=== PATIENT | female | born 1950 | race Caucasian/White ===

== ENCOUNTER → 2019-11-26 11:05 | Outpatient (BNVA) | payer MEDICARE, OTHER, SELFPAY | PROVIDERS: Family Provider Internal Medicine; PCP Internal Medicine | DX: D50.9 Iron deficiency anemia, unspecified (principal) | CPT/HCPCS: 85025 ==

== ENCOUNTER → 2019-12-05 08:58 | Outpatient (BNVA) | payer MEDICARE, OTHER, SELFPAY | PROVIDERS: Family Provider Internal Medicine; PCP Internal Medicine; Visit Provider Registered Nurse | DX: D50.9 Iron deficiency anemia, unspecified (principal) | CPT/HCPCS: 82607; 82728; 83540; 83550; 84466; 85007; 85027 ==

== ENCOUNTER → 2020-01-08 10:30 | Outpatient (BNVA) | payer MEDICARE, OTHER, SELFPAY | PROVIDERS: Family Provider Internal Medicine; PCP Internal Medicine; Visit Provider Internal Medicine | DX: E03.9 Hypothyroidism, unspecified (principal); I10 Essential (primary) hypertension; D50.9 Iron deficiency anemia, unspecified; E11.9 Type 2 diabetes mellitus without complications; E78.5 Hyperlipidemia, unspecified; I25.10 Atherosclerotic heart disease of native coronary artery without angina pectoris | CPT/HCPCS: 80053; 83036; 84443; 85025 ==

== ENCOUNTER 2020-05-27 13:57 | Outpatient (CLI) | payer MEDICARE, OTHER, SELFPAY ==
--- NOTE | 2020-05-27 14:03 | MM_ITS ---
WS: [id number] SCREENING DIGITAL MAMMOGRAM WITH CAD HISTORY: SCREENING COMPARISON: 04/24/2019 and 04/08/2018 Bilateral CC and MLO views submitted. Computer aided detection analyzed. Breast composition: There are scattered areas of fibroglandular density. No suspicious masses, microc alcifications or architectural distortion. MM/[id number] IMPRESSION: BI-RADS: 1-Negative FOLLOW UP: 1 Year Follow-up
== END 2020-05-27 13:58 | disposition home or self-care (01) ==
LOC: RADSHAW 14:01
PROVIDERS: PCP Internal Medicine; Visit Provider Internal Medicine
DX: Z12.31 Encounter for screening mammogram for malignant neoplasm of breast (principal)
CPT/HCPCS: 77067

== ENCOUNTER → 2020-08-10 09:04 | Outpatient (BNVA) | payer MEDICARE, OTHER, SELFPAY | PROVIDERS: PCP Internal Medicine; Referring Provider Dermatology; Visit Provider Dermatology | DX: Z12.83 Encounter for screening for malignant neoplasm of skin (principal); D48.5 Neoplasm of uncertain behavior of skin; L82.1 Other seborrheic keratosis; D36.10 Benign neoplasm of peripheral nerves and autonomic nervous system, unspecified; L91.8 Other hypertrophic disorders of the skin; D48.9 Neoplasm of uncertain behavior, unspecified | CPT/HCPCS: 11102; 88304; 99203 ==

== ENCOUNTER 2020-09-20 14:54 | Outpatient (CLI) | payer MEDICARE, OTHER, SELFPAY ==
[2020-09-20 15:43] LABS: Blood Urea Nitrogen 29 mg/dL (8-23); Glomerular Filtration Rate 31.9 mL/min (90-130)
== END 2020-09-20 14:55 | disposition home or self-care (01) ==
LOC: RADWPI 14:58
PROVIDERS: PCP Internal Medicine; Visit Provider Internal Medicine
DX: G50.9 Disorder of trigeminal nerve, unspecified (principal)
CPT/HCPCS: 82565; 84520

== ENCOUNTER 2020-09-22 14:20 | Outpatient (CLI) | payer MEDICARE, OTHER, SELFPAY ==
--- NOTE | 2020-09-22 14:39 | CT_ITS ---
WS: [id number] CT scan of the head, without IV contrast, 09/22/2020 Clinical Data: trigeminal nerve Comparison: CT head, 11/14/2019. DLP: 925.[address] scans at [facility] use at least one of these dose optimization techniques: automat ed exposure control; mA and/or kV adjustment per patient size (includes targeted exams where dose is matched to clinical indication); or iterative reconstruction. Findings: The ventricular system is modestly dilated without shift. No recent infarct or hemorrhage is seen. Th ere are no abnormal intracerebral masses. The cerebellum and brainstem are not remarkable. Bony windows of the skull and skull base show no fractures or erosions. The mastoid air cells, international guest coordinator al auditory canals, sella turcica, intraorbital contents, and paranasal sinuses are unremarkable. CT/CT head wo/w con [id number] Impression: Negative CT scan of the head with and without IV contrast.
--- NOTE | 2020-09-22 14:39 | CT_ITS ---
WS: [id number] CT scan of the neck with IV contrast. Additional two-dimensional coronal and sagittal reconstruction was performed. 09/22/2020 Clinical Data: focus skull base Comparison: None. DLP: 2460.[address] scans at [facility] use at least one of these dose optimization techniques: automat ed exposure control; mA and/or kV adjustment per patient size (includes targeted exams where dose is matched to clinical indication); or iterative reconstruction. Findings: No lymphadenopathy is noted. The salivary glands are unremarkable. There is no prevertebral soft tiss ue swelling. The larynx is symmetric. The thyroid gland shows normal enhancement. The floor of the mo [place] and parapharyngeal spaces are normal. The oral cavity is unremarkable. The carotid arteries bifurcate normally. The vertebral arteries are unremarkable. The cervical spine shows osteoarthritic change at C4-C7 with disc space narrowing, anterior and posterior spurring and a subluxation of C4 on C5 of 0.3 cm. The lung apices show no abnormalities. The portions of the intra cranial circulation which are seen demonstrate no abnormalities. No erosion of the skull or skull bas e is seen. CT/CT neck w con* [id number] Impression: Negative CT scan of the neck.
[2020-09-22] MEDS: iodixanol 320 mg/mL 100mL Btl IV (15:15)
== END 2020-09-22 14:21 | disposition home or self-care (01) ==
LOC: RADWPI 14:26
PROVIDERS: PCP Internal Medicine; Visit Provider Internal Medicine
DX: G50.9 Disorder of trigeminal nerve, unspecified (principal)
CPT/HCPCS: 70470; 70491; Q9967

== ENCOUNTER → 2020-12-02 08:56 | Outpatient (BNVA) | payer MEDICARE, OTHER, SELFPAY | PROVIDERS: PCP Internal Medicine; Referring Provider Internal Medicine; Visit Provider Specialist | DX: R51.9 Headache, unspecified (principal); G50.9 Disorder of trigeminal nerve, unspecified; I10 Essential (primary) hypertension; E11.9 Type 2 diabetes mellitus without complications; Z79.84 Long term (current) use of oral hypoglycemic drugs | CPT/HCPCS: 99204 ==

== ENCOUNTER 2020-12-08 15:44 | Outpatient (CLI) | payer MEDICARE, OTHER, SELFPAY ==
--- NOTE | 2020-12-08 15:15 | MR_ITS ---
WS: [id number] MRA ANGIOGRAPHY [place] HISTORY: G45.9 - Transient cerebral ischemic attack, unspecified COMPARISON: None available. TECHNIQUE: 3-D MR angiography is performed of the [place]. All images are reviewed including source images. Distal vertebral and basilar arteries are intact with no significant stenosis or plaque. Posterior ce rebral arteries are normal course and caliber. Posterior communicating arteries are both hypoplastic. Very poorly visualized. Intracranial portion of the internal carotid arteries are normal course and caliber. Mild scattered p laque through the intracranial carotid arteries but no high-grade stenosis. Middle and anterior cereb ral arteries are both patent with no significant disease. Anterior communicating artery is also neda l. MR/MR angio head wo con [id number] IMPRESSION: 1. Mild atherosclerosis intracranial carotid arteries. 2. Small hypoplastic posterior communicating arteries. 3. No aneurysm.
--- NOTE | 2020-12-08 16:00 | MR_ITS ---
WS: [id number] MRI BRAIN WITHOUT CONTRAST HISTORY: G45.9 - Transient cerebral ischemic attack, unspecified COMPARISON: CT head 09/22/2020 TECHNIQUE: Diffusion imaging, multiplanar T1, T2 and FLAIR imaging obtained. No evidence for acute infarct or hemorrhage. Cortes-white matter differentiation is normal. Periventricular increased signal on the T2 and FLAIR sequences and numerous scattered foci of increas ed signal in the subcortical and periventricular white matter. In this age group probably small vesse l ischemic disease. No prior infarcts. Ventricles and extra-axial spaces are normal. No inferior displacement of cerebellar tonsils. The sella turcica and pituitary gland are unremarkabl e. Posterior fossa is also unremarkable. Dural venous sinuses and [place] demonstrate no abnormality on this unenhanced studies. Paranasal sinuses: Clear. Mastoid air cells: Normal. Calvarium and scalp: Intact. MR/MR head wo con* [id number] IMPRESSION: 1. No evidence for an acute infarct or hemorrhage. 2. Mild chronic microvascular ischemic disease without a prior infarct.
== END 2020-12-08 15:45 | disposition home or self-care (01) ==
LOC: RADSHAW 15:46
PROVIDERS: PCP Internal Medicine; Visit Provider Specialist
DX: G45.9 Transient cerebral ischemic attack, unspecified (principal); I67.82 Cerebral ischemia
CPT/HCPCS: 70544; 70551

== ENCOUNTER → 2021-04-06 11:26 | Outpatient (BNVA) | payer MEDICARE, OTHER, SELFPAY | PROVIDERS: PCP Internal Medicine; Visit Provider Specialist | DX: G50.9 Disorder of trigeminal nerve, unspecified (principal); E11.40 Type 2 diabetes mellitus with diabetic neuropathy, unspecified; Z79.84 Long term (current) use of oral hypoglycemic drugs; R26.81 Unsteadiness on feet | CPT/HCPCS: 99214 ==

== ENCOUNTER → 2021-07-26 10:30 | Outpatient (BNVA) | payer MEDICARE, OTHER, SELFPAY | PROVIDERS: PCP Internal Medicine; Visit Provider Internal Medicine Cardiovascular Disease | DX: E78.00 Pure hypercholesterolemia, unspecified (principal); E11.9 Type 2 diabetes mellitus without complications; I10 Essential (primary) hypertension; E03.9 Hypothyroidism, unspecified; Z78.9 Other specified health status; I25.10 Atherosclerotic heart disease of native coronary artery without angina pectoris | CPT/HCPCS: 80053; 80061; 83036; 83721; 84443; 85025 ==

== ENCOUNTER 2021-08-17 09:43 | Outpatient (CLI) | payer MEDICARE, OTHER, SELFPAY ==
--- NOTE | 2021-08-17 09:51 | MM_ITS ---
WS: [id number] Exam: [place] [id number] Date/Time of Exam: 08/17/2021 9:54 AM Reason For Exam: SCREENING VIEWS: MLO and CC views both breasts. Comparison made with prior exam of 04/08/2018, 04/24/2019 and 05/27/2020. Findings: There was no sign of mass, architectural distortion or suspicious calcification in either breast. Fa tty MM/[place] [id number] Impression: BI-RADS: 2-Benign FOLLOW-UP: 1 Year Follow-up This mammogram was also analyzed by the Computer Aided Detection System R2 Imag e Pulp Refiner Operator.
== END 2021-08-17 09:44 | disposition home or self-care (01) ==
LOC: RADSHAW 09:46
PROVIDERS: PCP Internal Medicine; Visit Provider Internal Medicine
DX: Z12.31 Encounter for screening mammogram for malignant neoplasm of breast (principal)
CPT/HCPCS: 77067

== ENCOUNTER → 2021-08-31 08:57 | Outpatient (BNVA) | payer MEDICARE, OTHER, SELFPAY | PROVIDERS: PCP Internal Medicine; Visit Provider Internal Medicine Cardiovascular Disease | DX: D50.9 Iron deficiency anemia, unspecified (principal); I25.10 Atherosclerotic heart disease of native coronary artery without angina pectoris; N18.30 Chronic kidney disease, stage 3 unspecified | CPT/HCPCS: 80053; 80061; 85025 ==

== ENCOUNTER → 2021-11-22 11:02 | Outpatient (BNVA) | payer MEDICARE, OTHER, SELFPAY | PROVIDERS: PCP Internal Medicine; Visit Provider Internal Medicine | DX: E11.649 Type 2 diabetes mellitus with hypoglycemia without coma (principal); E11.22 Type 2 diabetes mellitus with diabetic chronic kidney disease; N18.30 Chronic kidney disease, stage 3 unspecified; I25.10 Atherosclerotic heart disease of native coronary artery without angina pectoris; E03.9 Hypothyroidism, unspecified; Z79.84 Long term (current) use of oral hypoglycemic drugs | CPT/HCPCS: 99214 ==

== ENCOUNTER → 2022-02-01 00:01 | Outpatient (BNVA) | payer MEDICARE, OTHER, SELFPAY | PROVIDERS: PCP Internal Medicine; Visit Provider Internal Medicine | DX: Z01.812 Encounter for preprocedural laboratory examination (principal); Z80.0 Family history of malignant neoplasm of digestive organs | CPT/HCPCS: 87635 ==

== ENCOUNTER 2022-02-06 07:41 | Day surgery (SDC) | payer MEDICARE, OTHER, SELFPAY ==
[2022-02-03 10:24] VITALS: BMI 32.5
--- NOTE | 2022-02-06 07:55 | P.HP_ITS ---
Same Day Surgery H&P Indication for Procedure/HPI DATE OF PROCEDURE: February 06, 2022 CHIEF COMPLAINT/INDICATIONFOR SURGICAL PROCEDURE: Change in bowel habit PREOP DIAGNOSIS: Change in BH and FH PLANNED PROCEDURE: Operation Date: 02/06/22 09:00 Proposed Procedures p Colonoscopy/39477/[id number](Not Applicable) - Kavin Yost MD Medications/Allergies* Home Medications Medication Instructions Recorded Confirmed Type aspirin 81 mg tablet,delayed 81 mg PO QDAY 12/05/19 02/03/22 History release (Aspirin Low Dose) loratadine 10 mg tablet (Allergy 10 mg PO QDAY 12/05/19 02/03/22 History Relief (loratadine)) albuterol 90 mcg/actuation aerosol 180 mcg INHALATION BID PRN 02/03/22 02/03/22 History inhaler camphor-menthol 0.2 %-3.5 % 1 applic TOPICAL DAILY PRN 02/03/22 02/03/22 History topical gel Allergies/Adverse Reactions Allergy/AdvReac Type Severity Reaction Status Date / Time meclizine Allergy Intermediate dizziness Verified 01/26/22 13:30 codeine Allergy Unknown Verified 01/26/22 13:30 ofloxacin Allergy Unknown Verified 01/26/22 13:30 Pertinent History/Comorbid Conditions* Medical History (Updated 01/26/22 @ 14:03 by PERRY Gilbert) Coronary artery disease Essential hypertension Hyperlipidemia Hypothyroid Insomnia, idiopathic Kidney stone Myocardial infarction Type 2 diabetes mellitus Surgical History (Updated 08/27/21 @ 11:47 by Margarita Bowen MD) H/O tubal ligation Hx of appendectomy Hx of cataract surgery Hx of hysterectomy Family History (Updated 08/23/21 @ 08:51 by Keena Cm LPN) Father Diabetes Mother Cancer Father Mother Hypertension Mother Social History Smoking and tobacco status: never smoked Alcohol intake: never History of recent travel: No Current gender identity: Female Pertinent Exam Findings alert, oriented x 3, clear to auscultation bilaterally, regular rate & rhythm, operative site marked and procedure specific exam findings Recommendations Surgery/Procedure today Coding Level of Care Code Acute Vice President Biostatistics for Benjaming Keyshawn
[2022-02-06 08:12] VITALS: BP 155/76; PULSE 53; RESP 16; TEMP 36.3; O2SAT 96
[2022-02-06] MEDS: sodium chloride 0.9% 1,000 ML 30 ML IV (08:24)
--- NOTE | 2022-02-06 08:37 | ANES.PREANE2 ---
Pre-Anesthetic Assessment Height/Weight: Height 1.55 m Weight 78.018 kg Temp Pulse Resp BP Pulse Ox 97.4 F L 53 L 16 155/76 96 02/06/22 08:12 02/06/22 08:12 02/06/22 08:12 02/06/22 08:12 02/06/22 08:12 Preop Diagnosis: Change in BH and FH Operation Date: 02/06/22 09:00 Proposed Procedures p Colonoscopy/[id number](Not Applicable) - Kavin Yost MD Familial anesthetic complications: None Was Beta Anderson taken within 24 hours: Yes Was Clonidine taken within 24 hours: N/A Last intake: Intake Last Liquid Date 02/05/22 Last Liquid Time 20:00 Last Solid Date 02/04/22 Last Solid Time 00:00 Social No alcohol and No tobacco Exam alert, oriented x 3, clear to auscultation bilaterally and regular rate & rhythm Airway Submandibular: within normal limits Cervical ROM: within normal limits Mallampati: Class II Dentition: full Pulmonary Asthma CV/HEM Coronary Artery Disease, Hypertension and Myocardial Infarction GI Gastroesophageal Reflux Disease Metabolic Diabetes Mellitus, Morbid Obesity and Thyroid Disease Anesthetic Plan ASA status: 3 Anesthesia: General Risk of > 500 ml blood loss (7ml/kg in children): No Medications/Allergies Home Medications Medication Instructions Recorded Confirmed Last Taken Type aspirin 81 mg tablet,delayed 81 mg PO QDAY 12/05/19 02/06/22 02/05/22 History release (Aspirin Low Dose) loratadine 10 mg tablet (Allergy 10 mg PO QDAY 12/05/19 02/06/22 02/05/22 History Relief (loratadine)) fluticasone 500 mcg-salmeterol 50 1 inh INHALATION BID #60 each 05/12/20 02/06/22 Unknown Rx mcg/dose blistr powdr for inhalation (Advair Diskus) carvedilol 25 mg tablet 25 mg PO BID #180 tab 09/14/21 02/06/22 02/06/22 Rx ezetimibe 10 mg tablet (Zetia) 10 mg PO DAILY #90 tab 09/14/21 02/06/22 02/05/22 Rx glimepiride 4 mg tablet (Amaryl) 4 mg PO DAILY #90 tab 09/14/21 02/06/22 02/05/22 Rx irbesartan 300 1 tab PO DAILY #90 tab 09/14/21 02/06/22 02/05/22 Rx mg-hydrochlorothiazide 12.5 mg tablet pantoprazole 40 mg tablet,delayed 40 mg PO DAILY #90 tab 09/14/21 02/06/22 02/05/22 Rx release hydrochlorothiazide 25 mg tablet 50 mg PO DAILY #90 tab 09/21/21 02/06/22 02/05/22 Rx levothyroxine 75 mcg tablet 75 mcg PO DAILY #90 tab 12/26/21 02/06/22 02/05/22 Rx albuterol 90 mcg/actuation aerosol 180 mcg INHALATION BID PRN 02/03/22 02/06/22 Unknown History inhaler camphor-menthol 0.2 %-3.5 % 1 applic TOPICAL DAILY PRN 02/03/22 02/06/22 02/05/22 History topical gel Allergies Allergy/AdvReac Type Severity Reaction Status Date / Time meclizine Allergy Intermediate dizziness Verified 01/26/22 13:30 codeine Allergy Unknown Verified 01/26/22 13:30 ofloxacin Allergy Unknown Verified 01/26/22 13:30 Current Medications Generic Name Dose Route Start Last Admin Trade Name Freq PRN Reason Stop Dose Admin Sodium Chloride 1,000 mls @ 30 mls/hr 02/06/22 08:00 02/06/22 08:24 Sodium Chloride 0.9% IV 30 mls/hr .Q24H FLAVIO Administration PFSH Anesthesia Medical History Coronary artery disease Essential hypertension Hyperlipidemia Hypothyroid Insomnia, idiopathic Kidney stone Myocardial infarction Type 2 diabetes mellitus Surgical History H/O tubal ligation Hx of appendectomy Hx of cataract surgery Hx of hysterectomy Family History Father Cancer Mother Cancer Hypertension Diabetes Social History Smoking and tobacco status: never smoked Alcohol intake: never History of recent travel: No Current gender identity: Female Data Anesthesia Cardiac Studies: No Data to Display
[2022-02-06 10:13] VITALS: BP 131/64; PULSE 55; RESP 16; TEMP 36.5; O2SAT 95
[2022-02-06 10:32] VITALS: BP 166/84; PULSE 56; RESP 16; O2SAT 97
--- NOTE | 2022-02-06 14:49 | ANE.PACU2 ---
Inpatient post-anesthesia follow up: Airway intact: Yes Vital signs: Temperature 97.7 F Pulse Rate 56 Respiratory Rate 16 Blood Pressure 166/84 Pulse Oximetry 97 Oxygen Delivery Me thod Room Air Oxygen Flow Rate 2 Fraction of Inspir ed Oxygen Hydration adequate: Yes Nausea and vomiting: No Pain level: 1 Mental status: Baseline
== END 2022-02-06 11:00 | disposition home or self-care (01) ==
PROVIDERS: PCP Internal Medicine; Visit Provider Internal Medicine
PROC: 0DJD8ZZ Inspection of Lower Intestinal Tract, Via Natural or Artificial Opening Endoscopic (ICD-10-PCS; CPT 45378; principal; 2022-02-06 09:00)
DX: R19.4 Change in bowel habit (principal); Z80.0 Family history of malignant neoplasm of digestive organs; D12.2 Benign neoplasm of ascending colon; D12.5 Benign neoplasm of sigmoid colon; K57.30 Diverticulosis of large intestine without perforation or abscess without bleeding; Z79.82 Long term (current) use of aspirin; I25.10 Atherosclerotic heart disease of native coronary artery without angina pectoris; I10 Essential (primary) hypertension; E78.5 Hyperlipidemia, unspecified; E03.9 Hypothyroidism, unspecified; I25.2 Old myocardial infarction; E11.9 Type 2 diabetes mellitus without complications; K21.9 Gastro-esophageal reflux disease without esophagitis; E66.01 Morbid (severe) obesity due to excess calories; Z68.32 Body mass index [BMI] 32.0-32.9, adult
CPT/HCPCS: 45385; 88305; J2704; J7030

== ENCOUNTER 2022-08-21 08:41 | Outpatient (CLI) | payer MEDICARE, OTHER, SELFPAY ==
--- NOTE | 2022-08-21 08:48 | MM_ITS ---
WS: [id number] BILATERAL SCREENING DIGITAL TOMOSYNTHESIS MAMMOGRAM WITH CAD HISTORY: SCREENING COMPARISON: 08/17/2021, 05/27/2020 and 04/24/2019 Bilateral CC and MLO views with tomosynthesis and synthetic mammography submitted. Computer aided det ection analyzed. Breast composition: There are scattered areas of fibroglandular density. No suspicious masses, microc alcifications or architectural distortion. RIGHT lymph node near the pectoralis muscle. MM/[id number] IMPRESSION: BI-RADS: 1-Negative FOLLOW UP: 1 Year Follow-up
== END 2022-08-21 08:42 | disposition home or self-care (01) ==
LOC: RAD 08:41
PROVIDERS: PCP Internal Medicine; Visit Provider Internal Medicine
DX: Z12.31 Encounter for screening mammogram for malignant neoplasm of breast (principal)
CPT/HCPCS: 77063; 77067

== ENCOUNTER → 2022-10-23 09:51 | Outpatient (BNVA) | payer MEDICARE, OTHER, SELFPAY | PROVIDERS: PCP Internal Medicine; Visit Provider Family Medicine | DX: J45.991 Cough variant asthma (principal); E03.9 Hypothyroidism, unspecified; E11.9 Type 2 diabetes mellitus without complications; I10 Essential (primary) hypertension; E78.00 Pure hypercholesterolemia, unspecified; E11.649 Type 2 diabetes mellitus with hypoglycemia without coma; N18.30 Chronic kidney disease, stage 3 unspecified | CPT/HCPCS: 80053; 80061; 83036; 83721; 84439; 84443; 85025 ==

== ENCOUNTER 2022-10-25 08:29 | Emergency (ER) | payer MEDICARE, OTHER, SELFPAY ==
[2022-10-25 08:34] VITALS: BP 197/90; PULSE 72; TEMP 36.9; O2SAT 97; BMI 32.5
[2022-10-25 08:39] VITALS: BP 180/88; PULSE 82; O2SAT 98
[2022-10-25 09:02] LABS: Glucose Point of Care 138 mg/dL (70-110)
[2022-10-25 09:03] LABS: Basophils % 0.2 %; Eosinophils % 0.1 %; Hematocrit 32.9 % (37.0-47.0); Hemoglobin 10.9 g/dL (11.5-15.3); Lymphocytes # 1.7 10^3/uL (0.8-4.8); Lymphocytes % 16.1 %; Mean Corpuscular HGB Conc 33.1 g/dL (30.0-36.0); Mean Corpuscular Volume 93.5 fl (81-99); Mean Platelet Volume 10.9 fL (7.4-10.4); Monocytes # 0.7 10^3/uL (0.2-0.9); Monocytes % 6.6 %; Neutrophils # 7.96 10^3/uL (1.8-7.7); Neutrophils % 76.4 %; Nucleated Red Blood Cells % 0 %; Platelet Count 319 10^3/cmm (130-400); Red Blood Count 3.52 10^6/uL (4.1-5.3); Red Cell Distribution Width 12.5 % (12.1-15.1); White Blood Count 10.4 10^3/uL (4.0-10.0)
--- NOTE | 2022-10-25 09:03 | XR_ITS ---
WS: [id number] EXAMINATION: XR chest 1V portable [id number] REASON FOR EXAM: wheezing COMPARISON: None available. ORDER DATE: 10/25/2022 9:07 AM TECHNIQUE: A single, portable frontal chest x-ray was obtained. X-RAY FINDINGS: The lungs are clear. Pleural spaces are clear. No pleural effusions or pneumothorax. Cardiomediastinal silhouette is normal. No evidence for pulmonary edema. Soft tissue and osseous structures are unremarkable. No tubes or lines are present. XR/XR chest 1V portable [id number] IMPRESSION: Unremarkable frontal portable chest x-ray.
--- NOTE | 2022-10-25 09:04 | W.ED.GENADLT ---
HPI - General Adult General: Chief complaint: General Medical Stated complaint: worried about her diabetes. Time Seen by Provider: 10/25/22 08:33 History of Present Illness: Patient is a 72-year-old female who comes to the ED with elevated blood sugars. Patient has a history of asthma, hypertension, hyperlipidemia, diabetes and diabetic retinopathy. She currently [facility] and gets injections in both right and left eyes. She states that her left eye recently had an injection and it was improving but over the past couple days left eye vision has worsened. She is scheduled to see Dr. Elliott this Sunday for further evaluation. She is currently been dealing with an upper respiratory infection and saw her primary care doctor who put her on a steroid and antibiotic. Patient checks her blood sugars daily and says for the past couple days since she has been taking her steroids she has been having blood sugars over 200. She denies any other symptoms. She currently takes 1 tablet of glimepiride daily for diabetes. She denies abdominal pain, nausea/vomiting, bladder or bowel symptoms, chest pain or any shortness of breath. Associated symptoms: Deny chest pain, dyspnea, headache(s), nausea, rash, palpitations or vomiting Review of Systems Const: Denies: fever(s), chills or fatigue Eyes: Denies: change in vision or eye discomfort ENMT: Reports: nasal congestion and sinus pain; Denies: throat pain, odynophagia or nasal discharge Card: Denies: chest pain, palpitations, edema, swelling of feet/ankles, dyspnea on exertion or orthopnea Resp: Reports: non-productive cough and wheezing; Denies: dyspnea or productive cough GI: Denies: abdominal pain, nausea, vomiting, diarrhea, constipation or hematochezia : Denies: flank pain, dysuria or hematuria Musc: Denies: neck pain, back pain or extremity swelling Skin/Breast: Denies: rash or new lesions Neuro: Denies: headache(s), numbness in extremities or weakness in extremities Endo: Reports: other (elevated blood sugars over 200) [facility] PFSH: Medical History Coronary artery disease Essential hypertension Hyperlipidemia Hypothyroid Insomnia, idiopathic Kidney stone Myocardial infarction Type 2 diabetes mellitus Surgical History H/O tubal ligation Hx of appendectomy Hx of cataract surgery Hx of hysterectomy Family History Father Cancer Mother Cancer Hypertension Diabetes Social History Smoking and tobacco status: never smoked Alcohol intake: never History of recent travel: No Current gender identity: Female Female Reproductive History: Spontaneous abortions: No Physical Exam Const: COMMON NORMALS: no acute distress, patient oriented x3 and alert GENERAL APPEARANCE: cooperative and comfortable HENMT: COMMON NORMALS: normocephalic HEAD & SCALP: normocephalic MOUTH: Normal oral and palatal mucosa present THROAT: posterior oropharynx normal and uvula midline Eye: COMMON NORMALS: Equal, round and reactive pupils present and conjunctivae normal CONJUNCTIVA: Yes conjunctivae normal PUPIL: Yes Equal, round and reactive pupils present Neck/C-Spine: COMMON NORMALS: supple GENERAL: Yes normal visual inspection Resp: COMMON NORMALS: normal respiratory effort, No retractions, No use of accessory muscles and clear to auscultation bilaterally AUSCULTATION: clear to auscultation bilaterally Cardio: COMMON NORMALS: regular rate, regular rhythm, S1 normal heart sound present, S2 normal heart sound present, No gallops present (Cardio), No clicks present (Cardio), No murmurs present (Cardio) and Peripheral pulses 2+ throughout RATE: regular rate RHYTHM: regular rhythm HEART SOUNDS: S1 normal heart sound present and S2 normal heart sound present PERIPHERAL PULSES: Peripheral pulses 2+ throughout GI: COMMON NORMALS: Normal to inspection, nondistended, normoactive bowel sounds present, Soft to palpation, non-tender and no masses PALPATION: Yes Soft to palpation : COMMON NORMALS: Yes no CVA tenderness BLADDER/KIDNEY EXAM: Yes no CVA tenderness Back/Pelvis: COMMON NORMALS: no CVA tenderness Extremity: COMMON NORMALS: normal to inspection Neuro: COMMON NORMALS: patient oriented x3 SENSORIUM/ORIENTATION: Yes alert GAIT: Yes Normal gait present Skin: GENERAL SKIN EXAM: dry skin Course Vital Signs: Vital signs: Vital Signs Temperature 98.4 F 10/25/22 08:34 Pulse Rate 67 10/25/22 09:39 Respiratory Rate 16 10/25/22 09:25 Blood Pressure 180/88 10/25/22 08:39 Pulse Oximetry 96 10/25/22 09:39 Oxygen Delivery Me thod 10/25/22 09:39 MDM - General Adult Medical Decision Making Patient is a 72-year-old female who comes to the ED with elevated blood sugars. Patient has a history of asthma, hypertension, hyperlipidemia, diabetes and diabetic retinopathy. She currently sees [facility] and gets injections in both right and left eyes. She states that her left eye recently had an injection and it was improving but over the past couple days left eye vision has worsened. She is scheduled to see Dr. Elliott this Sunday for further evaluation. She is currently been dealing with an upper respiratory infection and saw her primary care doctor who put her on a steroid and antibiotic. Patient checks her blood sugars daily and says for the past couple days since she has been taking her steroids she has been having blood sugars over 200. She denies any other symptoms. Vitals stable. Exam patient is benign. Labs are unremarkable. Patient's blood sugar is 138 here in the ED. Chest x-ray shows no acute findings. Patient diagnosed with hyperglycemia and was told to follow-up with PCP within the next week for reevaluation. Return to ED precautions given. Patient understood and agreed with plan. Lab Data I reviewed the patient's lab results. 10/25/22 08:55 10/25/22 08:55 Radiology Impressions Chest X-Ray 10/25/22 09:03 IMPRESSION: Unremarkable frontal portable chest x-ray. Laboratory Results WBC 10.4 10^3/uL (4.0-10.0) H 10/25/22 08:55 RBC 3.52 10^6/uL (4.1-5.3) L 10/25/22 08:55 Hgb 10.9 g/dL (11.5-15.3) L 10/25/22 08:55 Hct 32.9 % (37.0-47.0) L 10/25/22 08:55 MCV 93.5 fl (81-99) 10/25/22 08:55 MCH 31.0 pg (28.0-34.0) 10/25/22 08:55 MCHC 33.1 g/dL (30.0-36.0) 10/25/22 08:55 RDW 12.5 % (12.1-15.1) 10/25/22 08:55 Plt Count 319 10^3/cmm (130-400) 10/25/22 08:55 MPV 10.9 fL (7.4-10.4) H 10/25/22 08:55 Neut % (Auto) 76.4 % 10/25/22 08:55 Lymph % (Auto) 16.1 % 10/25/22 08:55 [place] % (Auto) 6.6 % 10/25/22 08:55 Eos % (Auto) 0.1 % 10/25/22 08:55 Baso % (Auto) 0.2 % 10/25/22 08:55 Neut # (Auto) 7.96 10^3/uL (1.8-7.7) H 10/25/22 08:55 Lymph # (Auto) 1.7 10^3/uL (0.8-4.8) 10/25/22 08:55 [place] # (Auto) 0.7 10^3/uL (0.2-0.9) 10/25/22 08:55 Eos # (Auto) 0.0 10^3/uL (0.0-0.8) 10/25/22 08:55 Baso # (Auto) 0.0 10^3/uL (0.0-0.1) 10/25/22 08:55 Nucleated RBC % (auto) 0 % 10/25/22 08:55 Nucleated RBCs # 0.0 /100WBC 10/25/22 08:55 Sodium 141 mmol/L (136-145) 10/25/22 08:55 Potassium 4.0 mmol/L (3.5-5.1) 10/25/22 08:55 Chloride 108 mmol/L (98-107) H 10/25/22 08:55 Carbon Dioxide 20 mmol/L (22-29) L 10/25/22 08:55 Anion Gap 17.0 (5-19) 10/25/22 08:55 BUN 30 mg/dL (8-23) H 10/25/22 08:55 Creatinine 1.9 mg/dL (0.5-0.9) H 10/25/22 08:55 GFR Calculation Not Reportable 10/25/22 08:55 Glucose 135 mg/dL (65-115) H 10/25/22 08:55 POC Glucose 138 mg/dL (70-110) H 10/25/22 08:56 Calculated Osmolality 300 mOsm/kg (285-295) H 10/25/22 08:55 Calcium 9.3 mg/dL (8.5-10.5) 10/25/22 08:55 Total Bilirubin 0.2 mg/dL (0.15-1.2) 12 08:55 AST 11 U/L (0-32) 10/25/22 08:55 ALT 12 U/L (0-33) 10/25/22 08:55 Alkaline Phosphatase 75 U/L (35-105) 10/25/22 08:55 Total Protein 7.1 g/dL (6.6-8.7) 10/25/22 08:55 Albumin 3.6 g/dL (3.5-5.2) 10/25/22 08:55 Globulin 3.5 g/dL (1.3-4.6) 10/25/22 08:55 Lipase 81 U/L (13-60) H 10/25/22 08:55 Serum Ketones Negative (Negative) 10/25/22 08:55 Discharge Plan Discharge Patient Disposition: Home Clinical Impression: Hyperglycemia Condition: Stable Prescriptions: No Action aspirin [Lorin Low Dose Aspirin] 81 mg tablet,delayed release (DR/EC) 81 mg PO QDAY loratadine [Allergy Relief (loratadine)] 10 mg tablet 10 mg PO QDAY levothyroxine 75 mcg tablet 75 mcg PO DAILY Qty: 90 3RF azithromycin [Zithromax Z-[place]] 250 mg tablet See Rx Instructions PO .COMPLEX Qty: 6 0RF Rx Instructions: take 500 mg today (day 1), then 250 mg for 4 days (days 2-5) PO prednisone 20 mg tablet 20 mg PO DAILY 5 Days Qty: 10 0RF fluticasone propion-salmeterol [Advair Diskus] 500-50 mcg/dose blister with device 1 inh inhalation BID Qty: 60 8RF irbesartan-hydrochlorothiazide 300-12.5 mg tablet 1 tab PO DAILY Qty: 90 3RF glimepiride [Amaryl] 4 mg tablet 4 mg PO DAILY Qty: 90 3RF hydrochlorothiazide 25 mg tablet 50 mg PO DAILY Qty: 90 6RF ezetimibe [Zetia] 10 mg tablet 10 mg PO DAILY Qty: 90 3RF carvedilol 25 mg tablet 25 mg PO BID Qty: 180 3RF Rx Instructions: must administer with a meal/food pantoprazole 40 mg tablet,delayed release (DR/EC) 40 mg PO DAILY Qty: 90 3RF Discharge Orders: Discharge ED (Routine); Ordered 10/25/22 Ordered By: Harjinder Gaines Referrals: Robert Espinoza, DO [Primary Care Provider] - Discharge Diet: Regular Discharge Activity: Increase activity as tolerated Patient Instructions: Hyperglycemia Activity Restrictions/Additional Instructions: Follow-up with medical provider as directed in the next 7 to 10 days for reevaluation. Contact Dr[facility] deceiving get your appointment moved up from Sunday to check your left eye. You can stop taking your previously prescribed prednisone to prevent any elevated blood sugars. Keep taking your previously prescribed antibiotic. Continue checking blood sugars daily. Return to the ER or your medical provider if condition worsens. Please read and understand discharge instructions. Thank you for choosing [facility] for your healthcare needs today. Please realize this is an emergency room and that we are providing you with a medical screening exam and this may not be complete and all inclusive of all the testing and or work up that you may need to determine your ailment or severity of your illness. It is very important that you follow up as instructed or that you return to the Emergency Department should you have concerns or if your condition changes or worsens in any way. Coding Level of Care Code ED Engineering [employer]ession[employer] for Danial Mahajan Exam Comprehensive
[2022-10-25 09:16] LABS: Ketone (Acetest) Serum Negative (Negative)
[2022-10-25 09:25] VITALS: PULSE 60; RESP 16; O2SAT 97
[2022-10-25 09:26] LABS: Alanine Aminotransferase 12 U/L (0-33); Albumin Level 3.6 g/dL (3.5-5.2); Alkaline Phosphatase 75 U/L (35-105); Aspartate Amino Transferase 11 U/L (0-32); Blood Urea Nitrogen 30 mg/dL (8-23); Calcium 9.3 mg/dL (8.5-10.5); Carbon Dioxide 20 mmol/L (22-29); Chloride 108 mmol/L (98-107); Globulin 3.5 g/dL (1.3-4.6); Glucose 135 mg/dL (65-115); Lipase 81 U/L (13-60); Osmolality Calculated 300 mOsm/kg (285-295); Sodium 141 mmol/L (136-145); Total Bilirubin 0.2 mg/dL (0.15-1.2); Total Protein 7.1 g/dL (6.6-8.7)
[2022-10-25] MEDS: ipratropium-albuterol 3 mL Neb 6 ML INHALATION (09:27)
[2022-10-25 09:33] VITALS: PULSE 68
[2022-10-25 09:39] VITALS: PULSE 67; O2SAT 96
== END 2022-10-25 10:30 | disposition home or self-care (01) ==
PROVIDERS: Emergency Provider Physician Assistant; PCP Family Medicine
DX: E11.65 Type 2 diabetes mellitus with hyperglycemia (principal); Z79.82 Long term (current) use of aspirin; Z79.84 Long term (current) use of oral hypoglycemic drugs; I25.10 Atherosclerotic heart disease of native coronary artery without angina pectoris; I10 Essential (primary) hypertension; I25.2 Old myocardial infarction
CPT/HCPCS: 36416; 71045; 80053; 82009; 82962; 83690; 85025; 94640; 99284

== ENCOUNTER 2022-11-13 09:55 | Outpatient (CLI) | payer MEDICARE, OTHER, SELFPAY ==
--- NOTE | 2022-11-13 | USCV_ITS ---
Celeste Kruse Age: 72 Gender: F : 1950 Exam Date: 11/13/2022 10:11 Ordering Phys: Warren Elliott Technologist: ADI Exam Location: [facility] [place] Indication: LEFT CENTRAL RETINAL ARTERY OCCLUSION Risk Factors: Previous Vascular Surgery: Right Brachial BP: / Left Brachial BP: / Right Left Velocity (cm/s) Spectral Plaque Velocity (cm/s) Spectral Plaque Syst/Diast Broadening Syst/Diast Broadening 71.30/ 15.90 Prox CCA 90.60 / 17.20 87.10/ 16.50 Mid CCA 99.90 / 14.50 76.10/ 11.80 Distal CCA 85.40 / 15.40 56.40/ 12.00 Prox ICA 57.50 / 12.10 86.30/ 24.80 Mid ICA 63.90 / 17.70 68.70/ 21.80 Distal ICA 83.50 / 20.60 85.00 ECA 90.70 0.99 ICA/CCA 0.84 Antegrade Vertebral Antegrade 69.80/ 17.40 cm/s 52.10/ 10.80 cm/s Tri Subclavian Tri 104.7 181.8 0 0 CONCLUSIONS Right ICA stenosis <50%. Mild atheromatous plaque right carotid bulb/ICA. Left ICA stenosis <50%. Mild atheromatous plaque left carotid bulb/ICA. Normal antegrade Doppler flow noted in the right vertebral artery. Normal antegrade Doppler flow noted in the left vertebral artery. Myles Britt MD (Electronically Signed) Final Date: 13 November 2022 10:49 S
== END 2022-11-13 09:56 | disposition home or self-care (01) ==
LOC: RAD 09:56
PROVIDERS: PCP Family Medicine; Visit Provider Student in an Organized Health Care Education/Training Program
DX: H34.12 Central retinal artery occlusion, left eye (principal); I65.23 Occlusion and stenosis of bilateral carotid arteries
CPT/HCPCS: 93880

== ENCOUNTER → 2022-11-22 14:05 | Outpatient (BNVA) | payer MEDICARE, OTHER, SELFPAY | PROVIDERS: PCP Family Medicine; Visit Provider Family Medicine | DX: E78.2 Mixed hyperlipidemia (principal); Z78.9 Other specified health status; E11.9 Type 2 diabetes mellitus without complications; D64.9 Anemia, unspecified; I10 Essential (primary) hypertension | CPT/HCPCS: 81003 ==

== ENCOUNTER 2023-02-13 10:16 | Inpatient (IN) | payer MEDICARE, OTHER, SELFPAY ==
[2023-02-13] VITALS (10 sets, daily range): BP systolic 150–202; BP diastolic 73–104; PULSE 60–76; RESP 16–25; TEMP 36.2–36.7; O2SAT 96–99; BMI 33.7; BMI 32.7
--- NOTE | 2023-02-13 10:32 | ECG_ITS ---
[facility] Test Date: 2023-02-13 Pat Name: Celeste Kruse Department: Room: Gender: Female Edi Specialist: : 1950 Requested By: Aroldo Kunz Order Number: [id number] Ramirez MD: Malik Muñoz M.D. Measurements Intervals [place] Rate: 66 P: 37 [place]: 140 QRS: -31 QRSD: 142 T: 37 QT: 422 QTc: 444 Interpretive Statements SINUS RHYTHM WITH OCCASIONAL VENTRICULAR PREMATURE COMPLEXES LEFT AXIS DEVIATION [QRS AXIS < -30] RIGHT BUNDLE BRANCH BLOCK [120+ ms QRS DURATION, UPRIGHT V1, 40+ ms S IN I/aVL/V4/V5/V6] Compared to ECG 11/14/2019 13:15:47 Ventricular premature complex(es) now present Electronically Signed On 02-14-2023 0:24:40 CDT by Malik Muñoz M.D. [id number]
--- NOTE | 2023-02-13 10:51 | XR_ITS ---
WS: [id number] Exam: XR chest 1V portable [id number] Date/Time of Exam: 02/13/2023 11:00 AM Reason For Exam: dyspnea/cough Comparison 10/25/2022. The lungs are clear and fully inflated. Heart size top limits normal. The mediastinum is normal in co ntour. Mild plaque atelectasis in the left base. Bony structures are intact. XR/XR chest 1V portable [id number] IMPRESSION: 1. No acute cardiopulmonary finding.
[2023-02-13] MEDS: aspirin 81 mg Chew Tablet 324 MG PO (11:10)
--- NOTE | 2023-02-13 11:14 | W.ED.SOB ---
HPI - SOB/Dyspnea General: Chief Complaint: Shortness of Breath/Dyspnea Stated Complaint: sob, left arm pain Time Seen by Provider: 02/13/23 10:51 Source: patient Mode of arrival: ambulatory History of Present Illness: HPI Narrative: 72-year-old female presents emergency room complaining of shortness of breath and left arm pain. She states this been going on for several weeks intermittently she has not noticed anything that exacerbates or relieves it. No orthopnea. Denies fevers sweats or chills. She states few weeks ago they did start her on spironolactone. She is known history of coronary disease and tells me she had angioplasty done about 5 years ago. MD elicited complaint: shortness of breath and chest pain Onset (ago): week(s) (1) Timing: intermittent Severity: mild Exacerbating factors: nothing Relieving factors: nothing Associated symptoms: Reports chest pain; Deny abdominal pain, chest congestion, cough, diaphoresis, dizziness, extremity pain, fever(s), hemoptysis, lightheadedness, myalgias, nausea, orthopnea, palpitations, paresthesias, polydipsia, polyuria, rash, sense of impending doom, syncope or vomiting Treatment prior to arrival: oxygen Review of Systems Const: Denies: fever(s), chills, fatigue, malaise or diaphoresis ENMT: Denies: throat pain, ear or mastoid pain, nasal discharge or nasal congestion Card: Reports: chest pain; Denies: palpitations, lightheadedness, syncope or orthopnea Resp: Denies: dyspnea, productive cough, hemoptysis or chest congestion GI: Denies: abdominal pain, nausea or vomiting : Denies: flank pain, difficulty voiding, dysuria, urinary frequency or urinary urgency Musc: Denies: neck pain, back pain or extremity pain Skin/Breast: Denies: rash or pruritus Neuro: Denies: dizziness Endo: Denies: polyuria or polydipsia PFSH ED PFSH: Medical History (Updated 02/13/23 @ 15:52 by Ramone Rosenthal MD) Asthma 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 Coronary artery disease Essential hypertension Hyperlipidemia Hypoglycemia associated with type 2 diabetes mellitus Hypothyroid Insomnia, idiopathic Kidney stone Myocardial infarction Statin intolerance Type 2 diabetes mellitus Surgical History H/O tubal ligation Hx of appendectomy Hx of cataract surgery Hx of hysterectomy Family History Father Cancer Mother Cancer Hypertension Diabetes Social History Smoking and tobacco status: never smoked Alcohol intake: never Current gender identity: Female Female Reproductive History: Spontaneous abortions: No Physical Exam Const: GENERAL APPEARANCE: cooperative and comfortable ORIENTATION/CONSCIOUSNESS: Yes awake, Yes oriented to person, Yes oriented to place and Yes oriented to time HENMT: COMMON NORMALS: normocephalic, atraumatic and hearing grossly normal bilaterally HEAD & SCALP: normocephalic and atraumatic Resp: COMMON NORMALS: normal respiratory effort, No retractions, No use of accessory muscles and clear to auscultation bilaterally AUSCULTATION: clear to auscultation bilaterally Cardio: COMMON NORMALS: regular rate, regular rhythm and No murmurs present (Cardio) RATE: regular rate RHYTHM: regular rhythm GI: COMMON NORMALS: Soft to palpation and No hepatosplenomegaly present AUSCULTATION: Yes normoactive bowel sounds PALPATION: Yes Soft to palpation, No Tenderness to palpation present (GI), No Guarding due to palpation present (GI) and Yes No hepatosplenomegaly present : COMMON NORMALS: Yes no CVA tenderness BLADDER/KIDNEY EXAM: Yes no CVA tenderness Back/Pelvis: COMMON NORMALS: no CVA tenderness Extremity: COMMON NORMALS: normal to inspection, capillary refill normal, no clubbing, cyanosis or edema, no calf tenderness and no pedal edema Neuro: SENSORIUM/ORIENTATION: Yes oriented to person, Yes oriented to place and Yes oriented to time Skin: COMMON NORMALS: no rashes or lesions noted GENERAL SKIN EXAM: no rashes or lesions noted Course Vital Signs: Vital signs: Vital Signs Temperature 97.2 F L 02/13/23 10:26 Pulse Rate 60 02/13/23 12:14 Respiratory Rate 23 H 02/13/23 11:05 Blood Pressure 165/83 02/13/23 12:14 Pulse Oximetry 98 02/13/23 12:14 Oxygen Delivery Me thod 02/13/23 15:31 MDM - SOB/Dyspnea Medical Decision Making Acute kidney injury with hyperkalemia. Cardiac enzymes are negative. Hyperkalemia treated with calcium chloride albuterol and Kayexalate in the emergency room as well as fluids discussed with hospitalist orders written Medical Records I reviewed the patient's medical records. Lab Data I reviewed the patient's lab results. 02/13/23 11:05 02/13/23 11:05 Labs/Radiology: Radiology Impressions Chest X-Ray 02/13/23 10:51 IMPRESSION: 1. No acute cardiopulmonary finding. Abdomen/Pelvis CT 02/13/23 14:22 IMPRESSION: Subtle fat stranding around the sigmoid colon suggestive of acute diverticulitis. No fluid collections/abscess. COMMENTS: Consistent with the [employer]'s Incidental Findings Committee white paper (J Am Chas Radiol 2018): Any incidental renal lesion less than 1 cm or classified as too small to characterize, or any incidental cystic renal lesion characterized as simple-appearing, is likely benign. No follow-up imaging is recommended for these lesions per consensus recommendations based on imaging criteria. Laboratory Results WBC 6.8 10^3/uL (4.0-10.0) 02/13/23 11:05 RBC 3.36 10^6/uL (4.1-5.3) L 02/13/23 11:05 Hgb 10.8 g/dL (11.5-15.3) L 02/13/23 11:05 Hct 33.1 % (37.0-47.0) L 02/13/23 11:05 MCV 98.5 fl (81-99) 02/13/23 11:05 MCH 32.1 pg (28.0-34.0) 02/13/23 11:05 MCHC 32.6 g/dL (30.0-36.0) 02/13/23 11:05 RDW 13.1 % (12.1-15.1) 02/13/23 11:05 Plt Count 273 10^3/cmm (130-400) 02/13/23 11:05 MPV 10.8 fL (7.4-10.4) H 02/13/23 11:05 Neut % (Auto) 74.7 % 02/13/23 11:05 Lymph % (Auto) 15.9 % 02/13/23 11:05 [place] % (Auto) 6.5 % 02/13/23 11:05 Eos % (Auto) 1.9 % 02/13/23 11:05 Baso % (Auto) 0.6 % 02/13/23 11:05 Neut # (Auto) 5.08 10^3/uL (1.8-7.7) 02/13/23 11:05 Lymph # (Auto) 1.1 10^3/uL (0.8-4.8) 02/13/23 11:05 [place] # (Auto) 0.4 10^3/uL (0.2-0.9) 02/13/23 11:05 Eos # (Auto) 0.1 10^3/uL (0.0-0.8) 02/13/23 11:05 Baso # (Auto) 0.0 10^3/uL (0.0-0.1) 02/13/23 11:05 Nucleated RBC % (auto) 0 % 02/13/23 11:05 Nucleated RBCs # 0.0 /100WBC 02/13/23 11:05 Sodium 139 mmol/L (136-145) 02/13/23 11:05 Potassium 6.2 mmol/L (3.5-5.1) H 02/13/23 11:05 Chloride 109 mmol/L (98-107) H 02/13/23 11:05 Carbon Dioxide 17 mmol/L (22-29) L 02/13/23 11:05 Anion Gap 19.2 (5-19) H 02/13/23 11:05 BUN 43 mg/dL (8-23) H 02/13/23 11:05 Creatinine 2.4 mg/dL (0.5-0.9) H 02/13/23 11:05 GFR Calculation Not Reportable 02/13/23 11:05 Glucose 240 mg/dL (65-115) H 02/13/23 11:05 Calculated Osmolality 307 mOsm/kg (285-295) H 02/13/23 11:05 Calcium 9.2 mg/dL (8.5-10.5) 02/13/23 11:05 Iron 73 ug/dL (37-145) 02/13/23 11:05 TIBC 280 mcg/dl 02/13/23 11:05 % Saturation 26.0 % (20-50) 02/13/23 11:05 Unsat Iron Binding 207 ug/dL (112-347) 02/13/23 11:05 Total Bilirubin 0.2 mg/dL (0.15-1.2) 02/13/23 11:05 AST 12 U/L (0-32) 02/13/23 11:05 ALT 10 U/L (0-33) 02/13/23 11:05 Alkaline Phosphatase 87 U/L (35-105) 02/13/23 11:05 Troponin T Baseline 71 ng/L (0-10) H 02/13/23 11:05 Troponin T 120 Minute 65.35 ng/L (0-10) H 02/13/23 13:35 Delta Troponin T -5.65 ABS# (0-10) L 02/13/23 13:35 Total Protein 6.8 g/dL (6.6-8.7) 02/13/23 11:05 Albumin 3.8 g/dL (3.5-5.2) 02/13/23 11:05 Globulin 3.0 g/dL (1.3-4.6) 02/13/23 11:05 Vitamin B12 321 pg/mL (232-1245) 02/13/23 11:05 Folate 10.5 ng/mL (4.8-37.3) 02/13/23 11:05 Procalcitonin 0.11 ng/mL (0-0.5) 02/13/23 11:05 Ur Random Sodium 96 mmol/L 02/13/23 13:00 Ur Random Potassium 56 mmol/L 02/13/23 13:00 Ur Random Chloride 76 mmol/L 02/13/23 13:00 Urine Creatinine 157 mg/dL (28-217) 02/13/23 13:00 Urine Opiates Screen Negative ng/mL (Negative) 02/13/23 13:00 Ur Barbiturates Screen Negative ng/mL (Negative) 02/13/23 13:00 Ur Phencyclidine Scrn Negative ng/mL (Negative) 02/13/23 13:00 Ur Amphetamines Screen Negative ng/mL (Negative) 02/13/23 13:00 U Benzodiazepines Scrn Negative ng/mL (Negative) 02/13/23 13:00 Urine Cocaine Screen Negative ng/mL (Negative) 02/13/23 13:00 U Marijuana (THC) Screen Negative ng/mL (Negative) 02/13/23 13:00 Discharge Plan Discharge Patient Disposition: Admitted As Inpatient Admit Provider: Ramone Rosenthal Clinical Impression: Acute kidney injury superimposed on CKD, Hyperkalemia, Essential hypertension Condition: Stable Coding Level of Care Code ED [employer] for Danial Mahajan
[2023-02-13 11:32] LABS: Basophils % 0.6 %; Eosinophils # 0.1 10^3/uL (0.0-0.8); Eosinophils % 1.9 %; Hematocrit 33.1 % (37.0-47.0); Hemoglobin 10.8 g/dL (11.5-15.3); Lymphocytes # 1.1 10^3/uL (0.8-4.8); Lymphocytes % 15.9 %; Mean Corpuscular HGB Conc 32.6 g/dL (30.0-36.0); Mean Corpuscular Hemoglobin 32.1 pg (28.0-34.0); Mean Corpuscular Volume 98.5 fl (81-99); Mean Platelet Volume 10.8 fL (7.4-10.4); Monocytes # 0.4 10^3/uL (0.2-0.9); Monocytes % 6.5 %; Neutrophils # 5.08 10^3/uL (1.8-7.7); Neutrophils % 74.7 %; Nucleated Red Blood Cells % 0 %; Platelet Count 273 10^3/cmm (130-400); Red Blood Count 3.36 10^6/uL (4.1-5.3); Red Cell Distribution Width 13.1 % (12.1-15.1); White Blood Count 6.8 10^3/uL (4.0-10.0)
[2023-02-13 12:21] LABS: Alanine Aminotransferase 10 U/L (0-33); Albumin Level 3.8 g/dL (3.5-5.2); Alkaline Phosphatase 87 U/L (35-105); Anion Gap 19.2 (5-19); Aspartate Amino Transferase 12 U/L (0-32); Blood Urea Nitrogen 43 mg/dL (8-23); Calcium 9.2 mg/dL (8.5-10.5); Carbon Dioxide 17 mmol/L (22-29); Chloride 109 mmol/L (98-107); Glucose 240 mg/dL (65-115); Osmolality Calculated 307 mOsm/kg (285-295); Potassium 6.2 mmol/L (3.5-5.1); Sodium 139 mmol/L (136-145); Total Bilirubin 0.2 mg/dL (0.15-1.2); Total Protein 6.8 g/dL (6.6-8.7)
--- NOTE | 2023-02-13 13:08 | ECG_ITS ---
[facility] Test Date: 2023-02-13 Pat Name: Celeste Kruse Department: Room: Gender: Female Best Worker: : 1950 Requested By: Aroldo Kunz Order Number: [id number] Ramirez MD: Malik Muñoz M.D. Measurements Intervals [place] Rate: 57 P: 30 DC: 151 QRS: -22 QRSD: 139 T: 26 QT: 445 QTc: 435 Interpretive Statements SINUS BRADYCARDIA RIGHT BUNDLE BRANCH BLOCK [120+ ms QRS DURATION, UPRIGHT V1, 40+ ms S IN I/aVL/V4/V5/V6] ANTEROSEPTAL MYOCARDIAL INFARCTION , OF INDETERMINATE AGE [40+ ms Q WAVE IN V1-V4] Compared to ECG 02/13/2023 10:32:34 Myocardial infarct finding now present Sinus rhythm no longer present Ventricular premature complex(es) no longer present Left-axis deviation no longer present Electronically Signed On 02-14-2023 0:26:56 CDT by Malik Muñoz M.D. [id number]
[2023-02-13 13:34] LABS: Troponin(5th) Baseline 71 ng/L (0-10)
[2023-02-13 14:16] LABS: Troponin 5 2HR 65.35 ng/L (0-10)
[2023-02-13 14:17] LABS: Troponin 5 2HR Delta -5.65 ABS# (0-10)
[2023-02-13] MEDS: calcium chloride 10% Syr 10 mL 1 GM IVP (14:17)
[2023-02-13] MEDS: sodium chloride 0.9% 1,000 ML 999 ML IV (14:18)
[2023-02-13] MEDS: sodium polystyrene sulfonate 15 gm/60 mL Btl 30 GM PO (14:18)
--- NOTE | 2023-02-13 14:22 | CTR_ITS ---
PROCEDURE INFORMATION: Exam: CT Abdomen And Pelvis Without Contrast Exam date and time: 02/13/2023 2:46 PM Age: 72 years old Clinical indication: Bloating and other: Obstruction; Additional info: Rufus, ? obstruction TECHNIQUE: Imaging protocol: Computed tomography of the abdomen and pelvis without contrast. Radiation optimization: All CT scans at this facility use at least one of these dose optimization techniques: automated exposure control; mA and/or kV adjustment per patient size (includes targeted exams where dose is matched to clinical indication); or iterative reconstruction. REPORTING DATA: Count of CT and Cardiac NM exams in prior 12 months: This patient has received 0 known CTs and 0 known cardiac nuclear medicine studies in the 12 months prior to the current study. COMPARISON: CT abdomen pelvis w con* [id number] 05/26/2019 1:02 PM RADIATION DOSE METRICS: Total DLP (mGy-cm): 847.29 FINDINGS: Liver: Normal. No mass. Gallbladder and bile ducts: Cholecystectomy clips. Pancreas: Normal. No ductal dilation. Spleen: Calcified granulomas in the spleen. Adrenal glands: Normal. No mass. Kidneys and ureters: Hyperdense cyst in the midpole of right kidney measuring 2.6 cm. Multiple cysts in the left kidney with the largest measuring 12.7 cm in the midpole region. Mild fat stranding around the bilateral kidneys with no significant change from prior study. Stomach and bowel: Diverticulosis of the sigmoid colon. Subtle fat stranding around the sigmoid colon suggestive of acute diverticulitis (series 5, image 31, series 6, image 33). Appendix: No evidence of appendicitis. Intraperitoneal space: Unremarkable. No free air. No significant fluid collection. Vasculature: Unremarkable. No abdominal aortic aneurysm. Lymph nodes: Unremarkable. No enlarged lymph nodes. Urinary bladder: Unremarkable as visualized. Reproductive: Unremarkable as visualized. Bones/joints: Degenerative changes of the spine. Soft tissues: Unremarkable. Other findings: Right parapelvic cysts. CT/CT abdomen pelvis wo con [id number] IMPRESSION: Subtle fat stranding around the sigmoid colon suggestive of acute diverticulitis. No fluid collections/abscess. COMMENTS: Consistent with the [employer]'s Incidental Findings Committee white paper (J Am Chas Radiol 2018): Any incidental renal lesion less than 1 cm or classified as too small to characterize, or any incidental cystic renal lesion characterized as simple-appearing, is likely benign. No follow-up imaging is recommended for these lesions per consensus recommendations based on imaging criteria.
--- NOTE | 2023-02-13 14:25 | P.HP_ITS ---
Providers/Chief Complaint Primary Care Provider: Robert Espinoza DO Chief Complaint: sob, left arm pain History of Present Illness Celeste Kruse is a 72 year old female with past medical history of CAD, CKD stage III who presents to the ER today because of mild difficulty in breathing which has been ongoing for last 3 to 4 weeks along with left-sided chest pain radiating down to her arms on exertion. Patient denies any nausea, vomiting, dysuria but does complain of on and off diarrhea for last 1 year. In the ER she was found to be hypotensive with blood pressure running out around 190/80 with blood work showing a hemoglobin of 10.8, white count of 6.8, chemistry showing a sodium of 139, potassium of 6.2, BUN of 43, creatinine of 2.4 with an anion gap of around 19. On examination patient is sitting comfortably in bed on room air denying any active complaints other than feeling dehydrated. Patient received Kayexalate, albuterol nebulization in the ER. Also received 1 L of fluid bolus. Review of Systems General: Reports: 10 or more systems reviewed and unremarkable except in HPI and below Const: Denies: fever(s), chills, body aches, change in appetite, change in weight, malaise, night sweats, diaphoresis, change in sleep pattern, daytime sleepiness or snoring Eyes: Denies: change in vision, blurry vision, photophobia, eye discomfort or eye discharge ENMT: Denies: throat pain, enlarged tonsils, hoarseness, mouth pain, oral sores, dry mouth, tinnitus, nasal congestion or post nasal drip Card: Denies: chest pain, palpitations, irregular heart rhythm, edema, swelling of feet/ankles, lightheadedness, syncope, pre-syncope, dyspnea on exertion, orthopnea, leg pain with exertion or acrocyanosis Resp: Denies: dyspnea, productive cough, non-productive cough, wheezing, stridor, pain on inspiration, change in phlegm color, hemoptysis or chest congestion GI: Denies: abdominal pain, nausea, vomiting, hematemesis, coffee ground emesis, dysphagia, heartburn, diarrhea, constipation, bloating, GI cramping, change in bowel habits, pain on defecation, hematochezia or melena : Denies: flank pain, dysuria, urinary frequency, urinary urgency, urinary hesitancy, nocturia or hematuria Musc: Denies: neck pain, back pain, extremity pain, joint pain, joint swelling, joint redness, joint stiffness or limited range of motion Neuro: Denies: headache(s), numbness in extremities, weakness in extremities, sensory changes, lack of coordination, difficulty walking, frequent falls, dizziness, vertigo, confusion, Slurred speech present, difficulty communicating thoughts or seizure-like activity Psych: Denies: anxiety, depression, mood swings, panic attacks, hopelessness or irritability Endo: Denies: polyuria, polydipsia, tired all the time, cold intolerance, excessive sweating, flushing or heat intolerance Kiran/Lymph: Denies: easy bruising or easy bleeding All/Imm: Denies: tongue swelling, facial swelling or acute wheezing Medications/Allergies Home Medications Medication Instructions Recorded Confirmed Last Taken Type aspirin 81 mg tablet,delayed 81 mg PO BEDTIME 12/05/19 02/13/23 10/24/22 History release (Lorin Low Dose Aspirin) loratadine 10 mg tablet (Claritin) 10 mg PO QAM 12/05/19 02/13/23 02/13/23 History carvedilol 25 mg tablet 25 mg PO BID #180 tabs 06/14/22 02/13/23 02/13/23 Rx fluticasone 500 mcg-salmeterol 50 1 inh inhalation BID #60 ea 06/14/22 02/13/23 10/24/22 Rx mcg/dose blistr powdr for inhalation (Advair Diskus) evolocumab 140 mg/mL subcutaneous 140 mg SUBCUT Q14D 02/13/23 02/13/23 02/09/23 History pen injector (Bravo Urbina) ezetimibe 10 mg tablet (Zetia) 10 mg PO BEDTIME 02/13/23 02/13/23 02/12/23 History glimepiride 4 mg tablet 4 mg PO QAM 02/13/23 02/13/23 02/13/23 History hydrochlorothiazide 25 mg tablet 50 mg PO QAM 02/13/23 02/13/23 02/13/23 History irbesartan 300 1 tab PO QAM 02/13/23 02/13/23 02/13/23 History mg-hydrochlorothiazide 12.5 mg tablet levothyroxine 75 mcg tablet 75 mcg PO QAM 02/13/23 02/13/23 02/13/23 History multivitamin with minerals 2 tab PO DAILY 02/13/23 02/13/23 Unknown History (Hair,Skin and Nails tablet) pantoprazole 40 mg tablet,delayed 40 mg PO QAM 02/13/23 02/13/23 02/13/23 History release spironolactone 25 mg tablet 25 mg PO QAM 02/13/23 02/13/23 02/13/23 History Allergies Allergy/AdvReac Type Severity Reaction Status Date / Time meclizine Allergy Intermediate dizziness Verified 02/13/23 11:33 codeine Allergy Unknown Verified 02/13/23 11:33 ofloxacin Allergy Unknown Verified 02/13/23 11:33 PFSH Acute PFSH: Medical History (Updated 02/13/23 @ 15:52 by Ramone Rsoenthal MD) Asthma 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 Coronary artery disease Essential hypertension Hyperlipidemia Hypoglycemia associated with type 2 diabetes mellitus Hypothyroid Insomnia, idiopathic Kidney stone Myocardial infarction Statin intolerance Type 2 diabetes mellitus Surgical History H/O tubal ligation Hx of appendectomy Hx of cataract surgery Hx of hysterectomy Family History Father Cancer Mother Cancer Hypertension Diabetes Social History Smoking and tobacco status: never smoked Alcohol intake: never Current gender identity: Female Female Reproductive History: Spontaneous abortions: No Vitals/I&O/Wt Last Vital Signs Temp 97.2 F L 02/13/23 10:26 Pulse 60 02/13/23 12:14 Resp 23 H 02/13/23 11:05 BP 165/83 02/13/23 12:14 Pulse Ox 98 02/13/23 12:14 O2 Del Method 02/13/23 12:14 Weight last 48 hrs Weight 81.012 kg Physical Exam Narrative: General: No acute distress, AO x3 dehydrated HEENT: PERRLA, pupils bilaterally equal and reactive Chest: Normal vesicular breath sounds, no added sounds, equal good air entry bilaterally CVS: S1-S2 regular, no murmurs, no tachycardia, no gallops, no rubs Abdomen: Soft, nontender, no organomegaly, bowel sounds present Neuro: No focal deficits, no facial deformity, AO x3, power 5/5 in all limbs Data 02/13/23 11:05 02/13/23 11:05 A&P Assessment and plan (1) Acute kidney injury superimposed on CKD: Most likely in setting of dehydration and home medications including hydrochlorothiazide, ARB and spironolactone. Medical reconciliation done for nephrotoxic drugs. Galdamez catheter, strict input output charting. Repeat BMP every 4 hours for now. Patient already received hyperkalemia cocktail in the ER. We will continue to monitor. (2) Hyperkalemia: Hyperkalemia cocktail given in the ER. D50/10 units insulin along with calcium gluconate 1 g IV one-time. Repeat potassium in 4 hours. Telemetry. Check urinalysis, urine lytes, urine creatinine, drug screen. If continues to remain elevated will plan to consult nephrology for possible early dialysis. (3) Chest pain: On exertion. History of CAD. Cycle troponin. Check echocardiogram for regional wall motion abnormality or EF. If abnormal will plan for stress test once patient renal function more appropriate. No active chest pain so we will hold off on full dose anticoagulation for now. Continue with aspirin, Zetia. Patient is statin intolerant. (4) Type 2 diabetes mellitus: Check A1c. Hold OHA's. Sliding scale at low-dose protocol. Qualifiers: Diabetes mellitus complication status: without complication Diabetes mellitus skilled nursing insulin use: without predatory animal exterminator use Qualified Code(s): E11.9 - Type 2 diabetes mellitus without complications (5) Hyperlipidemia: Check lipid panel. Takes Repatha at home given statin intolerance. Continue with home dose of Zetia. Qualifiers: Hyperlipidemia type: pure hypercholesterolemia Qualified Code(s): E78.00 - Pure hypercholesterolemia, unspecified (6) Hypothyroid: Qualifiers: Hypothyroidism type: acquired Qualified Code(s): E03.9 - Hypothyroidism, unspecified (7) Iron deficiency anemia: Qualifiers: Iron deficiency anemia type: unspecified iron deficiency Qualified Code(s): D50.9 - Iron deficiency anemia, unspecified (8) Essential hypertension: (9) Coronary artery disease: Qualifiers: Associated angina: without angina Coronary Disease-Associated Artery/Lesion type: [place] artery [place] vs. transplanted heart: [place] heart Qualified Code(s): I25.10 - Atherosclerotic heart disease of [place] coronary artery without angina pectoris Plan CODE STATUS: Patient states her sister will be the DPOA. Number in chart. Full code. Renal nondialysis diabetic diet. Heparin 5000 every 12 hours for DVT prophylaxis Protonix OPD prophylaxis Attestations Medical Necessity Statement*: Admission for more than 2 midnights for management of MADDY on CKD, hyperkalemia, chest pain on exertion while ACS is ruled out Diagnoses Acute kidney injury superimposed on CKD N17.9; N18.9 Hyperkalemia E87.5 Chest pain R07.9 Type 2 diabetes mellitus E11.9 Diabetes mellitus complication status: without complication Diabetes mellitus skilled nursing insulin use: without predatory animal exterminator use Hyperlipidemia E78.00 Hyperlipidemia type: pure hypercholesterolemia Hypothyroid E03.9 Hypothyroidism type: acquired Iron deficiency anemia D50.9 Iron deficiency anemia type: unspecified iron deficiency Essential hypertension I10 Coronary artery disease I25.10 Associated angina: without angina Coronary Disease-Associated Artery/Lesion type: [place] artery [place] vs. transplanted heart: [place] heart
--- NOTE | 2023-02-13 14:28 | USCV_ITS ---
Celeste Kruse Age: 72 Gender: F : 1950 Exam Date: 02/13/2023 15:30 Ordering Phys: Ramone Rosenthal MD Technologist: Isreal Orellana Exam Location: [facility] [place] Indication: nstemi BP: 134 / 72 HR: 60 Rhythm: Sinus Technical Quality: Adequate MEASUREMENTS (Male / Female) Normal Values 2D ECHO LV Diastolic Diameter PLAX 4.8 cm 4.2 - 5.9 / 3.9 - 5.3 cm LV Systolic Diameter PLAX 3.1 cm IVS Diastolic Thickness 1.4 cm 0.6 - 1.0 / 0.6 - 0.9 cm IVS Systolic Thickness 1.5 cm LVPW Diastolic Thickness 1.3 cm 0.6 - 1.0 / 0.6 - 0.9 cm LVPW Systolic Thickness 2.0 cm LVOT Diameter 1.8 cm LV Ejection Fraction 2D Teich 63.5 % LV Ejection Fraction MOD 2C 37.4 % LV Ejection Fraction 2C AL 37.8 % LA Diameter 4.0 cm Aorta at Sinotubular Diameter 1.8 cm IVC Diameter 1.4 cm M-MODE Aortic Annulus Diameter 3.1 cm LA Ao Ratio MM 1.3 MV E Point Septal Separation 1.1 cm DOPPLER AV Peak Velocity 156.0 cm/s LVOT Peak Velocity 79.0 cm/s AV Area Cont Eq vti 1.4 cm squared AV Area Cont Eq pk 1.4 cm squared MV Area PHT 4.2 cm squared Mitral E to A Ratio 0.6 MV E' Velocity 29.5 cm/s Mitral E to MV E' Ratio 14.1 Mitral E to LV E' Lateral Ratio 11.9 Mitral E to LV E' Septal Ratio 17.9 TR Peak Velocity 126.0 cm/s TR Peak Gradient 6.4 mmHg TV Peak E Velocity 72.0 cm/s Right Atrial Pressure 3.0 mmHg Pulmonary Artery Systolic Pressu 9.4 mmHg RV Acceleration Time 0.1 s FINDINGS Left Ventricle Mild diffuse hypokinesia of the left ventricle with an ejection fraction of around 50%. Moderate concentric left ventricular hypertrophy.Grade I/IV diastolic dysfunction (abnormal relaxation filling pattern), normal to mildly elevated filling pressures. Right Ventricle The right ventricle is normal in size and function. Right Atrium The right atrium is normal in size. Left Atrium The left atrium is normal in size. Mitral Valve Thickened mitral valve. Trace mitral valve regurgitation. Aortic Valve Thickened aortic valve. Tricuspid Valve No gross abnormalities noted Pulmonic Valve No gross abnormalities noted Pericardium No pericardial effusion. Aorta Normal ascending aorta dimension. IVC Normal inferior vena cava. CONCLUSIONS Mild diffuse hypokinesia of the left ventricle with an ejection fraction of around 50%. Moderate concentric left ventricular hypertrophy.Grade I/IV diastolic dysfunction (abnormal relaxation filling pattern), normal to mildly elevated filling pressures. Thickened mitral valve. Trace mitral valve regurgitation. Thickened aortic valve. There is no pericardial effusion. There are no intracardiac masses. Compared to the study from 12/03/2017, there is slight drop in the LV ejection fraction Dr Malik Muñoz MD FAC (Electronically Signed) Final Date: 13 February 2023 18:57 S
[2023-02-13 15:00] LABS: Iron 73 ug/dL (37-145); Total Iron Binding Capacity 280 mcg/dl; Unsaturated Iron Binding 207 ug/dL (112-347)
[2023-02-13 15:04] LABS: Potassium, Radom Urine 56 mmol/L; Urine Creatinine 157 mg/dL (28-217); Urine Random Chloride 76 mmol/L; Urine Random Sodium 96 mmol/L
[2023-02-13 15:07] LABS: Procalcitonin 0.11 ng/mL (0-0.5)
[2023-02-13 15:15] LABS: Folate Level 10.5 ng/mL (4.8-37.3); Vitamin B12 321 pg/mL (232-1245)
[2023-02-13 15:39] LABS: Amphetamines Screen Urine Negative (Negative); Barbiturates Screen Urine Negative (Negative); Benzodiazepines Screen Urine Negative (Negative); Cocaine Screen Urine Negative (Negative); Opiate Screen Urine Negative (Negative); PCP Screen Urine Negative (Negative); THC Screen Urine Negative (Negative)
--- NOTE | 2023-02-13 16:08 | ECG_ITS ---
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 Measurements Intervals [place] Rate: 67 P: 28 NM: 150 QRS: -16 QRSD: 146 T: 47 QT: 413 QTc: 437 Interpretive Statements SINUS RHYTHM WITH OCCASIONAL VENTRICULAR PREMATURE COMPLEXES RIGHT BUNDLE BRANCH BLOCK [120+ ms QRS DURATION, UPRIGHT V1, 40+ ms S IN I/aVL/V4/V5/V6] SEPTAL MYOCARDIAL INFARCTION , OF INDETERMINATE AGE [40+ ms Q WAVE IN V1/V2] Compared to ECG 02/13/2023 13:19:41 Ventricular premature complex(es) now present Sinus bradycardia no longer present Myocardial infarct finding still present Electronically Signed On 02-14-2023 0:52:52 CDT by Malik Muñoz M.D. [email or web address] [id number]
[2023-02-13 16:16] LABS: Thyroid Stimulating Hormone 3.69 uIU/mL (0.27-4.20)
[2023-02-13] MEDS: heparin 5,000 unit/mL INJ 1 mL 5000 UNIT SUBCUT (16:23)
[2023-02-13] MEDS: calcium gluconate 0.9% NaCL 1 GM/50 ML PREMIX IV (16:23)
[2023-02-13] MEDS: dextrose 50% syringe 50 mL IVP (16:52)
[2023-02-13] MEDS: insulin regular-human 10 UNIT in SYRINGE 1 EACH 600 UNIT IVP (16:53)
[2023-02-13 17:00] LABS: Glucose Point of Care 168 mg/dL (70-110)
[2023-02-13] MEDS: carvedilol 25 mg Tablet PO (17:14)
[2023-02-13] MEDS: sodium chloride 0.9% 1,000 ML 50 ML IV (17:14)
[2023-02-13 17:54] LABS: Troponin 5 6HR 68.21 ng/L (0-10)
[2023-02-13 17:55] LABS: Troponin 5 6HR Delta -2.79 ng/L (0-12)
[2023-02-13 17:56] LABS: Blood Urea Nitrogen 43 mg/dL (8-23); Calcium 10.1 mg/dL (8.5-10.5); Carbon Dioxide 16 mmol/L (22-29); Chloride 112 mmol/L (98-107); Glucose 92 mg/dL (65-115); Osmolality Calculated 304 mOsm/kg (285-295); Sodium 142 mmol/L (136-145)
[2023-02-13 17:59] LABS: Bilirubin Urine Neg (Negative); Blood Urine 2+ (Negative); Glucose Urine UA 2+ (Normal); Ketones Urine Negative (Negative); Leukocyte Esterase Urine Trace (Negative); Nitrate Urine Negative (Negative); Protein Urine 3+ (Negative); Specific Gravity, Urine 1.025 (1.005-1.030); Urine Appearance SL Hazy (CLEAR); Urine Color Yellow (Yellow); Urobilinogen Urine Norm (Negative); pH Urine 5 (5-7)
[2023-02-13 18:00] LABS: Add Urine Culture? No; Add Urine Microscopic? YES; Amorphous Sediment Urine TRACE /hpf; Bacteria Urine TRACE /hpf; RBC Urine 0-4 /hpf (0-2)
[2023-02-13 20:28] LABS: Glucose Point of Care 216 mg/dL (70-110)
[2023-02-13] MEDS: ezetimibe 10 mg Tablet PO (20:32)
[2023-02-13] MEDS: hyDRALAzine 20 mg/mL INJ 1 mL 10 MG IVP (20:32)
[2023-02-13] MEDS: aspirin 81 mg EC Tablet PO (20:32)
[2023-02-13 22:14] LABS: Anion Gap 15.6 (5-19); Blood Urea Nitrogen 43 mg/dL (8-23); Calcium 9.4 mg/dL (8.5-10.5); Carbon Dioxide 15 mmol/L (22-29); Chloride 112 mmol/L (98-107); Glucose 193 mg/dL (65-115); Osmolality Calculated 300 mOsm/kg (285-295); Potassium 5.6 mmol/L (3.5-5.1); Sodium 137 mmol/L (136-145)
--- NOTE | 2023-02-13 22:14 | ECG_ITS ---
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 Measurements Intervals [place] Rate: 70 P: 28 IA: 144 QRS: -22 QRSD: 145 T: 19 QT: 422 QTc: 457 Interpretive Statements SINUS RHYTHM BORDERLINE LEFT AXIS DEVIATION [QRS AXIS < -20] RIGHT BUNDLE BRANCH BLOCK [120+ ms QRS DURATION, UPRIGHT V1, 40+ ms S IN I/aVL/V4/V5/V6] Compared to ECG 02/13/2023 16:08:04 Ventricular premature complex(es) no longer present Myocardial infarct finding no longer present Electronically Signed On 02-14-2023 0:56:56 CDT by Malik Muñoz M.D. [id number]
[2023-02-13 22:28] LABS: Creatinine Clr Calc Pharmacy 20.1113
[2023-02-14] VITALS (11 sets, daily range): BP systolic 166–206; BP diastolic 73–93; PULSE 57–72; RESP 16–20; TEMP 36.4–37; O2SAT 94–99
[2023-02-14 01:43] LABS: Anion Gap 15.1 (5-19); Blood Urea Nitrogen 41 mg/dL (8-23); Calcium 9.2 mg/dL (8.5-10.5); Carbon Dioxide 16 mmol/L (22-29); Chloride 111 mmol/L (98-107); Glucose 98 mg/dL (65-115); Osmolality Calculated 294 mOsm/kg (285-295); Potassium 5.1 mmol/L (3.5-5.1); Sodium 137 mmol/L (136-145)
[2023-02-14 03:49] LABS: Basophils % 0.4 %; Eosinophils # 0.1 10^3/uL (0.0-0.8); Eosinophils % 1.8 %; Hematocrit 29.1 % (37.0-47.0); Hemoglobin 9.6 g/dL (11.5-15.3); Lymphocytes % 26.1 %; Mean Platelet Volume 10.1 fL (7.4-10.4); Monocytes # 0.8 10^3/uL (0.2-0.9); Monocytes % 9.7 %; Neutrophils # 4.82 10^3/uL (1.8-7.7); Neutrophils % 61.6 %; Nucleated Red Blood Cells % 0 %; Platelet Count 251 10^3/cmm (130-400); Red Cell Distribution Width 12.9 % (12.1-15.1); White Blood Count 7.8 10^3/uL (4.0-10.0)
[2023-02-14 04:07] LABS: Estmated Average Glucose 154
[2023-02-14 04:12] LABS: Alanine Aminotransferase 8 U/L (0-33); Alkaline Phosphatase 69 U/L (35-105); Anion Gap 13.9 (5-19); Aspartate Amino Transferase 10 U/L (0-32); Blood Urea Nitrogen 39 mg/dL (8-23); Calcium 9.1 mg/dL (8.5-10.5); Carbon Dioxide 16 mmol/L (22-29); Chloride 113 mmol/L (98-107); Chol HDL Ratio 4.04 mg/dL (0.0-4.40); Cholesterol 97 mg/dL (0-200); Glucose 62 mg/dL (65-115); HDL Cholesterol 24 mg/dL (60-100); Magnesium 1.2 mg/dL (1.7-2.3); Osmolality Calculated 293 mOsm/kg (285-295); Phosphorus 3.7 mg/dL (2.5-4.5); Potassium 4.9 mmol/L (3.5-5.1); Sodium 138 mmol/L (136-145); Total Bilirubin 0.2 mg/dL (0.15-1.2); Triglycerides 476 mg/dL (0-150)
[2023-02-14 04:13] LABS: Creatinine Clr Calc Pharmacy 20.1113
[2023-02-14] MEDS: heparin 5,000 unit/mL INJ 1 mL 5000 UNIT SUBCUT ×2 (04:14→15:13)
[2023-02-14] MEDS: pantoprazole DR 40 mg Tablet PO (04:14)
[2023-02-14] MEDS: levothyroxine 75 mcg Tablet PO (04:14)
[2023-02-14 04:56] LABS: LDL Cholesterol Direct 21 mg/dL (0-100)
[2023-02-14 06:38] LABS: Glucose Point of Care 74 mg/dL (70-110)
--- NOTE | 2023-02-14 07:27 | PC.NURSE ---
nurse was notified about high blood pressure
[2023-02-14] MEDS: acetaminophen 325 mg Tablet 650 MG PO (07:59)
[2023-02-14] MEDS: hyDRALAzine 20 mg/mL INJ 1 mL 10 MG IVP (08:00)
[2023-02-14] MEDS: cefTRIAXone 1,000 MG in sodium chloride 0.9% (plus) 50 ML 100 MG IV (09:07)
[2023-02-14] MEDS: magnesium sulfate premix 2 GM/50 ML PIGGYBACK IV (09:08)
[2023-02-14] MEDS: carvedilol 25 mg Tablet PO ×2 (09:21→17:37)
[2023-02-14 11:40] LABS: Glucose Point of Care 157 mg/dL (70-110)
[2023-02-14] MEDS: sodium chloride 0.9% 1,000 ML 50 ML IV (15:40)
--- NOTE | 2023-02-14 15:48 | PC.NURSE ---
pt refusing her insulin shots educated pt on possible complication of not getting her insulin shot. dr wall notified on pt's refusal. pt is explained reasons why we are not giving her glimepride and other bp meds.
[2023-02-14 16:29] LABS: Glucose Point of Care 154 mg/dL (70-110)
--- NOTE | 2023-02-14 16:53 | PM.PN ---
Subjective Subjective: Patient was seen this morning, she sitting up to the side of the bed, he tells me that he feels well this morning, no fevers, chills she is shocked how high her blood pressures have been Vitals/I&O/Wt Last Vital Signs Temp 98.1 F 02/14/23 15:44 Pulse 64 02/14/23 15:44 Resp 19 H 02/14/23 15:44 BP 179/93 02/14/23 15:44 Pulse Ox 96 02/14/23 15:44 O2 Del Method 02/14/23 15:44 02/14/23 02/14/23 02/14/23 06:59 14:59 22:59 Intake Total 1032.5 / 3092.6 1023.5 / 1023.5 Output Total 600 / 1030 1100 / 1100 Balance 432.5 / 2062.6 -76.5 / -76.5 Weight last 48 hrs Weight 78.613 kg Weight 81.012 kg Physical Exam Const: COMMON NORMALS: no acute distress and patient oriented x3 Resp: COMMON NORMALS: normal respiratory effort, No retractions, No use of accessory muscles and clear to auscultation bilaterally AUSCULTATION: clear to auscultation bilaterally Cardio: COMMON NORMALS: regular rate, regular rhythm, S1 normal heart sound present and S2 normal heart sound present RATE: regular rate RHYTHM: regular rhythm HEART SOUNDS: S1 normal heart sound present and S2 normal heart sound present GI: COMMON NORMALS: Normal to inspection, nondistended, normoactive bowel sounds present and non-tender Extremity: COMMON NORMALS: no pedal edema Neuro: COMMON NORMALS: patient oriented x3 Psych: COMMON NORMALS: mental status grossly normal Urinary Catheter Management: Galdamez: Cath Placed During This Visit: yes Reason for Continuing Indwelling Catheter: Accurate Measurement of Urinary Output in Critically Ill Patients Urinary Catheter Date of Insertion: 02/13/23 Urinary Catheter Time of Insertion: 17:19 Data 02/14/23 03:41 02/14/23 03:41 Micro: Microbiology 02/13/23 13:00 Bacterial Antigens - Final Urine Kidney 02/13/23 13:00 Legionella Urinary Antigen - Final Unknown Source A&P Assessment and plan (1) Acute kidney injury superimposed on CKD: Creatinine 2.4, urine 2100 cc Will consult nephrology Most likely in setting of dehydration and home medications including hydrochlorothiazide, ARB and spironolactone and hypertensive nephropathy Add hydralazine 25 3 times daily Medical reconciliation done for nephrotoxic drugs. Galdamez catheter, strict input output charting. (2) Hyperkalemia: Resolved (3) Chest pain: On exertion. History of CAD. Does have elevated troponins, no significant delta troponin Check echocardiogram for regional wall motion abnormality or EF. Cardiac stress test tomorrow morning No active chest pain so we will hold off on full dose anticoagulation for now. Continue with aspirin, Zetia. Patient is statin intolerant. (4) Type 2 diabetes mellitus: Sliding scale at low-dose protocol. Qualifiers: Diabetes mellitus director long term care insulin use: without correction use Diabetes mellitus complication status: without complication Qualified Code(s): E11.9 - Type 2 diabetes mellitus without complications (5) Hyperlipidemia: Takes Repatha at home given statin intolerance. Continue with home dose of Zetia. Qualifiers: Hyperlipidemia type: pure hypercholesterolemia Qualified Code(s): E78.00 - Pure hypercholesterolemia, unspecified (6) Hypothyroid: Qualifiers: Hypothyroidism type: acquired Qualified Code(s): E03.9 - Hypothyroidism, unspecified (7) Iron deficiency anemia: Qualifiers: Iron deficiency anemia type: unspecified iron deficiency Qualified Code(s): D50.9 - Iron deficiency anemia, unspecified (8) Essential hypertension: (9) Coronary artery disease: Qualifiers: Coronary Disease-Associated Artery/Lesion type: [place] artery [place] vs. transplanted heart: [place] heart Associated angina: without angina Qualified Code(s): I25.10 - Atherosclerotic heart disease of [place] coronary artery without angina pectoris Plan CODE STATUS: Patient states her sister will be the DPOA. Number in chart. Full code. Renal nondialysis diabetic diet. Heparin 5000 every 12 hours for DVT prophylaxis Protonix OPD prophylaxis Attestations Medical Necessity Statement*: Patient requires hospitalization for acute renal failure, chest pain, Diagnoses Acute kidney injury superimposed on CKD N17.9; N18.9 Hyperkalemia E87.5 Chest pain R07.9 Type 2 diabetes mellitus E11.9 Diabetes mellitus correction insulin use: without director long term care use Diabetes mellitus complication status: without complication Hyperlipidemia E78.00 Hyperlipidemia type: pure hypercholesterolemia Hypothyroid E03.9 Hypothyroidism type: acquired Iron deficiency anemia D50.9 Iron deficiency anemia type: unspecified iron deficiency Essential hypertension I10 Coronary artery disease I25.10 Coronary Disease-Associated Artery/Lesion type: [place] artery [place] vs. transplanted heart: [place] heart Associated angina: without angina
[2023-02-14] MEDS: hyDRALAzine 25 mg Tablet PO (17:37)
[2023-02-14 20:36] LABS: Glucose Point of Care 221 mg/dL (70-110)
[2023-02-14] MEDS: aspirin 81 mg EC Tablet PO (21:00)
[2023-02-14] MEDS: ezetimibe 10 mg Tablet PO (21:00)
--- NOTE | 2023-02-14 21:07 | PM.CONSULT ---
Providers/Reason For Consult Consulting Physician/Specialty*: [facility] /Nephrology Reason for Consult*: ACUTE On ckd Attending Physician: Sumanth Castillo MD Primary Care Provider: Robert Espinoza DO History of Present Illness History of Present Illness Celeste Kruse is a 72 year old female with past medical history of coronary artery disease, diabetes, hypertension, congestive cardiac failure (diastolic CHF:) presented to the hospital due to shortness of breath for the last 3 to 4 weeks along with left-sided chest pain radiating to her arms. In the ER she was found to be hypertensive with blood pressures in the 190s range, lab data significant for elevated creatinine of 2.4 also has hyperkalemia with a potassium of 6.2 and received Kayexalate. Also received a liter of normal saline in the ED. Patient was on multiple diuretics including HCTZ spironolactone and also on ARB. On review of prior labs, patient has a baseline creatinine around 1.8-2 range. Creatinine currently is at 2.4. CT abdomen showed right renal cyst and multiple left cysts. UA 3+ protein and 2+ blood. Patient not aware of having CKD diagnosis Review of Systems Narrative: Negative Medications/Allergies Home Medications Medication Instructions Recorded Confirmed Last Taken Type aspirin 81 mg tablet,delayed 81 mg PO BEDTIME 12/05/19 02/13/23 10/24/22 History release (Lorin Low Dose Aspirin) loratadine 10 mg tablet (Claritin) 10 mg PO QAM 12/05/19 02/13/23 02/13/23 History carvedilol 25 mg tablet 25 mg PO BID #180 tabs 06/14/22 02/13/23 02/13/23 Rx fluticasone 500 mcg-salmeterol 50 1 inh inhalation BID #60 ea 06/14/22 02/13/23 10/24/22 Rx mcg/dose blistr powdr for inhalation (Advair Diskus) evolocumab 140 mg/mL subcutaneous 140 mg SUBCUT Q14D 02/13/23 02/13/23 02/09/23 History pen injector (Repatha SureClick) ezetimibe 10 mg tablet (Zetia) 10 mg PO BEDTIME 02/13/23 02/13/23 02/12/23 History glimepiride 4 mg tablet 4 mg PO QAM 02/13/23 02/13/2302/13/23 History hydrochlorothiazide 25 mg tablet 50 mg PO QAM 02/13/23 02/13/23 02/13/23 History irbesartan 300 1 tab PO QAM 02/13/23 02/13/23 02/13/23 History mg-hydrochlorothiazide 12.5 mg tablet levothyroxine 75 mcg tablet 75 mcg PO QAM 02/13/23 02/13/23 02/13/23 History multivitamin with minerals 2 tab PO DAILY 02/13/23 02/13/23 Unknown History (Hair,Skin and Nails tablet) pantoprazole 40 mg tablet,delayed 40 mg PO QAM 02/13/23 02/13/23 02/13/23 History release spironolactone 25 mg tablet 25 mg PO QAM 02/13/23 02/13/23 02/13/23 History Allergies Allergy/AdvReac Type Severity Reaction Status Date / Time meclizine Allergy Intermediate dizziness Verified 02/13/23 11:33 codeine Allergy Unknown Verified 02/13/23 11:33 ofloxacin Allergy Unknown Verified 02/13/23 11:33 Current Medications Generic Name Dose Route Start Last Admin Trade Name Freq PRN Reason Stop Dose Admin Acetaminophen 650 mg 02/13/23 14:50 02/14/23 07:59 Acetaminophen 325 Mg Tablet PO 650 mg Q6H PRN Administration Mild/Mod Pain Or Temp >/= 101 Aspirin 81 mg 02/13/23 21:00 02/14/23 21:00 Aspirin 81 Mg Ec Tablet PO 81 mg BEDTIME FLAVIO Administration Carvedilol 25 mg 02/13/23 18:00 02/14/23 17:37 Carvedilol 25 Mg Tablet PO 25 mg BID FLAVIO Administration Ezetimibe 10 mg 02/13/23 21:00 02/14/23 21:00 Ezetimibe 10 Mg Tablet PO 10 mg BEDTIME FLAVIO Administration Heparin Sodium (Porcine) 5,000 unit 02/13/23 14:50 02/14/23 15:13 Heparin 5,000 Unit/Ml Inj 1 Ml SUBCUT 5,000 unit Q12H FLAVIO Administration Hydralazine HCl 25 mg 02/14/23 17:00 02/14/23 17:37 Hydralazine 25 Mg Tablet PO 25 mg Q8H FLAVIO Administration Ceftriaxone Sodium 1,000 mg/ 50 mls @ 100 mls/hr 02/14/23 08:00 02/14/23 09:54 Sodium Chloride IV Infused Q24H FLAVIO Infusion Protocol Insulin Human Lispro 0 unit 02/13/23 18:00 02/14/23 20:59 Insulin Lispro 100 Unit/1 Ml SUBCUT Not Given WM&BEDTIME FLAVIO Protocol Levothyroxine Sodium 75 mcg 02/14/23 06:00 02/14/23 04:14 Levothyroxine 75 Mcg Tablet PO 75 mcg QAM FLAVIO Administration Pantoprazole Sodium 40 mg 02/14/23 06:00 02/14/23 04:[address] 40 Mg Tablet PO 40 mg QAM FLAVIO Administration PFSH Acute PFSH: Medical History (Updated 02/13/23 @ 15:52 by Ramone Rosenthal MD) Asthma 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 Coronary artery disease Essential hypertension Hyperlipidemia Hypoglycemia associated with type 2 diabetes mellitus Hypothyroid Insomnia, idiopathic Kidney stone Myocardial infarction Statin intolerance Type 2 diabetes mellitus Surgical History H/O tubal ligation Hx of appendectomy Hx of cataract surgery Hx of hysterectomy Family History Father Cancer Mother Cancer Hypertension Diabetes Social History Smoking and tobacco status: never smoked Alcohol intake: never Current gender identity: Female Female Reproductive History: Spontaneous abortions: No Vitals/I&O/Wt Last Vital Signs Temp 98.6 F 02/14/23 19:41 Pulse 72 02/14/23 20:00 Resp 20 H 02/14/23 20:00 BP 184/87 02/14/23 19:41 Pulse Ox 96 02/14/23 20:00 O2 Del Method 02/14/23 20:00 02/14/23 02/14/23 02/14/23 06:59 14:59 22:59 Intake Total 1032.5 / 3092.6 1023.5 / 1023.5 388.667 / 1412.167 Output Total 600 / 1030 1100 / 1100 650 / 1750 Balance 432.5 / 2062.6 -76.5 / -76.5 -261.333 / -337.833 Weight last 48 hrs Weight 78.613 kg Weight 81.012 kg Physical Exam Narrative: Patient awake alert, no acute distress 1+ pedal edema Urinary Catheter Management: Galdamez: Cath Placed During This Visit: yes Reason for Continuing Indwelling Catheter: Accurate Measurement of Urinary Output in Critically Ill Patients Urinary Catheter Date of Insertion: 02/13/23 Urinary Catheter Time of Insertion: 17:19 Data 02/14/23 03:41 02/14/23 03:41 A&P Assessment and plan (1) Acute kidney injury superimposed on CKD: Plan 1. Acute on chronic kidney disease stage III: Patient's baseline creatinine is anywhere from 1.8-2.0 range. Currently creatinine is at 2.4. Patient likely has CKD due to diabetic nephropathy and hypertensive nephrosclerosis. Also has 3+ proteinuria. Multiple cysts noted on CT but no hydronephrosis. Current MADDY likely hemodynamic changes due to fluctuating blood pressures, prerenal from diarrhea in the setting of diuretics and ARB use. -Patient currently appears euvolemic, stop IV fluids. Agree with holding diuretics and ARB's at this time. -We will check CPK levels and lactate levels -We will check renal ultrasound to evaluate renal cyst further -Check UPCR -We will give couple doses of IV albumin and if creatinine stable will give Lasix in the morning 2. Metabolic acidosis: Hyperchloremic, we will order Bicitra, check lactate. 3. Hypertension: Blood pressures elevated currently, increase hydralazine to 75 every 8 hours, add nifedipine 30 mg daily 4. Diastolic CHF: Diuretics on hold, will give Lasix as needed for now. Resume Aldactone once renal function back to baseline. Patient evaluated using audiovisual cart. Time spent 45 minutes Consult Attestations Medical Necessity Statement: needs inpt stay due to MADDY Coding Level of Care Code Acute Code for Chg Fwd Diagnoses Acute kidney injury superimposed on CKD N17.9; N18.9
--- NOTE | 2023-02-14 21:29 | US_ITS ---
WS: [id number] RENAL ULTRASOUND HISTORY: renal cysts COMPARISON: CT 02/13/2023 TECHNIQUE: 2-D and color Doppler imaging of the kidney submitted. Right kidney: 13.3 cm x 6.4 cm x 7.1 cm. Cortex: 1.1 cm Normal size kidney. Mild increased echogenicity with decreasing cortical medullary differentiation. M ultiple cortical cysts are identified. No solid mass is visualized. The largest cyst measures 3.1 cm. Left kidney: 12.8 cm x 7.8 cm x 5.9 cm. Cortex: 1.3 cm Normal size kidney. Mild increased echogenicity and poor cortical medullary differentiation. Numerous cysts are noted within the kidney. The largest cysts measure approximately 2.4 cm. No solid mass. Aorta: Normal. Urinary Bladder: Nondistended. Galdamez catheter in place. US/US renal BI* [id number] IMPRESSION: 1. Bilateral renal cysts. No solid mass. 2. No hydronephrosis.
[2023-02-14] MEDS: albumin 25 G/100 ML BAG 60 G IV (22:02)
--- NOTE | 2023-02-14 22:09 | PC.NURSE ---
Instructed patient on albumin infusion. Patient verbalized understanding. Consent signed and placed in chart.
[2023-02-14 22:24] LABS: Creatinine Urine, Random 54 mg/dL (28-217)
[2023-02-14 22:27] LABS: Urine Protein Random 160 mg/dL
[2023-02-14 22:40] LABS: Microalbum Creatinine Ratio Ur 2111 mg/dL (0-20); Microalbumin Random Urine 114 ug/dL (0-20)
[2023-02-15] VITALS (72 sets, daily range): BP systolic 111–180; BP diastolic 63–95; PULSE 61–83; RESP 14–34; TEMP 36.7–36.9; O2SAT 94–98
[2023-02-15] MEDS: heparin 5,000 unit/mL INJ 1 mL 5000 UNIT SUBCUT (03:45)
[2023-02-15] MEDS: levothyroxine 75 mcg Tablet PO (03:45)
[2023-02-15] MEDS: pantoprazole DR 40 mg Tablet PO (03:45)
[2023-02-15] MEDS: albumin 25 G/100 ML BAG 60 G IV (03:46)
[2023-02-15 04:46] LABS: Basophils % 0.7 %; Eosinophils # 0.2 10^3/uL (0.0-0.8); Eosinophils % 2.7 %; Hematocrit 26.4 % (37.0-47.0); Hemoglobin 8.7 g/dL (11.5-15.3); Lymphocytes # 1.5 10^3/uL (0.8-4.8); Lymphocytes % 27.1 %; Mean Corpuscular Hemoglobin 31.9 pg (28.0-34.0); Mean Corpuscular Volume 96.7 fl (81-99); Mean Platelet Volume 10.3 fL (7.4-10.4); Monocytes # 0.7 10^3/uL (0.2-0.9); Monocytes % 12.1 %; Neutrophils # 3.13 10^3/uL (1.8-7.7); Neutrophils % 57.2 %; Nucleated Red Blood Cells % 0 %; Platelet Count 217 10^3/cmm (130-400); Red Blood Count 2.73 10^6/uL (4.1-5.3); Red Cell Distribution Width 12.8 % (12.1-15.1); White Blood Count 5.5 10^3/uL (4.0-10.0)
[2023-02-15 05:06] LABS: Lactate (Lactic Acid level) 0.6 mmol/L (0.5-2.2)
[2023-02-15 05:12] LABS: Anion Gap 13.6 (5-19); Blood Urea Nitrogen 37 mg/dL (8-23); Calcium 8.8 mg/dL (8.5-10.5); Carbon Dioxide 17 mmol/L (22-29); Chloride 107 mmol/L (98-107); Creatine Phosphokinase 81 U/L (26-192); Glucose 99 mg/dL (65-115); Magnesium 1.6 mg/dL (1.7-2.3); Osmolality Calculated 285 mOsm/kg (285-295); Potassium 4.6 mmol/L (3.5-5.1); Sodium 133 mmol/L (136-145)
[2023-02-15 06:30] LABS: Glucose Point of Care 110 mg/dL (70-110)
--- NOTE | 2023-02-15 06:48 | ECG_ITS ---
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 Interpretive Statements NAME OF STUDY: LEXISCAN SESTAMIBI STRESS TEST INDICATION: [Chest Pain, ] Procedure: At the baseline, the blood pressure was 189/78 mmHg with a heart rate of 61 bpm. The electrocardiogram showed normal sinus rhythm, normal axis with right bundle branch block. The Lexiscan was infused over a period of 20 seconds. A total of 0.4 mg of Lexiscan was infused. The stress phase was continued for a total of 5 minutes. Heart rate was at the end of stress phase was 83 bpm and a blood pressure of 155/67 mmHg. The EKG at the peak infusion revealed normal sinus rhythm with no significant ST-T wave changes. Sestamibi was injected 20 seconds after the Lexiscan infusion. Blood pressure at the end of recovery phase was 155/72 mmHg with a heart rate of 81 bpm. Conclusion: 1. Normal EKG response to Lexiscan infusion 2. No Lexiscan induced chest pain or cardiac arrhythmia. 3. Normal blood pressure and heart rate response. 4. Sestamibi/sestamibi perfusion scan pending; see separate report. Electronically Signed On 02-25-2023 14:42:23 CDT by Elias Carrizlaes M.D. [id number]
[2023-02-15] MEDS: regadenoson 0.4 Mg/5 ml Syringe IVP (07:35)
[2023-02-15] MEDS: ondansetron 2 mg/ML SDV 2 mL 4 MG IVP (07:45)
[2023-02-15 08:47] LABS: Ferritin 37 ng/mL (15-150); Iron 47 ug/dL (37-145)
[2023-02-15] MEDS: cefTRIAXone 1,000 MG in sodium chloride 0.9% (plus) 50 ML 100 MG IV (09:54)
[2023-02-15] MEDS: hyDRALAzine 50 mg Tablet 75 MG PO ×3 (09:55→20:25)
[2023-02-15] MEDS: NIFEdipine ER (24 hr) 30 mg Tablet 60 MG PO (09:55)
[2023-02-15] MEDS: pantoprazole 40 mg SDV IVP ×2 (09:56→20:26)
[2023-02-15] MEDS: sucralfate 1 gm Tablet PO ×2 (09:56→20:26)
[2023-02-15] MEDS: carvedilol 25 mg Tablet PO ×2 (09:56→18:14)
[2023-02-15] MEDS: cloNIDine 0.1 mg Tablet PO ×2 (09:57→18:14)
--- NOTE | 2023-02-15 10:49 | PM.PN ---
Subjective Subjective: Doing well, denies any complaints Medications: Reviewed: Yes Vitals/I&O/Wt Last Vital Signs Temp 98.2 F 02/15/23 03:47 Pulse 80 02/15/23 08:00 Resp 14 02/15/23 03:47 BP 163/95 02/15/23 09:57 Pulse Ox 97 02/15/23 03:47 O2 Del Method 02/15/23 03:47 02/14/23 02/15/23 02/15/23 22:59 06:59 14:59 Intake Total 508.667 / 1532.167 320 / 1852.167 102 / 102 Output Total 650 / 1750 1050 / 2800 1000 / 1000 Balance -141.333 / -217.833 -730 / -947.833 -898 / -898 Weight last 48 hrs Weight 78.562 kg Weight 78.613 kg Physical Exam Narrative: Patient awake alert, no acute distress S1-S2 and regular rate and rhythm per report Clear to auscultation per report 1+ pedal edema Urinary Catheter Management: Galdamez: Cath Placed During This Visit: yes Reason for Continuing Indwelling Catheter: Accurate Measurement of Urinary Output in Critically Ill Patients Urinary Catheter Date of Insertion: 02/13/23 Urinary Catheter Time of Insertion: 17:19 Data 02/15/23 04:28 02/15/23 04:28 A&P Assessment and plan (1) Acute kidney injury superimposed on CKD: Plan 1. Acute on chronic kidney disease stage III: Patient's baseline creatinine is anywhere from 1.8-2.0 range. Currently creatinine is at 2.4. Patient likely has CKD due to diabetic nephropathy and hypertensive nephrosclerosis. Also has 3+ proteinuria( UACR 2111). Multiple cysts noted on CT but no hydronephrosis. Current MADDY likely hemodynamic changes due to fluctuating blood pressures, prerenal from diarrhea in the setting of diuretics and ARB use. -Patient currently appears euvolemic, stopped IV fluids. Agree with holding diuretics and ARB's at this time. -normal CPK levels and lactate levels -We will check renal ultrasound to evaluate renal cysts a further -Arrange nephrology follow-up at discharge -Hold HCTZ and do not restart at discharge . can resume Aldactone 25 mg daily at discharge -Continue to hold ARB at discharge with plan to resume as outpatient after repeat labs. 2. Metabolic acidosis: Hyperchloremic, on Bicitra, 3. Hypertension: Blood pressures elevated currently, increased hydralazine to 75 every 8 hours, added nifedipine 60 mg daily. On Coreg 25 twice daily, can resume Aldactone in a.m. 4. Diastolic CHF: Diuretics on hold, will give Lasix as needed for now. Resume Aldactone once renal function back to baseline. Patient evaluated using audiovisual cart. Time spent 45 minutes Attestations Medical Necessity Statement*: Patient requires hospitalization for acute renal failure, chest pain, Coding Level of Care Code Acute Code for Chg Fwd Diagnoses Acute kidney injury superimposed on CKD N17.9; N18.9
--- NOTE | 2023-02-15 11:06 | P.CONIM_ITS ---
Providers/Reason For Consult Consulting Physician/Specialty*: Elias Carrizales MD/ Cardiology Reason for Consult*: Chest pain/ abnormal stress test Requesting Physician: Dr Castillo Attending Physician: Sumanth Castilol MD Primary Care Provider: Robert Espinoza DO History of Present Illness History of Present Illness Celeste Kruse is a 72 year old female with past medical history of CAD who presented to hospital with shortness of breath. It was associated with occasional chest discomfort. She feels the left arm discomfort as well. Initial troponin was elevated but did not trend up significantly. EKG shows right bundle branch block with no ischemic changes. She underwent stress test that showed prior infarct in left circumflex artery territory with obed-infarct ischemia. She has CKD and creatinine is significantly elevated at 2.1. Echo shows LV EF of 50%. She also has been having diarrhea symptoms. Review of Systems General: Reports: 10 or more systems reviewed and unremarkable except in HPI and below Const: Denies: fever(s), chills, body aches, change in appetite, change in weight, malaise, night sweats, diaphoresis, change in sleep pattern, daytime sleepiness or snoring Eyes: Denies: change in vision, blurry vision, photophobia, eye discomfort or eye discharge ENMT: Denies: throat pain, enlarged tonsils, hoarseness, mouth pain, oral sores, dry mouth, tinnitus, nasal congestion or post nasal drip Card: Denies: chest pain, palpitations, irregular heart rhythm, edema, swelling of feet/ankles, lightheadedness, syncope, pre-syncope, dyspnea on exertion, orthopnea, leg pain with exertion or acrocyanosis Resp: Reports: dyspnea; Denies: productive cough, non-productive cough, wheezing, stridor, pain on inspiration, change in phlegm color, hemoptysis or chest congestion GI: Denies: abdominal pain, nausea, vomiting, hematemesis, coffee ground emesis, dysphagia, heartburn, diarrhea, constipation, bloating, GI cramping, change in bowel habits, pain on defecation, hematochezia or melena : Denies: flank pain, dysuria, urinary frequency, urinary urgency, urinary hesitancy, nocturia or hematuria Musc: Denies: neck pain, back pain, extremity pain, joint pain, joint swelling, joint redness, joint stiffness or limited range of motion Neuro: Denies: headache(s), numbness in extremities, weakness in extremities, sensory changes, lack of coordination, difficulty walking, frequent falls, dizziness, vertigo, confusion, Slurred speech present, difficulty communicating thoughts or seizure-like activity Psych: Denies: anxiety, depression, mood swings, panic attacks, hopelessness or irritability Endo: Denies: polyuria, polydipsia, tired all the time, cold intolerance, excessive sweating, flushing or heat intolerance Kiran/Lymph: Denies: easy bruising or easy bleeding All/Imm: Denies: tongue swelling, facial swelling or acute wheezing Medications/Allergies Home Medications Medication Instructions Recorded Confirmed Last Taken Type aspirin 81 mg tablet,delayed 81 mg PO BEDTIME 12/05/19 02/13/23 10/24/22 History release (Lorin Low Dose Aspirin) loratadine 10 mg tablet (Claritin) 10 mg PO QAM 12/05/19 02/13/23 02/13/23 History carvedilol 25 mg tablet 25 mg PO BID #180 tabs 06/14/22 02/13/23 02/13/23 Rx fluticasone 500 mcg-salmeterol 50 1 inh inhalation BID #60 ea 06/14/22 02/13/23 10/24/22 Rx mcg/dose blistr powdr for inhalation (Advair Diskus) evolocumab 140 mg/mL subcutaneous 140 mg SUBCUT Q14D 02/13/23 02/13/23 02/09/23 History pen injector (Bravo Urbina) ezetimibe 10 mg tablet (Zetia) 10 mg PO BEDTIME 02/13/23 02/13/23 02/12/23 History glimepiride 4 mg tablet 4 mg PO QAM 02/13/23 02/13/23 02/13/23 History hydrochlorothiazide 25 mg tablet 50 mg PO QAM 02/13/23 02/13/23 02/13/23 History irbesartan 300 1 tab PO QAM 02/13/23 02/13/23 02/13/23 History mg-hydrochlorothiazide 12.5 mg tablet levothyroxine 75 mcg tablet 75 mcg PO QAM 02/13/23 02/13/23 02/13/23 History multivitamin with minerals 2 tab PO DAILY 02/13/23 02/13/23 Unknown History (Hair,Skin and Nails tablet) pantoprazole 40 mg tablet,delayed 40 mg PO QAM 02/13/23 02/13/23 02/13/23 History release spironolactone 25 mg tablet 25 mg PO QAM 02/13/23 02/13/23 02/13/23 History Allergies Allergy/AdvReac Type Severity Reaction Status Date / Time meclizine Allergy Intermediate dizziness Verified 02/13/23 11:33 codeine Allergy Unknown Verified 02/13/23 11:33 ofloxacin Allergy Unknown Verified 02/13/23 11:33 Current Medications Generic Name Dose Route Start Last Admin Trade Name Freq PRN Reason Stop Dose Admin Acetaminophen 650 mg 02/13/23 14:50 02/14/23 07:59 Acetaminophen 325 Mg Tablet PO 650 mg Q6H PRN Administration Mild/Mod Pain Or Temp >/= 101 Aspirin 81 mg 02/13/23 21:00 02/14/23 21:00 Aspirin 81 Mg Ec Tablet PO 81 mg BEDTIME FLAVIO Administration Carvedilol 25 mg 02/13/23 18:00 02/15/23 09:56 Carvedilol 25 Mg Tablet PO 25 mg BID FLAVIO Administration Citric Acid/Sodium Citrate 60 ml 02/15/23 09:00 02/15/23 10:11 Citric Acid-Sodium Citrate 30 Ml Udc PO Not Given BID FLAVIO Clonidine HCl 0.1 mg 02/15/23 09:00 02/15/23 09:57 Clonidine 0.1 Mg Tablet PO 0.1 mg BID FLAVIO Administration Ezetimibe 10 mg 02/13/23 21:00 02/14/23 21:00 Ezetimibe 10 Mg Tablet PO 10 mg BEDTIME FLAVIO Administration Heparin Sodium (Porcine) 5,000 unit 02/13/23 14:50 02/15/23 03:45 Heparin 5,000 Unit/Ml Inj 1 Ml SUBCUT 5,000 unit Q12H FLAVIO Administration Hydralazine HCl 75 mg 02/15/23 09:00 02/15/23 09:55 Hydralazine 50 Mg Tablet PO 75 mg TID FLAVIO Administration Ceftriaxone Sodium 1,000 mg/ 50 mls @ 100 mls/hr 02/14/23 08:00 02/15/23 10:44 Sodium Chloride IV Infused Q24H FLAVIO Infusion Protocol Insulin Human Lispro 0 unit 02/13/23 18:00 02/15/23 08:09 Insulin Lispro 100 Unit/1 Ml SUBCUT Not Given WM&BEDTIME FLAVIO Protocol Levothyroxine Sodium 75 mcg 02/14/23 06:00 02/15/23 03:45 Levothyroxine 75 Mcg Tablet PO 75 mcg QAM FLAVIO Administration Nifedipine 60 mg 02/15/23 09:00 02/15/23 09:55 Nifedipine Er (24 Hr) 30 Mg Tablet PO 60 mg DAILY FLAVIO Administration Ondansetron HCl 4 mg 02/15/23 06:48 02/15/23 07:45 Ondansetron 2 Mg/Ml Sdv 2 Ml IVP 4 mg Q2M PRN Administration NAUSEA Pantoprazole Sodium 40 mg 02/15/23 07:30 02/15/23 09:56 Pantoprazole 40 Mg Sdv IVP 40 mg Q12H FLAVIO Administration Sucralfate 1 gm 02/15/23 07:30 02/15/23 09:56 Sucralfate 1 Gm Tablet PO 1 gm Q12H FLAVIO Administration PFSH Acute PFSH: Medical History Asthma 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 Coronary artery disease Essential hypertension Hyperlipidemia Hypoglycemia associated with type 2 diabetes mellitus Hypothyroid Insomnia, idiopathic Kidney stone Myocardial infarction Statin intolerance Type 2 diabetes mellitus Surgical History H/O tubal ligation Hx of appendectomy Hx of cataract surgery Hx of hysterectomy Family History Father Cancer Mother Cancer Hypertension Diabetes Social History Smoking and tobacco status: never smoked Alcohol intake: never Current gender identity: Female Female Reproductive History: Spontaneous abortions: No Vitals/I&O/Wt Last Vital Signs Temp 98.2 F 02/15/23 03:47 Pulse 78 02/15/23 11:00 Resp 24 H 02/15/23 11:00 BP 163/95 02/15/23 11:00 Pulse Ox 98 02/15/23 10:54 O2 Del Method 02/15/23 10:54 02/14/23 02/15/23 02/15/23 22:59 06:59 14:59 Intake Total 508.667 / 1532.167 320 / 1852.167 102 / 102 Output Total 650 / 1750 1050 / 2800 1000 / 1000 Balance -141.333 / -217.833 -730 / -947.833 -898 / -898 Weight last 48 hrs Weight 173 lb 3.2 oz Weight 173 lb 5 oz Physical Exam Narrative: GENERAL: Patient is alert, awake and oriented x3. [] NECK: No jugular vein distension. [] HEENT: No cyanosis. No icterus. No pallor. [] HEART: Regular S1 and S2. No murmur, rub or gallop. [] LUNGS: Clear to auscultate bilaterally. [] CENTRAL NERVOUS SYSTEM: Grossly nonfocal. [] EXTREMITIES: Lower extremities with 1+ edema bilaterally. Pulses palpable in the lower extremities, both dorsalis pedis and posterior tibial. [] Urinary Catheter Management: Galdamez: Cath Placed During This Visit: yes Reason for Continuing Indwelling Catheter: Accurate Measurement of Urinary Output in Critically Ill Patients Urinary Catheter Date of Insertion: 02/13/23 Urinary Catheter Time of Insertion: 17:19 Data 02/15/23 04:28 02/15/23 04:28 A&P Assessment and plan (1) Chest pain: (2) GI bleed: (3) Acute kidney injury superimposed on CKD: (4) Mixed dyslipidemia: (5) Coronary artery disease: Qualifiers: Coronary Disease-Associated Artery/Lesion type: [place] artery [place] vs. transplanted heart: [place] heart Associated angina: without angina Qualified Code(s): I25.10 - Atherosclerotic heart disease of [place] coronary artery without angina pectoris (6) Hyperlipidemia: Qualifiers: Hyperlipidemia type: pure hypercholesterolemia Qualified Code(s): E78.00 - Pure hypercholesterolemia, unspecified (7) Type 2 diabetes mellitus: Qualifiers: Diabetes mellitus shelter insulin use: without shelter use Diabetes mellitus complication status: without complication Qualified Code(s): E11.9 - Type 2 diabetes mellitus without complications Plan Patient has atypical chest pain symptoms. Stress test showing prior infarct with obed-infarct ischemia in left circumflex artery territory. Had a detailed discussion with patient discussing different options including invasive coronary angiogram versus medical therapy. Given her MADDY on CKD, decision made to med ically treat her. In future if continues having chest pain, we can consider coronary angiogram Medical therapy. Thank you for involving us with care of this patient. We will continue to follow. Please call with questions. Consult Attestations Medical Necessity Statement: Care expected to cross 2 midnights. Coding Level of Care Code Acute Code for Chg Fwd Diagnoses Chest pain R07.9 GI bleed K92.2 Acute kidney injury superimposed on CKD N17.9; N18.9 Mixed dyslipidemia E78.2 Coronary artery disease I25.10 Coronary Disease-Associated Artery/Lesion type: [place] artery [place] vs. 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
[2023-02-15 12:08] LABS: Hematocrit 27.7 % (37.0-47.0); Hemoglobin 9.3 g/dL (11.5-15.3)
--- NOTE | 2023-02-15 13:48 | P.PN_ITS ---
Subjective Subjective: Patient was seen this morning, she tells me that she was not able to sleep during the night, no chest pain this morning Vitals/I&O/Wt Last Vital Signs Temp 98.2 F 02/15/23 03:47 Pulse 78 02/15/23 11:00 Resp 24 H 02/15/23 11:00 BP 163/95 02/15/23 11:00 Pulse Ox 98 02/15/23 10:54 O2 Del Method 02/15/23 10:54 02/14/23 02/15/23 02/15/23 22:59 06:59 14:59 Intake Total 508.667 / 1532.167 320 / 1852.167 102 / 102 Output Total 650 / 1750 1050 / 2800 1000 / 1000 Balance -141.333 / -217.833 -730 / -947.833 -898 / -898 Weight last 48 hrs Weight 78.562 kg Weight 78.613 kg Physical Exam Const: COMMON NORMALS: no acute distress and patient oriented x3 Resp: COMMON NORMALS: normal respiratory effort, No retractions, No use of accessory muscles and clear to auscultation bilaterally AUSCULTATION: clear to auscultation bilaterally Cardio: COMMON NORMALS: regular rate, regular rhythm, S1 normal heart sound present and S2 normal heart sound present RATE: regular rate RHYTHM: regular rhythm HEART SOUNDS: S1 normal heart sound present and S2 normal heart sound present GI: COMMON NORMALS: Normal to inspection, nondistended, normoactive bowel sounds present, non-tender and no bruits Extremity: COMMON NORMALS: no calf tenderness and no pedal edema Neuro: COMMON NORMALS: patient oriented x3 Psych: COMMON NORMALS: mental status grossly normal Urinary Catheter Management: Galdamez: Cath Placed During This Visit: yes Reason for Continuing Indwelling Catheter: Accurate Measurement of Urinary Output in Critically Ill Patients Urinary Catheter Date of Insertion: 02/13/23 Urinary Catheter Time of Insertion: 17:19 Data 02/15/23 11:53 02/15/23 04:28 A&P Assessment and plan (1) Acute kidney injury superimposed on CKD: Creatinine 2.4, urine 2100 cc Will consult nephrology Most likely in setting of dehydration and home medications including hydrochlorothiazide, ARB and spironolactone and hypertensive nephropathy Add hydralazine 25 3 times daily Medical reconciliation done for nephrotoxic drugs. Galdamez catheter, strict input output charting. (2) Hyperkalemia: Resolved (3) Chest pain: On exertion. History of CAD. Does have elevated troponins, no significant delta troponin Cardiac echocardiogram Mild diffuse hypokinesia of the left ventricle with an ejection ?fraction of around 50%.? Moderate concentric left ventricular ?hypertrophy.Grade I/IV diastolic dysfunction (abnormal ?relaxation filling pattern), normal to mildly elevated filling ?pressures. ?Thickened mitral valve. Trace mitral valve regurgitation. ?Thickened aortic valve. ?There is no pericardial effusion. ?There are no intracardiac masses. ?Compared to the study from 12/03/2017, there is slight drop in ?the LV ejection fraction Cardiac stress test today No active chest pain so we will hold off on full dose anticoagulation for now. Continue with aspirin, Zetia. Patient is statin intolerant. (4) Type 2 diabetes mellitus: Sliding scale at low-dose protocol. 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 Continue with home dose of Zetia. Qualifiers: Hyperlipidemia type: pure hypercholesterolemia Qualified Code(s): E78.00 - Pure hypercholesterolemia, unspecified (6) Hypothyroid: Qualifiers: Hypothyroidism type: acquired Qualified Code(s): E03.9 - Hypothyroidism, unspecified (7) Iron deficiency anemia: - Has anemia -We will monitor hemoglobin -Iron studies -Hemoccult stools -No complaints of bloody or black stools, no hemodynamic compromise -Hold DVT prophylaxis Qualifiers: Iron deficiency anemia type: unspecified iron deficiency Qualified Code(s): D50.9 - Iron deficiency anemia, unspecified (8) Essential hypertension: (9) Coronary artery disease: Qualifiers: Associated angina: without angina Coronary Disease-Associated Artery/Lesion type: [place] artery [place] vs. transplanted heart: [place] heart Qualified Code(s): I25.10 - Atherosclerotic heart disease of [place] coronary artery without angina pectoris (10) GI bleed: Plan CODE STATUS: Patient states her sister will be the DPOA. Number in chart. Full code. 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 transplanted heart: [place] heart GI bleed K92.2
--- NOTE | 2023-02-15 16:53 | NMCV_ITS ---
NM sonny perf SPECT r/s* [id number] Celeste rKuse Age: 72 Gender: F : 1950 Exam Date: 02/14/2023 16:53 Ordering Phys: Sumanth Castillo MD Technologist: AMOL Loyola Exam Location: [facility] Indications: CHEST PAIN STRESS TEST [facility] IMAGE PROTOCOL Rest/Stress 1 Lexiscan Day Radiopharmaceutical Dose (mCi) Administration Site Administered by Rest: Tc-99m 10.8 IV AMOL Gibson Sestamibi Stress:Tc-99m 32.9 IV AMOL Gibson Sestamibi Rest: 15-Feb-2023 60 Discovery 630 Stress: 15-Feb-2023 30 Discovery 630 0.4mg Lexiscan. Images obtained in supine and prone position. SPECT RESULTS Technical Quality: Excellent Raw Data Analysis: Normal Image Corrections: No attenuation or motion correction applied Summed Stress Score: 8 Summed Rest Score: 4 Summed Difference Score: 4 PERFUSION FINDINGS There is a large sized, partially reversible perfusion defect noted in the apical lateral, lateral and inferolateral wu. This is consistent with large sized prior infarct with significant obed-infarct ischemia in left circumflex artery territory. FUNCTIONAL RESULTS (calculated via Gated SPECT) Stress Image LV EF (%): 67 Stress EDV (mL):114 TID: 0.99 Stress ESV (mL):38 FUNCTIONAL FINDINGS: There is normal left ventricular systolic function. IMPRESSIONS 1. Abnormal myocardial perfusion imaging with large sized area of prior infarct with significant obed-infarct ischemia in the left circumflex artery territory. 2. LV systolic function is normal. Elias Carrizales MD (Electronically Signed) Final Date: 15 February 2023 11:05 S
[2023-02-15] MEDS: ezetimibe 10 mg Tablet PO (20:25)
[2023-02-15] MEDS: aspirin 81 mg EC Tablet PO (20:26)
[2023-02-15] MEDS: acetaminophen 325 mg Tablet 650 MG PO (20:38)
[2023-02-15 21:55] LABS: Glucose Point of Care 194 mg/dL (70-110)
[2023-02-16] VITALS (11 sets, daily range): BP systolic 105–137; BP diastolic 59–76; PULSE 55–71; RESP 16–24; TEMP 36.6–37.7; O2SAT 94–97
[2023-02-16] MEDS: zolpidem 5 mg Tablet 2.5 MG PO (01:32)
[2023-02-16 04:39] LABS: Basophils % 0.6 %; Eosinophils # 0.2 10^3/uL (0.0-0.8); Eosinophils % 3.4 %; Hematocrit 26.3 % (37.0-47.0); Hemoglobin 8.3 g/dL (11.5-15.3); Lymphocytes # 1.5 10^3/uL (0.8-4.8); Lymphocytes % 23.4 %; Mean Corpuscular HGB Conc 31.6 g/dL (30.0-36.0); Mean Corpuscular Hemoglobin 30.9 pg (28.0-34.0); Mean Corpuscular Volume 97.8 fl (81-99); Mean Platelet Volume 10.8 fL (7.4-10.4); Monocytes # 0.8 10^3/uL (0.2-0.9); Monocytes % 12.1 %; Neutrophils # 3.87 10^3/uL (1.8-7.7); Neutrophils % 60.3 %; Nucleated Red Blood Cells % 0 %; Platelet Count 225 10^3/cmm (130-400); Red Blood Count 2.69 10^6/uL (4.1-5.3); Red Cell Distribution Width 12.7 % (12.1-15.1); White Blood Count 6.4 10^3/uL (4.0-10.0)
[2023-02-16 04:52] LABS: Blood Urea Nitrogen 47 mg/dL (8-23); Calcium 8.8 mg/dL (8.5-10.5); Carbon Dioxide 16 mmol/L (22-29); Chloride 106 mmol/L (98-107); Glucose 152 mg/dL (65-115); Magnesium 1.8 mg/dL (1.7-2.3); Osmolality Calculated 293 mOsm/kg (285-295); Sodium 134 mmol/L (136-145)
[2023-02-16] MEDS: levothyroxine 75 mcg Tablet PO (06:18)
[2023-02-16 06:33] LABS: Glucose Point of Care 156 mg/dL (70-110)
--- NOTE | 2023-02-16 09:07 | PC.SOCIAL ---
IMM update IMM updated with patient. Verbalized an understanding. Copy PG 2 provided. Initialled, dated, timed, and placed in chart.
[2023-02-16] MEDS: NIFEdipine ER (24 hr) 30 mg Tablet PO (09:15)
[2023-02-16] MEDS: sucralfate 1 gm Tablet PO ×2 (09:15→20:09)
[2023-02-16] MEDS: cefTRIAXone 1,000 MG in sodium chloride 0.9% (plus) 50 ML 100 MG IV (09:16)
[2023-02-16] MEDS: carvedilol 25 mg Tablet PO ×2 (09:16→17:10)
[2023-02-16] MEDS: pantoprazole 40 mg SDV IVP ×2 (09:18→20:16)
--- NOTE | 2023-02-16 10:37 | PC.SOCIAL ---
IMM update IMM updated with patient. Verbalized an understanding. Copy Pg 2 provided. Initialled, dated, timed, and placed in chart.
[2023-02-16] MEDS: peg /e-lyte soln 4,000 mL Btl 4000 ML PO (12:05)
[2023-02-16] MEDS: bisacodyl 5 mg Tablet 20 MG PO (12:05)
--- NOTE | 2023-02-16 12:07 | PM.CONSULT ---
Providers/Reason For Consult Consulting Physician/Specialty*: Dr. Beltran Garcia DO/General surgery Reason for Consult*: Iron deficiency anemia Attending Physician: Sumanth Castillo MD Primary Care Provider: Robert Espinoza DO History of Present Illness History of Present Illness Celeste Kruse is a 72 year old female who is currently being treated in the hospital for chest pain, that was found to have iron deficiency anemia. She denies any abdominal pain, nausea, emesis, diarrhea, constipation, hematochezia and/or melena. Her last colonoscopy was 1 year ago and was reportedly within normal limits. She denies any heartburn. Medicine would like to put her on antiplatelet medication and 1 to ensure there is no GI source of blood loss prior to initiation of the medication. Review of Systems General: Reports: 10 or more systems reviewed and unremarkable except in HPI and below Medications/Allergies Home Medications Medication Instructions Recorded Confirmed Last Taken Type aspirin 81 mg tablet,delayed 81 mg PO BEDTIME 12/05/19 02/13/23 10/24/22 History release (Lorin Low Dose Aspirin) loratadine 10 mg tablet (Claritin) 10 mg PO QAM 12/05/19 02/13/23 02/13/23 History carvedilol 25 mg tablet 25 mg PO BID #180 tabs 06/14/22 02/13/23 02/13/23 Rx fluticasone 500 mcg-salmeterol 50 1 inh inhalation BID #60 ea 06/14/22 02/13/23 10/24/22 Rx mcg/dose blistr powdr for inhalation (Advair Diskus) evolocumab 140 mg/mL subcutaneous 140 mg SUBCUT Q14D 02/13/23 02/13/23 02/09/23 History pen injector (Repatha SureClick) ezetimibe 10 mg tablet (Zetia) 10 mg PO BEDTIME 02/13/23 02/13/23 02/12/23 History glimepiride 4 mg tablet 4 mg PO QAM 02/13/23 02/13/23 02/13/23 History hydrochlorothiazide 25 mg tablet 50 mg PO QAM 02/13/23 02/13/23 02/13/23 History irbesartan 300 1 tab PO QAM 02/13/23 02/13/23 02/13/23 History mg-hydrochlorothiazide 12.5 mg tablet levothyroxine 75 mcg tablet 75 mcg PO QAM 02/13/23 02/13/23 02/13/23 History multivitamin with minerals 2 tab PO DAILY 02/13/23 02/13/23 Unknown History (Hair,Skin and Nails tablet) pantoprazole 40 mg tablet,delayed 40 mg PO QAM 02/13/23 02/13/23 02/13/23 History release spironolactone 25 mg tablet 25 mg PO QAM 02/13/23 02/13/23 02/13/23 History Allergies Allergy/AdvReac Type Severity Reaction Status Date / Time meclizine Allergy Intermediate dizziness Verified 02/13/23 11:33 codeine Allergy Unknown Verified 02/13/23 11:33 ofloxacin Allergy Unknown Verified 02/13/23 11:33 Current Medications Generic Name Dose Route Start Last Admin Trade Name Freq PRN Reason Stop Dose Admin Acetaminophen 650 mg 02/13/23 14:50 02/15/23 20:38 Acetaminophen 325 Mg Tablet PO 650 mg Q6H PRN Administration Mild/Mod Pain Or Temp >/= 101 Aspirin 81 mg 02/13/23 21:00 02/15/23 20:26 Aspirin 81 Mg Ec Tablet PO 81 mg BEDTIME FLAVIO Administration Carvedilol 25 mg 02/13/23 18:00 02/16/23 09:16 Carvedilol 25 Mg Tablet PO 25 mg BID FLAVIO Administration Citric Acid/Sodium Citrate 60 ml 02/15/23 09:00 02/16/23 09:27 Citric Acid-Sodium Citrate 30 Ml Udc PO Not Given BID FLAVIO Ezetimibe 10 mg 02/13/23 21:00 02/15/23 20:25 Ezetimibe 10 Mg Tablet PO 10 mg BEDTIME FLAVIO Administration Heparin Sodium (Porcine) 5,000 unit 02/13/23 14:50 02/15/23 03:45 Heparin 5,000 Unit/Ml Inj 1 Ml SUBCUT 5,000 unit Q12H FLAVIO Administration Ceftriaxone Sodium 1,000 mg/ 50 mls @ 100 mls/hr 02/14/23 08:00 02/16/23 10:05 Sodium Chloride IV Infused Q24H FLAVIO Infusion Protocol Insulin Human Lispro 0 unit 02/13/23 18:00 02/16/23 11:53 Insulin Lispro 100 Unit/1 Ml SUBCUT Not Given WM&BEDTIME FLAVIO Protocol Levothyroxine Sodium 75 mcg 02/14/23 06:00 02/16/23 06:18 Levothyroxine 75 Mcg Tablet PO 75 mcg QAM FLAVIO Administration Nifedipine 30 mg 02/16/23 09:00 02/16/23 09:15 Nifedipine Er (24 Hr) 30 Mg Tablet PO 30 mg DAILY FLAVIO Administration Ondansetron HCl 4 mg 02/15/23 06:48 02/15/23 07:45 Ondansetron 2 Mg/Ml Sdv 2 Ml IVP 4 mg Q2M PRN Administration NAUSEA Pantoprazole Sodium 40 mg 02/15/23 07:30 02/16/23 09:18 Pantoprazole 40 Mg Sdv IVP 40 mg Q12H FLAVIO Administration Sucralfate 1 gm 02/15/23 07:30 02/16/23 09:15 Sucralfate 1 Gm Tablet PO 1 gm Q12H FLAVIO Administration PFSH Acute PFSH: Medical History Asthma 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 Coronary artery disease Essential hypertension Hyperlipidemia Hypoglycemia associated with type 2 diabetes mellitus Hypothyroid Insomnia, idiopathic Kidney stone Myocardial infarction Statin intolerance Type 2 diabetes mellitus Surgical History H/O tubal ligation Hx of appendectomy Hx of cataract surgery Hx of hysterectomy Family History Father Cancer Mother Cancer Hypertension Diabetes Social History Smoking and tobacco status: never smoked Alcohol intake: never Current gender identity: Female Female Reproductive History: Spontaneous abortions: No Vitals/I&O/Wt Last Vital Signs Temp 97.8 F 02/16/23 08:00 Pulse 58 L 02/16/23 11:33 Resp 20 H 02/16/23 11:33 BP 111/64 02/16/23 11:33 Pulse Ox 94 02/16/23 11:33 O2 Del Method 02/16/23 11:33 02/15/23 02/16/23 02/16/23 22:59 06:59 14:59 Intake Total 720 / 1062 300 / 1362 530 / 530 Output Total 550 / 1550 Balance 720 / 62 -250 / -188 530 / 530 Weight last 48 hrs Weight 181 lb 6.4 oz Weight 173 lb 3.2 oz Physical Exam Narrative: General : Patient is well developed , no acute distress, oriented x3 Head : Normal cephalic, a-traumatic. Ears : Pinnae and external canal are normal. Hearing is normal. Eyes : PERRLA, Sclera and injection are normal. No conjunctival discharge. Nose : Mucous membranes are without erythema. Throat : buccal mucosa is normal, gums are without significant recession or hypertrophy. Lungs : Equal chest rise bilaterally, no use of accessory muscles, trachea is midline. Cor : Rate and rhythm are normal. Abdomen : Soft, ND, NT, no g/r/m Extremities : No edema, no cyanosis or clubbing, dorsalis pedis pulses are present bilaterally, non-tender to palpation of calves. Upper extremities are normal bilaterally. Back : non-tender to palpation, no CVA tenderness. Neuro : CN II - XII intact, Upper and lower extremities have equal and full strength Urinary Catheter Management: Galdamez: Cath Placed During This Visit: yes Reason for Continuing Indwelling Catheter: Accurate Measurement of Urinary Output in Critically Ill Patients Urinary Catheter Date of Insertion: 02/13/23 Urinary Catheter Time of Insertion: 17:19 Data 02/16/23 03:31 02/16/23 03:31 A&P Assessment and plan (1) Iron deficiency anemia: Qualifiers: Iron deficiency anemia type: unspecified iron deficiency Qualified Code(s): D50.9 - Iron deficiency anemia, unspecified Plan Clear liquid diet Bowel prep N.p.o. after midnight Tomorrow I will perform an EGD and colonoscopy The risks and benefits of the procedure, including bleeding, infection, intestinal perforation requiring surgery, missed lesion were explained to the patient. The patient is understanding of the risks and wishes to proceed. Coding Level of Care Code Acute Code for Chg Fwd Diagnoses Iron deficiency anemia D50.9 Iron deficiency anemia type: unspecified iron deficiency
[2023-02-16 12:09] LABS: Glucose Point of Care 282 mg/dL (70-110)
--- NOTE | 2023-02-16 12:31 | PM.PN ---
Subjective Subjective: no new complaints Medications: Reviewed: Yes Vitals/I&O/Wt Last Vital Signs Temp 97.8 F 02/16/23 08:00 Pulse 58 L 02/16/23 11:33 Resp 20 H 02/16/23 11:33 BP 111/64 02/16/23 11:33 Pulse Ox 94 02/16/23 11:33 O2 Del Method 02/16/23 11:33 02/15/23 02/16/23 02/16/23 22:59 06:59 14:59 Intake Total 720 / 1062 300 / 1362 530 / 530 Output Total 550 / 1550 Balance 720 / 62 -250 / -188 530 / 530 Weight last 48 hrs Weight 82.282 kg Weight 78.562 kg Physical Exam Narrative: Patient awake alert, no acute distress S1-S2 and regular rate and rhythm per report Clear to auscultation per report 1+ pedal edema Urinary Catheter Management: Galdamez: Cath Placed During This Visit: yes Reason for Continuing Indwelling Catheter: Accurate Measurement of Urinary Output in Critically Ill Patients Urinary Catheter Date of Insertion: 02/13/23 Urinary Catheter Time of Insertion: 17:19 Data 02/16/23 03:31 02/16/23 03:31 A&P Assessment and plan (1) Acute kidney injury superimposed on CKD: Plan 1. Acute on chronic kidney disease stage III: Patient's baseline creatinine is anywhere from 1.8-2.0 range. Currently creatinine is at 2.4. Patient likely has CKD due to diabetic nephropathy and hypertensive nephrosclerosis. Also has 3+ proteinuria( UACR 2111). Multiple cysts noted on CT but no hydronephrosis. Current MADDY likely hemodynamic changes due to fluctuating blood pressures, prerenal from diarrhea in the setting of diuretics and ARB use. -Patient currently appears euvolemic, stopped IV fluids. Agree with holding diuretics and ARB's at this time. -normal CPK levels and lactate levels -We will check renal ultrasound to evaluate renal cysts a further -Cr worsened today likely hemodynamic from fluctuating BPs -Arrange nephrology follow-up at discharge -Hold HCTZ and do not restart at discharge . can resume Aldactone 25 mg daily at discharge -Continue to hold ARB at discharge with plan to resume as outpatient after repeat labs. 2. Metabolic acidosis: Hyperchloremic, on Bicitra, continue 3. Hypertension: Blood pressures elevated currently, increased hydralazine to 75 every 8 hours, added nifedipine 60 mg daily. On Coreg 25 twice daily, can resume Aldactone in a.m. 4. Diastolic CHF: Diuretics on hold, will give Lasix as needed for now. Resume Aldactone once renal function back to baseline. Patient evaluated using audiovisual cart. Time spent 45 minutes Attestations Medical Necessity Statement*: patient requires hospitalization for chest pain Coding Level of Care Code Acute Code for g Fwd Diagnoses Acute kidney injury superimposed on CKD N17.9; N18.9
--- NOTE | 2023-02-16 12:32 | PM.PN ---
Subjective Subjective: Patient was seen and to the side of bed this morning, she continues to complain of weakness and fatigue, she is happier with her blood pressures Vitals/I&O/Wt Last Vital Signs Temp 97.8 F 02/16/23 08:00 Pulse 58 L 02/16/23 11:33 Resp 20 H 02/16/23 11:33 BP 111/64 02/16/23 11:33 Pulse Ox 94 02/16/23 11:33 O2 Del Method 02/16/23 11:33 02/15/23 02/16/23 02/16/23 22:59 06:59 14:59 Intake Total 720 / 1062 300 / 1362 530 / 530 Output Total 550 / 1550 Balance 720 / 62 -250 / -188 530 / 530 Weight last 48 hrs Weight 82.282 kg Weight 78.562 kg Physical Exam Const: COMMON NORMALS: no acute distress and patient oriented x3 Resp: COMMON NORMALS: normal respiratory effort, No retractions, No use of accessory muscles and clear to auscultation bilaterally AUSCULTATION: clear to auscultation bilaterally Cardio: COMMON NORMALS: regular rate, regular rhythm, S1 normal heart sound present and S2 normal heart sound present RATE: regular rate RHYTHM: regular rhythm HEART SOUNDS: S1 normal heart sound present and S2 normal heart sound present GI: COMMON NORMALS: Normal to inspection, nondistended, normoactive bowel sounds present and non-tender Extremity: COMMON NORMALS: no pedal edema Neuro: COMMON NORMALS: patient oriented x3 Psych: COMMON NORMALS: mental status grossly normal Urinary Catheter Management: Galdamez: Cath Placed During This Visit: yes Reason for Continuing Indwelling Catheter: Accurate Measurement of Urinary Output in Critically Ill Patients Urinary Catheter Date of Insertion: 02/13/23 Urinary Catheter Time of Insertion: 17:19 Data 02/16/23 03:31 02/16/23 03:31 A&P Assessment and plan (1) Acute kidney injury superimposed on CKD: Creatinine 2.9, urine output 1500 mL Will consult nephrology Increasing creatinine possibly secondary to drop in blood pressure Stop clonidine, adjust hydralazine to 25 3 times daily Medical reconciliation done for nephrotoxic drugs. Galdamez catheter, strict input output charting. (2) Hyperkalemia: Resolved (3) Chest pain: On exertion. History of CAD. Does have elevated troponins, no significant delta troponin Cardiac echocardiogram Mild diffuse hypokinesia of the left ventricle with an ejection ?fraction of around 50%.? Moderate concentric left ventricular ?hypertrophy.Grade I/IV diastolic dysfunction (abnormal ?relaxation filling pattern), normal to mildly elevated filling ?pressures. ?Thickened mitral valve. Trace mitral valve regurgitation. ?Thickened aortic valve. ?There is no pericardial effusion. ?There are no intracardiac masses. ?Compared to the study from 12/03/2017, there is slight drop in ?the LV ejection fraction Cardiac stress test ?1. Abnormal myocardial perfusion imaging with large sized area of prior infarct ?with significant obed-infarct ischemia in the left circumflex artery territory. ?2. LV systolic function is normal. Cardiology consulted, recommended medical management Continue with aspirin, Zetia. Patient is statin intolerant. (4) Type 2 diabetes mellitus: Sliding scale at low-dose protocol. Qualifiers: Diabetes mellitus long term care administrator insulin use: without residential use Diabetes mellitus complication status: without complication Qualified Code(s): E11.9 - Type 2 diabetes mellitus without complications (5) Hyperlipidemia: Takes Repatha at home given statin intolerance. Continue with home dose of Zetia. Qualifiers: Hyperlipidemia type: pure hypercholesterolemia Qualified Code(s): E78.00 - Pure hypercholesterolemia, unspecified (6) Hypothyroid: Qualifiers: Hypothyroidism type: acquired Qualified Code(s): E03.9 - Hypothyroidism, unspecified (7) Iron deficiency anemia: - Has anemia -Hemoglobin dropped to 8.3 -Iron studies show early evidence of iron deficiency -Hemoccult stools pending -No complaints of bloody or black stools, no hemodynamic compromise -Hold DVT prophylaxis -General surgery consulted for EGD Qualifiers: Iron deficiency anemia type: unspecified iron deficiency Qualified Code(s): D50.9 - Iron deficiency anemia, unspecified (8) Essential hypertension: (9) Coronary artery disease: Qualifiers: Coronary Disease-Associated Artery/Lesion type: [place] artery [place] vs. transplanted heart: [place] heart Associated angina: without angina Qualified Code(s): I25.10 - Atherosclerotic heart disease of [place] coronary artery without angina pectoris (10) GI bleed: Plan CODE STATUS: Patient states her sister will be the DPOA. Number in chart. Full code. scd for dvt prophylaxis Protonix OPD prophylaxis Attestations Medical Necessity Statement*: Patient requires hospitalization for persistent anemia, MADDY Diagnoses Acute kidney injury superimposed on CKD N17.9; N18.9 Hyperkalemia E87.5 Chest pain R07.9 Type 2 diabetes mellitus E11.9 Diabetes mellitus residential insulin use: without residential use Diabetes mellitus complication status: without complication Hyperlipidemia E78.00 Hyperlipidemia type: pure hypercholesterolemia Hypothyroid E03.9 Hypothyroidism type: acquired Iron deficiency anemia D50.9 Iron deficiency anemia type: unspecified iron deficiency Essential hypertension I10 Coronary artery disease I25.10 Coronary Disease-Associated Artery/Lesion type: [place] artery [place] vs. transplanted heart: [place] heart Associated angina: without angina GI bleed K92.2
--- NOTE | 2023-02-16 15:07 | P.PN_ITS ---
Subjective Subjective: Patient is doing well. No chest pain. Has hemoglobin drop. Vitals/I&O/Wt Last Vital Signs Temp 97.8 F 02/16/23 08:00 Pulse 58 L 02/16/23 11:33 Resp 20 H 02/16/23 11:33 BP 111/64 02/16/23 11:33 Pulse Ox 94 02/16/23 11:33 O2 Del Method 02/16/23 11:33 02/16/23 02/16/23 02/16/23 06:59 14:59 22:59 Intake Total 300 / 1362 890 / 890 Output Total 550 / 1550 Balance -250 / -188 890 / 890 Weight last 48 hrs Weight 181 lb 6.4 oz Weight 173 lb 3.2 oz Physical Exam Narrative: GENERAL: Patient is alert, awake and oriented x3. [] NECK: No jugular vein distension. [] HEENT: No cyanosis. No icterus. No pallor. [] HEART: Regular S1 and S2. No murmur, rub or gallop. [] LUNGS: Clear to auscultate bilaterally. [] CENTRAL NERVOUS SYSTEM: Grossly nonfocal. [] EXTREMITIES: Lower extremities with 1+ edema bilaterally. Pulses palpable in the lower extremities, both dorsalis pedis and posterior tibial. [] Urinary Catheter Management: Galdamez: Cath Placed During This Visit: yes Reason for Continuing Indwelling Catheter: Accurate Measurement of Urinary Output in Critically Ill Patients Urinary Catheter Date of Insertion: 02/13/23 Urinary Catheter Time of Insertion: 17:19 Data 02/16/23 03:31 02/16/23 03:31 A&P Assessment and plan (1) Chest pain: (2) GI bleed: (3) Acute kidney injury superimposed on CKD: (4) Mixed dyslipidemia: (5) Coronary artery disease: Qualifiers: Coronary Disease-Associated Artery/Lesion type: [place] artery [place] vs. transplanted heart: [place] heart Associated angina: without angina Qualified Code(s): I25.10 - Atherosclerotic heart disease of [place] coronary artery without angina pectoris (6) Hyperlipidemia: Qualifiers: Hyperlipidemia type: pure hypercholesterolemia Qualified Code(s): E78.00 - Pure hypercholesterolemia, unspecified (7) Type 2 diabetes mellitus: Qualifiers: Diabetes mellitus fpc insulin use: without cardiac cath technician use Diabetes mellitus complication status: without complication Qualified Code(s): E11.9 - Type 2 diabetes mellitus without complications Plan No more chest pain. Medical therapy. Plan for EGD tomorrow. Thank you for involving us with care of this patient. We will sign off. Please call with questions. Attestations Medical Necessity Statement*: Care expected to cross 2 midnights. Coding Level of Care Code Acute Code for Chg Fwd Diagnoses Chest pain R07.9 GI bleed K92.2 Acute kidney injury superimposed on CKD N17.9; N18.9 Mixed dyslipidemia E78.2 Coronary artery disease I25.10 Coronary Disease-Associated Artery/Lesion type: [place] artery [place] vs. transplanted heart: [place] heart Associated angina: without angina Hyperlipidemia E78.00 Hyperlipidemia type: pure hypercholesterolemia Type 2 diabetes mellitus E11.9 Diabetes mellitus cardiac cath technician insulin use: without fpc use Diabetes mellitus complication status: without complication
[2023-02-16] MEDS: hyDRALAzine 25 mg Tablet PO ×2 (16:09→20:09)
[2023-02-16 16:58] LABS: Glucose Point of Care 149 mg/dL (70-110)
[2023-02-16 17:01] LABS: Hematocrit 30.1 % (37.0-47.0); Hemoglobin 9.9 g/dL (11.5-15.3)
[2023-02-16] MEDS: citric acid-sodium citrate 30 mL UDC 60 ML PO (17:10)
[2023-02-16] MEDS: ezetimibe 10 mg Tablet PO (20:09)
[2023-02-16] MEDS: aspirin 81 mg EC Tablet PO (20:09)
[2023-02-16 20:32] LABS: Glucose Point of Care 192 mg/dL (70-110)
[2023-02-16] MEDS: acetaminophen 325 mg Tablet 650 MG PO (21:15)
[2023-02-17] VITALS (14 sets, daily range): BP systolic 134–189; BP diastolic 69–97; PULSE 60–94; RESP 14–20; TEMP 36.3–37; O2SAT 94–100
[2023-02-17 05:24] LABS: Basophils # 0.1 10^3/uL (0.0-0.1); Basophils % 0.7 %; Eosinophils # 0.4 10^3/uL (0.0-0.8); Eosinophils % 4.8 %; Hematocrit 27.2 % (37.0-47.0); Hemoglobin 8.8 g/dL (11.5-15.3); Lymphocytes # 1.4 10^3/uL (0.8-4.8); Lymphocytes % 18.4 %; Mean Corpuscular HGB Conc 32.4 g/dL (30.0-36.0); Mean Corpuscular Hemoglobin 31.4 pg (28.0-34.0); Mean Corpuscular Volume 97.1 fl (81-99); Mean Platelet Volume 10.5 fL (7.4-10.4); Monocytes # 0.8 10^3/uL (0.2-0.9); Monocytes % 11.1 %; Neutrophils # 4.74 10^3/uL (1.8-7.7); Neutrophils % 64.6 %; Nucleated Red Blood Cells % 0 %; Platelet Count 243 10^3/cmm (130-400); Red Cell Distribution Width 12.9 % (12.1-15.1); White Blood Count 7.3 10^3/uL (4.0-10.0)
[2023-02-17 05:42] LABS: Blood Urea Nitrogen 47 mg/dL (8-23); Calcium 8.6 mg/dL (8.5-10.5); Carbon Dioxide 15 mmol/L (22-29); Chloride 105 mmol/L (98-107); Glucose 127 mg/dL (65-115); Magnesium 1.7 mg/dL (1.7-2.3); Osmolality Calculated 296 mOsm/kg (285-295); Sodium 136 mmol/L (136-145)
[2023-02-17 05:53] LABS: Anion Gap 20.5 (5-19); Potassium 4.5 mmol/L (3.5-5.1)
[2023-02-17 06:20] LABS: Glucose Point of Care 139 mg/dL (70-110)
--- NOTE | 2023-02-17 07:19 | ANES.PREANE2 ---
Pre-Anesthetic Assessment Height/Weight: Height 1.55 m Weight 84.005 kg Temp Pulse Resp BP Pulse Ox O2 Del Method 97.9 F 75 20 H 135/69 96 02/17/23 03:43 02/17/23 03:47 02/17/23 03:43 02/17/23 03:43 02/17/23 03:43 02/17/23 03:43 Preop Diagnosis: Change in BH and FH Operation Date: 02/17/23 08:00 Proposed Procedures p EGD(Not Applicable) - Beltran Garcia DO s Colonoscopy(Not Applicable) - Beltran Garcia DO Familial anesthetic complications: None Was Beta Anderson taken within 24 hours: N/A Was Clonidine taken within 24 hours: N/A Last intake: > 8hrs Social No alcohol and No tobacco Exam alert, oriented x 3, clear to auscultation bilaterally and regular rate & rhythm Airway Mallampati: Class II Dentition: partials Pulmonary Asthma CV/HEM Anemia, Coronary Artery Disease and Myocardial Infarction Chronic Renal Insufficiency Metabolic Diabetes Mellitus, Hyperlipidemia and Thyroid Disease Anesthetic Plan ASA status: 3 Anesthesia: MAC Risk of > 500 ml blood loss (7ml/kg in children): No Medications/Allergies Home Medications Medication Instructions Recorded Confirmed Last Taken Type aspirin 81 mg tablet,delayed 81 mg PO BEDTIME 12/05/19 02/13/23 10/24/22 History release (Lorin Low Dose Aspirin) loratadine 10 mg tablet (Claritin) 10 mg PO QAM 12/05/19 02/13/23 02/13/23 History carvedilol 25 mg tablet 25 mg PO BID #180 tabs 06/14/22 02/13/23 02/13/23 Rx fluticasone 500 mcg-salmeterol 50 1 inh inhalation BID #60 ea 06/14/22 02/13/23 10/24/22 Rx mcg/dose blistr powdr for inhalation (Advair Diskus) evolocumab 140 mg/mL subcutaneous 140 mg SUBCUT Q14D 02/13/23 02/13/23 02/09/23 History pen injector (Reproscoea SureEugenioick) ezetimibe 10 mg tablet (Zetia) 10 mg PO BEDTIME 02/13/23 02/13/23 02/12/23 History glimepiride 4 mg tablet 4 mg PO QAM 03/02/13/23 02/13/23 History hydrochlorothiazide 25 mg tablet 50 mg PO QAM 02/13/23 02/13/23 02/13/23 History irbesartan 300 1 tab PO QAM 02/13/23 02/13/23 02/13/23 History mg-hydrochlorothiazide 12.5 mg tablet levothyroxine 75 mcg tablet 75 mcg PO QAM 02/13/23 02/13/23 02/13/23 History multivitamin with minerals 2 tab PO DAILY 02/13/23 02/13/23 Unknown History (Hair,Skin and Nails tablet) pantoprazole 40 mg tablet,delayed 40 mg PO QAM 02/13/23 02/13/23 02/13/23 History release spironolactone 25 mg tablet 25 mg PO QAM 02/13/23 02/13/23 02/13/23 History Allergies Allergy/AdvReac Type Severity Reaction Status Date / Time meclizine Allergy Intermediate dizziness Verified 02/13/23 11:33 codeine Allergy Unknown Verified 02/13/23 11:33 ofloxacin Allergy Unknown Verified 02/13/23 11:33 Current Medications Generic Name Dose Route Start Last Admin Trade Name Freq PRN Reason Stop Dose Admin Acetaminophen 650 mg 02/13/23 14:50 02/16/23 21:15 Acetaminophen 325 Mg Tablet PO 650 mg Q6H PRN Administration Mild/Mod Pain Or Temp >/= 101 Aspirin 81 mg 02/13/23 21:00 02/16/23 20:09 Aspirin 81 Mg Ec Tablet PO 81 mg BEDTIME FLAVIO Administration Carvedilol 25 mg 02/13/23 18:00 02/16/23 17:10 Carvedilol 25 Mg Tablet PO 25 mg BID FLAVIO Administration Citric Acid/Sodium Citrate 60 ml 02/15/23 09:00 02/16/23 17:10 Citric Acid-Sodium Citrate 30 Ml Udc PO 60 ml BID FLAVIO Administration Ezetimibe 10 mg 02/13/23 21:00 02/16/23 20:09 Ezetimibe 10 Mg Tablet PO 10 mg BEDTIME FLAVIO Administration Heparin Sodium (Porcine) 5,000 unit 02/13/23 14:50 02/15/23 03:45 Heparin 5,000 Unit/Ml Inj 1 Ml SUBCUT 5,000 unit Q12H FLAVIO Administration Hydralazine HCl 25 mg 02/16/23 11:16 02/16/23 20:09 Hydralazine 25 Mg Tablet PO 25 mg TID FLAVIO Administration Ceftriaxone Sodium 1,000 mg/ 50 mls @ 100 mls/hr 02/14/23 08:00 02/16/23 10:05 Sodium Chloride IV Infused Q24H FLAVIO Infusion Protocol Sodium Chloride 1,000 mls @ 50 mls/hr 02/16/23 08:30 02/17/23 04:38 Sodium Chloride 0.9% IV Not Given .Q20H FLAVIO Insulin Human Lispro 0 unit 02/13/23 18:00 02/16/23 21:01 Insulin Lispro 100 Unit/1 Ml SUBCUT Not Given WM&BEDTIME FLAVIO Protocol Levothyroxine Sodium 75 mcg 02/14/23 06:00 02/17/23 05:12 Levothyroxine 75 Mcg Tablet PO Not Given QAM FLAVIO Nifedipine 30 mg 02/16/23 09:00 02/16/23 09:15 Nifedipine Er (24 Hr) 30 Mg Tablet PO 30 mg DAILY FLAVIO Administration Ondansetron HCl 4 mg 02/15/23 06:48 02/15/23 07:45 Ondansetron 2 Mg/Ml Sdv 2 Ml IVP 4 mg Q2M PRN Administration NAUSEA Pantoprazole Sodium 40 mg 02/15/23 07:30 02/16/23 20:16 Pantoprazole 40 Mg Sdv IVP 40 mg Q12H FLAVIO Administration Sucralfate 1 gm 02/15/23 07:30 02/16/23 20:09 Sucralfate 1 Gm Tablet PO 1 gm Q12H FLAVIO Administration PFSH Anesthesia Medical History Asthma 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 Coronary artery disease Essential hypertension Hyperlipidemia Hypoglycemia associated with type 2 diabetes mellitus Hypothyroid Insomnia, idiopathic Kidney stone Myocardial infarction Statin intolerance Type 2 diabetes mellitus Surgical History H/O tubal ligation Hx of appendectomy Hx of cataract surgery Hx of hysterectomy Family History Father Cancer Mother Cancer Hypertension Diabetes Social History Smoking and tobacco status: never smoked Alcohol intake: never Current gender identity: Female Female Reproductive History Spontaneous abortions: No Data Anesthesia 02/17/23 05:03 02/17/23 05:03 Short CBC 02/15/23 02/16/23 02/16/23 Range/Units 11:53 03:31 16:45 WBC 6.4 (4.0-10.0) 10^3/uL Hgb 9.3 L 8.3 L 9.9 L (11.5-15.3) g/dL Hct 27.7 L 26.3 L 30.1 L (37.0-47.0) % MCV 97.8 (81-99) fl Plt Count 225 (130-400) 10^3/cmm Neut % (Auto) 60.3 % Neut # (Auto) 3.87 (1.8-7.7) 10^3/uL 02/17/23 Range/Units 05:03 WBC 7.3 (4.0-10.0) 10^3/uL Hgb 8.8 L (11.5-15.3) g/dL Hct 27.2 L (37.0-47.0) % MCV 97.1 (81-99) fl Plt Count 243 (130-400) 10^3/cmm Neut % (Auto) 64.6 % Neut # (Auto) 4.74 (1.8-7.7) 10^3/uL BMP 02/16/23 02/17/23 03:31 05:03 Sodium 134 L 136 Potassium 5.0 4.5 Chloride 106 105 Carbon Dioxide 16 L 15 L BUN 47 H 47 H Creatinine 2.9 H 3.0 H Glucose 152 H 127 H Calcium 8.8 8.6 Microbiology 02/16/23 18:17 Occult Blood (FIT) - Final Stool Routine Collection Cardiac Studies: Echocardiogram 02/13/23 Sestamibi Stress Test (Cardiology) 02/15/23
--- NOTE | 2023-02-17 07:53 | W.PM.OPSUD ---
Surgery/Procedure H&P Update DATE OF PROCEDURE: February 17, 2023 DATE H&P PERFORMED: 02/16/22 PREOP DIAGNOSIS: Iron deficiency anemia PLANNED PROCEDURE: Operation Date: 02/17/23 08:00 Proposed Procedures p EGD(Not Applicable) - DO ary Sinclair Colonoscopy(Not Applicable) - Beltran Garcia DO
--- NOTE | 2023-02-17 08:32 | W.PM.OPSUD ---
Surgery/Procedure H&P Update DATE OF PROCEDURE: February 17, 2023 DATE H&P PERFORMED: 02/16/22 H&P UPDATE INFORMATION: I have reviewed H&P completed within last 30 days, I have examined patient prior to procedure and No changes to prior documentation PREOP DIAGNOSIS: Iron deficiency anemia PLANNED PROCEDURE: Operation Date: 02/17/23 08:00 Proposed Procedures p EGD(Not Applicable) - DO ary Sinclair Colonoscopy(Not Applicable) - Beltran Garcia DO
[2023-02-17] MEDS: pantoprazole 40 mg SDV IVP (08:51)
--- NOTE | 2023-02-17 09:52 | PM.PN ---
Subjective Subjective: No new complaints NPO currently for endoscopy Medications: Reviewed: Yes Vitals/I&O/Wt Last Vital Signs Temp 97.9 F 02/17/23 07:36 Pulse 75 02/17/23 07:36 Resp 19 H 02/17/23 07:36 BP 154/75 02/17/23 07:36 Pulse Ox 96 02/17/23 07:36 O2 Del Method 02/17/23 07:36 02/16/23 02/17/23 02/17/23 22:59 06:59 14:59 Intake Total 480 / 1370 Output Total 1050 / 1050 450 / 1500 500 / 500 Balance -570 / 320 -450 / -130 -500 / -500 Weight last 48 hrs Weight 84.005 kg Weight 82.282 kg Physical Exam Narrative: Patient awake alert, no acute distress S1-S2 and regular rate and rhythm per report Clear to auscultation per report 1+ pedal edema Urinary Catheter Management: Galdamez: Cath Placed During This Visit: yes Reason for Continuing Indwelling Catheter: Accurate Measurement of Urinary Output in Critically Ill Patients Urinary Catheter Date of Insertion: 02/13/23 Urinary Catheter Time of Insertion: 17:19 Data 02/17/23 05:03 02/17/23 05:03 Micro: Microbiology 02/16/23 18:17 Occult Blood (FIT) - Final Stool Routine Collection A&P Assessment and plan (1) Acute kidney injury superimposed on CKD: Plan 1. Acute on chronic kidney disease stage III: Patient's baseline creatinine is anywhere from 1.8-2.0 range. Currently creatinine is at 2.4. Patient likely has CKD due to diabetic nephropathy and hypertensive nephrosclerosis. Also has 3+ proteinuria( UACR 2111). Multiple cysts noted on CT but no hydronephrosis. Current MADDY likely hemodynamic changes due to fluctuating blood pressures, prerenal from diarrhea in the setting of diuretics and ARB use. -normal CPK levels and lactate levels -Renal US with multipler enal cysts -Cr worsened likely hemodynamic from fluctuating BPs , hemodynamic - will give 1Litre - bicarb drip -Arrange nephrology follow-up at discharge -Hold HCTZ and do not restart at discharge . can resume Aldactone 25 mg daily at discharge -Continue to hold ARB at discharge with plan to resume as outpatient after repeat labs. 2. Metabolic acidosis: Hyperchloremic, on Bicitra, continue 3. Hypertension: Blood pressures elevated currently, increased hydralazine to 75 every 8 hours, added nifedipine 60 mg daily. On Coreg 25 twice daily, can resume Aldactone in a.m. 4. Diastolic CHF: Diuretics on hold, will give Lasix as needed for now. Resume Aldactone once renal function back to baseline. 5. Anemia : plan for endoscopy today Patient evaluated using audiovisual cart. Time spent 45 minutes Attestations Medical Necessity Statement*: can DC when Cr stable Coding Level of Care Code Acute Code for Chg Fwd Diagnoses Acute kidney injury superimposed on CKD N17.9; N18.9
[2023-02-17] MEDS: sodium chloride 0.9% 1,000 ML 30 ML IV (09:55)
[2023-02-17] MEDS: hyDRALAzine 25 mg Tablet PO ×3 (10:53→20:20)
[2023-02-17] MEDS: carvedilol 25 mg Tablet PO ×2 (10:54→17:59)
[2023-02-17] MEDS: NIFEdipine ER (24 hr) 30 mg Tablet PO (10:54)
[2023-02-17] MEDS: cefTRIAXone 1,000 MG in sodium chloride 0.9% (plus) 50 ML 100 MG IV (10:56)
[2023-02-17 11:27] LABS: Glucose Point of Care 168 mg/dL (70-110)
[2023-02-17] MEDS: citric acid-sodium citrate 30 mL UDC 60 ML PO ×2 (11:32→17:59)
[2023-02-17] MEDS: sodium bicarbonate 150 MEQ in dextrose 5% 1,000 ML 100 MEQ IV (11:53)
--- NOTE | 2023-02-17 15:13 | PM.PN ---
Subjective Subjective: Patient has just came back from EGD and colonoscopy, she tells me that he removed 3 polyps, she denies any fevers, no chills, no cough Vitals/I&O/Wt Last Vital Signs Temp 98.1 F 02/17/23 12:50 Pulse 79 02/17/23 12:50 Resp 20 H 02/17/23 10:55 BP 134/76 02/17/23 12:50 Pulse Ox 95 02/17/23 10:55 O2 Del Method 02/17/23 10:55 02/17/23 02/17/23 02/17/23 06:59 14:59 22:59 Intake Total 350 / 350 Output Total 450 / 1500 500 / 500 Balance -450 / -130 -150 / -150 Weight last 48 hrs Weight 84.005 kg Weight 82.282 kg Physical Exam Const: COMMON NORMALS: no acute distress and patient oriented x3 Resp: COMMON NORMALS: normal respiratory effort, No retractions, No use of accessory muscles and clear to auscultation bilaterally AUSCULTATION: clear to auscultation bilaterally Cardio: COMMON NORMALS: regular rate, regular rhythm, S1 normal heart sound present and S2 normal heart sound present RATE: regular rate RHYTHM: regular rhythm HEART SOUNDS: S1 normal heart sound present and S2 normal heart sound present GI: COMMON NORMALS: Normal to inspection, nondistended, normoactive bowel sounds present and non-tender Extremity: COMMON NORMALS: no pedal edema Neuro: COMMON NORMALS: patient oriented x3 Psych: COMMON NORMALS: mental status grossly normal Urinary Catheter Management: Galdamez: Cath Placed During This Visit: yes Reason for Continuing Indwelling Catheter: Accurate Measurement of Urinary Output in Critically Ill Patients Urinary Catheter Date of Insertion: 02/13/23 Urinary Catheter Time of Insertion: 17:19 Data 02/17/23 05:03 02/17/23 05:03 Micro: Microbiology 02/16/23 18:17 Occult Blood (FIT) - Final Stool Routine Collection A&P Assessment and plan (1) Acute kidney injury superimposed on CKD: Creatinine 3.0, urine output 2000 cc Will consult nephrology Increasing creatinine possibly secondary to drop in blood pressure Stop clonidine, adjust hydralazine to 25 3 times daily Medical reconciliation done for nephrotoxic drugs. -Started on sodium bicarb -Possible discharge today based on creatinine Galdamez catheter, strict input output charting. (2) Hyperkalemia: Resolved (3) Chest pain: On exertion. History of CAD. Does have elevated troponins, no significant delta troponin Cardiac echocardiogram Mild diffuse hypokinesia of the left ventricle with an ejection ?fraction of around 50%.? Moderate concentric left ventricular ?hypertrophy.Grade I/IV diastolic dysfunction (abnormal ?relaxation filling pattern), normal to mildly elevated filling ?pressures. ?Thickened mitral valve. Trace mitral valve regurgitation. ?Thickened aortic valve. ?There is no pericardial effusion. ?There are no intracardiac masses. ?Compared to the study from 12/03/2017, there is slight drop in ?the LV ejection fraction Cardiac stress test ?1. Abnormal myocardial perfusion imaging with large sized area of prior infarct ?with significant obed-infarct ischemia in the left circumflex artery territory. ?2. LV systolic function is normal. Cardiology consulted, recommended medical management Continue with aspirin, Zetia. Patient is statin intolerant. (4) Type 2 diabetes mellitus: Sliding scale at low-dose protocol. Qualifiers: Diabetes mellitus [facility] insulin use: without [facility] use Diabetes mellitus complication status: without complication Qualified Code(s): E11.9 - Type 2 diabetes mellitus without complications (5) Hyperlipidemia: Takes Repatha at home given statin intolerance. Continue with home dose of Zetia. Qualifiers: Hyperlipidemia type: pure hypercholesterolemia Qualified Code(s): E78.00 - Pure hypercholesterolemia, unspecified (6) Hypothyroid: Qualifiers: Hypothyroidism type: acquired Qualified Code(s): E03.9 - Hypothyroidism, unspecified (7) Iron deficiency anemia: - Has anemia -Hemoglobin dropped to 8.3, likely commendation of chronic kidney disease, possible bone marrow production issue -Iron studies show early evidence of iron deficiency -Hemoccult stools pending -EGD no acute findings -Colonoscopy 3 polyps removed -No complaints of bloody or black stools, no hemodynamic compromise -Hold DVT prophylaxis -Resume heparin for DVT prophylaxis Qualifiers: Iron deficiency anemia type: unspecified iron deficiency Qualified Code(s): D50.9 - Iron deficiency anemia, unspecified (8) Essential hypertension: (9) Coronary artery disease: Qualifiers: Coronary Disease-Associated Artery/Lesion type: [place] artery [place] vs. transplanted heart: [place] heart Associated angina: without angina Qualified Code(s): I25.10 - Atherosclerotic heart disease of [place] coronary artery without angina pectoris (10) GI bleed: Plan CODE STATUS: Patient states her sister will be the DPOA. Number in chart. Full code. scd for dvt prophylaxis Protonix OPD prophylaxis Spoke to nephrology Spoke to general surgery Attestations Medical Necessity Statement*: Patient requires hospitalization for persistent acute renal failure Diagnoses Acute kidney injury superimposed on CKD N17.9; N18.9 Hyperkalemia E87.5 Chest pain R07.9 Type 2 diabetes mellitus E11.9 Diabetes mellitus [employer] insulin use: without [facility] use Diabetes mellitus complication status: without complication Hyperlipidemia E78.00 Hyperlipidemia type: pure hypercholesterolemia Hypothyroid E03.9 Hypothyroidism type: acquired Iron deficiency anemia D50.9 Iron deficiency anemia type: unspecified iron deficiency Essential hypertension I10 Coronary artery disease I25.10 Coronary Disease-Associated Artery/Lesion type: [place] artery [place] vs. transplanted heart: [place] heart Associated angina: without angina GI bleed K92.2
[2023-02-17 15:56] LABS: Anion Gap 17.3 (5-19); Blood Urea Nitrogen 45 mg/dL (8-23); Calcium 8.6 mg/dL (8.5-10.5); Carbon Dioxide 20 mmol/L (22-29); Chloride 105 mmol/L (98-107); Glucose 225 mg/dL (65-115); Osmolality Calculated 305 mOsm/kg (285-295); Potassium 4.3 mmol/L (3.5-5.1); Sodium 138 mmol/L (136-145)
[2023-02-17] MEDS: heparin 5,000 unit/mL INJ 1 mL 5000 UNIT SUBCUT (16:12)
[2023-02-17 16:55] LABS: Glucose Point of Care 178 mg/dL (70-110)
[2023-02-17 20:11] LABS: Glucose Point of Care 232 mg/dL (70-110)
[2023-02-17] MEDS: aspirin 81 mg EC Tablet PO (20:20)
[2023-02-17] MEDS: ezetimibe 10 mg Tablet PO (20:20)
[2023-02-17] MEDS: acetaminophen 325 mg Tablet 650 MG PO (20:20)
[2023-02-17] MEDS: zolpidem 5 mg Tablet PO (21:06)
[2023-02-18] VITALS (7 sets, daily range): BP systolic 144–160; BP diastolic 76–85; PULSE 78–90; RESP 16–19; TEMP 36.2–37; O2SAT 94–96
[2023-02-18] MEDS: heparin 5,000 unit/mL INJ 1 mL 5000 UNIT SUBCUT (03:28)
[2023-02-18 04:13] LABS: Basophils % 0.4 %; Eosinophils # 0.3 10^3/uL (0.0-0.8); Eosinophils % 3.9 %; Hematocrit 26.5 % (37.0-47.0); Hemoglobin 8.8 g/dL (11.5-15.3); Lymphocytes # 1.2 10^3/uL (0.8-4.8); Lymphocytes % 15.7 %; Mean Corpuscular HGB Conc 33.2 g/dL (30.0-36.0); Mean Corpuscular Hemoglobin 31.3 pg (28.0-34.0); Mean Corpuscular Volume 94.3 fl (81-99); Mean Platelet Volume 10.5 fL (7.4-10.4); Monocytes # 0.8 10^3/uL (0.2-0.9); Monocytes % 10.7 %; Neutrophils # 5.12 10^3/uL (1.8-7.7); Nucleated Red Blood Cells % 0 %; Platelet Count 224 10^3/cmm (130-400); Red Blood Count 2.81 10^6/uL (4.1-5.3); Red Cell Distribution Width 12.6 % (12.1-15.1); White Blood Count 7.4 10^3/uL (4.0-10.0)
[2023-02-18 04:28] LABS: Alanine Aminotransferase 14 U/L (0-33); Albumin Level 3.2 g/dL (3.5-5.2); Alkaline Phosphatase 72 U/L (35-105); Anion Gap 13.5 (5-19); Aspartate Amino Transferase 13 U/L (0-32); Blood Urea Nitrogen 38 mg/dL (8-23); Calcium 8.5 mg/dL (8.5-10.5); Carbon Dioxide 23 mmol/L (22-29); Chloride 96 mmol/L (98-107); Globulin 2.7 g/dL (1.3-4.6); Glucose 144 mg/dL (65-115); Magnesium 1.5 mg/dL (1.7-2.3); Osmolality Calculated 280 mOsm/kg (285-295); Phosphorus 3.6 mg/dL (2.5-4.5); Potassium 3.5 mmol/L (3.5-5.1); Sodium 129 mmol/L (136-145); Total Bilirubin 0.2 mg/dL (0.15-1.2); Total Protein 5.9 g/dL (6.6-8.7)
[2023-02-18] MEDS: levothyroxine 75 mcg Tablet PO (05:39)
[2023-02-18 06:15] LABS: Glucose Point of Care 178 mg/dL (70-110)
[2023-02-18] MEDS: carvedilol 25 mg Tablet PO (08:16)
[2023-02-18] MEDS: hyDRALAzine 25 mg Tablet PO ×2 (08:16→15:10)
[2023-02-18] MEDS: pantoprazole DR 40 mg Tablet PO (08:17)
[2023-02-18] MEDS: NIFEdipine ER (24 hr) 30 mg Tablet PO (08:17)
[2023-02-18] MEDS: cefTRIAXone 1,000 MG in sodium chloride 0.9% (plus) 50 ML 100 MG IV (08:30)
--- NOTE | 2023-02-18 08:44 | PM.PN ---
Subjective Subjective: Denies abdominal pain. No bleeding seen on the endoscopy yesterday. 3 polyps were removed. Vitals/I&O/Wt Last Vital Signs Temp 98.5 F 02/18/23 03:26 Pulse 88 02/18/23 06:00 Resp 18 02/18/23 03:26 BP 144/78 02/18/23 03:26 Pulse Ox 96 02/18/23 03:26 O2 Del Method 02/18/23 03:26 02/17/23 02/18/23 02/18/23 22:59 06:59 14:59 Intake Total 354 / 704 1150 / 1854 Output Total 1140 / 1640 800 / 2440 Balance -786 / -936 350 / -586 Weight last 48 hrs Weight 186 lb 6.4 oz Weight 185 lb 3.2 oz Physical Exam Narrative: General: No acute distress, awake alert and oriented x3 Abdomen: Soft, nontender, nondistended, no guarding rebound or masses Urinary Catheter Management: Galdamez: Cath Placed During This Visit: yes Reason for Continuing Indwelling Catheter: Accurate Measurement of Urinary Output in Critically Ill Patients Urinary Catheter Date of Insertion: 02/13/23 Urinary Catheter Time of Insertion: 17:19 Data 02/18/23 03:49 02/18/23 03:49 A&P Assessment and plan (1) Iron deficiency anemia: Qualifiers: Iron deficiency anemia type: unspecified iron deficiency Qualified Code(s): D50.9 - Iron deficiency anemia, unspecified (2) Colon polyps: Plan Repeat colonoscopy in 5 years for colon cancer screening Surgically cleared for antiplatelet therapy and discharge Medical management per hospitalist Attestations Medical Necessity Statement*: Per primary Coding Level of Care Code Acute Code for [facility] Fwd Diagnoses Iron deficiency anemia D50.9 Iron deficiency anemia type: unspecified iron deficiency Colon polyps K63.5
--- NOTE | 2023-02-18 09:53 | PC.SOCIAL ---
IMM update IMM updated with patient. Verbalized an understanding. Copy PG 2 provided. Initialled, dated, timed, and placed in chart.
[2023-02-18 11:30] LABS: Glucose Point of Care 228 mg/dL (70-110)
[2023-02-18] MEDS: magnesium sulfate premix 2 GM/50 ML PIGGYBACK IV (11:36)
[2023-02-18] MEDS: magnesium lactate 84 mg Tablet PO (12:56)
--- NOTE | 2023-02-18 14:20 | PM.PN ---
Subjective Subjective: feels better Medications: Reviewed: Yes Vitals/I&O/Wt Last Vital Signs Temp 97.8 F 02/18/23 11:16 Pulse 78 02/18/23 11:16 Resp 16 02/18/23 11:16 BP 160/79 02/18/23 11:16 Pulse Ox 94 02/18/23 11:16 O2 Del Method 02/18/23 11:16 02/17/23 02/18/23 02/18/23 22:59 06:59 14:59 Intake Total 354 / 704 1150 / 1854 565 / 565 Output Total 1140 / 1640 800 / 2440 550 / 550 Balance -786 / -936 350 / -586 Weight last 48 hrs Weight 84.55 kg Weight 84.005 kg Physical Exam Narrative: Patient awake alert, no acute distress S1-S2 and regular rate and rhythm per report Clear to auscultation per report 1+ pedal edema Urinary Catheter Management: Galdamez: Cath Placed During This Visit: yes, but has since been removed by the nurse Reason for Continuing Indwelling Catheter: Decision to DC Catheter Urinary Catheter Date of Insertion: 02/13/23 Urinary Catheter Time of Insertion: 17:19 Date Urinary Catheter Removed: 02/18/23 Time Urinary Catheter Discontinued: 09:22 Data 02/18/23 03:49 02/18/23 03:49 A&P Assessment and plan (1) Acute kidney injury superimposed on CKD: Plan 1. Acute on chronic kidney disease stage III: Patient's baseline creatinine is anywhere from 1.8-2.0 range. Currently creatinine is at 2.4. Patient likely has CKD due to diabetic nephropathy and hypertensive nephrosclerosis. Also has 3+ proteinuria( UACR 2111). Multiple cysts noted on CT but no hydronephrosis. Current MADDY likely hemodynamic changes due to fluctuating blood pressures, prerenal from diarrhea in the setting of diuretics and ARB use. -normal CPK levels and lactate levels -Renal US with multipler enal cysts -Arrange nephrology follow-up at discharge -Hold HCTZ and do not restart at discharge . can resume Aldactone 25 mg daily at discharge -Continue to hold ARB at discharge with plan to resume as outpatient after repeat labs. 2. Metabolic acidosis: Hyperchloremic, on Bicitra, continue 3. Hypertension: Blood pressures elevated currently, increased hydralazine to 75 every 8 hours, added nifedipine 60 mg daily. On Coreg 25 twice daily, can resume Aldactone in a.m. 4. Diastolic CHF: Diuretics on hold, will give Lasix as needed for now. Resume Aldactone once renal function back to baseline. 5. Anemia : s/p EGD and C scope Patient evaluated using audiovisual cart. Time spent 45 minutes Attestations Medical Necessity Statement*: Per primary Coding Level of Care Code Acute Code for Chg Fwd Diagnoses Acute kidney injury superimposed on CKD N17.9; N18.9
--- NOTE | 2023-02-18 18:27 | PM.DCS ---
Discharge Providers Date of Admission: 02/13/23 14:30 Date of Discharge: February 18, 2023 Attending Provider at Admission: Ramone Rosenthal MD Attending Provider at Discharge: Sumanth Castillo MD Primary Care Provider: Robert Espinoza DO Diagnoses at Discharge Discharge Diagnosis (1) Acute kidney injury superimposed on CKD: Status: Acute Reason for Visit Reason for Visit: sob, left arm pain Hospital Course Hospital Course Celeste Kruse is a 72 year old female with past medical history of CAD, CKD stage III who presents to the ER today because of mild difficulty in breathing which has been ongoing for last 3 to 4 weeks along with left-sided chest pain radiating down to her arms on exertion.? Patient denies any nausea, vomiting, dysuria but does complain of on and off diarrhea for last 1 year. In the ER she was found to be hypotensive with blood pressure running out around 190/80 with blood work showing a hemoglobin of 10.8, white count of 6.8, chemistry showing a sodium of 139, potassium of 6.2, BUN of 43, creatinine of 2.4 with an anion gap of around 19. On examination patient is sitting comfortably in bed on room air denying any active complaints other than feeling dehydrated. Patient received Kayexalate, albuterol nebulization in the ER.? Also received 1 L of fluid bolus. Patient presented to [facility] for chest pain Chest pain: On exertion. History of CAD. Does have elevated troponins, no significant delta troponin Cardiac echocardiogram Mild diffuse hypokinesia of the left ventricle with an ejection ?fraction of around 50%.? Moderate concentric left ventricular ?hypertrophy.Grade I/IV diastolic dysfunction (abnormal ?relaxation filling pattern), normal to mildly elevated filling ?pressures. ?Thickened mitral valve. Trace mitral valve regurgitation. ?Thickened aortic valve. ?There is no pericardial effusion. ?There are no intracardiac masses. ?Compared to the study from 12/03/2017, there is slight drop in ?the LV ejection fraction Cardiac stress test ?1. Abnormal myocardial perfusion imaging with large sized area of prior infarct ?with significant obed-infarct ischemia in the left circumflex artery territory. ?2. LV systolic function is normal. Cardiology consulted, recommended medical management Continue with aspirin, Zetia.? Patient is statin intolerant. On discharge no recurrent chest pain Follow-up with primary care provider as outpatient Patient had MADDY on CKD during hospitalization, likely secondary to combination of dehydration and hypotension from blood pressure medications, improving with IV fluids, nephrology consulted, creatinine discharge 2.4, follow-up with nephrology Patient had evidence of early iron deficiency anemia during hospitalization, underwent EGD and colonoscopy colonoscopy showed 3 polyps which were removed, follow-up with primary care as outpatient Her blood pressure medication regimen was also adjusted -On discharge continue hold hydrochlorothiazide and ARB -Follow-up with primary care provider as outpatient, if creatinine reasonable, around 2.5, can resume hydrochlorothiazide and ARB Physical Exam Const: COMMON NORMALS: no acute distress and patient oriented x3 Resp: COMMON NORMALS: normal respiratory effort, No retractions, No use of accessory muscles and clear to auscultation bilaterally AUSCULTATION: clear to auscultation bilaterally Cardio: COMMON NORMALS: regular rate, regular rhythm, S1 normal heart sound present and S2 normal heart sound present RATE: regular rate RHYTHM: regular rhythm HEART SOUNDS: S1 normal heart sound present and S2 normal heart sound present GI: COMMON NORMALS: Normal to inspection, nondistended, normoactive bowel sounds present and non-tender Extremity: COMMON NORMALS: no pedal edema Neuro: COMMON NORMALS: patient oriented x3 Psych: COMMON NORMALS: mental status grossly normal Urinary Catheter Management: Galdamez: Cath Placed During This Visit: yes, but has since been removed by the nurse Reason for Continuing Indwelling Catheter: Decision to DC Catheter Urinary Catheter Date of Insertion: 02/13/23 Urinary Catheter Time of Insertion: 17:19 Date Urinary Catheter Removed: 02/18/23 Time Urinary Catheter Discontinued: 09:22 Discharge Data Studies Completed and Pending Completed Studies During Hospitalization Category Date Time Status CT abdomen pelvis wo con [id number] Stat Cat Scan 02/13/23 14:22 Completed Sestamibi Stress Test Request Routine Exams 02/15/23 06:48 Draft XR chest 1V portable [id number] Stat Exams 02/13/23 10:51 Completed NM sonny perf SPECT r/s* [id number] Routine Nuc Med 02/15/23 16:53 Completed CV. echo complete* [id number] Routine Ultrasound 02/13/23 14:28 Completed US renal BI* [id number] Routine Ultrasound 02/14/23 21:29 Completed Pending at discharge Category Date Time Status Sestamibi Stress Test Request Routine Exams 02/14/23 16:53 Stop Req Pathology: Surgical [PTH] Routine Pth 02/17/23 10:32 Ordered Radiology Impressions Chest X-Ray 02/13/23 10:51 IMPRESSION: 1. No acute cardiopulmonary finding. Abdomen/Pelvis CT 02/13/23 14:22 IMPRESSION: Subtle fat stranding around the sigmoid colon suggestive of acute diverticulitis. No fluid collections/abscess. COMMENTS: Consistent with the [employer]'s Incidental Findings Committee white paper (J Am Chas Radiol 2018): Any incidental renal lesion less than 1 cm or classified as too small to characterize, or any incidental cystic renal lesion characterized as simple-appearing, is likely benign. No follow-up imaging is recommended for these lesions per consensus recommendations based on imaging criteria. Renal Ultrasound 02/14/23 21:29 IMPRESSION: 1. Bilateral renal cysts. No solid mass. 2. No hydronephrosis. Laboratory Results WBC 7.4 10^3/uL (4.0-10.0) 02/18/23 03:49 RBC 2.81 10^6/uL (4.1-5.3) L 02/18/23 03:49 Hgb 8.8 g/dL (11.5-15.3) L 02/18/23 03:49 Hct 26.5 % (37.0-47.0) L 02/18/23 03:49 MCV 94.3 fl (81-99) 02/18/23 03:49 MCH 31.3 pg (28.0-34.0) 02/18/23 03:49 MCHC 33.2 g/dL (30.0-36.0) 02/18/23 03:49 RDW 12.6 % (12.1-15.1) 02/18/23 03:49 Plt Count 224 10^3/cmm (130-400) 02/18/23 03:49 MPV 10.5 fL (7.4-10.4) H 02/18/23 03:49 Neut % (Auto) 69.0 % 02/18/23 03:49 Lymph % (Auto) 15.7 % 02/18/23 03:49 Bureau % (Auto) 10.7 % 02/18/23 03:49 Eos % (Auto) 3.9 % 02/18/23 03:49 Baso % (Auto) 0.4 % 02/18/23 03:49 Neut # (Auto) 5.12 10^3/uL (1.8-7.7) 02/18/23 03:49 Lymph # (Auto) 1.2 10^3/uL (0.8-4.8) 02/18/23 03:49 [place] # (Auto) 0.8 10^3/uL (0.2-0.9) 02/18/23 03:49 Eos # (Auto) 0.3 10^3/uL (0.0-0.8) 02/18/23 03:49 Baso # (Auto) 0.0 10^3/uL (0.0-0.1) 02/18/23 03:49 Nucleated RBC % (auto) 0 % 02/18/23 03:49 Nucleated RBCs # 0.0 /100WBC 02/18/23 03:49 Sodium 129 mmol/L (136-145) L 02/18/23 03:49 Potassium 3.5 mmol/L (3.5-5.1) 02/18/23 03:49 Chloride 96 mmol/L (98-107) L 02/18/23 03:49 Carbon Dioxide 23 mmol/L (22-29) 02/18/23 03:49 Anion Gap 13.5 (5-19) 02/18/23 03:49 BUN 38 mg/dL (8-23) H 02/18/23 03:49 Creatinine 2.4 mg/dL (0.5-0.9) H 02/18/23 03:49 GFR Calculation Not Reportable 02/18/23 03:49 Glucose 144 mg/dL (65-115) H 02/18/23 03:49 POC Glucose 228 mg/dL (70-110) H 02/18/23 11:09 Estimat Average Glucose 154 02/14/23 03:41 Hemoglobin A1c 7.0 % (4.0-6.0) H 02/14/23 03:41 Calculated Osmolality 280 mOsm/kg (285-295) L 02/18/23 03:49 Lactate 0.6 mmol/L (0.5-2.2) 02/15/23 04:28 Calcium 8.5 mg/dL (8.5-10.5) 02/18/23 03:49 Phosphorus 3.6 mg/dL (2.5-4.5) 02/18/23 03:49 Magnesium 1.5 mg/dL (1.7-2.3) L 02/18/23 03:49 Iron 47 ug/dL (37-145) 02/15/23 04:28 TIBC 280 mcg/dl 02/13/23 11:05 % Saturation 26.0 % (20-50) 02/13/23 11:05 Unsat Iron Binding 207 ug/dL (112-347) 02/13/23 11:05 Ferritin 37 ng/mL (15-150) 02/15/23 04:28 Total Bilirubin 0.2 mg/dL (0.15-1.2) 02/18/23 03:49 AST 13 U/L (0-32) 02/18/23 03:49 ALT 14 U/L (0-33) 02/18/23 03:49 Alkaline Phosphatase 72 U/L (35-105) 02/18/23 03:49 Creatine Kinase 81 U/L (26-192) 02/15/23 04:28 Troponin T Baseline 71 ng/L (0-10) H 02/13/23 11:05 Troponin T 120 Minute 65.35 ng/L (0-10) H 02/13/23 13:35 Delta Troponin T -5.65 ABS# (0-10) L 02/13/23 13:35 Troponin T Hi Sens 6Hr 68.21 ng/L (0-10) H 02/13/23 17:06 Troponin T Hi Sens 6Hr Delta -2.79 ng/L (0-12) L 02/13/23 17:06 Total Protein 5.9 g/dL (6.6-8.7) L 02/18/23 03:49 Albumin 3.2 g/dL (3.5-5.2) L 02/18/23 03:49 Globulin 2.7 g/dL (1.3-4.6) 02/18/23 03:49 Triglycerides 476 mg/dL (0-150) H 02/14/23 03:41 Cholesterol 97 mg/dL (0-200) 02/14/23 03:41 LDL Cholesterol Direct 21 mg/dL (0-100) 02/14/23 03:41 LDL Cholesterol, Calc Not Reportable 02/14/23 03:41 HDL Cholesterol 24 mg/dL (60-100) L 02/14/23 03:41 LDL/HDL Ratio Not Reportable 02/14/23 03:41 Cholesterol/HDL Ratio 4.04 mg/dL (0.0-4.40) 02/14/23 03:41 Vitamin B12 321 pg/mL (232-1245) 02/13/23 11:05 Folate 10.5 ng/mL (4.8-37.3) 02/13/23 11:05 Procalcitonin 0.11 ng/mL (0-0.5) 02/13/23 11:05 TSH 3.69 uIU/mL (0.27-4.20) 02/13/23 11:05 Urine Color Yellow (Yellow) 02/13/23 13:00 Urine Appearance Sl hazy (CLEAR) A 02/13/23 13:00 Urine pH 5 (5-7) 02/13/23 13:00 Ur Specific [place] 1.025 (1.005-1.030) 02/13/23 13:00 Urine Protein 3+ (Negative) H 02/13/23 13:00 Urine Glucose (UA) 2+ (Normal) H 02/13/23 13:00 Urine Ketones Negative (Negative) 02/13/23 13:00 Urine Blood 2+ (Negative) H 02/13/23 13:00 Urine Nitrate Negative (Negative) 02/13/23 13:00 Urine Bilirubin Neg (Negative) 02/13/23 13:00 Urine Urobilinogen Norm mg/dL (Negative) 02/13/23 13:00 Ur Leukocyte Esterase Trace (Negative) H 02/13/23 13:00 Urine RBC 0-4 /hpf (0-2) H 02/13/23 13:00 Urine WBC 5-10 /hpf (0-5) H 02/13/23 13:00 Ur Squamous Epith Cells 5-10 /hpf (0-5) H 02/13/23 13:00 Amorphous Sediment Trace /hpf 02/13/23 13:00 Urine Bacteria Trace /hpf (NONE) 02/13/23 13:00 Ur Random Microalbumin 114 ug/dL (0-20) H 02/14/23 22:00 U Random Total Protein 160 mg/dL 02/14/23 22:00 Ur Random Sodium 96 mmol/L 02/13/23 13:00 Ur Random Potassium 56 mmol/L 02/13/23 13:00 Ur Random Chloride 76 mmol/L 02/13/23 13:00 Urine Creatinine 54 mg/dL (28-217) 02/14/23 22:00 Microalb/Creat Ratio 2111 mg/dL (0-20) H 02/14/23 22:00 Urine Opiates Screen Negative ng/mL (Negative) 02/13/23 13:00 Ur Barbiturates Screen Negative ng/mL (Negative) 02/13/23 13:00 Ur Phencyclidine Scrn Negative ng/mL (Negative) 02/13/23 13:00 Ur Amphetamines Screen Negative ng/mL (Negative) 02/13/23 13:00 U Benzodiazepines Scrn Negative ng/mL (Negative) 02/13/23 13:00 Urine Cocaine Screen Negative ng/mL (Negative) 02/13/23 13:00 U Marijuana (THC) Screen Negative ng/mL (Negative) 02/13/23 13:00 Vitals Last Vital Signs Temp 97.1 F L 02/18/23 15:49 Pulse 84 02/18/23 15:49 Resp 16 02/18/23 11:16 BP 157/76 02/18/23 15:49 Pulse Ox 94 02/18/23 11:16 O2 Del Method 02/18/23 11:16 Discharge Plan Discharge Patient Disposition: Home Condition: Stable Prescriptions: New nifedipine 30 mg Tablet Extended Release 24hr 30 mg PO DAILY 30 Days Qty: 30 0RF hydralazine 25 mg Tablet 25 mg PO TID 30 Days Qty: 90 0RF Januvia 25 mg tablet 25 mg PO DAILY 30 Days Qty: 30 0RF Continued aspirin [Lorin Low Dose Aspirin] 81 mg tablet,delayed release (DR/EC) 81 mg PO BEDTIME loratadine [Claritin] 10 mg tablet 10 mg PO QAM fluticasone propion-salmeterol [Advair Diskus] 500-50 mcg/dose blister with device 1 inh inhalation BID Qty: 60 8RF carvedilol 25 mg tablet 25 mg PO BID Qty: 180 3RF Rx Instructions: must administer with a meal/food spironolactone 25 mg tablet 25 mg PO QAM levothyroxine 75 mcg tablet 75 mcg PO QAM pantoprazole 40 mg tablet,delayed release (DR/EC) 40 mg PO QAM Zetia 10 mg tablet 10 mg PO BEDTIME Repatha SureClick 140 mg/mL pen injector 140 mg SUBCUT Q14D Hair,Skin and Nails Tablet 2 tab PO DAILY Held irbesartan-hydrochlorothiazide 300-12.5 mg tablet 1 tab PO QAM Hold Instructions: Resume on 03/06/23. hold until you see pmd Discontinued hydrochlorothiazide 25 mg tablet 50 mg PO QAM glimepiride 4 mg tablet 4 mg PO QAM Discharge Orders: Discharge Order (Routine); Ordered 02/18/23 Ordered By: Sumanth Castillo Referrals: Robert Espinoza DO [Primary Care Provider] - 1-3 days (Please keep your appointment with Dr. Espinoza as scheduled. ) Mateus Villa MD [Referring] - 4-7 days ([facility] will contact you to schedule an appointment in 4 to 7 days. ) Elias Carrizales M.D [Physician] - 2 weeks ([facility] will contact you to schedule an follow-up appointment in 2 weeks. If you haven't heard from them by Sunday afternoon. Please call ) Todd Oropeza MD [Hospitalist] - 1 month ([facility] will contact you to schedule an follow-up appointment within 1 month. If you haven't heard from the by afternoon. Please call ) Discharge Diet: Cardiac Discharge Activity: Resume usual activity Patient Instructions: Anemia, Diabetes and Diet, Nifedipine (By mouth), Hydralazine (By mouth), Sitagliptin (By mouth) (Januvia), Acute Kidney Injury (DC), Chronic Kidney Disease (DC), Iron Deficiency Anemia (GEN), DASH Eating Plan (DC), GI Discharge Instructions Activity Restrictions/Additional Instructions: - Please see your primary care provider early next week -Recheck kidney function -Please follow-up with primary care provider for blood pressure check -Please follow-up with cardiology Discharge Attestations Time Spent in Discharge Care*: greater than 30 min Quality Metrics Clinical Quality Measures [ No reported AMI, CVA or VTE this stay] Coding Level of Care Code 65416 Total time (in minutes) for Discharge: 40 Diagnoses Acute kidney injury superimposed on CKD N17.9; N18.9
== END 2023-02-18 16:40 | disposition home or self-care (01) | DRG 683 ==
LOC: ER 13:34 → CSU 14:31
PROVIDERS: Hospitalist; Surgery; Admitting Provider Student in an Organized Health Care Education/Training Program; Emergency Provider Family Medicine; PCP Family Medicine; Visit Provider Family Medicine
PROC: 0DJ08ZZ Inspection of Upper Intestinal Tract, Via Natural or Artificial Opening Endoscopic (ICD-10-PCS; CPT 43235; principal; 2023-02-17 08:00)
PROC: 0DJD8ZZ Inspection of Lower Intestinal Tract, Via Natural or Artificial Opening Endoscopic (ICD-10-PCS; CPT 45378; 2023-02-17 08:00)
DX: N17.9 Acute kidney failure, unspecified (principal); E87.20 Acidosis, unspecified; I13.0 Hypertensive heart and chronic kidney disease with heart failure and stage 1 through stage 4 chronic kidney disease, or unspecified chronic kidney disease; I50.30 Unspecified diastolic (congestive) heart failure; I25.10 Atherosclerotic heart disease of native coronary artery without angina pectoris; E11.22 Type 2 diabetes mellitus with diabetic chronic kidney disease; N18.30 Chronic kidney disease, stage 3 unspecified; E11.21 Type 2 diabetes mellitus with diabetic nephropathy; I95.9 Hypotension, unspecified; E86.0 Dehydration; D50.9 Iron deficiency anemia, unspecified; Z79.82 Long term (current) use of aspirin; E78.00 Pure hypercholesterolemia, unspecified; E03.9 Hypothyroidism, unspecified; F51.01 Primary insomnia; I25.2 Old myocardial infarction; J45.909 Unspecified asthma, uncomplicated; T50.2X5A Adverse effect of carbonic-anhydrase inhibitors, benzothiadiazides and other diuretics, initial encounter; K63.5 Polyp of colon; K57.30 Diverticulosis of large intestine without perforation or abscess without bleeding
CPT/HCPCS: 12345; 36415; 36416; 43235; 45385; 51702; 71045; 74176; 76770; 78452; 80048; 80053; 80061; 80306; 81001; 82044; 82274; 82436; 82550; 82570; 82607; 82728; 82746; 82962; 83036; 83540; 83550; 83605; 83721; 83735; 84100; 84133; 84145; 84156; 84300; 84443; 84484; 85014; 85018; 85025; 86403; 87449; 88305; 93005; 93017; 93306; 94664; 96372; 96374; 96375; 96376; 99285; A9500; C9113; J0360; J0610; J0696; J1644; J1815; J2405; J2704; J2785; J3475; J3490; J7030; J7070; J7613; P9046; Q3014

== ENCOUNTER → 2023-02-21 10:03 | Outpatient (BNVA) | payer MEDICARE, OTHER, SELFPAY | PROVIDERS: PCP Family Medicine; Visit Provider Family Medicine | DX: D64.9 Anemia, unspecified (principal); E11.9 Type 2 diabetes mellitus without complications; D50.9 Iron deficiency anemia, unspecified; I10 Essential (primary) hypertension | CPT/HCPCS: 80053; 83735; 85025 ==

== ENCOUNTER → 2023-03-01 14:59 | Outpatient (BNVA) | payer MEDICARE, OTHER, SELFPAY | PROVIDERS: PCP Family Medicine; Visit Provider Nurse Practitioner Family | DX: I25.10 Atherosclerotic heart disease of native coronary artery without angina pectoris (principal); I10 Essential (primary) hypertension; Z79.82 Long term (current) use of aspirin | CPT/HCPCS: 99214 ==

== ENCOUNTER 2023-03-26 13:51 | Oncology outpatient (recurring) (ONCR) | payer MEDICARE, OTHER, SELFPAY ==
[2023-03-26 14:45] LABS: Basophils # 0.1 10^3/uL (0.0-0.1); Basophils % 0.8 %; Eosinophils # 0.3 10^3/uL (0.0-0.8); Eosinophils % 4.2 %; Hematocrit 29.4 % (37.0-47.0); Hemoglobin 9.6 g/dL (11.5-15.3); Lymphocytes % 16.2 %; Mean Corpuscular HGB Conc 32.7 g/dL (30.0-36.0); Mean Corpuscular Hemoglobin 31.1 pg (28.0-34.0); Mean Corpuscular Volume 95.1 fl (81-99); Monocytes # 0.6 10^3/uL (0.2-0.9); Monocytes % 9.8 %; Neutrophils % 68.7 %; Nucleated Red Blood Cells % 0 %; Platelet Count 306 10^3/cmm (130-400); Red Blood Count 3.09 10^6/uL (4.1-5.3); Red Cell Distribution Width 12.3 % (12.1-15.1); White Blood Count 6.4 10^3/uL (4.0-10.0)
[2023-03-26 16:21] LABS: Reticulocyte % 2.3 % (0.5-2.0)
[2023-03-26 16:39] LABS: Ferritin 32 ng/mL (15-150); Iron 60 ug/dL (37-145); Percent Saturation 22.9 % (20-50); Total Iron Binding Capacity 262 mcg/dl; Unsaturated Iron Binding 202 ug/dL (112-347)
[2023-03-26 16:48] LABS: Vitamin B12 271 pg/mL (232-1245)
== END 2023-04-18 23:59 | disposition home or self-care (01) ==
PROVIDERS: PCP Family Medicine; Visit Provider Internal Medicine Hematology & Oncology
DX: D64.9 Anemia, unspecified (principal); N28.89 Other specified disorders of kidney and ureter
CPT/HCPCS: 36415; 82607; 82728; 83540; 83550; 85025; 85045; 99204

== ENCOUNTER → 2023-04-04 09:51 | Outpatient (BNVA) | payer MEDICARE, OTHER, SELFPAY | PROVIDERS: PCP Family Medicine; Visit Provider Family Medicine | DX: M79.89 Other specified soft tissue disorders (principal); E83.42 Hypomagnesemia | CPT/HCPCS: 80048; 83735 ==

== ENCOUNTER 2023-04-05 08:32 | Observation (INO) | payer MEDICARE, OTHER, SELFPAY ==
[2023-04-05] VITALS (44 sets, daily range): BP systolic 152–199; BP diastolic 70–120; PULSE 59–85; RESP 14–32; TEMP 36.4–36.8; O2SAT 94–98; BMI 33.0
--- NOTE | 2023-04-05 08:36 | ED_ITS ---
HPI - General Adult General: Chief complaint: Recheck/Abnormal Lab/Rx Stated complaint: states high potassium Time Seen by Provider: 04/05/23 08:33 Source: patient Mode of arrival: ambulatory History of Present Illness: 73-year-old female history of diabetes and chronic kidney disease presents to the emergency room after an abnormal lab at her primary care doctor's office yesterday. Her potassium came back at 7.0. Reviewing her chart protect her kidney function has been generally slipping the last few years. Yesterday her creatinine was 2.4. She is on spironolactone. She is also on Lasix 40 mg daily there is no potassium supplement listed on her medication list. She felt very weak at times yesterday has not had any heart palpitations or chest pain. Her urine output has remained for the most part unchanged. Relieving factors: none Exacerbating factors: none Associated symptoms: Deny chest pain, confusion, cough, diaphoresis, decreased appetite, dyspnea, fevers/chills, headache(s), malaise, nausea, rash, palpitations, seizures, short of breath, syncope, vomiting or weakness Treatments prior to arrival: none Review of Systems Const: Denies: fever(s), chills, fatigue, malaise or diaphoresis ENMT: Denies: throat pain, ear or mastoid pain, nasal discharge or nasal congestion Card: Denies: chest pain, palpitations or syncope Resp: Denies: dyspnea GI: Denies: nausea or vomiting : Denies: flank pain, difficulty voiding, dysuria, urinary frequency or urinary urgency Skin/Breast: Denies: rash Neuro: Denies: headache(s) or confusion PFSH ED PFSH: Medical History Asthma 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 Coronary artery disease Essential hypertension Hyperlipidemia Hypoglycemia associated with type 2 diabetes mellitus Hypothyroid Insomnia, idiopathic Kidney stone Myocardial infarction Normocytic normochromic anemia Statin intolerance Type 2 diabetes mellitus Surgical History H/O tubal ligation Hx of appendectomy Hx of cataract surgery Hx of hysterectomy Family History Father Cancer Mother Cancer Hypertension Diabetes Social History (Reviewed 04/05/23 @ 09:01 by QAMAR Hurst Smoking and tobacco status: never smoked Alcohol intake: never Current gender identity: Female Female Reproductive History: Spontaneous abortions: No Physical Exam Const: GENERAL APPEARANCE: cooperative and comfortable ORIENTATION/CONSCIOUSNESS: Yes awake, Yes oriented to person, Yes oriented to place and Yes oriented to time HENMT: COMMON NORMALS: normocephalic, atraumatic and hearing grossly normal bilaterally HEAD & SCALP: normocephalic and atraumatic Resp: COMMON NORMALS: normal respiratory effort, No retractions, No use of accessory muscles and clear to auscultation bilaterally AUSCULTATION: clear to auscultation bilaterally Cardio: COMMON NORMALS: regular rate, regular rhythm and No murmurs present (Cardio) RATE: regular rate RHYTHM: regular rhythm GI: COMMON NORMALS: Soft to palpation and No hepatosplenomegaly present A USCULTATION: Yes normoactive bowel sounds PALPATION: Yes Soft to palpation, No Tenderness to palpation present (GI), No Guarding due to palpation present (GI) and Yes No hepatosplenomegaly present Extremity: COMMON NORMALS: normal to inspection, capillary refill normal, no clubbing, cyanosis or edema, no calf tenderness and no pedal edema Neuro: SENSORIUM/ORIENTATION: Yes oriented to person, Yes oriented to place and Yes oriented to time Skin: COMMON NORMALS: no rashes or lesions noted GENERAL SKIN EXAM: no rashes or lesions noted Course Vital Signs: Vital signs: Vital Signs Temperature 97.6 F 04/05/23 08:49 Pulse Rate 68 04/05/23 13:00 Respiratory Rate 20 H 04/05/23 13:00 Blood Pressure 156/90 04/05/23 13:00 Pulse Oximetry 96 04/05/23 13:00 Oxygen Delivery Me thod Room Air 04/05/23 08:49 MDM - General Adult Medical Decision Making Patient's potassium not as significantly elevated as what it was yesterday she has not taken her spironolactone today. Initially we tried several medications to lower her potassium in the hopes of avoiding hospitalization however even after medications were given repeat potassium was slightly elevated. Chronic kidney disease is about the same level. Suspect this is due to spironolactone. Continue medications to lower potassium discussed with hospitalist orders written Medical Records I reviewed the patient's medical records. Lab Data I reviewed the patient's lab results. 04/05/23 08:58 04/05/23 11:31 Laboratory Results WBC 6.9 10^3/uL (4.0-10.0) 04/05/23 08:58 RBC 3.36 10^6/uL (4.1-5.3) L 04/05/23 08:58 Hgb 10.4 g/dL (11.5-15.3) L 04/05/23 08:58 Hct 32.3 % (37.0-47.0) L 04/05/23 08:58 MCV 96.1 fl (81-99) 04/05/23 08:58 MCH 31.0 pg (28.0-34.0) 04/05/23 08:58 MCHC 32.2 g/dL (30.0-36.0) 04/05/23 08:58 RDW 12.1 % (12.1-15.1) 04/05/23 08:58 Plt Count 264 10^3/cmm (130-400) 04/05/23 08:58 MPV 10.3 fL (7.4-10.4) 04/05/23 08:58 Neut % (Auto) 69.4 % 04/05/23 08:58 Lymph % (Auto) 16.9 % 04/05/23 08:58 [place] % (Auto) 9.1 % 04/05/23 08:58 Eos % (Auto) 3.6 % 04/05/23 08:58 Baso % (Auto) 0.7 % 04/05/23 08:58 Neut # (Auto) 4.79 10^3/uL (1.8-7.7) 04/05/23 08:58 Lymph # (Auto) 1.2 10^3/uL (0.8-4.8) 04/05/23 08:58 [place] # (Auto) 0.6 10^3/uL (0.2-0.9) 04/05/23 08:58 Eos # (Auto) 0.3 10^3/uL (0.0-0.8) 04/05/23 08:58 Baso # (Auto) 0.1 10^3/uL (0.0-0.1) 04/05/23 08:58 Nucleated RBC % (auto) 0 % 04/05/23 08:58 Nucleated RBCs # 0.0 /100WBC 04/05/23 08:58 Sodium 135 mmol/L (136-145) L 04/05/23 11:31 Potassium 6.1 mmol/L (3.5-5.1) H 04/05/23 11:31 Chloride 106 mmol/L (98-107) 04/05/23 11:31 Carbon Dioxide 19 mmol/L (22-29) L 04/05/23 11:31 Anion Gap 16.1 (5-19) 04/05/23 11:31 BUN 31 mg/dL (8-23) H 04/05/23 11:31 Creatinine 2.3 mg/dL (0.5-0.9) H 04/05/23 11:31 GFR Calculation Not Reportable 04/05/23 11:31 Glucose 181 mg/dL (65-115) H 04/05/23 11:31 POC Glucose 182 mg/dL (70-110) H 04/05/23 09:45 Calculated Osmolality 291 mOsm/kg (285-295) 04/05/23 11:31 Calcium 10.0 mg/dL (8.5-10.5) 04/05/23 11:31 Magnesium 1.4 mg/dL (1.7-2.3) L 04/05/23 08:58 Discharge Plan Discharge Patient Disposition: Admitted As Inpatient Admit Provider: Sumanth Castillo Clinical Impression: Hyperkalemia, CKD (chronic kidney disease) stage 3, GFR 30-59 ml/min, Essential hypertension, Hypomagnesemia Condition: Stable Coding Level of Care Code ED Meter Mechanic for Danial Mahajan
--- NOTE | 2023-04-05 08:44 | ECG_ITS ---
[facility] Test Date: 2023-04-05 Pat Name: Celeste Kruse Department: Room: Gender: Female Lobby Porter: : 1950 Requested By: Aroldo Kunz Order Number: [id number] Ramirez MD: Genevieve Little M.D. Measurements Intervals [place] Rate: 69 P: 106 [place]: 145 QRS: -21 QRSD: 142 T: 128 QT: 424 QTc: 456 Interpretive Statements SINUS RHYTHM INDETERMINATE AXIS RIGHT BUNDLE BRANCH BLOCK [120+ ms QRS DURATION, UPRIGHT V1, 40+ ms S IN I/aVL/V4/V5/V6] ANTEROSEPTAL MYOCARDIAL INFARCTION , OF INDETERMINATE AGE [40+ ms Q WAVE IN V1-V4] Compared to ECG 02/13/2023 22:14:01 Indeterminate axis now present Myocardial infarct finding now present Electronically Signed On 04-07-2023 6:10:39 CDT by Genevieve Little M.D. [id number]
[2023-04-05] MEDS: albuterol 2.5 mg/3 mL Neb INHALATION ×2 (08:48→16:42)
[2023-04-05 08:55] LABS: Glucose Point of Care 259 mg/dL (70-110)
[2023-04-05] MEDS: insulin regular-human 100 units/1 mL 10 UNIT IVP ×2 (09:02→12:22)
[2023-04-05] MEDS: sodium polystyrene sulfonate 15 gm/60 mL Btl 30 GM PO (09:03)
[2023-04-05] MEDS: calcium chloride 10% Syr 10 mL 1 GM IVP (09:03)
[2023-04-05 09:07] LABS: Basophils # 0.1 10^3/uL (0.0-0.1); Basophils % 0.7 %; Eosinophils # 0.3 10^3/uL (0.0-0.8); Eosinophils % 3.6 %; Hematocrit 32.3 % (37.0-47.0); Hemoglobin 10.4 g/dL (11.5-15.3); Lymphocytes # 1.2 10^3/uL (0.8-4.8); Lymphocytes % 16.9 %; Mean Corpuscular HGB Conc 32.2 g/dL (30.0-36.0); Mean Corpuscular Volume 96.1 fl (81-99); Mean Platelet Volume 10.3 fL (7.4-10.4); Monocytes # 0.6 10^3/uL (0.2-0.9); Monocytes % 9.1 %; Neutrophils # 4.79 10^3/uL (1.8-7.7); Neutrophils % 69.4 %; Nucleated Red Blood Cells % 0 %; Platelet Count 264 10^3/cmm (130-400); Red Blood Count 3.36 10^6/uL (4.1-5.3); Red Cell Distribution Width 12.1 % (12.1-15.1); White Blood Count 6.9 10^3/uL (4.0-10.0)
[2023-04-05] MEDS: hyDRALAzine 20 mg/mL INJ 1 mL 10 MG IVP (09:14)
[2023-04-05] MEDS: ondansetron 2 mg/ML SDV 2 mL 4 MG IVP (09:14)
[2023-04-05] MEDS: amlodipine 10 mg Tablet PO (09:14)
[2023-04-05] MEDS: sodium chloride 0.9% 500 ML IV (09:15)
[2023-04-05 09:27] LABS: Anion Gap 18.9 (5-19); Blood Urea Nitrogen 32 mg/dL (8-23); Calcium 9.3 mg/dL (8.5-10.5); Carbon Dioxide 18 mmol/L (22-29); Chloride 104 mmol/L (98-107); Glucose 227 mg/dL (65-115); Magnesium 1.4 mg/dL (1.7-2.3); Osmolality Calculated 294 mOsm/kg (285-295); Potassium 5.9 mmol/L (3.5-5.1); Sodium 135 mmol/L (136-145)
[2023-04-05 09:29] LABS: Creatinine Clr Calc Pharmacy 19.9165
--- NOTE | 2023-04-05 09:46 | PC.NURSE ---
PT BLOOD SUGAR 182 AFTER 10 UNITS INSULIN
[2023-04-05 09:50] LABS: Glucose Point of Care 182 mg/dL (70-110)
[2023-04-05 12:01] LABS: Anion Gap 16.1 (5-19); Blood Urea Nitrogen 31 mg/dL (8-23); Carbon Dioxide 19 mmol/L (22-29); Chloride 106 mmol/L (98-107); Glucose 181 mg/dL (65-115); Osmolality Calculated 291 mOsm/kg (285-295); Potassium 6.1 mmol/L (3.5-5.1); Sodium 135 mmol/L (136-145)
[2023-04-05] MEDS: sodium bicarbonate 1 mEq/mL SDV 50mL 100 MEQ IVP (12:22)
[2023-04-05 13:51] LABS: Glucose Point of Care 78 mg/dL (70-110)
--- NOTE | 2023-04-05 14:15 | XR_ITS ---
WS: [id number] Portable AP upright chest, 04/05/2023 Clinical Data: sob Comparison: Portable chest, 02/13/2023 Findings: No nodules, masses or effusions are seen. The heart is enlarged. The pulmonary vascularity is not increased. No pneumonia or pneumothorax is seen. Monitor leads are on the chest wall. XR/XR chest 1V portable [id number] Impression: Mild cardiomegaly.
[2023-04-05 14:27] LABS: Potassium 5.5 mmol/L (3.5-5.1)
[2023-04-05 14:28] LABS: Troponin(5th) Baseline 57 ng/L (0-10)
[2023-04-05 14:45] LABS: NT Pro B Type Natriuretic Pept 228 pg/mL (0-125)
[2023-04-05] MEDS: hyDRALAzine 25 mg Tablet PO ×2 (15:06→20:22)
[2023-04-05] MEDS: FUROsemide 10 mg/mL SDV 4mL 40 MG IVP (15:06)
[2023-04-05] MEDS: magnesium lactate 84 mg Tablet PO (15:06)
[2023-04-05] MEDS: calcium gluconate 0.9% NaCL 1 GM/50 ML PREMIX IV (15:06)
[2023-04-05 15:29] LABS: Troponin 5 2HR 54.86 ng/L (0-10)
--- NOTE | 2023-04-05 15:29 | ECG_ITS ---
[facility] Test Date: 2023-04-05 Pat Name: Celeste Kruse Department: Room: 111 Gender: Female Sorting Supervisor: : 1950 Requested By: Sumanth Castillo Order Number: [id number] Ramirez MD: Genevieve Little M.D. Measurements Intervals [place] Rate: 71 P: 19 [place]: 143 QRS: -28 QRSD: 138 T: 39 QT: 415 QTc: 452 Interpretive Statements SINUS RHYTHM WITH OCCASIONAL VENTRICULAR PREMATURE COMPLEXES BORDERLINE LEFT AXIS DEVIATION [QRS AXIS < -20] RIGHT BUNDLE BRANCH BLOCK [120+ ms QRS DURATION, UPRIGHT V1, 40+ ms S IN I/aVL/V4/V5/V6] Compared to ECG 04/05/2023 08:44:36 Ventricular premature complex(es) now present Indeterminate axis no longer present Myocardial infarct finding no longer present Electronically Signed On 04-07-2023 6:55:08 CDT by Genevieve Little M.D. [id number]
[2023-04-05 15:38] LABS: Troponin 5 2HR Delta -2.14 ABS# (0-10)
--- NOTE | 2023-04-05 15:52 | P.HP_ITS ---
Providers/Chief Complaint Admitting Physician: Sumanth Castillo MD Primary Care Provider: Robert Espinoza DO Chief Complaint: states high potassium History of Present Illness Celeste Kruse is a 73 year old female with with a past medical history of CKD stage III, history of hypertension, diastolic CHF, history of anemia, iron deficiency anemia who presents to [facility] due to shortness of breath, increased lower extremity edema and hyperkalemia. Patient tells me over the last few days she has felt increasingly short of breath, with lower extreme edema, no chest pain, palpitations, no cough, no fevers, no chills. She was placed on spironolactone, today her labs came back and her potassium is elevated so she came to the emergency room no chest pain, no palpitations, no lightheadedness, dizziness, no diarrhea Review of Systems Const: Denies: fever(s) Eyes: Denies: change in vision Card: Denies: chest pain Resp: Reports: dyspnea GI: Denies: abdominal pain : Denies: flank pain or difficulty voiding Musc: Denies: back pain Skin/Breast: Denies: rash Neuro: Denies: headache(s) or numbness in extremities Psych: Denies: anxiety Medications/Allergies Home Medications Medication Instructions Recorded Confirmed Last Taken Type aspirin 81 mg tablet,delayed 81 mg PO BEDTIME 12/05/19 04/05/23 04/04/23 History release (Lorin Low Dose Aspirin) loratadine 10 mg tablet (Claritin) 10 mg PO QAM 12/05/19 04/05/23 04/04/23 History carvedilol 25 mg tablet 25 mg PO BID #180 tabs 06/14/22 04/05/23 04/04/23 Rx fluticasone 500 mcg-salmeterol 50 1 inh inhalation BID #60 ea 06/14/22 04/05/23 04/04/23 Rx mcg/dose blistr powdr for inhalation (Advair Diskus) evolocumab 140 mg/mL subcutaneous 140 mg SUBCUT Q14D 02/13/23 04/05/23 02/09/23 History pen injector (Bravo Urbina) ezetimibe 10 mg tablet (Zetia) 10 mg PO BEDTIME 02/13/23 04/05/23 04/04/23 History levothyroxine 75 mcg tablet 75 mcg PO QAM 02/13/23 04/05/23 04/04/23 History pantoprazole 40 mg tablet,delayed 40 mg PO QAM 02/13/23 04/05/23 04/04/23 History release nitroglycerin 0.4 mg sublingual 0.4 mg sublingual Q5M PRN chest 03/01/23 0 04/05/23 Unknown Rx tablet pain #30 tabs hydralazine 25 mg tablet 25 mg PO TID 90 days #270 tabs 03/07/23 04/05/23 04/04/23 Rx nifedipine 30 mg tablet,extended 30 mg PO DAILY 90 days #90 tabs 03/07/23 04/05/23 04/04/23 Rx release 24 hr spironolactone 25 mg tablet 25 mg PO QAM #90 tabs 03/07/23 04/05/23 04/04/23 Rx furosemide 40 mg tablet (Lasix) 40 mg PO DAILY #90 tabs 04/04/23 04/05/23 04/04/23 Rx sitagliptin phosphate 100 mg tablet 100 mg PO DAILY 90 days #90 tabs 04/04/23 04/05/23 04/04/23 Rx Allergies Allergy/AdvReac Type Severity Reaction Status Date / Time meclizine Allergy Intermediate dizziness Verified 04/05/23 08:56 ofloxacin Allergy Unknown Verified 04/05/23 08:56 PFSH Acute PFSH: Medical History Asthma 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 Coronary artery disease Essential hypertension Hyperlipidemia Hypoglycemia associated with type 2 diabetes mellitus Hypothyroid Insomnia, idiopathic Kidney stone Myocardial infarction Normocytic normochromic anemia Statin intolerance Type 2 diabetes mellitus Surgical History H/O tubal ligation Hx of appendectomy Hx of cataract surgery Hx of hysterectomy Family History Father Cancer Mother Cancer Hypertension Diabetes Social History Smoking and tobacco status: never smoked Alcohol intake: never Current gender identity: Female Female Reproductive History: Spontaneous abortions: No Vitals/I&O/Wt Last Vital Signs Temp 97.6 F 04/05/23 08:49 Pulse 69 04/05/23 14:43 Resp 20 H 04/05/23 13:00 BP 156/90 04/05/23 13:00 Pulse Ox 96 04/05/23 13:00 O2 Del Method Room Air 04/05/23 14:40 04/05/23 04/05/23 04/05/23 06:59 14:59 22:59 Intake Total 500 / 500 Balance 500 / 500 Weight last 48 hrs Weight 79.379 kg Weight 79.379 kg Physical Exam Const: COMMON NORMALS: no acute distress and patient oriented x3 GENERAL APPEARANCE: cooperative, well kempt and well developed HENMT: COMMON NORMALS: normocephalic and Normal external nose present HEAD & SCALP: normocephalic FACE & SINUS: normal facial exam Eye: COMMON NORMALS: Equal, round and reactive pupils present, EOMs intact bilaterally, conjunctivae normal and no scleral icterus CONJUNCTIVA: Yes conjunctivae normal PUPIL: Yes Equal, round and reactive pupils present Neck/C-Spine: COMMON NORMALS: full ROM, no lymphadenopathy, no JVD, Thyroid normal and No carotid bruits Lymph: LYMPHATIC: no lymphadenopathy noted Chest: COMMONS NORMALS: normal inspection of the chest Resp: COMMON NORMALS: normal respiratory effort, No retractions, No use of accessory muscles and clear to auscultation bilaterally AUSCULTATION: clear to auscultation bilaterally Cardio: COMMON NORMALS: no JVD, regular rate, regular rhythm, S1 normal heart sound present, S2 normal heart sound present, No murmurs present (Cardio) and Peripheral pulses 2+ throughout RATE: regular rate RHYTHM: regular rhythm HEART SOUNDS: S1 normal heart sound present and S2 normal heart sound present PERIPHERAL PULSES: Peripheral pulses 2+ throughout GI: COMMON NORMALS: Normal to inspection, nondistended, normoactive bowel sounds present, Soft to palpation and non-tender PALPATION: Yes No hepatosplenomegaly present Extremity: COMMON NORMALS: normal to inspection, full ROM, no calf tenderness and no pedal edema Neuro: COMMON NORMALS: patient oriented x3, CN's II-XII intact bilaterally, moves all extremities, no focal motor deficits and no sensory deficits noted Psych: COMMON NORMALS: mental status grossly normal, Normal thought process present, cooperative and speech normal APPEARANCE: Yes well kempt SPEECH: Yes normal speech THOUGHT PROCESS: Normal thought process present Skin: COMMON NORMALS: turgor normal and no jaundice GENERAL SKIN EXAM: turgor normal Data 04/05/23 08:58 04/05/23 13:40 CXR: My impression: Cardiomegaly EKG 1: My Interpretation: Sinus rhythm, right bundle branch block, no acute ST-T wave change is, does have T wave inversions in anterior leads Other data: - Personally reviewed chest x-ray, cardiomegaly - A&P Assessment and plan (1) Hyperkalemia: (2) Heart failure with reduced ejection fraction: (3) Hypomagnesemia: (4) Leg swelling: (5) Normocytic normochromic anemia: (6) Acute exacerbation of congestive heart failure: (7) NSTEMI (non-ST elevated myocardial infarction): Plan Hyperkalemia -Likely secondary to spironolactone -Has a history of hyperkalemia -Has received insulin, D50, calcium gluconate, Kayexalate, sodium bicarbonate -Most recent potassium 5.5 -We will monitor in cardiac stepdown unit, telemetry monitoring -Repeat potassium in the evening Acute on chronic diastolic CHF exacerbation -Daily dose Lasix -Lasix 40 IV once daily -Monitor urine output, potassium, magnesium, creatinine Hypomagnesemia, will replace IV NSTEMI, likely type II, from respiratory failure however cannot rule out underlying cardiac etiology, serial EKGs, serial troponins, telemetry monitoring Hypertension resume home blood pressure medications Type 2 diabetes mellitus, low-dose sliding scale CKD, monitor creatinine Full code Lovenox for DVT prophylaxis Spoke to ER doctor Spoke to nursing staff Attestations Medical Necessity Statement*: Patient requires hospitalization, outpatient with observation, for hyperkalemia, CHF exacerbation, NSTEMI, hypomagnesemia, CKD, shortness of breath and High Time for a total of 70 minutes, includes reviewing past or interval history, examining/interviewing patient, placing orders, counseling patient/family/other support, updating patient/family/other support, discussing plan of care with staff, communicating with other healthcare providers, documenting encounter and coordinating care Diagnoses Hyperkalemia E87.5 Heart failure with reduced ejection fraction I50.20 Hypomagnesemia E83.42 Leg swelling M79.89 Normocytic normochromic anemia D64.9 Acute exacerbation of congestive heart failure I50.9 NSTEMI (non-ST elevated myocardial infarction) I21.4
[2023-04-05 16:36] LABS: Potassium 5.8 mmol/L (3.5-5.1)
[2023-04-05] MEDS: carvedilol 25 mg Tablet PO (17:16)
--- NOTE | 2023-04-05 19:29 | ECG_ITS ---
[facility] Test Date: 2023-04-05 Pat Name: Celeste Kruse Department: Room: 101 Gender: Female Test Technician: : 1950 Requested By: Sumanth Castillo Order Number: [id number] Ramirez MD: Genevieve Little M.D. Measurements Intervals [place] Rate: 77 P: 0 AL: 0 QRS: -43 QRSD: 145 T: 29 QT: 408 QTc: 463 Interpretive Statements UNCERTAIN REGULAR RHYTHM LEFT AXIS DEVIATION [QRS AXIS < -30] RIGHT BUNDLE BRANCH BLOCK [120+ ms QRS DURATION, UPRIGHT V1, 40+ ms S IN I/aVL/V4/V5/V6] Compared to ECG 04/05/2023 14:47:36 Sinus rhythm no longer present Ventricular premature complex(es) no longer present Electronically Signed On 04-07-2023 6:51:31 CDT by Genevieve Little M.D. [email or web address]
[2023-04-05 22:56] LABS: Troponin T (5th) Once 57 ng/L (0-10)
[2023-04-05] MEDS: acetaminophen 325 mg Tablet 650 MG PO (23:43)
[2023-04-06] VITALS (7 sets, daily range): BP systolic 130–194; BP diastolic 73–82; PULSE 60–71; RESP 16–23; TEMP 36.7–36.9; O2SAT 95–99
[2023-04-06] MEDS: albuterol 2.5 mg/3 mL Neb INHALATION (03:05)
[2023-04-06] MEDS: magnesium lactate 84 mg Tablet PO (04:09)
[2023-04-06 04:45] LABS: Blood Urea Nitrogen 27 mg/dL (8-23); Calcium 8.4 mg/dL (8.5-10.5); Carbon Dioxide 18 mmol/L (22-29); Chloride 106 mmol/L (98-107); Glucose 127 mg/dL (65-115); Magnesium 1.3 mg/dL (1.7-2.3); Osmolality Calculated 293 mOsm/kg (285-295); Sodium 138 mmol/L (136-145)
[2023-04-06 05:10] LABS: Basophils % 0.5 %; Eosinophils # 0.2 10^3/uL (0.0-0.8); Eosinophils % 3.2 %; Hematocrit 27.2 % (37.0-47.0); Hemoglobin 8.8 g/dL (11.5-15.3); Lymphocytes # 1.2 10^3/uL (0.8-4.8); Mean Corpuscular HGB Conc 32.4 g/dL (30.0-36.0); Mean Corpuscular Hemoglobin 31.1 pg (28.0-34.0); Mean Corpuscular Volume 96.1 fl (81-99); Mean Platelet Volume 9.7 fL (7.4-10.4); Monocytes # 0.7 10^3/uL (0.2-0.9); Monocytes % 12.6 %; Neutrophils # 3.46 10^3/uL (1.8-7.7); Neutrophils % 61.3 %; Nucleated Red Blood Cells % 0 %; Platelet Count 220 10^3/cmm (130-400); Red Blood Count 2.83 10^6/uL (4.1-5.3); Red Cell Distribution Width 12.2 % (12.1-15.1); White Blood Count 5.6 10^3/uL (4.0-10.0)
[2023-04-06] MEDS: levothyroxine 75 mcg Tablet PO (05:54)
[2023-04-06] MEDS: pantoprazole DR 40 mg Tablet PO (05:54)
[2023-04-06] MEDS: hyDRALAzine 25 mg Tablet PO (08:10)
[2023-04-06] MEDS: carvedilol 25 mg Tablet PO (08:10)
[2023-04-06] MEDS: NIFEdipine ER (24 hr) 30 mg Tablet PO (08:10)
[2023-04-06] MEDS: FUROsemide 10 mg/mL SDV 2mL 20 MG IVP (09:11)
[2023-04-06] MEDS: magnesium sulfate premix 4 GM/100 ML PREMIX IV (09:11)
[2023-04-06] MEDS: cloNIDine 0.1 mg Tablet PO (09:21)
[2023-04-06 10:01] LABS: Glucose Point of Care 280 mg/dL (70-110)
--- NOTE | 2023-04-06 13:18 | PM.DCS ---
Discharge Providers Date of Admission: 04/05/23 13:02 Date of Discharge: April 06, 2023 Attending Provider at Admission: Sumanth Castillo MD Attending Provider at Discharge: Sumanth Castillo MD Primary Care Provider: Robert Espinoza DO Diagnoses at Discharge Discharge Diagnosis (1) Hyperkalemia: Status: Acute (2) Heart failure with reduced ejection fraction: Status: Acute (3) Hypomagnesemia: Status: Acute (4) Leg swelling: Status: Acute (5) Normocytic normochromic anemia: Status: Acute (6) Acute exacerbation of congestive heart failure: Status: Acute (7) NSTEMI (non-ST elevated myocardial infarction): Status: Acute Reason for Visit Reason for Visit: states high potassium Hospital Course Hospital Course Celeste Kruse is a 73 year old female with with a past medical history of CKD stage III, history of hypertension, diastolic CHF, history of anemia, iron deficiency anemia who presents to [facility] due to shortness of breath, increased lower extremity edema and hyperkalemia.? Patient tells me over the last few days she has felt increasingly short of breath, with lower extreme edema, no chest pain, palpitations, no cough, no fevers, no chills.? She was placed on spironolactone, today her labs came back and her potassium is elevated so she came to the emergency room no chest pain, no palpitations, no lightheadedness, dizziness, no diarrhea Patient was admitted to [facility] for hyperkalemia, likely secondary to spironolactone, which was stopped, received insulin/d50/calcium gluconate/sodium baicrab/lasix, overall clinically improved, potassium was 5.0 on discharge, stop spironolactone on discharge For acute on chronic diastolic chf exacerbation, received lasix, overall clinically improved, discharge on lasix, follow up primary care on sunday for recheck potassium and creatinine, For hypomagnesemia, received replacement during hospitalization, discharged on mag tab Physical Exam Const: COMMON NORMALS: no acute distress and patient oriented x3 Resp: COMMON NORMALS: normal respiratory effort, No retractions, No use of accessory muscles and clear to auscultation bilaterally AUSCULTATION: clear to auscultation bilaterally Cardio: COMMON NORMALS: regular rate, regular rhythm, S1 normal heart sound present and S2 normal heart sound present RATE: regular rate RHYTHM: regular rhythm HEART SOUNDS: S1 normal heart sound present and S2 normal heart sound present GI: COMMON NORMALS: Normal to inspection, nondistended, normoactive bowel sounds present and non-tender Extremity: COMMON NORMALS: no pedal edema Neuro: COMMON NORMALS: patient oriented x3 Psych: COMMON NORMALS: mental status grossly normal Discharge Data Studies Completed and Pending Completed Studies During Hospitalization Category Date Time Status XR chest 1V portable [id number] Routine Exams 04/05/23 14:15 Completed Radiology Impressions Chest X-Ray 04/05/23 14:15 Impression: Mild cardiomegaly. Laboratory Results WBC 5.6 10^3/uL (4.0-10.0) 04/06/23 05:05 Corrected WBC Cancelled 04/06/23 04:17 RBC 2.83 10^6/uL (4.1-5.3) L 04/06/23 05:05 Hgb 8.8 g/dL (11.5-15.3) L 04/06/23 05:05 Hct 27.2 % (37.0-47.0) L 04/06/23 05:05 MCV 96.1 fl (81-99) 04/06/23 05:05 MCH 31.1 pg (28.0-34.0) 04/06/23 05:05 MCHC 32.4 g/dL (30.0-36.0) 04/06/23 05:05 RDW 12.2 % (12.1-15.1) 04/06/23 05:05 Plt Count 220 10^3/cmm (130-400) 04/06/23 05:05 MPV 9.7 fL (7.4-10.4) 04/06/23 05:05 Gran % Cancelled 04/06/23 04:17 Neut % (Auto) 61.3 % 04/06/23 05:05 Lymph % (Auto) 22.0 % 04/06/23 05:05 [place] % (Auto) 12.6 % 04/06/23 05:05 Eos % (Auto) 3.2 % 04/06/23 05:05 Baso % (Auto) 0.5 % 04/06/23 05:05 Neut # (Auto) 3.46 10^3/uL (1.8-7.7) 04/06/23 05:05 Lymph # (Auto) 1.2 10^3/uL (0.8-4.8) 04/06/23 05:05 [place] # (Auto) 0.7 10^3/uL (0.2-0.9) 04/06/23 05:05 Eos # (Auto) 0.2 10^3/uL (0.0-0.8) 04/06/23 05:05 Baso # (Auto) 0.0 10^3/uL (0.0-0.1) 04/06/23 05:05 Absolute Gran (auto) Cancelled 04/06/23 04:17 Nucleated RBC % (auto) 0 % 04/06/23 05:05 Nucleated RBCs # 0.0 /100WBC 04/06/23 05:05 Sodium 138 mmol/L (136-145) 04/06/23 04:17 Potassium 5.0 mmol/L (3.5-5.1) 04/06/23 04:17 Chloride 106 mmol/L (98-107) 04/06/23 04:17 Carbon Dioxide 18 mmol/L (22-29) L 04/06/23 04:17 Anion Gap 19.0 (5-19) 04/06/23 04:17 BUN 27 mg/dL (8-23) H 04/06/23 04:17 Creatinine 2.1 mg/dL (0.5-0.9) H 04/06/23 04:17 GFR Calculation Not Reportable 04/06/23 04:17 Glucose 127 mg/dL (65-115) H 04/06/23 04:17 POC Glucose 280 mg/dL (70-110) H 04/06/23 09:55 Calculated Osmolality 293 mOsm/kg (285-295) 04/06/23 04:17 Calcium 8.4 mg/dL (8.5-10.5) L 04/06/23 04:17 Phosphorus 4.0 mg/dL (2.5-4.5) 04/06/23 04:17 Magnesium 1.3 mg/dL (1.7-2.3) L 04/06/23 04:17 Troponin T Gen 5 ng/L 57 ng/L (0-10) H 04/05/23 22:20 Troponin T Baseline 57 ng/L (0-10) H 04/05/23 13:40 Troponin T 120 Minute 54.86 ng/L (0-10) H 04/05/23 15:00 Delta Troponin T -2.14 ABS# (0-10) L 04/05/23 15:00 C-Reactive Protein 3.0 mg/L (0.0-4.9) 04/05/23 13:40 NT-Pro-B Natriuret Pep 228 pg/mL (0-125) H 04/05/23 13:40 Procalcitonin 0.10 ng/mL (0-0.5) 04/05/23 13:40 Vitals Last Vital Signs Temp 98.4 F 04/06/23 08:00 Pulse 60 04/06/23 12:37 Resp 18 04/06/23 12:37 BP 156/76 04/06/23 12:37 Pulse Ox 99 04/06/23 12:37 O2 Del Method Room Air 04/06/23 12:37 Discharge Plan Discharge Patient Disposition: Home Condition: Stable Prescriptions: New clonidine HCl 0.1 mg Tablet 0.1 mg PO BID 30 Days Qty: 60 0RF magnesium L-lactate 84 mg tablet extended release 84 mg PO DAILY 30 Days Qty: 30 0RF Continued aspirin [Lorin Low Dose Aspirin] 81 mg tablet,delayed release (DR/EC) 81 mg PO BEDTIME loratadine [Claritin] 10 mg tablet 10 mg PO QAM nitroglycerin 0.4 mg tablet, sublingual 0.4 mg sublingual Q5M PRN (Reason: chest pain) Qty: 30 2RF Rx Instructions: do not exceed 3 doses per episode sitagliptin phosphate 100 mg tablet 100 mg PO DAILY 90 Days Qty: 90 1RF furosemide [Lasix] 40 mg tablet 40 mg PO DAILY Qty: 90 1RF fluticasone propion-salmeterol [Advair Diskus] 500-50 mcg/dose blister with device 1 inh inhalation BID Qty: 60 8RF carvedilol 25 mg tablet 25 mg PO BID Qty: 180 3RF Rx Instructions: must administer with a meal/food hydralazine 25 mg tablet 25 mg PO TID 90 Days Qty: 270 1RF nifedipine 30 mg tablet extended release 24hr 30 mg PO DAILY 90 Days Qty: 90 1RF levothyroxine 75 mcg tablet 75 mcg PO QAM pantoprazole 40 mg tablet,delayed release (DR/EC) 40 mg PO QAM ezetimibe [Zetia] 10 mg tablet 10 mg PO BEDTIME Repatha SureClick 140 mg/mL pen injector 140 mg SUBCUT Q14D Discontinued spironolactone 25 mg tablet 25 mg PO QAM Qty: 90 1RF Discharge Orders: Discharge Order (Routine); Ordered 04/06/23 Ordered By: Suamnth Castillo Referrals: Robert Espinoza, [Primary Care Provider] - 04/09/23 3:00 pm (Your follow up appt will be with Dr. Godinez. Please call [phone] if you have any questions or concerns. Thank you.) Discharge Diet: Cardiac Discharge Activity: Resume usual activity Patient Instructions: Potassium Content of Foods List (DC), Hyperkalemia (DC), Opioid Safety Activity Restrictions/Additional Instructions: - Please see your primary care provider on Sunday for recheck potassium -See your primary care provider for recheck kidney function -If you have any chest pain or shortness of breath go to emergency room - take Lasix 40 mg once daily, recheck kidney function potassium on Sunday -Take magnesium as prescribed seems to Discharge Attestations Time Spent in Discharge Care*: greater than 30 min Quality Metrics Clinical Quality Measures [ No reported AMI, CVA or VTE this stay] Coding Level of Care Code 22007 Total time (in minutes) for Discharge: 40 Diagnoses Hyperkalemia E87.5 Heart failure with reduced ejection fraction I50.20 Hypomagnesemia E83.42 Leg swelling M79.89 Normocytic normochromic anemia D64.9 Acute exacerbation of congestive heart failure I50.9 NSTEMI (non-ST elevated myocardial infarction) I21.4
== END 2023-04-06 13:49 | disposition home or self-care (01) ==
LOC: ER 08:38 → MEDSURG 13:03 → CSU 13:38
PROVIDERS: Admitting Provider Family Medicine; Emergency Provider Family Medicine; PCP Family Medicine; Visit Provider Family Medicine
DX: E87.5 Hyperkalemia (principal); N18.30 Chronic kidney disease, stage 3 unspecified; I50.33 Acute on chronic diastolic (congestive) heart failure; D64.9 Anemia, unspecified; E83.42 Hypomagnesemia; I45.10 Unspecified right bundle-branch block; Z79.82 Long term (current) use of aspirin; I13.0 Hypertensive heart and chronic kidney disease with heart failure and stage 1 through stage 4 chronic kidney disease, or unspecified chronic kidney disease; E11.22 Type 2 diabetes mellitus with diabetic chronic kidney disease; Z79.4 Long term (current) use of insulin; I21.4 Non-ST elevation (NSTEMI) myocardial infarction; E78.5 Hyperlipidemia, unspecified; I25.10 Atherosclerotic heart disease of native coronary artery without angina pectoris
CPT/HCPCS: 36415; 36416; 71045; 80048; 82962; 83735; 83880; 84100; 84132; 84145; 84484; 85025; 86140; 93005; 94640; 94664; 96365; 96366; 96367; 96375; 96376; 99285; G0378; J0360; J0610; J1815; J1940; J2405; J3475; J3490; J7040; J7613

== ENCOUNTER → 2023-04-09 15:43 | Outpatient (BNVA) | payer MEDICARE, OTHER, SELFPAY | PROVIDERS: PCP Family Medicine; Visit Provider Family Medicine | DX: E83.42 Hypomagnesemia (principal); E87.5 Hyperkalemia | CPT/HCPCS: 80053; 83735 ==

== ENCOUNTER → 2023-04-17 11:46 | Outpatient (BNVA) | payer MEDICARE, OTHER, SELFPAY | PROVIDERS: PCP Family Medicine; Visit Provider Internal Medicine Hematology & Oncology | DX: D64.9 Anemia, unspecified (principal) | CPT/HCPCS: 85025 ==

== ENCOUNTER → 2023-05-11 10:10 | Outpatient (BNVA) | payer MEDICARE, OTHER, SELFPAY | PROVIDERS: PCP Family Medicine; Visit Provider Internal Medicine Cardiovascular Disease | DX: I10 Essential (primary) hypertension (principal); I25.10 Atherosclerotic heart disease of native coronary artery without angina pectoris | CPT/HCPCS: 99214 ==

== ENCOUNTER → 2023-05-15 08:46 | Outpatient (BNVA) | payer MEDICARE, OTHER, SELFPAY | PROVIDERS: PCP Family Medicine; Visit Provider Internal Medicine Hematology & Oncology | DX: D64.9 Anemia, unspecified (principal) | CPT/HCPCS: 82607; 82728; 83550; 85025 ==

== ENCOUNTER 2023-05-18 09:11 | Oncology outpatient (recurring) (ONCR) | payer MEDICARE, OTHER, SELFPAY | END 2023-05-18 23:59 | disposition home or self-care (01) | PROVIDERS: PCP Family Medicine; Visit Provider Internal Medicine Hematology & Oncology | DX: D64.9 Anemia, unspecified (principal); Z79.899 Other long term (current) drug therapy | CPT/HCPCS: 99214 ==

== ENCOUNTER → 2023-05-28 10:04 | Outpatient (BNVA) | payer MEDICARE, SELFPAY | PROVIDERS: PCP Family Medicine; Visit Provider Family Medicine | DX: E78.5 Hyperlipidemia, unspecified (principal); E11.22 Type 2 diabetes mellitus with diabetic chronic kidney disease; N18.4 Chronic kidney disease, stage 4 (severe); E03.9 Hypothyroidism, unspecified | CPT/HCPCS: 80048; 82043; 82306; 82310; 83036; 83970; 84439; 84443; 85027 ==

== ENCOUNTER → 2023-07-12 09:14 | Outpatient (BNVA) | payer MEDICARE, OTHER, SELFPAY | PROVIDERS: PCP Family Medicine; Visit Provider Internal Medicine Hematology & Oncology | DX: D64.9 Anemia, unspecified (principal); D50.9 Iron deficiency anemia, unspecified; I10 Essential (primary) hypertension | CPT/HCPCS: 82607; 82728; 83550; 85025 ==

== ENCOUNTER 2023-07-16 10:13 | Oncology outpatient (recurring) (ONCR) | payer MEDICARE, OTHER, SELFPAY | END 2023-07-19 23:59 | disposition home or self-care (01) | PROVIDERS: PCP Family Medicine; Visit Provider Internal Medicine Hematology & Oncology | DX: D50.9 Iron deficiency anemia, unspecified (principal); N18.30 Chronic kidney disease, stage 3 unspecified; I12.9 Hypertensive chronic kidney disease with stage 1 through stage 4 chronic kidney disease, or unspecified chronic kidney disease | CPT/HCPCS: 99213 ==

== ENCOUNTER → 2023-08-09 08:58 | Outpatient (BNVA) | payer MEDICARE, OTHER, SELFPAY | PROVIDERS: PCP Family Medicine; Visit Provider Nurse Practitioner Family | DX: L82.1 Other seborrheic keratosis (principal); L91.8 Other hypertrophic disorders of the skin; L72.0 Epidermal cyst; L57.8 Other skin changes due to chronic exposure to nonionizing radiation; D22.5 Melanocytic nevi of trunk; L57.0 Actinic keratosis | CPT/HCPCS: 17000; 99213 ==

== ENCOUNTER 2023-08-24 11:13 | Outpatient (CLI) | payer MEDICARE, OTHER, SELFPAY ==
[2023-08-24 12:53] LABS: Iron 78 ug/dL (37-145)
== END 2023-08-24 11:14 | disposition home or self-care (01) ==
PROVIDERS: PCP Family Medicine; Visit Provider Family Medicine
DX: D50.9 Iron deficiency anemia, unspecified (principal); E11.21 Type 2 diabetes mellitus with diabetic nephropathy; E11.22 Type 2 diabetes mellitus with diabetic chronic kidney disease; N18.4 Chronic kidney disease, stage 4 (severe)
CPT/HCPCS: 36415; 80053; 80069; 82306; 82310; 82570; 82728; 83036; 83540; 83550; 83970; 84155; 84156; 84165; 84443

== ENCOUNTER 2023-09-04 09:30 | Outpatient (CLI) | payer MEDICARE, OTHER, SELFPAY ==
--- NOTE | 2023-09-04 09:51 | MM_ITS ---
WS: [id number] BILATERAL 3D TOMOSYNTHESIS DIGITAL SCREENING MAMMOGRAPHY WITH CAD CLINICAL INFORMATION: SCREENING HISTORY: Screening mammogram. No current complaints. COMPARISON: 08/21/2022 TECHNIQUE: Bilateral CC and MLO views. FINDINGS: Scattered fibroglandular densities bilaterally. No suspicious focal mass, asymmetry, calcifications, or architectural distortion. No evidence of malignancy. A few incidental punctate calcifications ante rior breasts. IMPRESSION: MM/[place] [id number] BI-RADS: 2-Benign FOLLOW UP: 1 Year Follow-up Recommend return to annual screening mammography.
[2023-09-05 07:59] LABS: PROTEIN, TOTAL 6.7 g/dL (6.1-8.1)
[2023-09-05 17:49] LABS: ALBUMIN 3.5 g/dL (3.8-4.8); ALPHA 1 GLOBULIN 0.3 g/dL (0.2-0.3); ALPHA 2 GLOBULIN 1.1 g/dL (0.5-0.9); BETA 1 GLOBULIN 0.4 g/dL (0.4-0.6); BETA 2 GLOBULIN 0.4 g/dL (0.2-0.5); GAMMA GLOBULIN 0.9 g/dL (0.8-1.7)
== END 2023-09-04 09:31 | disposition home or self-care (01) ==
LOC: RAD 09:31
PROVIDERS: PCP Family Medicine; Visit Provider Family Medicine
DX: Z12.31 Encounter for screening mammogram for malignant neoplasm of breast (principal); N18.4 Chronic kidney disease, stage 4 (severe)
CPT/HCPCS: 77063; 77067; 84155; 84165

== ENCOUNTER 2023-10-22 02:16 | Emergency (ER) | payer MEDICARE, OTHER, SELFPAY ==
[2023-10-22 02:28] VITALS: BP 158/66; PULSE 72; RESP 18; TEMP 36.6; O2SAT 97; BMI 30.8
--- NOTE | 2023-10-22 03:01 | CTR_ITS ---
PROCEDURE INFORMATION: Exam: CT Abdomen And Pelvis Without Contrast Exam date and time: 10/22/2023 3:48 AM Age: 73 years old Clinical indication: Abdominal pain; Prior surgery; Surgery date: 6+ months; Surgery type: Coronary stents. Gb. Appy. Hysterectomy. Patient HX: Low back pain with nausea. History of renal calculi. ; Additional info: Low back pain, nausea TECHNIQUE: Imaging protocol: Computed tomography of the abdomen and pelvis without contrast. Radiation optimization: All CT scans at this facility use at least one of these dose optimization techniques: automated exposure control; mA and/or kV adjustment per patient size (includes targeted exams where dose is matched to clinical indication); or iterative reconstruction. REPORTING DATA: Count of CT and Cardiac NM exams in prior 12 months: This patient has received 2 known CTs and 0 known cardiac nuclear medicine studies in the 12 months prior to the current study. COMPARISON: CT abdomen pelvis wo con [id number] 02/13/2023 2:46 PM RADIATION DOSE METRICS: Total DLP (mGy-cm): 795.01 FINDINGS: Lungs: The visualized lung bases are clear. Mediastinal space: Question mild lower esophageal wall thickening. Diaphragm: Small hiatal hernia Liver: Liver is quite large. Gallbladder and bile ducts: Absent gallbladder. Pancreas: Unremarkable with no suspicious mass. No ductal dilation. Spleen: The spleen is not enlarged. No suspicious mass is noted. Adrenal glands: Normal. No mass. Kidneys and ureters: Bilateral perinephric fat stranding. Bilateral renal cysts are present, with some internal complexity. Multiple tiny bilateral kidney stones as well. There is mild right hydronephrosis. Along the right ureter, no definite stones are visualized. The distal ureter is collapsed. Stomach and bowel: Moderate left colon wall thickening. Moderate sigmoid diverticulosis. The colon is rather fecal filled. No small bowel dilation. Apparent rectocele versus prolapse unchanged. Appendix: No evidence of appendicitis. Intraperitoneal space: Unremarkable. No free air. No suspicious fluid collection. Vasculature: No AAA or acute vascular lesion identified. Lymph nodes: No enlarged lymph nodes. Urinary bladder: Unremarkable as visualized. Reproductive: Absent uterus. Bones/joints: Moderate spine DJD. Soft tissues: Small fat umbilical hernia. CT/CT kidney stone [id number] IMPRESSION: 1. There is progressive right perinephric fat stranding with mild right hydronephrosis, new from 02/13/2023. Although no sizable obstructing stone is visualized at this time, these findings may be due to a nonvisualized stone, recently passed stone, or infection. Advise correlation. 2. Otherwise, the kidneys are unchanged with tiny stones, scattered simple and complex renal cysts, and extensive bilateral perinephric fat stranding/scarring. 3. There is moderate sigmoid wall thickening, suggestive of a colitis. This may be chronic, and there is no surrounding significant fat stranding today. There were similar findings on 02/13/2023. 4. No small bowel obstruction, abscess or free air. 5. Small hiatal hernia. Question esophagitis. 6. Several other chronic findings again noted. COMMENTS: Consistent with the [employer]'s Incidental Findings Committee white paper (J Am Chas Radiol 2018): Any incidental renal lesion less than 1 cm or classified as too small to characterize, or any incidental cystic renal lesion characterized as simple-appearing, is likely benign. No follow-up imaging is recommended for these lesions per consensus recommendations based on imaging criteria.
[2023-10-22] MEDS: ondansetron 2 mg/ML SDV 2 mL 4 MG IVP (03:37)
[2023-10-22 03:38] LABS: Basophils # 0.1 10^3/uL (0.0-0.1); Basophils % 0.4 %; Eosinophils # 0.2 10^3/uL (0.0-0.8); Eosinophils % 1.1 %; Hematocrit 33.6 % (36-47); Lymphocytes # 0.9 10^3/uL (0.8-4.8); Lymphocytes % 6.1 %; Mean Corpuscular HGB Conc 33.6 g/dL (30-55); Mean Corpuscular Hemoglobin 31.5 pg (27-33); Mean Corpuscular Volume 93.6 fl (85-98); Mean Platelet Volume 10.3 fL (7.4-10.4); Monocytes # 0.8 10^3/uL (0.2-0.9); Monocytes % 5.2 %; Neutrophils # 13.31 10^3/uL (1.8-7.7); Neutrophils % 86.9 %; Nucleated Red Blood Cells % 0 %; Platelet Count 323 10^3/cmm (157-399); Red Blood Count 3.59 10^6/uL (3.85-5.65); Red Cell Distribution Width 12.5 % (12.1-15.1); White Blood Count 15.32 10^3/uL (3.29-11.43)
[2023-10-22] MEDS: morphine 4 mg/mL SDV 1 mL IVP (03:39)
[2023-10-22 03:56] LABS: Alanine Aminotransferase 9 U/L (0-33); Alkaline Phosphatase 73 U/L (35-105); Anion Gap 18.8 (5-19); Aspartate Amino Transferase 11 U/L (0-32); Blood Urea Nitrogen 36 mg/dL (8-23); Calcium 9.6 mg/dL (8.5-10.5); Carbon Dioxide 18 mmol/L (22-29); Chloride 100 mmol/L (98-107); Globulin 3.4 g/dL (1.3-4.6); Glucose 295 mg/dL (65-115); Lipase 121 U/L (13-60); Osmolality Calculated 293 mOsm/kg (285-295); Potassium 4.8 mmol/L (3.5-5.1); Sodium 132 mmol/L (136-145); Total Bilirubin 0.2 mg/dL (0.15-1.2); Total Protein 7.4 g/dL (6.6-8.7)
[2023-10-22 03:59] LABS: Add Urine Culture? No; Add Urine Microscopic? YES; Bacteria Urine TRACE /hpf; Bilirubin Urine Neg (Negative); Blood Urine 2+ (Negative); Glucose Urine UA 4+ (Normal); Ketones Urine Negative (Negative); Leukocyte Esterase Urine Negative (Negative); Nitrate Urine Negative (Negative); Protein Urine 3+ (Negative); RBC Urine 25-40 /hpf (0-2); Specific Gravity, Urine 1.015 (1.005-1.030); Urine Appearance Hazy (CLEAR); Urine Color Yellow (Yellow); Urobilinogen Urine Neg (Negative); WBC Urine 0-4 /hpf (0-5); pH Urine 5 (5-7)
--- NOTE | 2023-10-22 04:03 | W.ED.BACK ---
HPI - Back Pain/Injury General: Chief Complaint: Back Pain/Injury Stated Complaint: back pain Time Seen by Provider: 10/22/23 02:41 History of Present Illness: 73-year-old female who presents with 3 days of lower back pain. She states it does not really localize to one side. It goes across her back. It is nonradicular. There is no numbness or tingling and no weakness. There is no fever. She does not remember being injured. She has not had back pain like this before. Associated symptoms: Reports abdominal pain; Deny chills, dysuria, fever(s), nausea or vomiting Review of Systems Const: Denies: fever(s), chills or body aches Eyes: Denies: change in vision Card: Denies: chest pain or palpitations Resp: Denies: dyspnea, productive cough, non-productive cough or wheezing GI: Reports: abdominal pain; Denies: nausea, vomiting, diarrhea or hematochezia : Denies: difficulty voiding or dysuria Musc: Reports: back pain Skin/Breast: Denies: rash Neuro: Denies: headache(s), weakness in extremities, dizziness or confusion PFSH ED PFSH: Medical History Hypomagnesemia Normocytic normochromic anemia Hyperkalemia Hypoglycemia associated with type 2 diabetes mellitus Kidney stone Statin intolerance Asthma 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 Myocardial infarction Type 2 diabetes mellitus Coronary artery disease Hypothyroid Hyperlipidemia Essential hypertension Insomnia, idiopathic Surgical History H/O tubal ligation Hx of hysterectomy Hx of appendectomy Hx of cataract surgery Family History Father Cancer Mother Cancer Hypertension Diabetes Social History Smoking and tobacco/nicotine status: never used tobacco/nicotine Alcohol intake: never Current gender identity: Female Female Reproductive History: Spontaneous abortions: No Physical Exam Const: COMMON NORMALS: no acute distress GENERAL APPEARANCE: cooperative; not ill appearing and not frail appearing HENMT: COMMON NORMALS: normocephalic, atraumatic and Normal external nose present HEAD & SCALP: normocephalic and atraumatic FACE & SINUS: normal facial exam and face symmetric NOSE: Normal external nose present Eye: COMMON NORMALS: Equal, round and reactive pupils present and EOMs intact bilaterally PUPIL: Yes Equal, round and reactive pupils present Neck/C-Spine: GENERAL: Yes trachea midline Chest: CHEST: Yes Symmetrical chest wall rise Resp: COMMON NORMALS: normal respiratory effort, No retractions, No use of accessory muscles and clear to auscultation bilaterally AUSCULTATION: clear to auscultation bilaterally Cardio: COMMON NORMALS: regular rate and regular rhythm RATE: regular rate RHYTHM: regular rhythm GI: COMMON NORMALS: Normal to inspection, nondistended, normoactive bowel sounds present Back/Pelvis: OTHER: Tenderness to palpation across the L4-L5 region bilaterally. There is flank tenderness bilaterally as well. No muscle spasm noted. Extremity: COMMON NORMALS: no pedal edema Neuro: [place] COMA SCALE: document GCS findings [place] coma scale eye opening: Spontaneous [place] coma scale verbal response: Orientated [place] coma scale motor response: [place] commands [place] coma scale total score: 15 SENSORY EXAM: Yes extremities (intact) Psych: COMMON NORMALS: speech normal SPEECH: Yes normal speech Skin: COMMON NORMALS: no rashes or lesions noted GENERAL SKIN EXAM: no rashes or lesions noted Course Vital Signs: Vital signs: Vital Signs Temperature 97.8 F 10/22/23 02:28 Pulse Rate 72 10/22/23 02:28 Respiratory Rate 18 10/22/23 02:28 Blood Pressure 158/66 10/22/23 02:28 Pulse Oximetry 97 10/22/23 02:28 Oxygen Delivery Me thod Room Air 10/22/23 02:28 MDM - Back Pain/Injury Medical Decision Making Pain improved after morphine. White blood cell count is 15. Bicarbonate is 18. Creatinine is 2.5. She does have a history of chronic kidney disease. Her CRP is only 3. Urinalysis shows hematuria. CT stone protocol is pending. CT shows sigmoid wall thickening suggestive of possible colitis. But this is chronic. Also noted is progressive right perinephric stranding with mild right hydronephrosis that is new since her last CAT scan in January. No visualized stone present. Could be a recently passed stone versus a nonvisualized stone. Her creatinine is stable. Because of the perinephric fat stranding, she will be placed on antibiotics. Pain control, antiemetic. Close outpatient follow-up. Return for worsening symptoms. Labs 10/22/23 03:34 10/22/23 03:34 Radiology Impressions Abdomen/Pelvis CT 10/22/23 03:01 IMPRESSION: 1. There is progressive right perinephric fat stranding with mild right hydronephrosis, new from 02/13/2023. Although no sizable obstructing stone is visualized at this time, these findings may be due to a nonvisualized stone, recently passed stone, or infection. Advise correlation. 2. Otherwise, the kidneys are unchanged with tiny stones, scattered simple and complex renal cysts, and extensive bilateral perinephric fat stranding/scarring. 3. There is moderate sigmoid wall thickening, suggestive of a colitis. This may be chronic, and there is no surrounding significant fat stranding today. There were similar findings on 02/13/2023. 4. No small bowel obstruction, abscess or free air. 5. Small hiatal hernia. Question esophagitis. 6. Several other chronic findings again noted. COMMENTS: Consistent with the [employer]'s Incidental Findings Committee white paper (J Am Chas Radiol 2018): Any incidental renal lesion less than 1 cm or classified as too small to characterize, or any incidental cystic renal lesion characterized as simple-appearing, is likely benign. No follow-up imaging is recommended for these lesions per consensus recommendations based on imaging criteria. Laboratory Results WBC 15.32 10^3/uL (3.29-11.43) H 10/22/23 03:34 RBC 3.59 10^6/uL (3.85-5.65) L 10/22/23 03:34 Hgb 11.30 g/dL (11.27-16.99) 10/22/23 03:34 Hct 33.6 % (36-47) L 10/22/23 03:34 MCV 93.6 fl (85-98) 10/22/23 03:34 MCH 31.5 pg (27-33) 10/22/23 03:34 MCHC 33.6 g/dL (30-55) 10/22/23 03:34 RDW 12.5 % (12.1-15.1) 10/22/23 03:34 Plt Count 323 10^3/cmm (157-399) 10/22/23 03:34 MPV 10.3 fL (7.4-10.4) 10/22/23 03:34 Neut % (Auto) 86.9 % 10/22/23 03:34 Lymph % (Auto) 6.1 % 10/22/23 03:34 [place] % (Auto) 5.2 % 10/22/23 03:34 Eos % (Auto) 1.1 % 10/22/23 03:34 Baso % (Auto) 0.4 % 10/22/23 03:34 Neut # (Auto) 13.31 10^3/uL (1.8-7.7) H 10/22/23 03:34 Lymph # (Auto) 0.9 10^3/uL (0.8-4.8) 10/22/23 03:34 [place] # (Auto) 0.8 10^3/uL (0.2-0.9) 10/22/23 03:34 Eos # (Auto) 0.2 10^3/uL (0.0-0.8) 10/22/23 03:34 Baso # (Auto) 0.1 10^3/uL (0.0-0.1) 10/22/23 03:34 Nucleated RBC % (auto) 0 % 10/22/23 03:34 Nucleated RBCs # 0.0 /100WBC 10/22/23 03:34 Sodium 132 mmol/L (136-145) L 10/22/23 03:34 Potassium 4.8 mmol/L (3.5-5.1) 10/22/23 03:34 Chloride 100 mmol/L (98-107) 10/22/23 03:34 Carbon Dioxide 18 mmol/L (22-29) L 10/22/23 03:34 Anion Gap 18.8 (5-19) 10/22/23 03:34 BUN 36 mg/dL (8-23) H 10/22/23 03:34 Creatinine 2.5 mg/dL (0.5-0.9) H 10/22/23 03:34 GFR Calculation Not Reportable 10/22/23 03:34 Glucose 295 mg/dL (65-115) H 10/22/23 03:34 Calculated Osmolality 293 mOsm/kg (285-295) 10/22/23 03:34 Calcium 9.6 mg/dL (8.5-10.5) 10/22/23 03:34 Total Bilirubin 0.2 mg/dL (0.15-1.2) 10/22/23 03:34 AST 11 U/L (0-32) 10/22/23 03:34 ALT 9 U/L (0-33) 10/22/23 03:34 Alkaline Phosphatase 73 U/L (35-105) 10/22/23 03:34 C-Reactive Protein 3.0 mg/L (0.0-4.9) 10/22/23 03:34 Total Protein 7.4 g/dL (6.6-8.7) 10/22/23 03:34 Albumin 4.0 g/dL (3.5-5.2) 10/22/23 03:34 Globulin 3.4 g/dL (1.3-4.6) 10/22/23 03:34 Lipase 121 U/L (13-60) H 10/22/23 03:34 Urine Color Yellow (Yellow) 10/22/23 03:43 Urine Appearance Hazy (CLEAR) A 10/22/23 03:43 Urine pH 5 (5-7) 10/22/23 03:43 Ur Specific [place] 1.015 (1.005-1.030) 10/22/23 03:43 Urine Protein 3+ (Negative) H 10/22/23 03:43 Urine Glucose (UA) 4+ (Normal) H 10/22/23 03:43 Urine Ketones Negative (Negative) 10/22/23 03:43 Urine Blood 2+ (Negative) H 10/22/23 03:43 Urine Nitrate Negative (Negative) 10/22/23 03:43 Urine Bilirubin Neg (Negative) 10/22/23 03:43 Urine Urobilinogen Neg mg/dL (Negative) 10/22/23 03:43 Ur Leukocyte Esterase Negative (Negative) 10/22/23 03:43 Urine RBC 25-40 /hpf (0-2) H 10/22/23 03:43 Urine WBC 0-4 /hpf (0-5) H 10/22/23 03:43 Ur Squamous Epith Cells 10-15 /hpf (0-5) H 10/22/23 03:43 Amorphous Sediment Not Reportable 10/22/23 03:43 Urine Bacteria Trace /hpf (NONE) 10/22/23 03:43 All radiology interpretation(s) finalized by discharge Discharge Plan Discharge Patient Disposition: Home Clinical Impression: Pyelonephritis, Back pain Condition: Stable Prescriptions: New cefdinir 300 mg capsule 300 mg PO BID Qty: 14 0RF ondansetron 4 mg film 4 mg PO DAILY PRN (Reason: nausea and vomiting) Qty: 10 0RF hydrocodone-acetaminophen 5-325 mg tablet 1 tab PO Q8H PRN (Reason: pain) Qty: 7 0RF No Action aspirin [Lorin Low Dose Aspirin] 81 mg tablet,delayed release (DR/EC) 81 mg PO BEDTIME loratadine [Claritin] 10 mg tablet 10 mg PO QAM nitroglycerin 0.4 mg tablet, sublingual 0.4 mg sublingual Q5M PRN (Reason: chest pain) Qty: 30 2RF Rx Instructions: do not exceed 3 doses per episode cholecalciferol (vitamin D3) 1,250 mcg (50,000 unit) capsule 50,000 unit PO .weekly Qty: 30 1RF Repatha SureClick 140 mg/mL pen injector See Rx Instructions .ROUTE .COMPLEX Qty: 2 5RF Dose Instruction: inject 140mg SUBCUTANEOUSLY every TWO weeks Rx Instructions: inject 140mg SUBCUTANEOUSLY every TWO weeks Victoza 3-[place] 0.6 mg/0.1 mL (18 mg/3 mL) pen injector 1.8 mg SUBCUT .COMPLEX Qty: 9 2RF Rx Instructions: 1.8 mg subcutaneously ezetimibe [Zetia] 10 mg tablet 10 mg PO BEDTIME Qty: 90 1RF hydralazine 25 mg tablet 25 mg PO TID 90 Days Qty: 270 1RF levothyroxine 75 mcg tablet 75 mcg PO QAM Qty: 90 2RF nifedipine 30 mg tablet extended release 24hr 30 mg PO DAILY 90 Days Qty: 90 1RF fluticasone propion-salmeterol [Advair Diskus] 500-50 mcg/dose blister with device 1 inh inhalation BID Qty: 60 8RF Jardiance 25 mg tablet 25 mg PO DAILY Qty: 90 1RF carvedilol 25 mg tablet 25 mg PO BID Qty: 180 3RF Rx Instructions: must administer with a meal/food furosemide 40 mg tablet See Rx Instructions .ROUTE .COMPLEX Qty: 90 0RF Dose Instruction: Take 1 tablet by mouth once daily Rx Instructions: Take 1 tablet by mouth once daily Discharge Orders: Discharge ED (Routine); Ordered 10/22/23 Ordered By: Chase Hinkle Referrals: Robert Espinoza, [Primary Care Provider] - 4-7 days Patient Instructions: Kidney Infection (ED), Acute Low Back Pain (ED), Opioid Safety, Pain Management Activity Restrictions/Additional Instructions: Return for fever greater than 100 despite 2-3 doses of antibiotics, vomiting liquids or medications, worsening pain despite treatment, other concerning symptoms. See your doctor this week. Coding Level of Care Code ED Product Development Director for Danial Mahajan
[2023-10-22] MEDS: cefTRIAXone 1,000 MG in sodium chloride 0.9% (plus) 50 ML 100 MG IV (06:13)
--- NOTE | 2023-10-22 06:19 | PC.NURSE ---
Pt sent home with 2x Marilla per Dr. Hinkle's order.
[2023-10-22 06:41] VITALS: BP 131/69; PULSE 73; RESP 16; O2SAT 96
== END 2023-10-22 06:43 | disposition home or self-care (01) ==
PROVIDERS: Emergency Provider Emergency Medicine; PCP Family Medicine
DX: N12 Tubulo-interstitial nephritis, not specified as acute or chronic (principal); K44.9 Diaphragmatic hernia without obstruction or gangrene; Z79.82 Long term (current) use of aspirin; E11.9 Type 2 diabetes mellitus without complications; Z87.442 Personal history of urinary calculi; I25.2 Old myocardial infarction; I25.10 Atherosclerotic heart disease of native coronary artery without angina pectoris; E78.5 Hyperlipidemia, unspecified; I10 Essential (primary) hypertension
CPT/HCPCS: 74176; 80053; 81001; 83690; 85025; 86140; 96374; 96375; 99285; J0696; J2270; J2405

== ENCOUNTER 2023-10-24 20:09 | Emergency (ER) | payer MEDICARE, OTHER, SELFPAY ==
[2023-10-24 20:15] VITALS: BP 176/78; PULSE 87; RESP 16; TEMP 36.3; O2SAT 96; BMI 30.6
--- NOTE | 2023-10-24 20:47 | ED_ITS ---
HPI - Back Pain/Injury 2 General: Chief Complaint: Back Pain/Injury Stated Complaint: Back Pain\Fever Time Seen by Provider: 10/24/23 20:45 History of Present Illness: Patient presents to the ER with complaints of right-sided low back pain. Patient was seen here Sunday for the same thing and was told she may have passed a kidney stone. Patient said her temperature was 99 degrees at home so she decided to come in. Patient denies all urinary signs and symptoms. Patient said she took 1 hydrocodone about 330 today along with her antibiotics. Patient denies any chronic back pain. This time the back pain is on the right side only. Review of Systems 2 General: Reports: 10 or more systems reviewed and unremarkable except in HPI and below PFSH ED 2 PFSH: Medical History Hypomagnesemia Normocytic normochromic anemia Hyperkalemia Hypoglycemia associated with type 2 diabetes mellitus Kidney stone Statin intolerance Asthma 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 Myocardial infarction Type 2 diabetes mellitus Coronary artery disease Hypothyroid Hyperlipidemia Essential hypertension Insomnia, idiopathic Surgical History H/O tubal ligation Hx of hysterectomy Hx of appendectomy Hx of cataract surgery Family History Father Cancer Mother Cancer Hypertension Diabetes Social History Smoking and tobacco/nicotine status: never used tobacco/nicotine Alcohol intake: never Current gender identity: Female Female Reproductive History: Spontaneous abortions: No Physical Exam 2 Const: COMMON NORMALS: no acute distress, average body habitus, patient oriented x3, no limitations, healthy appearing, alert and well nourished HENMT: COMMON NORMALS: normocephalic, atraumatic, hearing grossly normal bilaterally, external ears normal, Normal external nose present, moist oral mucous membranes and oropharynx normal HEAD & SCALP: normocephalic and atraumatic NOSE: Normal external nose present EXTERNAL EAR: Yes external ears normal Neck/C-Spine: COMMON NORMALS: no JVD Chest: COMMONS NORMALS: normal inspection of the chest and normal palpation of entire chest wall Resp: COMMON NORMALS: normal respiratory effort, No retractions, No use of accessory muscles and clear to auscultation bilaterally AUSCULTATION: clear to auscultation bilaterally Cardio: COMMON NORMALS: no JVD, regular rate, regular rhythm, S1 normal heart sound present, S2 normal heart sound present, No gallops present (Cardio), No clicks present (Cardio), No murmurs present (Cardio) and No rub (Cardio) R ATE: regular rate RHYTHM: regular rhythm HEART SOUNDS: S1 normal heart sound present and S2 normal heart sound present GI: COMMON NORMALS: Normal to inspection, nondistended, normoactive bowel sounds present, Soft to palpation, non-tender, No hepatosplenomegaly present and no masses PALPATION: Yes Soft to palpation and Yes No hepatosplenomegaly present : COMMON NORMALS: Yes no CVA tenderness BLADDER/KIDNEY EXAM: Yes no CVA tenderness Back/Pelvis: COMMON NORMALS: no CVA tenderness OTHER: Positive tenderness to palpation over right SI joint region. Neuro: COMMON NORMALS: patient oriented x3 SENSORIUM/ORIENTATION: Yes alert Course 2 Vital Signs: Vital signs: Vital Signs Temperature 97.3 F L 10/24/23 20:15 Pulse Rate 74 10/24/23 22:47 Respiratory Rate 18 10/24/23 22:47 Blood Pressure 153/80 10/24/23 22:47 Pulse Oximetry 91 10/24/23 22:47 Oxygen Delivery Me thod Room Air 10/24/23 22:47 MDM - Back Pain/Injury Medical Decision Making Visit from 10 22 was reviewed including lab work and CT scan. Lab work from the day revealed an improving white count of 13.5. Mildly worsened BUN/creatinine of 44 and 2.9. Patient be discharged home to keep on her antibiotic and make an appointment to follow-up with her family physician within the next 7 days. Differential Diagnosis Likely strain of lumbar region; Unlikely lumbar radiculopathy, sciatica, renal colic, pyelonephritis, thoracic back pain, AAA or discitis Medical Records I reviewed the patient's medical records. Labs I reviewed the patient's lab results. 10/24/23 20:58 10/24/23 20:58 Laboratory Results WBC 13.50 10^3/uL (3.29-11.43) H 10/24/23 20:58 RBC 3.62 10^6/uL (3.85-5.65) L 10/24/23 20:58 Hgb 11.30 g/dL (11.27-16.99) 10/24/23 20:58 Hct 34.6 % (36-47) L 10/24/23 20:58 MCV 95.6 fl (85-98) 10/24/23 20:58 MCH 31.2 pg (27-33) 10/24/23 20:58 MCHC 32.7 g/dL (30-55) 10/24/23 20:58 RDW 12.5 % (12.1-15.1) 10/24/23 20:58 Plt Count 331 10^3/cmm (157-399) 10/24/23 20:58 MPV 10.2 fL (7.4-10.4) 10/24/23 20:58 Neut % (Auto) 86.7 % 10/24/23 20:58 Lymph % (Auto) 5.7 % 10/24/23 20:58 [place] % (Auto) 5.7 % 10/24/23 20:58 Eos % (Auto) 1.2 % 10/24/23 20:58 Baso % (Auto) 0.4 % 10/24/23 20:58 Neut # (Auto) 11.70 10^3/uL (1.8-7.7) H 10/24/23 20:58 Lymph # (Auto) 0.8 10^3/uL (0.8-4.8) 10/24/23 20:58 [place] # (Auto) 0.8 10^3/uL (0.2-0.9) 10/24/23 20:58 Eos # (Auto) 0.2 10^3/uL (0.0-0.8) 10/24/23 20:58 Baso # (Auto) 0.1 10^3/uL (0.0-0.1) 10/24/23 20:58 Nucleated RBC % (auto) 0 % 10/24/23 20:58 Nucleated RBCs # 0.0 /100WBC 10/24/23 20:58 Sodium 132 mmol/L (136-145) L 10/24/23 20:58 Potassium 4.6 mmol/L (3.5-5.1) 10/24/23 20:58 Chloride 97 mmol/L (98-107) L 10/24/23 20:58 Carbon Dioxide 19 mmol/L (22-29) L 10/24/23 20:58 Anion Gap 20.6 (5-19) H 10/24/23 20:58 BUN 44 mg/dL (8-23) H 10/24/23 20:58 Creatinine 2.9 mg/dL (0.5-0.9) H 10/24/23 20:58 GFR Calculation Not Reportable 10/24/23 20:58 Glucose 247 mg/dL (65-115) H 10/24/23 20:58 Calculated Osmolality 293 mOsm/kg (285-295) 10/24/23 20:58 Calcium 10.4 mg/dL (8.5-10.5) 10/24/23 20:58 Total Bilirubin 0.2 mg/dL (0.15-1.2) 10/24/23 20:58 AST 10 U/L (0-32) 10/24/23 20:58 ALT 7 U/L (0-33) 10/24/23 20:58 Alkaline Phosphatase 77 U/L (35-105) 10/24/23 20:58 Total Protein 8.2 g/dL (6.6-8.7) 10/24/23 20:58 Albumin 3.6 g/dL (3.5-5.2) 10/24/23 20:58 Globulin 4.6 g/dL (1.3-4.6) 10/24/23 20:58 Urine Color Yellow (Yellow) 10/24/23 21:49 Urine Appearance Clear (CLEAR) 10/24/23 21:49 Urine pH 5 (5-7) 10/24/23 21:49 Ur Specific [place] 1.015 (1.005-1.030) 10/24/23 21:49 Urine Protein 3+ (Negative) H 10/24/23 21:49 Urine Glucose (UA) 4+ (Normal) H 10/24/23 21:49 Urine Ketones Negative (Negative) 10/24/23 21:49 Urine Blood 2+ (Negative) H 10/24/23 21:49 Urine Nitrate Negative (Negative) 10/24/23 21:49 Urine Bilirubin Neg (Negative) 10/24/23 21:49 Urine Urobilinogen Neg mg/dL (Negative) 10/24/23 21:49 Ur Leukocyte Esterase Negative (Negative) 10/24/23 21:49 Urine RBC 5-10 /hpf (0-2) H 10/24/23 21:49 Urine WBC 0-4 /hpf (0-5) H 10/24/23 21:49 Ur Squamous Epith Cells 0-4 /hpf (0-5) H 10/24/23 21:49 Amorphous Sediment Not Reportable 10/24/23 21:49 Urine Bacteria Trace /hpf (NONE) 10/24/23 21:49 Coarse Granular Casts 0-4 /lpf H 10/24/23 21:49 Urine Mucus 1+ /hpf 10/24/23 21:49 All radiology interpretation(s) finalized by discharge Discharge Plan Discharge Patient Disposition: Home Clinical Impression: Low back pain Qualifiers: Chronicity: acute Back pain laterality: right Sciatica presence: without sciatica Qualified Code(s): M54.50 - Low back pain, unspecified Condition: Stable Prescriptions: No Action aspirin [Lorin Low Dose Aspirin] 81 mg tablet,delayed release (DR/EC) 81 mg PO BEDTIME loratadine [Claritin] 10 mg tablet 10 mg PO QAM nitroglycerin 0.4 mg tablet, sublingual 0.4 mg sublingual Q5M PRN (Reason: chest pain) Qty: 30 2RF Rx Instructions: do not exceed 3 doses per episode cholecalciferol (vitamin D3) 1,250 mcg (50,000 unit) capsule 50,000 unit PO .weekly Qty: 30 1RF Repatha SureClick 140 mg/mL pen injector See Rx Instructions .ROUTE .COMPLEX Qty: 2 5RF Dose Instruction: inject 140mg SUBCUTANEOUSLY every TWO weeks Rx Instructions: inject 140mg SUBCUTANEOUSLY every TWO weeks Victoza 3-[place] 0.6 mg/0.1 mL (18 mg/3 mL) pen injector 1.8 mg SUBCUT .COMPLEX Qty: 9 2RF Rx Instructions: 1.8 mg subcutaneously ezetimibe [Zetia] 10 mg tablet 10 mg PO BEDTIME Qty: 90 1RF hydralazine 25 mg tablet 25 mg PO TID 90 Days Qty: 270 1RF levothyroxine 75 mcg tablet 75 mcg PO QAM Qty: 90 2RF nifedipine 30 mg tablet extended release 24hr 30 mg PO DAILY 90 Days Qty: 90 1RF fluticasone propion-salmeterol [Advair Diskus] 500-50 mcg/dose blister with device 1 inh inhalation BID Qty: 60 8RF Jardiance 25 mg tablet 25 mg PO DAILY Qty: 90 1RF carvedilol 25 mg tablet 25 mg PO BID Qty: 180 3RF Rx Instructions: must administer with a meal/food furosemide 40 mg tablet See Rx Instructions .ROUTE .COMPLEX Qty: 90 0RF Dose Instruction: Take 1 tablet by mouth once daily Rx Instructions: Take 1 tablet by mouth once daily cefdinir 300 mg capsule 300 mg PO BID Qty: 14 0RF ondansetron 4 mg film 4 mg PO DAILY PRN (Reason: nausea and vomiting) Qty: 10 0RF hydrocodone-acetaminophen 5-325 mg tablet 1 tab PO Q8H PRN (Reason: pain) Qty: 7 0RF Discharge Orders: Discharge ED (Routine); Ordered 10/24/23 Ordered By: Wiliam Araya Referrals: Robert Espinoza DO [Primary Care Provider] - 7-10 days Patient Instructions: Back Pain (ED) Activity Restrictions/Additional Instructions: Please continue your antibiotics and medication from your previous ER visit. Please follow-up with your family practice physician within the next 7 days for further evaluation and treatment. Coding Level of Care Code ED Glove Boarder for Danial Mahajan
[2023-10-24 21:04] LABS: Basophils # 0.1 10^3/uL (0.0-0.1); Basophils % 0.4 %; Eosinophils # 0.2 10^3/uL (0.0-0.8); Eosinophils % 1.2 %; Hematocrit 34.6 % (36-47); Lymphocytes # 0.8 10^3/uL (0.8-4.8); Lymphocytes % 5.7 %; Mean Corpuscular HGB Conc 32.7 g/dL (30-55); Mean Corpuscular Hemoglobin 31.2 pg (27-33); Mean Corpuscular Volume 95.6 fl (85-98); Mean Platelet Volume 10.2 fL (7.4-10.4); Monocytes # 0.8 10^3/uL (0.2-0.9); Monocytes % 5.7 %; Neutrophils % 86.7 %; Nucleated Red Blood Cells % 0 %; Platelet Count 331 10^3/cmm (157-399); Red Blood Count 3.62 10^6/uL (3.85-5.65); Red Cell Distribution Width 12.5 % (12.1-15.1)
[2023-10-24 21:05] VITALS: BP 159/79; PULSE 78; RESP 14; O2SAT 95
[2023-10-24] MEDS: ketorolac 60 mg/2 mL INJ 30 MG IM (21:06)
[2023-10-24 21:22] LABS: Alanine Aminotransferase 7 U/L (0-33); Albumin Level 3.6 g/dL (3.5-5.2); Alkaline Phosphatase 77 U/L (35-105); Anion Gap 20.6 (5-19); Aspartate Amino Transferase 10 U/L (0-32); Blood Urea Nitrogen 44 mg/dL (8-23); Calcium 10.4 mg/dL (8.5-10.5); Carbon Dioxide 19 mmol/L (22-29); Chloride 97 mmol/L (98-107); Globulin 4.6 g/dL (1.3-4.6); Glucose 247 mg/dL (65-115); Osmolality Calculated 293 mOsm/kg (285-295); Potassium 4.6 mmol/L (3.5-5.1); Sodium 132 mmol/L (136-145); Total Bilirubin 0.2 mg/dL (0.15-1.2); Total Protein 8.2 g/dL (6.6-8.7)
[2023-10-24 21:47] VITALS: BP 159/83; PULSE 75; RESP 16; O2SAT 95
[2023-10-24 22:08] LABS: Add Urine Microscopic? YES; Bilirubin Urine Neg (Negative); Blood Urine 2+ (Negative); Glucose Urine UA 4+ (Normal); Ketones Urine Negative (Negative); Leukocyte Esterase Urine Negative (Negative); Nitrate Urine Negative (Negative); Protein Urine 3+ (Negative); Specific Gravity, Urine 1.015 (1.005-1.030); Urine Appearance Clear (CLEAR); Urine Color Yellow (Yellow); Urobilinogen Urine Neg (Negative); pH Urine 5 (5-7)
[2023-10-24 22:09] LABS: Add Urine Culture? No; Bacteria Urine TRACE /hpf; Coarse Granular Casts Urine 0-4 /lpf; Mucus Urine 1+ /hpf; Squamous Epithelial Cell Urine 0-4 /hpf (0-5); WBC Urine 0-4 /hpf (0-5)
[2023-10-24 22:47] VITALS: BP 153/80; PULSE 74; RESP 18; O2SAT 91
[2023-10-24 23:29] VITALS: BP 150/91; PULSE 73; RESP 18; O2SAT 95
== END 2023-10-24 23:30 | disposition home or self-care (01) ==
PROVIDERS: Emergency Provider Emergency Medicine; PCP Family Medicine
DX: M54.50 Low back pain, unspecified (principal); Z79.82 Long term (current) use of aspirin; E11.9 Type 2 diabetes mellitus without complications; I25.10 Atherosclerotic heart disease of native coronary artery without angina pectoris; E78.5 Hyperlipidemia, unspecified; I10 Essential (primary) hypertension
CPT/HCPCS: 36415; 80053; 81001; 85025; 96372; 99284; J1885

== ENCOUNTER → 2023-11-02 10:29 | Outpatient (BNVA) | payer MEDICARE, OTHER, SELFPAY | PROVIDERS: PCP Family Medicine; Visit Provider Internal Medicine Cardiovascular Disease | DX: I10 Essential (primary) hypertension (principal); I25.10 Atherosclerotic heart disease of native coronary artery without angina pectoris; E78.00 Pure hypercholesterolemia, unspecified; E11.9 Type 2 diabetes mellitus without complications; Z79.4 Long term (current) use of insulin; Z78.9 Other specified health status | CPT/HCPCS: 99214 ==

== ENCOUNTER → 2023-11-09 08:50 | Outpatient (BNVA) | payer MEDICARE, OTHER, SELFPAY | PROVIDERS: PCP Family Medicine; Visit Provider Internal Medicine Medical Oncology | DX: D50.9 Iron deficiency anemia, unspecified (principal); N18.30 Chronic kidney disease, stage 3 unspecified; I10 Essential (primary) hypertension | CPT/HCPCS: 82607; 82728; 82746; 83550; 85025 ==

== ENCOUNTER 2023-11-15 13:11 | Oncology outpatient (recurring) (ONCR) | payer MEDICARE, OTHER, SELFPAY | END 2023-11-18 23:59 | disposition home or self-care (01) | PROVIDERS: PCP Family Medicine; Visit Provider Internal Medicine Hematology & Oncology | DX: D64.9 Anemia, unspecified; Z79.899 Other long term (current) drug therapy | CPT/HCPCS: 99214 ==

== ENCOUNTER 2023-11-21 16:06 | Emergency (ER) | payer MEDICARE, OTHER, SELFPAY ==
[2023-11-21 16:26] VITALS: BP 161/88; PULSE 83; RESP 18; TEMP 36.6; O2SAT 98
--- NOTE | 2023-11-21 17:56 | ED_ITS ---
HPI - Abdominal Pain 2 General: Chief Complaint: Abdominal Pain Stated Complaint: right side pains Time Seen by Provider: 11/21/23 17:41 History of Present Illness: 73-year-old female with a history of belen betes and hypertension who presents to the emergency room with right-sided abdominal pain and flank pain. She said this woke her up at about 230 last night. So about 14 hours ago. She said she has been having some chills. She does not know if she has had fever. She has had some malaise. No nausea or vomiting. No dysuria. No chest pain. No shortness of breath. No altered mental status. She says pain started in her right lower quadrant but now is radiated into her right flank. Review of Systems 2 Narrative: Constitutional symptoms: Negative except as documented in HPI. Skin symptoms: Negative except as documented in HPI. Eye symptoms: Negative except as documented in HPI. ENMT symptoms: Negative except as documented in HPI. Respiratory symptoms: Negative except as documented in HPI. Cardiovascular symptoms: Negative except as documented in HPI. Gastrointestinal symptoms: Negative except as documented in HPI. Genitourinary symptoms: Negative except as documented in HPI. Musculoskeletal symptoms: Negative except as documented in HPI. Neurologic symptoms: Negative except as documented in HPI. Psychiatric symptoms: Negative except as documented in HPI. Endocrine symptoms: Negative except as documented in HPI. 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 Coronary artery disease Essential hypertension Hyperkalemia Hyperlipidemia Hypoglycemia associated with type 2 diabetes mellitus Hypomagnesemia Hypothyroid Insomnia, idiopathic Kidney stone Myocardial infarction Normocytic normochromic anemia Statin intolerance Type 2 diabetes mellitus Surgical History H/O tubal ligation Hx of appendectomy Hx of cataract surgery Hx of hysterectomy Family History Father Cancer Mother Cancer Hypertension Diabetes Social History Smoking and tobacco/nicotine status: never used tobacco/nicotine Alcohol intake: never Current gender identity: Female Female Reproductive History: Spontaneous abortions: No Physical Exam 2 Narrative: EXAM NARRATIVE: General: Alert, no acute distress. Skin: Warm, dry. Head: Normocephalic, atraumatic. Neck: Supple, trachea midline. Eye: Extraocular movements are intact. Ears, nose, mouth and throat: mucosa moist. Cardiovascular: Regular, Normal peripheral perfusion. Respiratory: Lungs are clear to auscultation, respirations are non-labored, breath sounds are equal, Symmetrical chest wall expansion. Gastrointestinal: Soft, right flank pain, Non distended, Normal bowel sounds. Musculoskeletal: Normal ROM, no deformity. Neurological: Alert and oriented to person, place, time, and situation, No focal neurological deficit observed. Psychiatric: Cooperative, appropriate mood & affect. Course 2 Vital Signs: Vital signs: Vital Signs Temperature 98.0 F 11/21/23 19:17 Pulse Rate 86 11/21/23 19:17 Respiratory Rate 18 11/21/23 16:26 Blood Pressure 163/87 11/21/23 19:17 Pulse Oximetry 98 11/21/23 19:17 Oxygen Delivery Me thod Room Air 11/21/23 19:17 MDM - Abdominal Pain Medical Decision Making Patient with right lower quadrant and right flank pain. Concern for pyelo-. Kidney stones. Diverticulitis. Viral gastroenteritis. Musculoskeletal pain. Urinalysis. Comprehensive metabolic panel, CBC. Lab Data 11/21/23 18:22 11/21/23 18:22 Labs/Radiology: Radiology Impressions Abdomen/Pelvis CT 11/21/23 19:25 IMPRESSION: 1. Moderate right-sided hydronephrosis and hydroureter with similar findings from prior imaging dated 10/22/2023. No stone identified. Further evaluation with CT urogram to evaluate ureters may be obtained for further evaluation. 2. Persistent segmental wall thickening of the sigmoid colon with minimal fat stranding. Neoplastic process can not be ruled out. Colonoscopy evaluation may be obtained. 3. Diverticulosis disease with minimal fat stranding in the sigmoid colon. These findings can be seen in early colitis. Laboratory Results WBC 11.27 10^3/uL (3.29-11.43) 11/21/23 18: RBC 3.80 10^6/uL (3.85-5.65) L 11/21/23 18:22 Hgb 11.70 g/dL (11.27-16.99) 11/21/23 18: Hct 34.8 % (36-47) L 11/21/23 18:22 MCV 91.6 fl (85-98) 11/21/23 18:22 MCH 30.8 pg (27-33) 11/21/23 18:22 MCHC 33.6 g/dL (30-55) 11/21/23 18:22 RDW 12.9 % (12.1-15.1) 11/21/23 18:22 Plt Count 313 10^3/cmm (157-399) 11/21/23 18:22 MPV 9.6 fL (7.4-10.4) 11/21/23 18:22 Neut % (Auto) 83.8 % 11/21/23 18:22 Lymph % (Auto) 8.5 % 11/21/23 18:22 Carson % (Auto) 6.4 % 11/21/23 18:22 Eos % (Auto) 0.5 % 11/21/23 18:22 Baso % (Auto) 0.4 % 11/21/23 18:22 Neut # (Auto) 9.44 10^3/uL (1.8-7.7) H 11/21/23 18:22 Lymph # (Auto) 1.0 10^3/uL (0.8-4.8) 11/21/23 18:22 Carson # (Auto) 0.7 10^3/uL (0.2-0.9) 11/21/23 18:22 Eos # (Auto) 0.1 10^3/uL (0.0-0.8) 11/21/23 18:22 Baso # (Auto) 0.0 10^3/uL (0.0-0.1) 11/21/23 18:22 Nucleated RBC % (auto) 0 % 11/21/23 18: Nucleated RBCs # 0.0 /100WBC 11/21/23 18:22 Sodium 134 mmol/L (136-145) L 11/21/23 18:22 Potassium 4.6 mmol/L (3.5-5.1) 11/21/23 18:22 Chloride 99 mmol/L (98-107) 11/21/23 18:22 Carbon Dioxide 18 mmol/L (22-29) L 11/21/23 18:22 Anion Gap 21.6 (5-19) H 11/21/23 18:22 BUN 43 mg/dL (8-23) H 11/21/23 18:22 Creatinine 2.9 mg/dL (0.5-0.9) H 11/21/23 18:22 GFR Calculation Not Reportable 11/21/23 18:22 Glucose 272 mg/dL (65-115) H 11/21/23 18:22 Calculated Osmolality 298 mOsm/kg (285-295) H 11/21/23 18:22 Calcium 9.8 mg/dL (8.5-10.5) 11/21/23 18:22 Total Bilirubin 0.2 mg/dL (0.15-1.2) 11/21/23 18:22 AST 10 U/L (0-32) 11/21/23 18:22 ALT 8 U/L (0-33) 11/21/23 18:22 Alkaline Phosphatase 68 U/L (35-105) 11/21/23 18:22 Total Protein 7.7 g/dL (6.6-8.7) 11/21/23 18:22 Albumin 3.8 g/dL (3.5-5.2) 11/21/23 18:22 Globulin 3.9 g/dL (1.3-4.6) 11/21/23 18:22 Lipase 94 U/L (13-60) H 11/21/23 18:22 Urine Color Light yellow (Yellow) 11/21/23 19:04 Urine Appearance Sl hazy (CLEAR) A 11/21/23 19:04 Urine pH 5 (5-7) 11/21/23 19:04 Ur Specific [place] 1.015 (1.005-1.030) 11/21/23 19:04 Urine Protein 3+ (Negative) H 11/21/23 19:04 Urine Glucose (UA) 4+ (Normal) H 11/21/23 19:04 Urine Ketones Negative (Negative) 11/21/23 19:04 Urine Blood 3+ (Negative) H 11/21/23 19:04 Urine Nitrate Negative (Negative) 11/21/23 19:04 Urine Bilirubin Neg (Negative) 11/21/23 19:04 Urine Urobilinogen Norm mg/dL (Negative) 11/21/23 19:04 Ur Leukocyte Esterase Negative (Negative) 11/21/23 19:04 Urine RBC 0-4 /hpf (0-2) H 11/21/23 19:04 Urine WBC None /hpf (0-5) 11/21/23 19:04 Ur Squamous Epith Cells None /hpf (0-5) 11/21/23 19:04 Amorphous Sediment Not Reportable 11/21/23 19:04 Urine Bacteria None /hpf (NONE) 11/21/23 19:04 Urine Mucus None /hpf 11/21/23 19:04 Patient has some mild leukocytosis. No renal failure. Chronic renal insufficiency is stable. Mildly elevated over previous at 43 and 2.9 just 3+ blood in her urine. No whites were found. CT of the abdomen pelvis shows chronic hydronephrosis, and she may need outpatient workup for this. She has some mild developing colitis and an area that radiology recommends she have follow-up with GI. Slight concern for malignancy. I discussed these findings with her. Reexamination: Patient appears somewhat improved. Pain is better with pain medications. She is in no acute distress. No altered mental status. No shortness of breath. No increased work of breathing. All radiology interpretation(s) finalized by discharge Other Data - IV fluids and IV Rocephin here in the emergency room. The only acute finding to explain her pain is a developing colitis. Will send her home on Omnicef. With some pain medications. - Discharged home - Discussed findings and plan with patient. Answered any questions. - All laboratory values were reviewed and interpreted personally by myself, the ER physician - All imaging was reviewed and interpreted personally by myself, the ER physician. - Evaluation and treatment of this problem were appropriate in the emergency setting Discharge Plan Discharge Patient Disposition: Home Clinical Impression: Colitis, Hydronephrosis, Chronic renal failure, Dehydration Condition: Stable Prescriptions: New hydrocodone-acetaminophen 5-325 mg tablet 1 tab PO Q6H PRN (Reason: pain) Qty: 20 0RF ondansetron 8 mg tablet,disintegrating 8 mg PO .q6 PRN (Reason: nausea and vomiting) Qty: 14 0RF cefdinir 300 mg capsule 300 mg PO BID 10 Days Qty: 20 0RF No Action aspirin [Lorin Low Dose Aspirin] 81 mg tablet,delayed release (DR/EC) 81 mg PO BEDTIME loratadine [Claritin] 10 mg tablet 10 mg PO QAM nitroglycerin 0.4 mg tablet, sublingual 0.4 mg sublingual Q5M PRN (Reason: chest pain) Qty: 30 2RF Rx Instructions: do not exceed 3 doses per episode nifedipine 60 mg tablet extended release 24hr 60 mg PO DAILY 90 Days Qty: 90 1RF cholecalciferol (vitamin D3) 1,250 mcg (50,000 unit) capsule 50,000 unit PO .weekly Qty: 30 1RF Repatha SureClick 140 mg/mL pen injector See Rx Instructions .ROUTE .COMPLEX Qty: 2 5RF Dose Instruction: inject 140mg SUBCUTANEOUSLY every TWO weeks Rx Instructions: inject 140mg SUBCUTANEOUSLY every TWO weeks ezetimibe [Zetia] 10 mg tablet 10 mg PO BEDTIME Qty: 90 1RF hydralazine 25 mg tablet 25 mg PO TID 90 Days Qty: 270 1RF levothyroxine 75 mcg tablet 75 mcg PO QAM Qty: 90 2RF insulin glargine [Lantus Solostar U-100 Insulin] 100 unit/mL (3 mL) insulin pen 10 unit SUBCUT DAILY Qty: 15 2RF fluticasone propion-salmeterol [Advair Diskus] 500-50 mcg/dose blister with device 1 inh inhalation BID Qty: 60 8RF Jardiance 25 mg tablet 25 mg PO DAILY Qty: 90 1RF carvedilol 25 mg tablet 25 mg PO BID Qty: 180 3RF Rx Instructions: must administer with a meal/food furosemide 40 mg tablet See Rx Instructions .ROUTE .COMPLEX Qty: 90 0RF Dose Instruction: Take 1 tablet by mouth once daily Rx Instructions: Take 1 tablet by mouth once daily ondansetron 4 mg film 4 mg PO DAILY PRN (Reason: nausea and vomiting) Qty: 10 0RF hydrocodone-acetaminophen 5-325 mg tablet 1 tab PO Q8H PRN (Reason: pain) Qty: 7 0RF Discharge Orders: Discharge ED (Routine); Ordered 11/21/23 Ordered By: Ludmila Robb Referrals: Robert Espinoza DO [Primary Care Provider] - 4-7 days (Findings on CT scan suggest that you should follow with gastroenterology for possible colonoscopy if you have not had one recently. Also you have some swelling of your ureter that appears chronic. This should be evaluated with urologist or with your primary care physician. You have been screened and evaluated and felt safe for discharge. Health conditions do change or evolve sometimes and as such it is important that you follow up with your Primary Doctor to be re checked, 3-5 days is a general good time frame for follow up. You are always welcome to return to the ED for re assessment if your symptoms are worsening or you have new concerns) Discharge Diet: Usual diet Discharge Activity: Resume usual activity Patient Instructions: Opioid Safety, Pain Management Coding Level of Care Code ED [employer] [facility]
[2023-11-21 18:32] LABS: Basophils % 0.4 %; Eosinophils # 0.1 10^3/uL (0.0-0.8); Eosinophils % 0.5 %; Hematocrit 34.8 % (36-47); Lymphocytes % 8.5 %; Mean Corpuscular HGB Conc 33.6 g/dL (30-55); Mean Corpuscular Hemoglobin 30.8 pg (27-33); Mean Corpuscular Volume 91.6 fl (85-98); Mean Platelet Volume 9.6 fL (7.4-10.4); Monocytes # 0.7 10^3/uL (0.2-0.9); Monocytes % 6.4 %; Neutrophils # 9.44 10^3/uL (1.8-7.7); Neutrophils % 83.8 %; Nucleated Red Blood Cells % 0 %; Platelet Count 313 10^3/cmm (157-399); Red Cell Distribution Width 12.9 % (12.1-15.1); White Blood Count 11.27 10^3/uL (3.29-11.43)
[2023-11-21 18:52] LABS: Alanine Aminotransferase 8 U/L (0-33); Albumin Level 3.8 g/dL (3.5-5.2); Alkaline Phosphatase 68 U/L (35-105); Anion Gap 21.6 (5-19); Aspartate Amino Transferase 10 U/L (0-32); Blood Urea Nitrogen 43 mg/dL (8-23); Calcium 9.8 mg/dL (8.5-10.5); Carbon Dioxide 18 mmol/L (22-29); Chloride 99 mmol/L (98-107); Globulin 3.9 g/dL (1.3-4.6); Glucose 272 mg/dL (65-115); Lipase 94 U/L (13-60); Osmolality Calculated 298 mOsm/kg (285-295); Potassium 4.6 mmol/L (3.5-5.1); Sodium 134 mmol/L (136-145); Total Bilirubin 0.2 mg/dL (0.15-1.2); Total Protein 7.7 g/dL (6.6-8.7)
[2023-11-21 19:17] VITALS: BP 163/87; PULSE 86; TEMP 36.7; O2SAT 98
[2023-11-21 19:19] LABS: Protein Urine 3+ (Negative); Specific Gravity, Urine 1.015 (1.005-1.030); Urine Appearance SL Hazy (CLEAR); Urine Color Light yellow (Yellow); pH Urine 5 (5-7)
[2023-11-21 19:20] LABS: Add Urine Microscopic? YES; Bilirubin Urine Neg (Negative); Blood Urine 3+ (Negative); Glucose Urine UA 4+ (Normal); Ketones Urine Negative (Negative); Leukocyte Esterase Urine Negative (Negative); Nitrate Urine Negative (Negative); Urobilinogen Urine Norm (Negative)
--- NOTE | 2023-11-21 19:25 | CTR_ITS ---
PROCEDURE INFORMATION: Exam: CT Abdomen And Pelvis Without Contrast Exam date and time: 11/21/2023 7:45 PM Age: 73 years old Clinical indication: Abdominal pain; Flank; Right; Prior surgery; Surgery date: 6+ months; Surgery type: Appy, hyst; Additional info: Right flank pain, hematuria TECHNIQUE: Imaging protocol: Computed tomography of the abdomen and pelvis without contrast. Radiation optimization: All CT scans at this facility use at least one of these dose optimization techniques: automated exposure control; mA and/or kV adjustment per patient size (includes targeted exams where dose is matched to clinical indication); or iterative reconstruction. COMPARISON: CT kidney stone [id number] 10/22/2023 3:48 AM RADIATION DOSE METRICS: Total DLP (mGy-cm): 760 FINDINGS: Lungs: Bilateral lower lung bases are normal. Liver: Liver is normal in size and contour. No suspicious liver mass. Gallbladder and bile ducts: There has been a cholecystectomy. Pancreas: No pancreatic mass or pancreatitis. Pancreatic duct normal in caliber. Spleen: Normal spleen, with scattered punctate calcifications likely a sequela of prior granulomatous disease. Adrenal glands: No adrenal nodule. Kidneys and ureters: Bilateral cortical and exophytic low attenuating cystic lesions likely simple cyst. Moderate right-sided hydronephrosis and hydroureter Stomach and bowel: Stomach, small bowel, and large bowel are nondilated, no evidence of mechanical bowel obstruction. There is segmental wall thickening of the sigmoid colon suggestive of colitis. Appendix: No evidence of appendicitis. Intraperitoneal space: No ascites or free air. Vasculature: Unremarkable. No abdominal aortic aneurysm. Lymph nodes: No enlarged lymph nodes. Urinary bladder: Unremarkable as visualized. Reproductive: Unremarkable as visualized. Bones/joints: Unremarkable. No acute fracture. Soft tissues: Unremarkable. CT/CT kidney stone [id number] IMPRESSION: 1. Moderate right-sided hydronephrosis and hydroureter with similar findings from prior imaging dated 10/22/2023. No stone identified. Further evaluation with CT urogram to evaluate ureters may be obtained for further evaluation. 2. Persistent segmental wall thickening of the sigmoid colon with minimal fat stranding. Neoplastic process can not be ruled out. Colonoscopy evaluation may be obtained. 3. Diverticulosis disease with minimal fat stranding in the sigmoid colon. These findings can be seen in early colitis.
[2023-11-21 19:26] LABS: Add Urine Culture? No; RBC Urine 0-4 /hpf (0-2)
[2023-11-21] MEDS: sodium chloride 0.9% 1,000 ML 999 ML IV (19:36)
[2023-11-21] MEDS: ondansetron 2 mg/ML SDV 2 mL 4 MG IVP (20:33)
[2023-11-21] MEDS: morphine 4 mg/mL SDV 1 mL IVP (20:34)
[2023-11-21] MEDS: cefTRIAXone 1,000 MG in sodium chloride 0.9% (plus) 50 ML 100 MG IV (21:15)
[2023-11-21] MEDS: oxyCODONE-APAP 10-325 mg Tablet 1 TAB PO (21:57)
== END 2023-11-21 22:02 | disposition home or self-care (01) ==
PROVIDERS: Nurse Practitioner Family; Emergency Provider Emergency Medicine; PCP Family Medicine
DX: K52.9 Noninfective gastroenteritis and colitis, unspecified (principal); N13.30 Unspecified hydronephrosis; I12.9 Hypertensive chronic kidney disease with stage 1 through stage 4 chronic kidney disease, or unspecified chronic kidney disease; E11.22 Type 2 diabetes mellitus with diabetic chronic kidney disease; N18.9 Chronic kidney disease, unspecified; I25.10 Atherosclerotic heart disease of native coronary artery without angina pectoris; E78.5 Hyperlipidemia, unspecified; I25.2 Old myocardial infarction; E86.0 Dehydration; Z79.82 Long term (current) use of aspirin; Z79.4 Long term (current) use of insulin
CPT/HCPCS: 74176; 80053; 81001; 83690; 85025; 96374; 96375; 99285; J0696; J2270; J2405; J7030

== ENCOUNTER 2023-12-13 11:18 | Outpatient (CLI) | payer MEDICARE, OTHER, SELFPAY ==
[2023-12-13 12:25] LABS: Basophils # 0.1 10^3/uL (0.0-0.1); Basophils % 0.9 %; Eosinophils # 0.2 10^3/uL (0.0-0.8); Eosinophils % 2.6 %; Hematocrit 31.2 % (36-47); Lymphocytes # 1.3 10^3/uL (0.8-4.8); Lymphocytes % 19.1 %; Mean Corpuscular Hemoglobin 30.8 pg (27-33); Mean Corpuscular Volume 93.4 fl (85-98); Mean Platelet Volume 9.6 fL (7.4-10.4); Monocytes # 0.7 10^3/uL (0.2-0.9); Monocytes % 9.8 %; Neutrophils # 4.43 10^3/uL (1.8-7.7); Neutrophils % 67.1 %; Nucleated Red Blood Cells % 0 %; Platelet Count 331 10^3/cmm (157-399); Red Blood Count 3.34 10^6/uL (3.85-5.65); Red Cell Distribution Width 13.9 % (12.1-15.1)
[2023-12-13 12:42] LABS: Albumin Level 3.8 g/dL (3.5-5.2); Anion Gap 17.3 (5-19); Blood Urea Nitrogen 42 mg/dL (8-23); Calcium 8.7 mg/dL (8.5-10.5); Carbon Dioxide 22 mmol/L (22-29); Chloride 105 mmol/L (98-107); Glucose 191 mg/dL (65-115); Phosphorus 3.8 mg/dL (2.5-4.5); Potassium 4.3 mmol/L (3.5-5.1); Sodium 140 mmol/L (136-145)
[2023-12-13 12:49] LABS: Creatinine Urine, Random 40 mg/dL (28-217)
[2023-12-13 12:49] LABS: Calcium 8.7 mg/dL (8.5-10.5)
[2023-12-13 13:35] LABS: Microalbum Creatinine Ratio Ur 2275 mg/dL (0-20); Microalbumin Random Urine 91 ug/dL (0-20)
== END 2023-12-13 11:19 | disposition home or self-care (01) ==
LOC: LAB 11:21
PROVIDERS: PCP Family Medicine; Visit Provider Nurse Practitioner Family
DX: N18.4 Chronic kidney disease, stage 4 (severe) (principal)
CPT/HCPCS: 36415; 80069; 82044; 82310; 83970; 85025

== ENCOUNTER 2023-12-25 11:55 | Outpatient (CLI) | payer MEDICARE, OTHER, SELFPAY ==
[2023-12-25 13:31] LABS: Anion Gap 15.4 (5-19); Blood Urea Nitrogen 40 mg/dL (8-23); Calcium 9.7 mg/dL (8.5-10.5); Carbon Dioxide 22 mmol/L (22-29); Chloride 103 mmol/L (98-107); Glucose 178 mg/dL (65-115); Osmolality Calculated 296 mOsm/kg (285-295); Potassium 4.4 mmol/L (3.5-5.1); Sodium 136 mmol/L (136-145)
== END 2023-12-25 11:56 | disposition home or self-care (01) ==
LOC: LAB 12:00
PROVIDERS: PCP Family Medicine; Visit Provider Nurse Practitioner Family
DX: N18.4 Chronic kidney disease, stage 4 (severe) (principal)
CPT/HCPCS: 36415; 80048

== ENCOUNTER → 2024-01-31 10:46 | Outpatient (BNVA) | payer MEDICARE, OTHER, SELFPAY | PROVIDERS: PCP Family Medicine; Visit Provider Internal Medicine Cardiovascular Disease | DX: I12.9 Hypertensive chronic kidney disease with stage 1 through stage 4 chronic kidney disease, or unspecified chronic kidney disease (principal); E11.22 Type 2 diabetes mellitus with diabetic chronic kidney disease; N18.30 Chronic kidney disease, stage 3 unspecified; I25.2 Old myocardial infarction; I25.10 Atherosclerotic heart disease of native coronary artery without angina pectoris; E78.2 Mixed hyperlipidemia; Z78.9 Other specified health status; Z95.5 Presence of coronary angioplasty implant and graft | CPT/HCPCS: 99214 ==

== ENCOUNTER 2024-02-07 10:29 | Outpatient (CLI) | payer MEDICARE, OTHER, SELFPAY ==
[2024-02-07 11:20] LABS: Basophils # 0.1 10^3/uL (0.0-0.1); Basophils % 0.8 %; Eosinophils # 0.2 10^3/uL (0.0-0.8); Eosinophils % 2.4 %; Hematocrit 37.1 % (36-47); Lymphocytes # 1.6 10^3/uL (0.8-4.8); Lymphocytes % 20.8 %; Mean Corpuscular HGB Conc 31.8 g/dL (30-55); Mean Corpuscular Hemoglobin 29.6 pg (27-33); Mean Platelet Volume 9.8 fL (7.4-10.4); Monocytes # 0.5 10^3/uL (0.2-0.9); Monocytes % 6.7 %; Neutrophils # 5.37 10^3/uL (1.8-7.7); Nucleated Red Blood Cells % 0 %; Platelet Count 361 10^3/cmm (157-399); Red Blood Count 3.99 10^6/uL (3.85-5.65); Reticulocyte % 1.3 % (0.5-2.0); White Blood Count 7.78 10^3/uL (3.29-11.43)
[2024-02-07 11:28] LABS: Erythrocyte Sedimentation Rate 60 mm/hr (0-15)
[2024-02-07 12:03] LABS: Alanine Aminotransferase 28 U/L (0-33); Alkaline Phosphatase 104 U/L (35-105); Anion Gap 18.1 (5-19); Aspartate Amino Transferase 25 U/L (0-32); Blood Urea Nitrogen 35 mg/dL (8-23); Calcium 8.9 mg/dL (8.5-10.5); Carbon Dioxide 20 mmol/L (22-29); Chloride 109 mmol/L (98-107); Globulin 3.7 g/dL (1.3-4.6); Glucose 174 mg/dL (65-115); Lactate Dehydrogenase 165 U/L (135-214); Osmolality Calculated 308 mOsm/kg (285-295); Potassium 4.1 mmol/L (3.5-5.1); Sodium 143 mmol/L (136-145); Total Bilirubin 0.2 mg/dL (0.15-1.2); Total Protein 7.7 g/dL (6.6-8.7)
[2024-02-08 07:23] LABS: PROTEIN, TOTAL 7.5 g/dL (6.1-8.1)
[2024-02-08 16:10] LABS: KAPPA LIGHT CHAIN, FREE, SERUM 94.4 mg/L (3.3-19.4); KAPPA/LAMBDA LIGHT CHAINS FREE 1.61 (0.26-1.65); LAMBDA LIGHT CHAIN, FREE, SERU 58.8 mg/L (5.7-26.3)
[2024-02-08 18:00] LABS: ALBUMIN 3.8 g/dL (3.8-4.8); ALPHA 1 GLOBULIN 0.4 g/dL (0.2-0.3); ALPHA 2 GLOBULIN 1.2 g/dL (0.5-0.9); BETA 1 GLOBULIN 0.5 g/dL (0.4-0.6); BETA 2 GLOBULIN 0.5 g/dL (0.2-0.5); GAMMA GLOBULIN 1.3 g/dL (0.8-1.7)
== END 2024-02-07 10:30 | disposition home or self-care (01) ==
LOC: LAB 10:31
PROVIDERS: PCP Family Medicine; Visit Provider Nurse Practitioner Family
DX: D64.9 Anemia, unspecified (principal)
CPT/HCPCS: 36415; 80053; 83615; 83883; 84155; 84165; 85025; 85045; 85651; 86140

== ENCOUNTER 2024-02-18 15:21 | Oncology outpatient (recurring) (ONCR) | payer MEDICARE, OTHER, SELFPAY | END 2024-03-18 23:59 | disposition home or self-care (01) | PROVIDERS: PCP Family Medicine; Visit Provider Internal Medicine Medical Oncology | DX: D64.9 Anemia, unspecified (principal); Z79.899 Other long term (current) drug therapy | CPT/HCPCS: 99213 ==

== ENCOUNTER 2024-03-12 11:10 | Outpatient (CLI) | payer MEDICARE, OTHER, SELFPAY ==
[2024-03-12 11:45] LABS: Basophils # 0.1 10^3/uL (0.0-0.1); Basophils % 0.9 %; Eosinophils # 0.2 10^3/uL (0.0-0.8); Eosinophils % 2.5 %; Hematocrit 34.5 % (36-47); Lymphocytes # 1.4 10^3/uL (0.8-4.8); Lymphocytes % 20.9 %; Mean Corpuscular Hemoglobin 29.8 pg (27-33); Mean Corpuscular Volume 90.1 fl (85-98); Mean Platelet Volume 9.5 fL (7.4-10.4); Monocytes # 0.5 10^3/uL (0.2-0.9); Monocytes % 6.9 %; Neutrophils # 4.69 10^3/uL (1.8-7.7); Neutrophils % 68.4 %; Nucleated Red Blood Cells % 0 %; Platelet Count 353 10^3/cmm (157-399); Red Blood Count 3.83 10^6/uL (3.85-5.65); Red Cell Distribution Width 12.9 % (12.1-15.1); White Blood Count 6.85 10^3/uL (3.29-11.43)
[2024-03-12 12:00] LABS: Estmated Average Glucose 146; Hemoglobin A1C 6.7 % (4.0-6.0)
[2024-03-12 12:05] LABS: Creatinine Urine, Random 124 mg/dL (28-217)
[2024-03-12 12:14] LABS: Albumin Level 4.1 g/dL (3.5-5.2); Anion Gap 17.6 (5-19); Blood Urea Nitrogen 39 mg/dL (8-23); Calcium 9.1 mg/dL (8.5-10.5); Carbon Dioxide 20 mmol/L (22-29); Chloride 105 mmol/L (98-107); Glucose 188 mg/dL (65-115); Phosphorus 3.9 mg/dL (2.5-4.5); Potassium 4.6 mmol/L (3.5-5.1); Sodium 138 mmol/L (136-145)
[2024-03-12 12:17] LABS: Microalbum Creatinine Ratio Ur 3056 mg/dL (0-20); Microalbumin Random Urine 379 ug/dL (0-20)
[2024-03-12 12:20] LABS: Parathyroid Hormone 173.8 pg/mL (15-65)
[2024-03-12 12:28] LABS: 25 Hydroxy Vitamin D 70 ng/mL (30-100)
== END 2024-03-12 11:11 | disposition home or self-care (01) ==
LOC: RAD 11:26 → LAB 11:56
PROVIDERS: Absent Provider Nurse Practitioner Family; PCP Family Medicine; Visit Provider Family Medicine
DX: E11.22 Type 2 diabetes mellitus with diabetic chronic kidney disease (principal); N18.4 Chronic kidney disease, stage 4 (severe)
CPT/HCPCS: 36415; 80069; 82044; 82306; 82310; 83036; 83970; 85025

== ENCOUNTER 2024-04-11 09:54 | Outpatient (CLI) | payer MEDICARE, OTHER, SELFPAY ==
[2024-04-11 11:07] LABS: Anion Gap 16.9 (5-19); Blood Urea Nitrogen 38 mg/dL (8-23); Calcium 8.9 mg/dL (8.5-10.5); Carbon Dioxide 19 mmol/L (22-29); Chloride 106 mmol/L (98-107); Glucose 232 mg/dL (65-115); Osmolality Calculated 300 mOsm/kg (285-295); Potassium 4.9 mmol/L (3.5-5.1); Sodium 137 mmol/L (136-145)
== END 2024-04-11 09:55 | disposition home or self-care (01) ==
LOC: LAB 09:57
PROVIDERS: PCP Family Medicine; Visit Provider Internal Medicine
DX: N18.4 Chronic kidney disease, stage 4 (severe) (principal)
CPT/HCPCS: 36415; 80048

== ENCOUNTER 2024-05-09 08:46 | Outpatient (CLI) | payer MEDICARE, OTHER, SELFPAY ==
--- NOTE | 2024-05-09 09:00 | CTR_ITS ---
PROCEDURE INFORMATION: Exam: CT Abdomen And Pelvis Without Contrast Exam date and time: 05/09/2024 9:00 AM Age: 74 years old Clinical indication: Other: Fat stranding, inflammation of kidney, colon. Prior surgery; Surgery date: 6+ months; Surgery type: Appy, tubal, partial hysterectomy, gb, bilat cataract TECHNIQUE: Imaging protocol: Computed tomography of the abdomen and pelvis without contrast. Radiation optimization: All CT scans at this facility use at least one of these dose optimization techniques: automated exposure control; mA and/or kV adjustment per patient size (includes targeted exams where dose is matched to clinical indication); or iterative reconstruction. COMPARISON: CT abdomen pelvis wo con [id number] 11/21/2023 7:45 PM RADIATION DOSE METRICS: Total DLP (mGy-cm): 633.03 FINDINGS: Liver: Normal. No mass. Gallbladder and biliary ducts: There has been a cholecystectomy. Pancreas: Normal. No ductal dilation. Spleen: Normal. No splenomegaly. Adrenal glands: Normal. No mass. Kidneys and ureters: Normal. No hydronephrosis. Stomach and bowel: There is wall thickening of sigmoid colon with associated inflammation. There are colon diverticula. No bowel obstruction. Appendix: There has been appendectomy. Intraperitoneal space: Unremarkable. No free air. No significant fluid collection. Vasculature: Unremarkable. No abdominal aortic aneurysm. Lymph nodes: Unremarkable. No enlarged lymph nodes. Urinary bladder: Unremarkable as visualized. Reproductive: There has been a hysterectomy. Bones/joints: Unremarkable. No acute fracture. Soft tissues: Unremarkable. CT/CT abdomen pelvis wo con [id number] IMPRESSION: There is mild sigmoid colon diverticulitis. Follow-up is recommended to ensure expected resolution.
== END 2024-05-09 08:47 | disposition home or self-care (01) ==
LOC: RAD 08:46
PROVIDERS: PCP Family Medicine; Visit Provider Family Medicine
DX: K52.9 Noninfective gastroenteritis and colitis, unspecified (principal); E11.22 Type 2 diabetes mellitus with diabetic chronic kidney disease; N18.4 Chronic kidney disease, stage 4 (severe); N13.30 Unspecified hydronephrosis; Z90.49 Acquired absence of other specified parts of digestive tract; K63.89 Other specified diseases of intestine
CPT/HCPCS: 74176

== ENCOUNTER 2024-05-19 10:23 | Outpatient (CLI) | payer MEDICARE, OTHER, SELFPAY ==
[2024-05-19 11:28] LABS: Basophils # 0.1 10^3/uL (0.0-0.1); Basophils % 0.9 %; Eosinophils # 0.2 10^3/uL (0.0-0.8); Eosinophils % 3.6 %; Hematocrit 32.6 % (36-47); Lymphocytes # 1.3 10^3/uL (0.8-4.8); Lymphocytes % 19.1 %; Mean Corpuscular HGB Conc 33.4 g/dL (30-55); Mean Corpuscular Hemoglobin 30.7 pg (27-33); Mean Corpuscular Volume 91.8 fl (85-98); Mean Platelet Volume 9.5 fL (7.4-10.4); Monocytes # 0.6 10^3/uL (0.2-0.9); Monocytes % 8.8 %; Neutrophils # 4.51 10^3/uL (1.8-7.7); Neutrophils % 67.3 %; Nucleated Red Blood Cells % 0 %; Platelet Count 291 10^3/cmm (157-399); Red Blood Count 3.55 10^6/uL (3.85-5.65); Red Cell Distribution Width 13.4 % (12.1-15.1)
[2024-05-19 11:37] LABS: Bilirubin Urine Neg (Negative); Blood Urine Neg (Negative); Glucose Urine UA 1+ (Normal); Ketones Urine Negative (Negative); Leukocyte Esterase Urine Negative (Negative); Nitrate Urine Negative (Negative); Protein Urine 3+ (Negative); Specific Gravity, Urine 1.015 (1.005-1.030); Urine Appearance Clear (CLEAR); Urine Color Yellow (Yellow); Urobilinogen Urine Norm (Negative); pH Urine 5 (5-7)
[2024-05-19 11:38] LABS: Add Urine Culture? No; Bacteria Urine 1+ /hpf; Squamous Epithelial Cell Urine 25-40 /hpf (0-5)
[2024-05-19 11:46] LABS: Creatinine Urine, Random 99 mg/dL (28-217)
[2024-05-19 12:00] LABS: Estmated Average Glucose 140; Hemoglobin A1C 6.5 % (4.0-6.0)
[2024-05-19 12:05] LABS: Calcium 9.5 mg/dL (8.5-10.5); Parathyroid Hormone 155.7 pg/mL (15-65)
[2024-05-19 12:13] LABS: 25 Hydroxy Vitamin D 59 ng/mL (30-100); Albumin Level 3.9 g/dL (3.5-5.2); Anion Gap 17.7 (5-19); Blood Urea Nitrogen 42 mg/dL (8-23); Calcium 9.4 mg/dL (8.5-10.5); Carbon Dioxide 18 mmol/L (22-29); Chloride 105 mmol/L (98-107); Chol HDL Ratio 3.06 mg/dL (0.0-4.40); Cholesterol 110 mg/dL (0-200); Glucose 192 mg/dL (65-115); HDL Cholesterol 36 mg/dL (60-100); Iron 61 ug/dL (37-145); LDL HDL Ratio 0.06 RATIO (0.00-3.22); Magnesium 1.7 mg/dL (1.7-2.3); Osmolality Calculated 298 mOsm/kg (285-295); Phosphorus 3.4 mg/dL (2.5-4.5); Potassium 4.7 mmol/L (3.5-5.1); Sodium 136 mmol/L (136-145); Thyroid Stimulating Hormone 3.55 uIU/mL (0.27-4.20); Triglycerides 359 mg/dL (0-150); Vitamin B12 354 pg/mL (232-1245)
[2024-05-19 12:13] LABS: Microalbum Creatinine Ratio Ur 1667 mg/dL (0-20); Microalbumin Random Urine 165 ug/dL (0-20)
[2024-05-19 13:54] LABS: LDL Cholesterol 30 (0-100)
== END 2024-05-19 10:24 | disposition home or self-care (01) ==
PROVIDERS: Absent Provider Family Medicine; PCP Family Medicine; Visit Provider Internal Medicine
DX: E55.9 Vitamin D deficiency, unspecified (principal); I10 Essential (primary) hypertension; E78.2 Mixed hyperlipidemia; E11.21 Type 2 diabetes mellitus with diabetic nephropathy; E11.22 Type 2 diabetes mellitus with diabetic chronic kidney disease; N18.4 Chronic kidney disease, stage 4 (severe); E87.6 Hypokalemia; N18.30 Chronic kidney disease, stage 3 unspecified; E83.42 Hypomagnesemia; R79.89 Other specified abnormal findings of blood chemistry
CPT/HCPCS: 36415; 80048; 80061; 80069; 81001; 82044; 82306; 82310; 82607; 83036; 83540; 83735; 83970; 84439; 84443; 85025

== ENCOUNTER → 2024-06-04 09:00 | Day surgery (SDC) | payer MEDICARE, OTHER, SELFPAY | LOC: OPS 06-19 12:28 | PROVIDERS: PCP Family Medicine; Visit Provider Obstetrics & Gynecology | DX: Z01.818 Encounter for other preprocedural examination (principal) | CPT/HCPCS: 93005 ==

== ENCOUNTER 2024-06-24 14:35 | Observation (INO) | payer MEDICARE, OTHER, SELFPAY ==
--- NOTE | 2024-06-04 09:56 | ECG_ITS ---
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 Measurements Intervals [place] Rate: 70 P: 32 FL: 166 QRS: -44 QRSD: 154 T: 28 QT: 422 QTc: 456 Interpretive Statements SINUS RHYTHM LEFT AXIS DEVIATION [QRS AXIS < -30] RIGHT BUNDLE BRANCH BLOCK [120+ ms QRS DURATION, UPRIGHT V1, 40+ ms S IN I/aVL/V4/V5/V6] POSSIBLE ANTERIOR MYOCARDIAL INFARCTION , OF INDETERMINATE AGE [30 ms Q WAVE IN V3/V4, OR R < 0.2 mV IN V4] Compared to ECG 04/05/2023 19:18:22 Myocardial infarct finding now present Electronically Signed On 06-04-2024 16:43:46 CDT by Steven Seaman M.D. [id number]
--- NOTE | 2024-06-04 12:53 | ANES.PREANE2 ---
Pre-Anesthetic Assessment Height/Weight: Height 1.52 m Operation Date: 06/10/24 14:45 Proposed Procedures p Anterior Repair Anterior Colporrhaphy 31902, 93700, 03914, N81.10, N81.6(Not Applicable) - Dinesh Portillo MD s Posterior Repair Posterior Colporrhaphy(Not Applicable) - Dinesh Portillo MD s Sling(Not Applicable) - Dinesh Portillo MD s Sacrospinous Ligament Suspension Sacrospinous Fixation(Not Applicable) - Dinesh Portillo MD Familial anesthetic complications: None Was Beta Anderson taken within 24 hours: N/A Was Clonidine taken within 24 hours: N/A Social No alcohol and No tobacco Exam alert, oriented x 3, clear to auscultation bilaterally and regular rate & rhythm Pulmonary Asthma CV/HEM Coronary Artery Disease (MILDRED november 2023 - getting cardiac clearance, took plavix 06/04), Congestive Heart Failure, Hypertension and Myocardial Infarction Chronic Renal Insufficiency Metabolic Diabetes Mellitus and Hyperlipidemia Anesthetic Plan ASA status: 4 Anesthesia: General Risk of > 500 ml blood loss (7ml/kg in children): No Medications/Allergies Home Medications Medication Instructions Recorded Confirmed Last Taken Type aspirin 81 mg tablet,delayed 81 mg PO BEDTIME 12/05/19 06/04/24 06/03/24 History release (Lorin Low Dose Aspirin) loratadine 10 mg tablet (Claritin) 10 mg PO QAM 12/05/19 06/04/24 06/04/24 History fluticasone 500 mcg-salmeterol 50 1 inh inhalation BID #60 ea 06/14/22 06/04/24 04/04/23 Rx mcg/dose blistr powdr for inhalation (Advair Diskus) nitroglycerin 0.4 mg sublingual 0.4 mg sublingual Q5M PRN chest 03/01/23 06/04/24 Unknown Rx tablet pain #30 tabs cholecalciferol (vitamin D3) 1,250 50,000 unit PO .weekly #30 caps 06/11/23 06/04/24 06/03/24 Rx mcg (50,000 unit) capsule levothyroxine 75 mcg tablet 75 mcg PO QAM #90 tabs 09/17/23 06/04/24 06/04/24 Rx liraglutide 0.6 mg/0.1 mL (18 mg/3 1.8 mg (0.3 mL) SUBCUT DAILY #9 mL 12/11/23 06/04/24 06/04/24 Rx mL) subcutaneous pen injector (Victoza 3-Franklin) evolocumab 140 mg/mL subcutaneous See Rx Instructions .Route 01/08/24 06/04/24 Unknown Rx pen injector (Bravo Urbina) .COMPLEX #2 mL hydralazine 25 mg tablet 25 mg PO TID 90 days #180 tabs 02/07/24 06/04/24 06/04/24 Rx isosorbide mononitrate 60 mg 60 mg PO DAILY #90 tabs 02/07/24 06/04/24 06/04/24 Rx tablet,extended release 24 hr loperamide 2 mg capsule 2 mg PO QID PRN loose stool #30 03/12/24 06/04/24 Unknown Rx caps carvedilol 25 mg tablet 25 mg PO BID #180 tabs 04/30/24 06/04/24 06/04/24 Rx ezetimibe 10 mg tablet (Zetia) 10 mg PO BEDTIME #90 tabs 04/30/24 06/04/24 06/03/24 Rx nifedipine 60 mg tablet,extended 60 mg PO DAILY 90 days #90 tabs 04/30/24 06/04/24 06/03/24 Rx release 24 hr losartan 25 mg tablet 50 mg PO DAILY 06/02/24 06/04/24 06/04/24 History clopidogrel 75 mg tablet 75 mg PO DAILY #90 tabs 06/04/24 06/04/24 06/04/24 Rx furosemide 40 mg tablet 40 mg PO DAILY 06/04/24 06/04/24 06/04/24 History Allergies Allergy/AdvReac Type Severity Reaction Status Date / Time ofloxacin Allergy Severe ADR-Halluci Verified 06/04/24 09:03 nating meclizine Allergy Intermediate dizziness Verified 04/30/24 09:50 COUNTS INCLUDE 234 BEDS AT THE [facility] Anesthesia Medical History Chronic kidney disease Hypomagnesemia Normocytic normochromic anemia Hyperkalemia Hypoglycemia associated with type 2 diabetes mellitus Kidney stone Statin intolerance Asthma 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 Myocardial infarction Type 2 diabetes mellitus Coronary artery disease Hypothyroid Hyperlipidemia Essential hypertension Insomnia, idiopathic Surgical History H/O right coronary artery stent placement H/O tubal ligation Hx of hysterectomy Hx of appendectomy Hx of cataract surgery Family History Father Cancer Mother Cancer Hypertension Diabetes Social History (Updated 06/02/24 @ 08:15 by Hayley Carpio LPN) Smoking and tobacco/nicotine status: never used tobacco/nicotine Female Reproductive History Spontaneous abortions: No Data Anesthesia Cardiac Studies: Echocardiogram 02/13/23 Sestamibi Stress Test (Cardiology) 02/15/23
--- NOTE | 2024-06-09 16:45 | SUR.PREOP ---
At time of confirming patient's surgery time for 06/10 patient reports she had taken her plavix yesterday 06/08 but skipped today and wanted to make sure that was ok. Patient had in person pre op 06/04 and was given instructions that the clinic would call with info on stopping plavix. I talked with Evan about this, she states that she spoke with patient and gave her instructions to stop plavix for 5 days after getting this ok'd with Dr. Seaman. I spoke to patient about this and she states no one called her or told her anymore info about her plavix and that she did not get a call back from the clinic. When speaking to Evan she said per Bandar, patient would need rescheduled to another day when she has stopped plavix and that Evan would be calling her tomorrow morning to talk to her about dates for surgery and plavix. I relayed this to patient.
[2024-06-24] VITALS (17 sets, daily range): BP systolic 164–204; BP diastolic 69–100; PULSE 50–61; RESP 14–25; TEMP 36.3–36.6; O2SAT 94–97; BMI 30.6
[2024-06-24 10:33] LABS: Charge for UA Resulting for Rev
--- NOTE | 2024-06-24 10:37 | W.PM.OPSUD ---
Surgery/Procedure H&P Update DATE OF PROCEDURE: June 24, 2024 DATE H&P PERFORMED: 06/02/24 H&P UPDATE INFORMATION: I have reviewed H&P completed within last 30 days, I have examined patient prior to procedure and No changes to prior documentation PREOP DIAGNOSIS: Cystocele, rectocele, vaginal vault prolapse PLANNED PROCEDURE: Operation Date: 06/24/24 11:30 Proposed Procedures p Anterior Repair Anterior Colporrhaphy 04841, 38594, 97469, N81.10, N81.6(Not Applicable) - Dinesh Portillo MD s Posterior Repair Posterior Colporrhaphy(Not Applicable) - Dinesh Portillo MD s Sling(Not Applicable) - Dinesh Portillo MD s Sacrospinous Ligament Suspension Sacrospinous Fixation(Not Applicable) - Dinesh Portillo MD
--- NOTE | 2024-06-24 10:42 | ANES.PAUD2 ---
Pre-Anesthetic Update Pre-Anesthetic Assessment: Date of Surgery/Procedure: 06/24/24 Preop Diagnosis: Cystocele, rectocele, vaginal vault prolapse Proposed Procedure: Operation Date: 06/24/24 11:30 Proposed Procedures p Anterior Repair Anterior Colporrhaphy 10307, 82608, 92550, N81.10, N81.6(Not Applicable) - MD ary Baptiste Posterior Repair Posterior Colporrhaphy(Not Applicable) - MD ary Baptiste Sling(Not Applicable) - Dinesh Portillo MD s Sacrospinous Ligament Suspension Sacrospinous Fixation(Not Applicable) - Dinesh Portillo MD Vitals: Temperature 97.9 F 06/24/24 10:20 Temperature Source Temporal Artery S can 06/24/24 10:20 Pulse Rate 61 06/24/24 10:20 Respiratory Rate 18 06/24/24 10:20 Blood Pressure 183/100 06/24/24 10:20 Blood Pressure Nancy n 127 06/24/24 10:20 Pulse Oximetry 97 06/24/24 10:20 Oxygen Delivery Me thod Room Air 06/24/24 10:20 Exam: Pre-Anes Outpt Exam: alert, oriented x 3, clear to auscultation bilaterally and regular rate & rhythm Other Pertinent Information: Other Pertinent Information: Discussed cardiac clearance with Dr. Seaman's office. Patient has had no problems since November. Cardiac Studies: Echocardiogram 02/13/23 Sestamibi Stress Test (Cardiology) 02/15/23
[2024-06-24 10:43] LABS: Bilirubin Urine Negative (Negative); Blood Urine Trace (Negative); Glucose Urine UA 1+ (Normal); Ketones Urine Negative (Negative); Leukocyte Esterase Urine Negative (Negative); Nitrate Urine Negative (Negative); Protein Urine 3+ (Negative); Urine Appearance Clear (CLEAR); Urine Color Yellow (Yellow); pH Urine 5.5 (5-7)
[2024-06-24 10:47] LABS: Bacteria Urine None Seen /hpf; Hyaline Casts Urine 2.05 /lpf; RBC Urine 0-2 /hpf (0-2); Squamous Epithelial Cell Urine 0-5 /hpf (0-5); WBC Urine 0-5 /hpf (0-5)
[2024-06-24 10:58] LABS: Glucose Point of Care 176 mg/dL (70-110)
[2024-06-24] MEDS: sodium chloride 0.9% 1,000 ML 30 ML IV (11:05)
[2024-06-24] MEDS: enoxaparin 40 mg/0.4 mL Syringe SUBCUT (11:05)
[2024-06-24] MEDS: ceFAZolin 2,000 mg SDV 2000 MG IVP (11:06)
[2024-06-24] MEDS: scopolamine 1.5 Patch 1 PATCH TRANSDERMA (11:07)
[2024-06-24 11:10] LABS: Basophils % 0.5 %; Eosinophils # 0.2 10^3/uL (0.0-0.8); Eosinophils % 1.9 %; Hematocrit 30.4 % (36-47); Lymphocytes # 1.2 10^3/uL (0.8-4.8); Mean Corpuscular HGB Conc 34.2 g/dL (30-55); Mean Corpuscular Volume 93.5 fl (85-98); Mean Platelet Volume 9.5 fL (7.4-10.4); Monocytes # 0.7 10^3/uL (0.2-0.9); Monocytes % 8.7 %; Neutrophils # 5.74 10^3/uL (1.8-7.7); Neutrophils % 73.6 %; Nucleated Red Blood Cells % 0 %; Platelet Count 257 10^3/cmm (157-399); Red Blood Count 3.25 10^6/uL (3.85-5.65); Red Cell Distribution Width 13.4 % (12.1-15.1)
[2024-06-24 11:34] LABS: Alanine Aminotransferase 20 U/L (0-33); Albumin Level 3.7 g/dL (3.5-5.2); Alkaline Phosphatase 85 U/L (35-105); Aspartate Amino Transferase 22 U/L (0-32); Blood Urea Nitrogen 39 mg/dL (8-23); Carbon Dioxide 15 mmol/L (22-29); Chloride 109 mmol/L (98-107); Creatinine Clr Calc Pharmacy 21.5469; Globulin 2.9 g/dL (1.3-4.6); Glucose 175 mg/dL (65-115); Osmolality Calculated 298 mOsm/kg (285-295); Sodium 137 mmol/L (136-145); Total Bilirubin 0.2 mg/dL (0.15-1.2); Total Protein 6.6 g/dL (6.6-8.7)
[2024-06-24 11:37] LABS: Anion Gap 18.1 (5-19); Potassium 5.1 mmol/L (3.5-5.1)
--- NOTE | 2024-06-24 14:22 | P.BOP_ITS ---
Date of Procedure: 06/24/24 Surgeon: Dinesh Portillo MD [place] Operator(s): Procedure(s) performed: Anterior colporrhaphy, mid urethral sling, posterior colporrhaphy, sacrospinous fixation Findings of the procedure(s): Cystocele stage I, rectocele stage III Estimated blood loss: 50 Specimen(s) removed: none Post-operative diagnosis: Status post anterior posterior colporrhaphy, mid urethral sling and sacrospinous fixation
--- NOTE | 2024-06-24 14:23 | PM.OP ---
Operative Report Date of procedure: June 24, 2024 Pre-op diagnosis: Rectocele stage III Cystocele stage II Vaginal vault prolapse Post-op diagnosis: Rectocele stage III Rectocele stage I Vaginal vault prolapse Procedure done: Anterior colporrhaphy Mid urethral sling Posterior colporrhaphy Sacrospinous fixation Cystoscopy Implants: Coloplast Altis sling Surgeon: Dinesh Portillo MD Estimated blood loss (mL): 50 IV fluids (mL): 600 Urine output (mL): 300 Complications: none Procedure: After obtaining informed consent, the patient was taken to the operating room and placed in the supine position, given general anesthesia, and prepped and draped in sterile fashion. The abdomen, vulva and vagina were prepped and draped in a sterile manner. A time out procedure was performed. The anterior vaginal mucosa beneath the midurethra was infiltrated with 2% lidocaine with epinephrine. A vertical midline incision was made beneath the midurethra, nearly 1.5 cm length. Careful submucosal dissection was performed bilaterally up to the interior portion of the inferior pubic ramus. The insertion of adductor longus tendon on the patient?s pubic ramus was identified as reference land izzy. Palpated the notch along the internal edge of ischiopubic ramus where the adductor longus tendon and the inferior pubic ramus meet. The Altis single incision sling (SIS) was selected. Then the needle of the SIS inserted aiming at the location of this notch. One of the integrated self-fixating tips place onto the needle by sliding it over the end of the needle. The needle/sling assembly was inserted toward the location of identified reference notch making sure that the flat of the handle is perpendicular to the desired path. The needle was tracked along the posterior surface of the ischiopubic ramus until the midline izzy on the mesh is approximately at the midline position under the urethra. The needle was removed and the same was repeated on the contralateral side until the appropriate sling tension under the urethra was achieved ensuring that the mesh lays flat. The needle was removed and vaginal incision was closed in a running interlocking fashion with 2-0 Vicryl. The medial portion of the anterior vaginal wall was grasped with two Allis clamps and the mucosa was infiltrated with the previous 2% lidocaine with epinephrine solution. The Metzenbaum scissors were used to dissect and undermine a plane medially up to the point of reflexion anteriorly of the bladder. The vaginal mucosa was incised medially. This tissue was then grasped with Tootie clamps and dissected away with a combination of sharp and blunt dissection on both sides. A suture of 2-0 vicryl was then used to connect the lateral pubovesical connective tissue on either side together in a series of bites that was repeated in two layers. The excess vaginal mucosa was trimmed and the incision repaired with a locked suture of 0 vicryl. The posterior vaginal mucosa is opened in the routine fashion as described previously in Posterior Repair. A finger is inserted through the incision in the posterior vaginal mucosa, dissecting out the rectovaginal space (RVS). The right rectal pillar (RRP) is identified. The rectal pillar can be bluntly perforated either with the finger or with the tip of a long Luda clamp. A thing malleable ribbon retractor is used for exposing the rectovaginal space in order to enter the pararectal space with retraction of the cardinal ligament, vagina, and rectum. Displacing the rectum to the left and the cardinal ligament and ureter anteriorly. A sponge dissector is used to bluntly dissect the sacrospinous ligament removing areolar tissue. The ischial spine was palpated directly, and a area approximately 2 cm medial to the spine was selected for insertion of the Anchorsure transvaginal sacrospinous fixation system. One end of the suture of Anchoresure system inserted through the sacrospinous ligament is placed through the muscular layer of the vagina. In a similar manner, the second suture is placed. The opposite end of the suture in the sacrospinous ligament is left free and held on a small hemostat. Then traction on this suture will draw the vaginal vault directly to the ligament, where a square knot affixes it to the sacrospinous ligament. After the roni stich is tied the second safety stich is tied. Then the colporrhaphy/vaginal repair is carried out in routine fashion. At this point, the rectum was from the posterior vaginal mucosa using sharp and blunt dissection, and the rectal bulge imbricated in the midline with interrupted sutures of 2-0 vicryl suture. Levator ani muscles on either side were approximated in the midline with interrupted 0 Vicryl sutures. Excess posterior vaginal mucosa was excised, and the vaginal episiotomy was repaired by approximating the posterior vaginal mucosa with a suture of Vicryl #0. Then the Galdamez catheter was removed and cystoscope was inserted. The bladder was filled with sterile water. Complete evaluation of the bladder mucosa was performed noting no lacerations, dimpling, tears, bleeding of the mucosa or muscular layers. Both ureteral orifices were identified. Prompt excretion of urine from both ureteral orifices was noted. Cystoscope was withdrawn. The Galdamez catheter was replaced. Excellent hemostasis was obtained. A vaginal pack is placed overnight as postoperative support for the vaginal tissues after graft placement and closure of vaginal incisions. Sponge, lap, needle, and instrument counts were correct times three. The patient was taken to the recovery room, awake and in stable condition.
--- NOTE | 2024-06-24 15:00 | ANE.PACU2 ---
Inpatient post-anesthesia follow up: Airway intact: Yes Vital signs: Temperature 97.3 F Pulse Rate 60 Respiratory Rate 18 Blood Pressure 175/69 Pulse Oximetry 95 Oxygen Delivery Me thod Room Air Oxygen Flow Rate Fraction of Inspir ed Oxygen Hydration adequate: Yes Nausea and vomiting: No Pain level: 2 Mental status: Baseline
[2024-06-24] MEDS: loperamide 2 mg Capsule PO (15:54)
[2024-06-24] MEDS: ketorolac 30 mg/mL INJ IVP ×2 (15:54→21:16)
[2024-06-24] MEDS: dextrose 5%-lactated ringers 1,000 ML 125 ML IV (15:54)
[2024-06-24] MEDS: carvedilol 25 mg Tablet PO (18:17)
[2024-06-24] MEDS: aspirin 81 mg EC Tablet PO (21:18)
[2024-06-24] MEDS: ezetimibe 10 mg Tablet PO (21:18)
[2024-06-24] MEDS: NIFEdipine ER (24 hr) 30 mg Tablet 60 MG PO (23:41)
[2024-06-25] VITALS (8 sets, daily range): BP systolic 126–213; BP diastolic 57–84; PULSE 45–62; RESP 16–18; TEMP 36.5; O2SAT 98
[2024-06-25] MEDS: ketorolac 30 mg/mL INJ IVP (03:34)
[2024-06-25] MEDS: NIFEdipine ER (24 hr) 30 mg Tablet 60 MG PO ×2 (03:34→10:14)
--- NOTE | 2024-06-25 05:07 | PC.NURSE ---
packing removed at salas removal time 0501
[2024-06-25 05:17] LABS: Hematocrit 29.8 % (36-47); Mean Corpuscular HGB Conc 33.2 g/dL (30-55); Mean Corpuscular Hemoglobin 31.2 pg (27-33); Mean Platelet Volume 10.7 fL (7.4-10.4); Platelet Count 180 10^3/cmm (157-399); Red Blood Count 3.17 10^6/uL (3.85-5.65); Red Cell Distribution Width 13.1 % (12.1-15.1); White Blood Count 11.34 10^3/uL (3.29-11.43)
--- NOTE | 2024-06-25 09:56 | P.DS_ITS ---
Discharge Providers LITIGATION COUNSEL Date of Admission: 06/24/24 14:35 Date of Discharge: 06/25/24 Attending Provider at Admission: Dinesh Portillo MD Attending Provider at Discharge: Dinesh Portillo MD Primary Care Provider: Robert Espinoza DO Reason for Visit Reason for Visit: N81.10, N81.6 Hospital Course Hospital Course Mrs. Bull 74-year-old female with history of cystocele stage I, mixed urinary incontinence, and rectocele stage III. She was admitted for planned anterior colporrhaphy with mid urethral sling, posterior colporrhaphy and sacrospinous fixation. The procedures were performed without complication. Postop overnight starvation significant for elevated blood pressure treated with medication. She is afebrile and hemodynamically stable postoperative day 1. PVR within normal limits. Tolerating diet well. Ambulating without difficulty. Physical Exam Narrative: GA: Alert and oriented ?3. HEENT: WNL. Heart: Regular rate and rhythm. Lungs: Clear to auscultation bilaterally. Abdomen: Bowel sounds present, nontender. 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 Extremities: No edema, no cyanosis, no calves pain. Urinary Catheter Management: Galdamez: Cath Placed During This Visit: yes, but has since been removed by the nurse Reason for Continuing Indwelling Catheter: Decision to DC Catheter Urinary Catheter Date of Insertion: 06/24/24 Urinary Catheter Time of Insertion: 12:49 Date Urinary Catheter Removed: 06/25/24 Time Urinary Catheter Discontinued: 05:07 History History History 2 Term 2 0 Miscarriages/Ectopic 0 Living Children 1 Discharge Data Studies Completed and Pending Pending at discharge Category Date Time Status Retype for Patiets ABO/Rh Routine Lab 06/24/24 11:45 Received Laboratory Results WBC 11.34 10^3/uL (3.29-11.43) 06/25/24 04:59 RBC 3.17 10^6/uL (3.85-5.65) L 06/25/24 04:59 Hgb 9.90 g/dL (11.27-16.99) L 06/25/24 04:59 Hct 29.8 % (36-47) L 06/25/24 04:59 MCV 94.0 fl (85-98) 06/25/24 04:59 MCH 31.2 pg (27-33) 06/25/24 04:59 MCHC 33.2 g/dL (30-55) 06/25/24 04:59 RDW 13.1 % (12.1-15.1) 06/25/24 04:59 Plt Count 180 10^3/cmm (157-399) 06/25/24 04:59 MPV 10.7 fL (7.4-10.4) H 06/25/24 04:59 Neut % (Auto) 73.6 % 06/24/24 10:56 Lymph % (Auto) 15.0 % 06/24/24 10:56 [place]ard % (Auto) 8.7 % 06/24/24 10:56 Eos % (Auto) 1.9 % 06/24/24 10:56 Baso % (Auto) 0.5 % 06/24/24 10:56 Neut # (Auto) 5.74 10^3/uL (1.8-7.7) 06/24/24 10:56 Lymph # (Auto) 1.2 10^3/uL (0.8-4.8) 06/24/24 10:56 [place]ard # (Auto) 0.7 10^3/uL (0.2-0.9) 06/24/24 10:56 Eos # (Auto) 0.2 10^3/uL (0.0-0.8) 06/24/24 10:56 Baso # (Auto) 0.0 10^3/uL (0.0-0.1) 06/24/24 10:56 Nucleated RBC % (auto) 0 % 06/24/24 10:56 Nucleated RBCs # 0.0 /100WBC 06/24/24 10:56 Sodium 137 mmol/L (136-145) 06/24/24 10:56 Potassium 5.1 mmol/L (3.5-5.1) 06/24/24 10:56 Chloride 109 mmol/L (98-107) H 06/24/24 10:56 Carbon Dioxide 15 mmol/L (22-29) L 06/24/24 10:56 Anion Gap 18.1 (5-19) 06/24/24 10:56 BUN 39 mg/dL (8-23) H 06/24/24 10:56 Creatinine 2.1 mg/dL (0.5-0.9) H 06/24/24 10:56 GFR Calculation Not Reportable 06/24/24 10:56 Glucose 175 mg/dL (65-115) H 06/24/24 10:56 POC Glucose 176 mg/dL (70-110) H 06/24/24 10:55 Calculated Osmolality 298 mOsm/kg (285-295) H 06/24/24 10:56 Calcium 9.0 mg/dL (8.5-10.5) 06/24/24 10:56 Total Bilirubin 0.2 mg/dL (0.15-1.2) 06/24/24 10:56 AST 22 U/L (0-32) 06/24/24 10:56 ALT 20 U/L (0-33) 06/24/24 10:56 Alkaline Phosphatase 85 U/L (35-105) 06/24/24 10:56 Total Protein 6.6 g/dL (6.6-8.7) 06/24/24 10:56 Albumin 3.7 g/dL (3.5-5.2) 06/24/24 10:56 Globulin 2.9 g/dL (1.3-4.6) 06/24/24 10:56 Urine Color Yellow (Yellow) 06/24/24 10:25 Urine Appearance Clear (CLEAR) 06/24/24 10:25 Urine pH 5.5 (5-7) 06/24/24 10:25 Ur Specific [place] 1.020 (1.005-1.030) 06/24/24 10:25 Urine Protein 3+ (Negative) A 06/24/24 10:25 Urine Glucose (UA) 1+ (Normal) H 06/24/24 10:25 Urine Ketones Negative (Negative) 06/24/24 10:25 Urine Blood Trace (Negative) A 06/24/24 10:25 Urine Nitrate Negative (Negative) 06/24/24 10:25 Urine Bilirubin Negative (Negative) 06/24/24 10:25 Urine Urobilinogen 1.0 mg/dL (Negative) 06/24/24 10:25 Ur Leukocyte Esterase Negative (Negative) 06/24/24 10:25 Urine RBC 0-2 /hpf (0-2) 06/24/24 10:25 Urine WBC 0-5 /hpf (0-5) 06/24/24 10:25 Ur Squamous Epith Cells 0-5 /hpf (0-5) 06/24/24 10:25 Amorphous Sediment Not Reportable 06/24/24 10:25 Urine Bacteria None seen /hpf (NONE) 06/24/24 10:25 Hyaline Casts 2.05 /lpf 06/24/24 10:25 Blood Type A Positive 06/24/24 10:56 Rho(D) Type Rh positive 06/24/24 10:56 Antibody Screen Negative 06/24/24 10:56 Vitals Last Vital Signs Temp 97.7 F 06/25/24 04:13 Pulse 52 L 06/25/24 05:06 Resp 16 06/25/24 05:06 BP 149/67 06/25/24 05:06 Pulse Ox 98 06/25/24 04:13 O2 Del Method Room Air 06/25/24 04:13 Results Labs OB ([facility]): Blood Type A Positive 06/24/24 Antibody Screen Negative 06/24/24 Hct 29.8 % (36-47) L 06/25/24 Hgb 9.90 g/dL (11.27-16.99) L 06/25/24 Rho(D) Type Rh positive 06/24/24 Plt Count 180 10^3/cmm (157-399) 06/25/24 TSH 3.55 uIU/mL (0.27-4.20) 05/19/24 Free T4 1.20 ng/dL (0.82-1.77) 05/19/24 Hemoglobin A1c 6.5 % (4.0-6.0) H 05/19/24 Urine Opiates Screen Negative ng/mL (Negative) 02/13/23 Ur Barbiturates Screen Negative ng/mL (Negative) 02/13/23 Ur Phencyclidine Scrn Negative ng/mL (Negative) 02/13/23 Ur Amphetamines Screen Negative ng/mL (Negative) 02/13/23 U Benzodiazepines Scrn Negative ng/mL (Negative) 02/13/23 Urine Cocaine Screen Negative ng/mL (Negative) 02/13/23 U Marijuana (THC) Screen Negative ng/mL (Negative) 02/13/23 Micro Urine Specimen 02/13/23 Discharge Plan Discharge Patient Disposition: Home Condition: Stable Prescriptions: New hydrocodone-acetaminophen 5-325 mg tablet 1 tab PO Q4H PRN (Reason: pain) Qty: 10 0RF acetaminophen 325 mg capsule 325 mg PO Q4H PRN (Reason: fever or postoperative pain) Qty: 60 0RF docusate sodium [Colace] 100 mg capsule 100 mg PO BID Qty: 60 0RF ibuprofen 800 mg tablet 800 mg PO TID PRN (Reason: pain) Qty: 60 0RF nitrofurantoin macrocrystal 100 mg capsule 100 mg PO BID 7 Days Qty: 14 0RF Rx Instructions: must administer with a meal/food Continued aspirin [Lorin Low Dose Aspirin] 81 mg tablet,delayed release (DR/EC) 81 mg PO BEDTIME loratadine [Claritin] 10 mg tablet 10 mg PO QAM nitroglycerin 0.4 mg tablet, sublingual 0.4 mg sublingual Q5M PRN (Reason: chest pain) Qty: 30 2RF Rx Instructions: do not exceed 3 doses per episode cholecalciferol (vitamin D3) 1,250 mcg (50,000 unit) capsule 50,000 unit PO .weekly Qty: 30 1RF Repatha SureClick 140 mg/mL pen injector See Rx Instructions .ROUTE .COMPLEX Qty: 2 5RF Dose Instruction: inject 140mg SUBCUTANEOUSLY every TWO weeks Rx Instructions: inject 140mg SUBCUTANEOUSLY every TWO weeks isosorbide mononitrate 60 mg tablet extended release 24 hr 60 mg PO DAILY Qty: 90 3RF loperamide 2 mg capsule 2 mg PO QID PRN (Reason: loose stool) Qty: 30 2RF fluticasone propion-salmeterol [Advair Diskus] 500-50 mcg/dose blister with device 1 inh inhalation BID Qty: 60 8RF losartan 25 mg tablet 50 mg PO DAILY nifedipine 60 mg tablet extended release 24hr 60 mg PO DAILY 90 Days Qty: 90 3RF ezetimibe [Zetia] 10 mg tablet 10 mg PO BEDTIME Qty: 90 3RF carvedilol 25 mg tablet 25 mg PO BID Qty: 180 3RF Rx Instructions: must administer with a meal/food clopidogrel 75 mg tablet 75 mg PO DAILY Qty: 90 3RF Victoza 3-Franklin 0.6 mg/0.1 mL (18 mg/3 mL) pen injector See Rx Instructions .ROUTE .COMPLEX Qty: 9 5RF Dose Instruction: inject 1.8mg (0.3ml) SUBCUTANEOUSLY EVERY DAY Rx Instructions: inject 1.8mg (0.3ml) SUBCUTANEOUSLY EVERY DAY hydralazine 25 mg tablet 25 mg PO TID 60 Days Qty: 180 3RF levothyroxine 75 mcg tablet 75 mcg PO QAM Qty: 90 2RF furosemide 40 mg tablet 40 mg PO DAILY Rx Instructions: Take 1 tablet by mouth once daily Discharge Orders: Discharge Order (Routine); Ordered 06/25/24 Ordered By: Dinesh Portillo Referrals: Dinesh Portillo MD [Physician] - 07/31/24 9:45 am (* Your 6 week post op appointment is with Dr. Portillo on 07/31/2024 at 9:45am) Hilary Barton APN, WHNP [Nurse Practitioner] - 07/09/24 11:00 am (* Your 2 week post op appointment is with Hilary Barton on 07/09/2024 at 11:00am) Discharge Diet: GI Soft and Soft Mechanical Discharge Activity: Limit activity as instructed Patient Instructions: Urinary Bladder Suspension (DC), Acute Wound Care (DC), Opioid Safety (DC), Anterior Vaginal Repair (DC), Posterior Vaginal Repair (DC), OB Discharge Report, OB Food/Drug Interaction Guide, Opioid Safety, Post Anesthesia Care Activity Restrictions/Additional Instructions: 1. Please call [facility] on next working day to make your post-operative appointment in 2 weeks. 2. Please stay home until you come back to the clinic on first post- hospatilization check up. 3. Please follow instructions on your medications CAREFULLY. 4. If you have abdominal incision, do not cover it unless dressing is necessary because of drainage. OK to shower, but avoid bath. Leave steri-strips until they fall off. If they are still on one week after surgery, you may remove them. 5. If you had vaginal surgery or vaginal repair, Dr. Portillo may instruct you to take SITZ bath. 6. Yellow, blood tinged odorous vaginal discharge is usually normal after hysterectomy or vaginal surgeries. 7. No SEXUAL INTERCOURSE, tampons, or douches until you are completely released from the post-operative care. 8. Avoid constipation by eating right and maybe using some Metamucil or Milk of Magnesia. 9. All prescription refills are given during the working hours. Please do no wait till it runs out. Call the clinic at [phone] before your medication runs out. The clinic will get in touch with your doctor to prescribe medications if necessary. 10. Please remain within 40 mile radius from our hospital because emergencies do happen now and then during the post-operative period. 11. If you have stairs at home, take one step at a time slowly and minimize the number of trips. It helps to stay in one floor for the next few days. No lifting except what you can lift by one hand until you are released from the post-operative care. 12. Driving is discouraged until you are well healed. It may be 3-4 weeks before you feel strong enough to drive. You should be able to turn and look through the rear window without pain and you should be able to push the brake pedal very hard without pain before you drive. No fast rules, but SAFETY should be your primary concern. DO NOT drive if you are on sedating medications such as narcotics. 13. Call the clinic (during working hours) to make urgent appointment or go to the Emergency room, if any of the following occurs: i. Vaginal bleeding becomes heavy, more than a period. ii. Incision becomes red and sore, or drains pus. iii. Your TEMPERATURE is over 100.4F or you have chill. iv. IV site becomes red and swollen (a little ``knot?? is usually OK) v. Persistent nausea and vomiting vi. Persistent constipation or diarrhea vii. Rash or allergic reaction to medications. Discharge Attestations LITIGATION COUNSEL Time Spent in Discharge Care*: greater than 30 min Coding Level of Care Code Acute Code for Chg Fwd
[2024-06-25] MEDS: FUROsemide 40 mg Tablet PO (10:10)
[2024-06-25] MEDS: docusate sodium 100 mg Capsule PO (10:11)
[2024-06-25] MEDS: clopidogrel 75 mg Tablet PO (10:12)
[2024-06-25] MEDS: losartan 50 mg Tablet PO (10:13)
[2024-06-25] MEDS: carvedilol 25 mg Tablet PO (10:15)
== END 2024-06-25 11:45 | disposition home or self-care (01) ==
LOC: OBGYN 14:35
PROVIDERS: Admitting Provider Obstetrics & Gynecology; PCP Family Medicine; Visit Provider Obstetrics & Gynecology
PROC: 0JQC0ZZ Repair Pelvic Region Subcutaneous Tissue and Fascia, Open Approach (ICD-10-PCS; CPT 57240; principal; 2024-06-24 11:20)
PROC: (CPT 57250; 2024-06-24 11:20)
PROC: (CPT 57288; 2024-06-24 11:20)
PROC: (CPT 57282; 2024-06-24 11:20)
PROC: 0TJB8ZZ Inspection of Bladder, Via Natural or Artificial Opening Endoscopic (ICD-10-PCS; CPT 52000; 2024-06-24 11:20)
DX: N81.4 Uterovaginal prolapse, unspecified (principal); I25.10 Atherosclerotic heart disease of native coronary artery without angina pectoris; Z79.02 Long term (current) use of antithrombotics/antiplatelets; E11.22 Type 2 diabetes mellitus with diabetic chronic kidney disease; I13.0 Hypertensive heart and chronic kidney disease with heart failure and stage 1 through stage 4 chronic kidney disease, or unspecified chronic kidney disease; N18.9 Chronic kidney disease, unspecified; I50.9 Heart failure, unspecified; I25.2 Old myocardial infarction; E11.9 Type 2 diabetes mellitus without complications; E78.5 Hyperlipidemia, unspecified; Z79.82 Long term (current) use of aspirin; E03.9 Hypothyroidism, unspecified; Z95.5 Presence of coronary angioplasty implant and graft
CPT/HCPCS: 57260; 57267; 57282; 57288; 36415; 36416; 51798; 80053; 81003; 81015; 82962; 85025; 85027; 86850; 86900; C1713; G0378; J0690; J1100; J1650; J1885; J2371; J2405; J2704; J3010; J3490; J7030; J7121

== ENCOUNTER 2024-08-11 10:48 | Outpatient (CLI) | payer MEDICARE, OTHER, SELFPAY ==
[2024-08-11 11:26] LABS: Basophils % 0.6 %; Eosinophils # 0.3 10^3/uL (0.0-0.8); Eosinophils % 3.6 %; Hematocrit 31.8 % (36-47); Lymphocytes # 1.3 10^3/uL (0.8-4.8); Lymphocytes % 17.9 %; Mean Corpuscular HGB Conc 33.6 g/dL (30-55); Mean Corpuscular Hemoglobin 31.8 pg (27-33); Mean Corpuscular Volume 94.4 fl (85-98); Mean Platelet Volume 9.5 fL (7.4-10.4); Monocytes # 0.5 10^3/uL (0.2-0.9); Monocytes % 6.7 %; Neutrophils # 5.07 10^3/uL (1.8-7.7); Neutrophils % 70.8 %; Nucleated Red Blood Cells % 0 %; Platelet Count 333 10^3/cmm (157-399); Red Blood Count 3.37 10^6/uL (3.85-5.65); Red Cell Distribution Width 13.1 % (12.1-15.1); White Blood Count 7.16 10^3/uL (3.29-11.43)
[2024-08-11 11:49] LABS: Albumin Level 3.9 g/dL (3.5-5.2); Anion Gap 16.7 (5-19); Blood Urea Nitrogen 39 mg/dL (8-23); Calcium 9.2 mg/dL (8.5-10.5); Carbon Dioxide 18 mmol/L (22-29); Chloride 106 mmol/L (98-107); Glucose 193 mg/dL (65-115); Phosphorus 3.2 mg/dL (2.5-4.5); Potassium 4.7 mmol/L (3.5-5.1); Sodium 136 mmol/L (136-145)
[2024-08-11 11:57] LABS: Parathyroid Hormone 191.7 pg/mL (15-65)
[2024-08-11 11:59] LABS: Creatinine Urine, Random 68 mg/dL (28-217)
[2024-08-11 12:14] LABS: Microalbum Creatinine Ratio Ur 2000 mg/dL (0-20); Microalbumin Random Urine 136 ug/dL (0-20)
== END 2024-08-11 10:49 | disposition home or self-care (01) ==
PROVIDERS: PCP Family Medicine; Visit Provider Internal Medicine
DX: N18.4 Chronic kidney disease, stage 4 (severe) (principal)
CPT/HCPCS: 17000; 17110; 36415; 80069; 82044; 82310; 83970; 85025; 99213

== ENCOUNTER → 2024-08-20 11:19 | Outpatient (BNVA) | payer MEDICARE, OTHER, SELFPAY | PROVIDERS: PCP Family Medicine; Visit Provider Family Medicine | DX: E11.22 Type 2 diabetes mellitus with diabetic chronic kidney disease (principal); N18.4 Chronic kidney disease, stage 4 (severe); E83.42 Hypomagnesemia | CPT/HCPCS: 80053; 83735 ==

== ENCOUNTER → 2024-08-25 09:30 | Outpatient (BNVA) | payer MEDICARE, OTHER, SELFPAY | PROVIDERS: PCP Family Medicine; Visit Provider Nurse Practitioner Family | DX: I13.0 Hypertensive heart and chronic kidney disease with heart failure and stage 1 through stage 4 chronic kidney disease, or unspecified chronic kidney disease (principal); N18.9 Chronic kidney disease, unspecified; I50.22 Chronic systolic (congestive) heart failure; I25.10 Atherosclerotic heart disease of native coronary artery without angina pectoris; E78.2 Mixed hyperlipidemia; E11.22 Type 2 diabetes mellitus with diabetic chronic kidney disease; I25.2 Old myocardial infarction | CPT/HCPCS: 99213 ==

== ENCOUNTER 2024-09-16 11:58 | Outpatient (CLI) | payer MEDICARE, OTHER, SELFPAY ==
--- NOTE | 2024-09-16 12:01 | MM_ITS ---
WS: [id number] BILATERAL 3D TOMOSYNTHESIS DIGITAL SCREENING MAMMOGRAPHY WITH CAD CLINICAL INFORMATION: SCREENING HISTORY: Screening mammogram. No current complaints. COMPARISON: 2022 TECHNIQUE: Bilateral CC and MLO views. FINDINGS: Scattered fibroglandular densities bilaterally. No suspicious focal mass, asymmetry, calcifications, or architectural distortion. No evidence of malignancy. Few tiny incidental punctate calcifications. MM/MM scr tomosynthesis [id number] IMPRESSION: DENSITY: There are scattered areas of fibroglandular density. BI-RADS: 2 - Benign. FOLLOW UP: 1 Year Follow-up Recommend return to annual screening mammography.
== END 2024-09-16 11:59 | disposition home or self-care (01) ==
PROVIDERS: PCP Family Medicine; Visit Provider Family Medicine
DX: Z12.31 Encounter for screening mammogram for malignant neoplasm of breast (principal); R92.323 Mammographic fibroglandular density, bilateral breasts
CPT/HCPCS: 77063; 77067

== ENCOUNTER → 2024-09-25 14:05 | Outpatient (BNVA) | payer MEDICARE, OTHER, SELFPAY | PROVIDERS: PCP Family Medicine; Visit Provider Internal Medicine Cardiovascular Disease | DX: I25.10 Atherosclerotic heart disease of native coronary artery without angina pectoris (principal); I11.0 Hypertensive heart disease with heart failure; I50.22 Chronic systolic (congestive) heart failure; E78.2 Mixed hyperlipidemia | CPT/HCPCS: 99214 ==

== ENCOUNTER 2024-12-15 13:06 | Outpatient (CLI) | payer MEDICARE, OTHER, SELFPAY ==
[2024-12-15 13:34] LABS: Basophils % 0.6 %; Eosinophils # 0.2 10^3/uL (0.0-0.8); Eosinophils % 2.1 %; Hematocrit 31.5 % (36-47); Lymphocytes # 1.4 10^3/uL (0.8-4.8); Lymphocytes % 20.5 %; Mean Corpuscular HGB Conc 33.7 g/dL (30-55); Mean Corpuscular Hemoglobin 31.3 pg (27-33); Mean Corpuscular Volume 92.9 fl (85-98); Mean Platelet Volume 9.2 fL (7.4-10.4); Monocytes # 0.7 10^3/uL (0.2-0.9); Monocytes % 9.7 %; Neutrophils % 66.8 %; Nucleated Red Blood Cells % 0 %; Platelet Count 320 10^3/cmm (157-399); Red Blood Count 3.39 10^6/uL (3.85-5.65); Red Cell Distribution Width 12.2 % (12.1-15.1); White Blood Count 7.03 10^3/uL (3.29-11.43)
[2024-12-15 13:47] LABS: Estmated Average Glucose 154
[2024-12-15 13:53] LABS: Albumin Level 3.8 g/dL (3.5-5.2); Blood Urea Nitrogen 43 mg/dL (8-23); Carbon Dioxide 19 mmol/L (22-29); Chloride 102 mmol/L (98-107); Glucose 187 mg/dL (65-115); Phosphorus 3.2 mg/dL (2.5-4.5); Sodium 134 mmol/L (136-145)
[2024-12-15 13:57] LABS: Creatinine Urine, Random 63 mg/dL (28-217)
[2024-12-15 14:09] LABS: Microalbum Creatinine Ratio Ur 1556 mg/dL (0-20); Microalbumin Random Urine 98 ug/dL (0-20)
== END 2024-12-15 13:07 | disposition home or self-care (01) ==
PROVIDERS: PCP Family Medicine; Referring Provider Internal Medicine; Visit Provider Student in an Organized Health Care Education/Training Program
DX: E11.3311 Type 2 diabetes mellitus with moderate nonproliferative diabetic retinopathy with macular edema, right eye (principal); E11.3512 Type 2 diabetes mellitus with proliferative diabetic retinopathy with macular edema, left eye; Z79.4 Long term (current) use of insulin
CPT/HCPCS: 36415; 80069; 82044; 83036; 85025

== ENCOUNTER 2025-01-19 01:40 | Observation (INO) | payer MEDICARE, OTHER, SELFPAY ==
[2025-01-19] VITALS (9 sets, daily range): BP systolic 109–136; BP diastolic 52–81; PULSE 59–68; RESP 16–20; TEMP 36.6–36.8; O2SAT 94–97; BMI 33.1; BMI 32.5
--- NOTE | 2025-01-19 01:12 | P.HP_ITS ---
Providers/Chief Complaint 2 Admitting Physician: Emmett Griggs MD Primary Care Provider: Cole Godinez MD Chief Complaint: Back Pain History of Present Illness Celeste Kruse is a 74 year old female with congestive heart failure (CHF), essential hypertension, and hyperlipidemia. The patient has a history of coronary artery disease (CAD) and underwent angioplasty with stent placement 7 years ago in [place], another angioplasty performed by Dr. Boles, due to obstruction in the RCA, PLV, and PDU. She has had two stents placed in November 2023, presenting in for chief complaint of shortness of breath and back pain. Patient presented to [facility] ER with complaint of back pain and shortness of breath, workup in the ER revealed EKG with right bundle branch block, no new changes, heart rate 59, blood pressure stable, x-ray of spine showed degenerative changes, troponin 79 and then 76, D-dimer 0.6, patient was saturating 99% on room air, [facility] declined the admission, virtual hospitalist was not feeling comfortable admitting her at [facility] hence [facility] reached out. Patient follows up with Dr. Mcmullen, patient is stating that she has not experienced any chest pain at all, no fever nausea vomiting or diarrhea, patient is stating that her friend of heart attack and she was very short of breath during the states that was in her subconscious mind when she started getting short of breath, patient is stating that she will get short of breath randomly, she is not endorsing any fever, productive cough, she has been noticing back pain around lower back, she has not noticed any falls, urine incontinence or numbness around her inner thigh area. At the time of evaluation patient is hemodynamically stable, awake and alert AOx4 Hemoglobin 10.5 no leukocytosis sodium 128 potassium 5.5 Potassium 3.1 Metabolic acidosis Baseline troponin 84 Review of Systems 2 Const: Denies: fever(s) Eyes: Denies: change in vision ENMT: Denies: throat pain Card: Denies: chest pain Resp: Reports: dyspnea GI: Denies: abdominal pain Musc: Reports: neck pain Medications/Allergies Home Medications ?Medication ?Instructions ?Recorded ?Confirmed ?Last Taken ?Type aspirin 81 mg tablet,delayed 81 mg PO BEDTIME 12/05/19 12/25/24 06/03/24 History release (Lorin Low Dose Aspirin) loratadine 10 mg tablet (Claritin) 10 mg PO QAM 12/25/24 06/04/24 History isosorbide mononitrate 60 mg 60 mg PO DAILY #90 tabs 0 02/07/24 12/25/24 06/04/24 Rx tablet,extended release 24 hr carvedilol 25 mg tablet 25 mg PO BID #180 tabs 04/3012/25/24 06/24/24 Rx nifedipine 60 mg tablet,extended 60 mg PO DAILY 90 day s #90 tabs 04/30/24 12/25/24 06/03/24 Rx release 24 hr losartan 25 mg tablet 50 mg PO DAILY 06/02/2405/1306/04/24 History levothyroxine 75 mcg tablet 75 mcg PO QAM #90 tabs 12/25/24 06/24/24 Rx acetaminophen 325 mg capsule 325 mg PO Q4H PRN fever o r 06/25/24 12/25/24 Unknown Rx postoperative pain #60 caps cholecalciferol (vitamin D3) 1,250 50,000 unit PO .wee kly #30 caps 07/16/24 12/25/24 Unknown Rx mcg (50,000 unit) capsule albuterol sulfate 90 mcg/actuation 1 inh inhalation QI D PRN shortness 08/20/24 12/25/24 Unknown Rx aerosol inhaler of breath or wheezing #8.5 g alexandr furosemide 40 mg tablet 40 mg PO DAILY #90 tabs 10/0 01/1212/25/24 Unknown Rx potassium chloride 10 mEq 10 meq PO DAILY #90 tabs 01/1212/25/24 Unknown Rx tablet,extended release nitroglycerin 0.4 mg sublingual 0.4 mg sublingual Q5M PRN chest 09/25/24 12/25/24 Unknown Rx tablet pain #30 tabs fluticasone furoate 100 1 inh inhalation DAILY #60 e a 12/16/24 12/25/24 Unknown Rx mcg-vilanterol 25 mcg/dose inhalation powder (Breo Ellipta) clopidogrel 75 mg tablet 75 mg PO DAILY #90 tabs 0205/1312/25/24 Unknown Rx evolocumab 140 mg/mL subcutaneous See Rx Instructions .Route 12/25/24 12/25/24 Unknown Rx pen injector (Repatha SureClick) .COMPLEX #2 mL ezetimibe 10 mg tablet (Zetia) 10 mg PO BEDTIME #90 ta bs 12/25/24 12/25/24 Unknown Rx hydralazine 25 mg tablet 25 mg PO TID 90 days #270 ta bs 12/25/24 12/25/24 Unknown Rx liraglutide 0.6 mg/0.1 mL (18 mg/3 See Rx Instructions .Route 12/25/24 12/25/24 Unknown Rx mL) subcutaneous pen injector .COMPLEX #9 mL (Victoza 2-Franklin) oxybutynin chloride 5 mg See Rx Instructions .Route 0 01/12/25 Unknown Rx tablet,extended release 24 hr .COMPLEX #30 tabs Allergies Allergy/AdvReac Type Severity Reaction Status Date / Time ofloxacin Allergy Severe ADR-Halluci Verified 12/25/24 11:39 nating meclizine Allergy Intermediate dizziness Verified 12/25/24 11:39 PFSH Acute 2 PFSH: Medical History Asthma Heart failure with mildly reduced ejection fraction (HFmrEF) Chronic kidney disease Hypomagnesemia Normocytic normochromic anemia Hyperkalemia Kidney stone Statin intolerance Asthma 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 Myocardial infarction Type 2 diabetes mellitus Coronary artery disease Hypothyroid Hyperlipidemia Essential hypertension Insomnia, idiopathic Surgical History H/O vaginal surgery (~06/24/24) Anterior and posterior repair, with mid urethral sling, sacrospinous fixation and cystoscopy performed by Bandar at [facility] for rectocele stage 3, cystocele stage 2, vaginal vault prolapse. H/O right coronary artery stent placement H/O tubal ligation Hx of hysterectomy Hx of appendectomy Hx of cataract surgery Family History Father Cancer Mother Cancer Hypertension Diabetes Social History Smoking and tobacco/nicotine status: never used tobacco/nicotine Alcohol intake: never Substance/Drug Use: never Female Reproductive History: Spontaneous abortions: No Physical Exam 2 Narrative: Awake and alert GCS 15 No active chest pain Clinically looks fluid overloaded 2+ edema of legs Abdomen soft S1, S2 Currently on room air Hemodynamic stable GCS 15 Pleasant and cooperative No active focal deficit Data 01/19/25 01:38 01/19/25 01:38 A&P Assessment and plan (1) Anginal equivalent: (2) Essential hypertension: (3) Coronary artery disease: Qualifiers: Coronary Disease-Associated Artery/Lesion type: pa[place]shoshone artery [place] vs. transplanted heart: pa[place] heart Associated angina: without angina Q ualified Code(s): I25.10 - Atherosclerotic heart disease of [place]sh[place] coronary artery without angina pectoris (4) Statin intolerance: (5) H/O right coronary artery stent placement: (6) Heart failure with mildly reduced ejection fraction (HFmrEF): (7) Type 2 diabetes mellitus with diabetic nephropathy: Qualifiers: Diabetes mellitus fdc insulin use: without supervisor intermediates use Q ualified Code(s): E11.21 - Type 2 diabetes mellitus with diabetic nephropathy (8) CKD (chronic kidney disease) stage 3, GFR 30-59 ml/min: (9) CKD stage 4 due to type 2 diabetes mellitus: (10) Hyperkalemia: (11) Overactive bladder: (12) Sciatica, right side: Plan Shortness of breath at rest History of coronary disease Angina equivalent symptom No active chest pain Requested troponin with EKG Requested echo and stress test in the morning Chronic kidney disease Hyperkalemia with acidosis Start bicarb tablets Will give Kayexalate At the other hospital potassium was 5.9 Currently potassium is 5.5 Hold losartan Type 2 diabetes: Sliding scale with insulin Back pain: Degenerative joint disease, no signs of cauda equina Patient also has history of sciatica and radiculopathy Opioids along bowel regimen Bradycardia with right bundle branch block: Hold Coreg Continue aspirin and Plavix Hypertension: Continue hydralazine, isosorbide mononitrate: Nifedipine Hold losartan and Coreg Full code N.p.o. for cardiac stress test in the morning DVT prophylaxis: Heparin PDMP PDMP Reviewed: Not Reviewed Attestations 2 Medical Necessity Statement*: Anticipating discharge within 24 to 48 hours Diagnoses Anginal equivalent I20.89 Essential hypertension I10 Coronary artery disease involving pa[place]shoshone coronary artery of [place] heart without angina pectoris I25.10 Coronary Disease-Associated Artery/Lesion type: [place] artery [place] vs. transplanted heart: [place]oshone heart Associated angina: without angina Statin intolerance Z78.9 H/O right coronary artery stent placement Z95.5 Heart failure with mildly reduced ejection fraction (HFmrEF) I50.22 Type 2 diabetes mellitus with diabetic nephropathy, without long-term current use of insulin E11.21 Diabetes mellitus fdc insulin use: without fdc use Stage 3a chronic kidney disease N18.30 CKD stage 4 due to type 2 diabetes mellitus E11.22; N18.4 Hyperkalemia E87.5 Overactive bladder N32.81 Sciatica, right side M54.31
--- NOTE | 2025-01-19 01:16 | USCV_ITS ---
Celeste Kruse Age: 74 Gender: F : 1950 Exam Date: 01/19/2025 08:56 Ordering Phys: Emmett Griggs MD Technologist: LAN Exam Location: [facility] – [place] Indication: CHF BP: 109 / 52 HR: 63 Rhythm: Sinus Technical Quality: Adequate MEASUREMENTS (Male / Female) Normal Values 2D ECHO LV Diastolic Diameter PLAX 5.1 cm 4.2 - 5.9 / 3.9 - 5.3 cm IVS Diastolic Thickness 1.5 cm 0.6 - 1.0 / 0.6 - 0.9 cm IVS Systolic Thickness 2.1 cm LVPW Diastolic Thickness 1.3 cm 0.6 - 1.0 / 0.6 - 0.9 cm LVPW Systolic Thickness 1.5 cm LVOT Diameter 2.0 cm LV Ejection Fraction 2D Teich 65.6 % LV Ejection Fraction MOD 4C 59.1 % LV Ejection Fraction MOD 2C 52.2 % LV Ejection Fraction 2C AL 53.8 % LA Diameter 3.2 cm RA Systolic Volume 4C AL 20.9 ml RA Systolic Volume 4C MOD 20.7 ml LA Sys Volume AL 40.3 cm cubed LA Sys Volume Index AL 21.6 cm cubed/m squared Aorta at Sinotubular Diameter 2.5 cm IVC Diameter 1.1 cm M-MODE LA Ao Ratio MM 1.8 AV Cusp Separation MM 1.6 cm DOPPLER AV Peak Velocity 197.0 cm/s LVOT Peak Velocity 89.0 cm/s AV Area Cont Eq vti 1.3 cm squared AV Area Cont Eq pk 1.4 cm squared MV Peak Velocity 118.0 cm/s MV Area PHT 3.4 cm squared Mitral E to A Ratio 0.9 TV Peak Velocity 202.5 cm/s TR Peak Velocity 253.0 cm/s TR Peak Gradient 25.6 mmHg TV Peak E Velocity 95.0 cm/s PV Peak Velocity 95.0 cm/s FINDINGS Left Ventricle Normal left ventricular size, systolic function and wall thickness, with no regional wall motion abnormalities. Left ventricular ejection fraction is estimated at 60 %. Grade I/IV diastolic dysfunction (abnormal relaxation filling pattern), normal to mildly elevated filling pressures. Right Ventricle The right ventricle is normal in size and function. Right Atrium The right atrium is normal in size. Left Atrium Moderately increased left atrial size. Mitral Valve Mildly thickened mitral valve. Mild mitral annular calcification. Mild mitral valve regurgitation. Aortic Valve Structurally normal aortic valve without significant sclerosis or stenosis. There is no aortic regurgitation. Tricuspid Valve Mild tricuspid valve regurgitation. Pulmonic Valve Structurally normal pulmonic valve without significant stenosis. There is no pulmonic regurgitation. Pericardium Normal pericardium without effusion. Aorta Normal ascending aorta dimension. IVC The inferior vena cava appears normal. CONCLUSIONS Normal left ventricular size, systolic function and wall thickness, with no regional wall motion abnormalities. Left ventricular ejection fraction is estimated at 60 %. Grade I/IV diastolic dysfunction (abnormal relaxation filling pattern), normal to mildly elevated filling pressures. Moderately increased left atrial size. Mild tricuspid valve regurgitation. Mildly thickened mitral valve. Mild mitral annular calcification. Mild mitral valve regurgitation. Structurally normal aortic valve without significant sclerosis or stenosis. There is no aortic regurgitation. There is no pericardial effusion. Right atrial pressure is around 5 mm of mercury. Emmett Mcmullen MD (Electronically Signed) Final Date: 19 January 2025 21:27 S
[2025-01-19 01:44] LABS: Basophils % 0.3 %; Eosinophils # 0.1 10^3/uL (0.0-0.8); Eosinophils % 1.5 %; Hematocrit 29.3 % (36-47); Lymphocytes # 1.9 10^3/uL (0.8-4.8); Lymphocytes % 21.1 %; Mean Corpuscular HGB Conc 35.8 g/dL (30-55); Mean Corpuscular Hemoglobin 31.9 pg (27-33); Mean Corpuscular Volume 89.1 fl (85-98); Mean Platelet Volume 9.3 fL (7.4-10.4); Monocytes # 0.9 10^3/uL (0.2-0.9); Monocytes % 9.6 %; Neutrophils # 5.97 10^3/uL (1.8-7.7); Neutrophils % 67.2 %; Nucleated Red Blood Cells % 0 %; Platelet Count 350 10^3/cmm (157-399); Red Blood Count 3.29 10^6/uL (3.85-5.65); Red Cell Distribution Width 12.3 % (12.1-15.1); White Blood Count 8.88 10^3/uL (3.29-11.43)
[2025-01-19 02:01] LABS: Troponin(5th) Baseline 84 ng/L (0-10)
[2025-01-19 02:06] LABS: Anion Gap 18.5 (5-19); Blood Urea Nitrogen 65 mg/dL (8-23); Carbon Dioxide 15 mmol/L (22-29); Chloride 100 mmol/L (98-107); Glucose 141 mg/dL (65-115); Osmolality Calculated 287 mOsm/kg (285-295); Potassium 5.5 mmol/L (3.5-5.1); Sodium 128 mmol/L (136-145)
[2025-01-19] MEDS: heparin 5,000 unit/mL INJ 1 mL 5000 UNIT SUBCUT ×3 (02:06→17:07)
[2025-01-19] MEDS: morphine IR 15 mg Tablet PO (02:06)
--- NOTE | 2025-01-19 02:22 | ECG_ITS ---
[facility] 2025-01[facility]19 Pat Name: Celeste Kruse Department: Room: 250 Gender: Female Sheriff'S Officer: : 1950 Requested By: Emmett Griggs Order Number: [id number] Ramirez MD: Elias Carrizales M.D. Measurements Intervals [place] Rate: 60 P: 39 GA: 158 QRS: -34 QRSD: 158 T: 34 QT: 431 QTc: 434 Interpretive Statements SINUS RHYTHM LEFT AXIS DEVIATION [QRS AXIS < -30] RIGHT BUNDLE BRANCH BLOCK [120+ ms QRS DURATION, UPRIGHT V1, 40+ ms S IN I/aVL/V4/V5/V6] POSSIBLE ANTERIOR MYOCARDIAL INFARCTION , OF INDETERMINATE AGE [30 ms Q WAVE IN V3/V4, OR R < 0.2 mV IN V4] Compared to ECG 06/04/2024 09:56:21 No significant changes Electronically Signed On 01-24-2025 18:18:21 SECOND MATE by Elias Carrizales M.D. [email or web address] [id number]
--- NOTE | 2025-01-19 02:23 | NMCV_ITS ---
NM sonny perf SPECT r/s* [id number] Celeste Kruse Age: 74 Gender: F : 1950 Exam Date: 01/19/2025 02:23 Ordering Phys: Emmett Griggs MD Technologist: AMOL Pacheco Exam Location: [facility] Indications: cp STRESS TEST Please see separate stress test report in [facility] for full findings IMAGE PROTOCOL Rest/Stress 1 Lexiscan Day Radiopharmaceutical Dose (mCi) Administration Site Administered by Rest: Tc-99m 10.9 IV Adriana Helm, SUPERVISOR REMELT Sestamibi Stress:Tc-99m 32.6 IV Adriana Espositoe, SUPERVISOR REMELT Sestamibi Rest: 19-Jan-2025 60 Discovery 630 Stress: 19-Jan-2025 30 Discovery 630 0.4mg Lexiscan. Images obtained in supine and prone position. SPECT RESULTS Technical Quality: Good Raw Data Analysis: Normal Image Corrections: No attenuation or motion correction applied Summed Stress Score: 2 Summed Rest Score: 1 Summed Difference Score: 1 PERFUSION FINDINGS SPECT images demonstrate homogeneous tracer distribution throughout the myocardium. FUNCTIONAL RESULTS (calculated via Gated SPECT) Stress Image LV EF (%): 63 Stress EDV (mL):114 TID: 1.28 Stress ESV (mL):42 FUNCTIONAL FINDINGS: There is normal left ventricular systolic function. IMPRESSIONS Myocardial perfusion imaging is normal. Emmett Mcmullen MD (Electronically Signed) Final Date: 19 January 2025 13:02 S
[2025-01-19] MEDS: FUROsemide 20 mg Tablet PO ×2 (02:34→08:41)
[2025-01-19] MEDS: sodium polystyrene sulfonate 15 gm/60 mL Btl PO (02:34)
[2025-01-19] MEDS: sodium bicarbonate 650 mg Tablet PO ×4 (03:08→21:02)
--- NOTE | 2025-01-19 04:22 | ECG_ITS ---
[facility] 2025-01-19 Pat Name: Celeste Kruse Department: Room: 250 Gender: Female Party Coordinator: : 1950 Requested By: Emmett Griggs Order Number: [id number] Reading MD: Elias Carrizales M.D. Measurements Intervals [place] Rate: 61 P: 46 AR: 166 QRS: -38 QRSD: 153 T: 45 QT: 437 QTc: 443 Interpretive Statements SINUS RHYTHM LEFT AXIS DEVIATION [QRS AXIS < -30] RIGHT BUNDLE BRANCH BLOCK [120+ ms QRS DURATION, UPRIGHT V1, 40+ ms S IN I/aVL/V4/V5/V6] ANTEROSEPTAL MYOCARDIAL INFARCTION , OF INDETERMINATE AGE [40+ ms Q WAVE IN V1-V4] Compared to ECG 01/19/2025 02:22:00 No significant changes Electronically Signed On 01-24-2025 19:51:18 PRIMARY MONTESSORI TEACHER by Elias Carrizales M.D. [id number]
--- NOTE | 2025-01-19 04:41 | ECG_ITS ---
[facility] Date: 2025-01[facility]19 Pat Name: Celeste Kruse Department: Room: 250 Gender: Female Overlocker: : 1950 Requested By: Emmett Griggs Order Number: [id number] Ramirez MD: Elias Carrizales M.D. Measurements Intervals [place] Rate: 59 P: 51 MS: 163 QRS: -81 QRSD: 154 T: 38 QT: 431 QTc: 427 Interpretive Statements SINUS BRADYCARDIA INTRAVENTRICULAR CONDUCTION DELAY [130+ ms QRS DURATION] Compared to ECG 01/19/2025 04:22:18 Intraventricular conduction delay now present Sinus rhythm no longer present Left-axis deviation no longer present Right bundle-branch block no longer present Myocardial infarct finding no longer present Electronically Signed On 01-24-2025 18:18:19 FRUIT SHIPPER by Elias Carrizales M.D. [id number] [id number]
[2025-01-19] MEDS: nitroglycerin 0.4 mg sublingual Tablet SUBLINGUAL ×2 (04:45→04:53)
[2025-01-19] MEDS: levothyroxine 75 mcg Tablet PO (05:00)
[2025-01-19] MEDS: morphine 4 mg/mL SDV 1 mL 2 MG IVP (05:21)
[2025-01-19 06:24] LABS: Glucose Point of Care 167 mg/dL (70-110)
[2025-01-19] MEDS: regadenoson 0.4 Mg/5 ml Syringe IVP (07:16)
[2025-01-19] MEDS: insulin lispro 100 unit/1 mL SUBCUT ×3 (08:40→21:02)
[2025-01-19] MEDS: hyDRALAzine 25 mg Tablet PO ×3 (08:41→21:02)
[2025-01-19] MEDS: NIFEdipine ER (24 hr) 30 mg Tablet 60 MG PO (08:41)
[2025-01-19] MEDS: clopidogrel 75 mg Tablet PO (08:41)
--- NOTE | 2025-01-19 08:46 | XR_ITS ---
WS: [id number] XR chest 1V portable [id number] REASON FOR EXAM: sob FINDINGS: Mild to moderate tortuosity thoracic aorta. Mild cardiomegaly. Calcified granulomatous disease bilaterally. There is interposition of the hepatic flexure between the liver and the right hemidiaphragm. Right hemidiaphragm is elevated. There is atelectasis in the right lower lung. There are angular linear opacities in the left lower lung which also may represent atelectasis. XR/XR chest 1V portable [id number] IMPRESSION: Findings most compatible with areas of atelectasis in both lower lungs as above . Unknown chronicity.
--- NOTE | 2025-01-19 08:52 | ECG_ITS ---
[facility] Date: 2025-01-19 Pat Name: Celeste Kruse Department: Room: 250 Gender: Female Environmental Change Analyst: : 1950 Requested By: Sumanth Castillo Order Number: [id number] Ramirez MD: Elias Carrizales M.D. Measurements Intervals [place] Rate: 60 P: 64 AL: 165 QRS: -50 QRSD: 170 T: 79 QT: 457 QTc: 457 Interpretive Statements SINUS RHYTHM RIGHT BUNDLE BRANCH BLOCK [120+ ms QRS DURATION, UPRIGHT V1, 40+ ms S IN I/aVL/V4/V5/V6] LEFT ANTERIOR FASCICULAR BLOCK [QRS AXIS <= -45, QR IN I, RS IN II] Compared to ECG 01/19/2025 04:41:21 Right bundle-branch block now present Left anterior fascicular block now present Sinus bradycardia no longer present Intraventricular conduction delay no longer present Electronically Signed On 01-24-2025 19:51:07 BLOCK CLEANER by Elias Carrizales M.D. [id number]
[2025-01-19 11:15] LABS: Troponin 5 6HR 83.24 ng/L (0-10)
[2025-01-19 11:20] LABS: Troponin 5 6HR Delta -0.76 ng/L (0-12)
[2025-01-19 11:25] LABS: Blood Urea Nitrogen 63 mg/dL (8-23); Calcium 9.6 mg/dL (8.5-10.5); Carbon Dioxide 15 mmol/L (22-29); Chloride 99 mmol/L (98-107); Glucose 141 mg/dL (65-115); NT Pro B Type Natriuretic Pept 418 pg/mL (0-125); Osmolality Calculated 286 mOsm/kg (285-295); Sodium 128 mmol/L (136-145)
[2025-01-19 11:25] LABS: Glucose Point of Care 131 mg/dL (70-110)
--- NOTE | 2025-01-19 12:17 | CT_ITS ---
WS: [id number] CT LUMBAR SPINE, noncontrast. HISTORY: back pain TECHNIQUE: Contiguous 2.0 mm axial imaging are performed. Sagittal and coronal reformats are submitted and reviewed. All CT scans at [facility] use at least one of these dose optimization techniques: automated exposure control; mA and/or kV adjustment per patient size (includes targeted exams where dose is matched to clinical indication); or iterative reconstruction. IV contrast: None DLP: 924.64 mGy.cm COMPARISON: None available. Increase in the lumbar lordosis. Schmorl's node along the inferior endplate of L2. Mild vacuum disc phenomenon at L2-3. No acute fracture. L1-2: Normal. L2-3: Mild annular disc bulging with a shallow RIGHT foraminal disc protrusion. Mild RIGHT foraminal stenosis. L3-4: Mild annular disc bulging with a LEFT paracentral disc protrusion deforming the LEFT lateral thecal sac and contacting the traversing LEFT L4 nerve root. Moderate central, bilateral subarticular recess and LEFT foraminal stenosis. L4-5: Diffuse annular disc bulging with ligamentum flavum and facet arthritis. Mild central, bilateral subarticular recess and foraminal stenosis. L5-S1: Mild disc bulging and osteophytic ridging. Mild perinephric stranding around each kidney. Similar to prior studies. Mild sigmoid diverticulosis. CT/CT lumbar spine wo con* [id number] IMPRESSION: 1. L3-4: LEFT paracentral disc protrusion contacting the LEFT traversing L4 ne rve root. 2. Moderate central, bilateral subarticular recess and LEFT foraminal stenosis at L3-4. 3. L4-5: Mild central, bilateral subarticular recess and foraminal stenosis. M ild disc encroachment upon the traversing L5 nerve roots. 4. L2-3: Shallow RIGHT foraminal disc protrusion.
--- NOTE | 2025-01-19 12:17 | US_ITS ---
WS: [id number] RENAL ULTRASOUND HISTORY: ariane COMPARISON: 02/14/2023 TECHNIQUE: 2-D and color Doppler imaging of the kidney submitted. Right kidney: 12.8 cm x 4.8 cm x 5.5 cm. Cortex: 0.9 cm Normal size kidney. Increased echogenicity with cortical thinning and multiple cysts. No solid mass. Largest cyst superior pole measures 2.7 x 2.4 x 2.7 cm. Left kidney: 11.2 cm x 5.6 cm x 6.4 cm. Cortex: 0.9 cm Normal size kidney with increased echogenicity. Multiple cortical cysts and mild cortical thinning. Largest cyst lower pole measures 3.5 x 3.6 x 2.8 cm. Aorta: Normal. Urinary Bladder: Normal distention. US/US renal BI* [id number] IMPRESSION: 1. No hydronephrosis. 2. Marked increased echogenicity and cortical thinning of each kidney consiste nt with chronic medical renal disease. 3. Numerous bilateral renal cysts.
[2025-01-19] MEDS: sodium chloride 0.9% 1,000 ML 50 ML IV (15:18)
--- NOTE | 2025-01-19 15:49 | PM.PN ---
Subjective Subjective: Patient was seen this morning, she is alert oriented x 3, following all commands able to sit up to side of bed, she does complain of lower lumbar pain, at L4-L5 bilateral sides, pain does radiate more down the right leg, she also had episode of chest pain during the night, none currently, shortness shortness of breath has resolved, but she tells me that she has been short of breath for a few days, no fevers, no cough, no lightheaded, dizziness, no falls, no injuries, no trauma Vitals/I&O/Wt Last Vital Signs Temp 98.0 F 01/19/25 11:40 Pulse 65 01/19/25 11:40 Resp 19 H 01/19/25 11:40 BP 132/67 01/19/25 11:40 Pulse Ox 96 01/19/25 11:40 O2 Del Method Room Air 01/19/25 11:40 01/19/25 01/19/25 01/19/25 06:59 14:59 22:59 Intake Total 480 / 480 Balance 480 / 480 Weight last 48 hrs Weight 78.018 kg Weight 79.56 kg Physical Exam Const: COMMON NORMALS: no acute distress and patient oriented x3 Resp: COMMON NORMALS: normal respiratory effort, No retractions, No use of accessory muscles and clear to auscultation bilaterally AUSCULTATION: clear to auscultation bilaterally Cardio: COMMON NORMALS: regular rate, regular rhythm, S1 normal heart sound present and S2 normal heart sound present RATE: regular rate RHYTHM: regular rhythm HEART SOUNDS: S1 normal heart sound present and S2 normal heart sound present GI: COMMON NORMALS: Normal to inspection, nondistended, normoactive bowel sounds present and non-tender Back/Pelvis: LUMBAR SPINE/LOWER BACK: Yes normal to inspection, No lumbar spinal tenderness, Yes paraspinal muscle tenderness and No paraspinal muscle spasm Extremity: COMMON NORMALS: no clubbing, cyanosis or edema and no pedal edema Neuro: COMMON NORMALS: patient oriented x3 Psych: COMMON NORMALS: mental status grossly normal Data 01/19/25 01:38 01/19/25 10:32 A&P Assessment and plan (1) Anginal equivalent: (2) Essential hypertension: (3) Coronary artery disease: Qualifiers: Coronary Disease-Associated Artery/Lesion type: [place] artery [place] vs. transplanted heart: [place] heart Associated angina: without angina Qualified Code(s): I25.10 - Atherosclerotic heart disease of [place] coronary artery without angina pectoris (4) Statin intolerance: (5) H/O right coronary artery stent placement: (6) Heart failure with mildly reduced ejection fraction (HFmrEF): (7) Type 2 diabetes mellitus with diabetic nephropathy: Qualifiers: Diabetes mellitus skilled nursing insulin use: without skilled nursing use Qualified Code(s): E11.21 - Type 2 diabetes mellitus with diabetic nephropathy (8) CKD (chronic kidney disease) stage 3, GFR 30-59 ml/min: (9) CKD stage 4 due to type 2 diabetes mellitus: (10) Hyperkalemia: (11) Overactive bladder: (12) Sciatica, right side: Plan Shortness of breath History of CAD Active chest pain Cardiac echo, stress test MADDY with CKD Hyperkalemia with acidosis Continue bicarb IV fluids Renal ultrasound Type 2 diabetes: Sliding scale with insulin Back pain: CT lumbar spine Bradycardia with right bundle branch block: Hold Coreg Continue aspirin and Plavix Hypertension: Continue hydralazine, isosorbide mononitrate: Nifedipine Hold losartan and Coreg Full code N.p.o. for cardiac stress test in the morning DVT prophylaxis: Heparin PDMP PDMP Reviewed: Not Reviewed Attestations Medical Necessity Statement*: Patient requires hospitalization for shortness of breath, MADDY, back pain Diagnoses Anginal equivalent I20.89 Essential hypertension I10 Coronary artery disease involving [place] coronary artery of [place] heart without angina pectoris I25.10 Coronary Disease-Associated Artery/Lesion type: [place] artery [place] vs. transplanted heart: [place] heart Associated angina: without angina Statin intolerance Z78.9 H/O right coronary artery stent placement Z95.5 Heart failure with mildly reduced ejection fraction (HFmrEF) I50.22 Type 2 diabetes mellitus with diabetic nephropathy, without long-term current use of insulin E11.21 Diabetes mellitus oysterman insulin use: without oysterman use Stage 3a chronic kidney disease N18.30 CKD stage 4 due to type 2 diabetes mellitus E11.22; N18.4 Hyperkalemia E87.5 Overactive bladder N32.81 Sciatica, right side M54.31
[2025-01-19 16:15] LABS: Glucose Point of Care 155 mg/dL (70-110)
[2025-01-19 16:52] LABS: Creatine Phosphokinase 167 U/L (26-192)
[2025-01-19 20:40] LABS: Glucose Point of Care 148 mg/dL (70-110)
[2025-01-19] MEDS: ezetimibe 10 mg Tablet PO (21:02)
[2025-01-19] MEDS: aspirin 81 mg EC Tablet PO (21:02)
[2025-01-20] VITALS: BP 138/67; PULSE 67; RESP 15; TEMP 36.8; O2SAT 94
[2025-01-20] MEDS: heparin 5,000 unit/mL INJ 1 mL 5000 UNIT SUBCUT ×2 (02:36→08:58)
[2025-01-20 04:00] VITALS: BP 142/71; PULSE 66; RESP 17; TEMP 36.8; O2SAT 95
[2025-01-20 06:02] LABS: Anion Gap 16.7 (5-19); Blood Urea Nitrogen 63 mg/dL (8-23); Calcium 8.7 mg/dL (8.5-10.5); Carbon Dioxide 17 mmol/L (22-29); Chloride 103 mmol/L (98-107); Glucose 130 mg/dL (65-115); Osmolality Calculated 294 mOsm/kg (285-295); Potassium 4.7 mmol/L (3.5-5.1); Sodium 132 mmol/L (136-145)
[2025-01-20 06:03] LABS: Magnesium 1.7 mg/dL (1.7-2.3)
[2025-01-20] MEDS: levothyroxine 75 mcg Tablet PO (06:22)
[2025-01-20 06:34] LABS: Glucose Point of Care 132 mg/dL (70-110)
[2025-01-20 08:00] VITALS: BP 134/74; PULSE 66; RESP 20; TEMP 36.4; O2SAT 98
[2025-01-20 08:09] LABS: Basophils % 0.5 %; Eosinophils # 0.1 10^3/uL (0.0-0.8); Eosinophils % 1.4 %; Hematocrit 30.2 % (36-47); Lymphocytes # 1.8 10^3/uL (0.8-4.8); Mean Corpuscular HGB Conc 34.4 g/dL (30-55); Mean Corpuscular Hemoglobin 31.4 pg (27-33); Mean Corpuscular Volume 91.2 fl (85-98); Mean Platelet Volume 9.8 fL (7.4-10.4); Monocytes % 12.1 %; Neutrophils % 64.6 %; Nucleated Red Blood Cells % 0 %; Platelet Count 377 10^3/cmm (157-399); Red Blood Count 3.31 10^6/uL (3.85-5.65); Red Cell Distribution Width 12.3 % (12.1-15.1); White Blood Count 8.51 10^3/uL (3.29-11.43)
[2025-01-20] MEDS: hyDRALAzine 25 mg Tablet PO (08:54)
[2025-01-20] MEDS: sodium bicarbonate 650 mg Tablet PO (08:54)
[2025-01-20] MEDS: oxybutynin chloride XL 5 MG TABLET PO (08:54)
[2025-01-20] MEDS: clopidogrel 75 mg Tablet PO (08:54)
[2025-01-20] MEDS: NIFEdipine ER (24 hr) 30 mg Tablet 60 MG PO (08:55)
--- NOTE | 2025-01-20 09:49 | PC.CHAP ---
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 [] Patient/Family/Request visit [] Outpatient visit [] Follow-up visit [] Physician referral [] Code/Alert [x] Routine visit [] Staff referral [] Actively dying [] Patient sleeping [] Family support [] [] Out of room [] Palliative care [] [] Receiving care in room [] Pre-surgical visit [] Trauma [] Long length of stay [] ICU visit [] Other: Relational/Emotional Strength [x] Patient feels connected with others/family/visitors/staff [] Distress [] Loneliness/isolation [] Abandonment Spirituality of Patient [x] Person of [place] [] Attends Sikhism of their [place] [x] Believes in Prayer [] Reads Bible or Scientologist materials [] There are Spiritual issues to be addressed Drawer Waxer Interventions [x] Prayer [x] Active listening [] Non-anxious presence [x] Spiritual/emotional support [] Crisis/trauma care [] Spiritual counseling [] Bereavement support [] Provided bereavement packet [] Provided Bible/devotional materials [] Provided toy/stuffed animal, coloring book to patient or family member [] Provided Communion [] Anointing/Donie [] Salvation [x] Completed spiritual assessment [] Other: Impact on Illness or Injury [] Angry [] Fearful [] Anxious [] Often cries [] Exhaustion [] Unable to work [] Unable to attend sabianist [] Unable to walk/stand [] Unable to read [] Unable to drive [] Unable to eat/drink [] Unable to sleep [] Unable to be with family [] Patient intubated [] Other: Summary Time spent with patient 5 min
--- NOTE | 2025-01-20 11:12 | P.DS_ITS ---
Discharge Providers Date of Admission: 01/19/25 01:40 Date of Discharge: January 20, 2025 Attending Provider at Admission: Emmett Griggs MD Attending Provider at Discharge: Sumanth Castillo MD Primary Care Provider: Cole Godinez MD Diagnoses at Discharge Discharge Diagnosis (1) Anginal equivalent: Status: Resolved (2) Essential hypertension: Status: Chronic (3) Coronary artery disease: Status: Acute Qualifiers: Associated angina: without angina Coronary Disease-Associated Artery/Lesion type: [place] artery [place] vs. 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 Qualifiers: Diabetes mellitus clay products glazer insulin use: without fci use Qualified Code(s): E11.21 - Type 2 diabetes mellitus with diabetic nephropathy (8) CKD (chronic kidney disease) stage 3, GFR 30-59 ml/min: Status: Acute (9) CKD stage 4 due to type 2 diabetes mellitus: Status: Chronic (10) Hyperkalemia: Status: Resolved (11) Overactive bladder: Status: Acute (12) Sciatica, right side: Status: Acute Reason for Visit Reason for Visit: Back Pain Hospital Course Hospital Course This is a 74-year-old female with past medical history of CHF, hypertension hyperlipidemia CAD, who presents [facility] for shortness of breath and back pain For shortness of breath, no recurrent episodes as inpatient, underwent stress testing, stress testing IMPRESSIONS Myocardial perfusion imaging is normal. -Patient was discharged home -If any recurrent chest pain shortness of breath, emergency room For MADDY with CKD, received IV fluids, sodium bicarb and creatinine remained 3.1. Discussed progression of underlying renal disease, she will need to follow-up with nephrology as outpatient For back pain, lumbar CT CT/CT lumbar spine wo con* [id number] IMPRESSION: 1. L3-4: LEFT paracentral disc protrusion contacting the LEFT traversing L4 nerve root. 2. Moderate central, bilateral subarticular recess and LEFT foraminal stenosis at L3-4. 3. L4-5: Mild central, bilateral subarticular recess and foraminal stenosis. Mild disc encroachment upon the traversing L5 nerve roots. 4. L2-3: Shallow RIGHT foraminal disc protrusion. -Discussed CT scan findings, likely explanation for back pain follow-up with primary care, consider referral to Dr. Fitch, pain control - Physical Exam Const: COMMON NORMALS: no acute distress and patient oriented x3 Resp: COMMON NORMALS: normal respiratory effort, No retractions, No use of accessory muscles and clear to auscultation bilaterally AUSCULTATION: clear to auscultation bilaterally Cardio: COMMON NORMALS: regular rate, regular rhythm, S1 normal heart sound present and S2 normal heart sound present RATE: regular rate RHYTHM: regular rhythm HEART SOUNDS: S1 normal heart sound present and S2 normal heart sound present GI: COMMON NORMALS: Normal to inspection, nondistended, normoactive bowel sounds present and non-tender Extremity: COMMON NORMALS: no pedal edema Neuro: COMMON NORMALS: patient oriented x3 Psych: COMMON NORMALS: mental status grossly normal Discharge Data Studies Completed and Pending Completed Studies During Hospitalization Category Date Time Status CT lumbar spine wo con* [id number] Routine Cat Scan 01/19/25 12:17 Completed XR chest 1V portable [id number] Routine Exams 01/19/25 08:46 Completed NM sonny perf SPECT r/s* [id number] Routine Nuc Med 01/19/25 02:23 Completed CV. echo complete* [id number] Routine Ultrasound 01/19/25 01:16 Completed US renal BI* [id number] Stat Ultrasound 01/19/25 12:17 Completed Pending at discharge Category Date Time Status Sestamibi Stress Test Request Routine Exams 01/20/25 06:00 Ordered Radiology Impressions Chest X-Ray 01/19/25 08:46 IMPRESSION: Findings most compatible with areas of atelectasis in both lower lungs as above. Unknown chronicity. Lumbar Spine CT 01/19/25 12:17 IMPRESSION: 1. L3-4: LEFT paracentral disc protrusion contacting the LEFT traversing L4 nerve root. 2. Moderate central, bilateral subarticular recess and LEFT foraminal stenosis at L3-4. 3. L4-5: Mild central, bilateral subarticular recess and foraminal stenosis. Mild disc encroachment upon the traversing L5 nerve roots. 4. L2-3: Shallow RIGHT foraminal disc protrusion. Renal Ultrasound 01/19/25 12:17 IMPRESSION: 1. No hydronephrosis. 2. Marked increased echogenicity and cortical thinning of each kidney consistent with chronic medical renal disease. 3. Numerous bilateral renal cysts. Laboratory Results WBC 8.51 10^3/uL (3.29-11.43) 01/20/25 05:34 RBC 3.31 10^6/uL (3.85-5.65) L 01/20/25 05:34 Hgb 10.40 g/dL (11.27-16.99) L 01/20/25 05:34 Hct 30.2 % (36-47) L 01/20/25 05:34 MCV 91.2 fl (85-98) 01/20/25 05:34 MCH 31.4 pg (27-33) 01/20/25 05:34 MCHC 34.4 g/dL (30-55) 01/20/25 05:34 RDW 12.3 % (12.1-15.1) 01/20/25 05:34 Plt Count 377 10^3/cmm (157-399) 01/20/25 05:34 MPV 9.8 fL (7.4-10.4) 01/20/25 05:34 Neut % (Auto) 64.6 % 01/20/25 05:34 Lymph % (Auto) 21.0 % 01/20/25 05:34 [place] % (Auto) 12.1 % 01/20/25 05:34 Eos % (Auto) 1.4 % 01/20/25 05:34 Baso % (Auto) 0.5 % 01/20/25 05:34 Neut # (Auto) 5.50 10^3/uL (1.8-7.7) 01/20/25 05:34 Lymph # (Auto) 1.8 10^3/uL (0.8-4.8) 01/20/25 05:34 [place] # (Auto) 1.0 10^3/uL (0.2-0.9) H 01/20/25 05:34 Eos # (Auto) 0.1 10^3/uL (0.0-0.8) 01/20/25 05:34 Baso # (Auto) 0.0 10^3/uL (0.0-0.1) 01/20/25 05:34 Nucleated RBC % (auto) 0 % 01/20/25 05:34 Nucleated RBCs # 0.0 /100WBC 01/20/25 05:34 Sodium 132 mmol/L (136-145) L 01/20/25 05:23 Potassium 4.7 mmol/L (3.5-5.1) 01/20/25 05:23 Chloride 103 mmol/L (98-107) 01/20/25 05:23 Carbon Dioxide 17 mmol/L (22-29) L 01/20/25 05:23 Anion Gap 16.7 (5-19) 01/20/25 05:23 BUN 63 mg/dL (8-23) H 01/20/25 05:23 Creatinine 3.1 mg/dL (0.5-0.9) H 01/20/25 05:23 GFR Calculation Not Reportable 01/20/25 05:23 Glucose 130 mg/dL (65-115) H 01/20/25 05:23 POC Glucose 132 mg/dL (70-110) H 01/20/25 06:08 Calculated Osmolality 294 mOsm/kg (285-295) 01/20/25 05:23 Calcium 8.7 mg/dL (8.5-10.5) 01/20/25 05:23 Magnesium 1.7 mg/dL (1.7-2.3) 01/20/25 05:23 Creatine Kinase 167 U/L (26-192) 01/19/25 10:32 Troponin T Baseline 84 ng/L (0-10) H 01/19/25 01:38 Troponin T Hi Sens 6Hr 83.24 ng/L (0-10) H 01/19/25 10:32 Troponin T Hi Sens 6Hr Delta -0.76 ng/L (0-12) L 01/19/25 10:32 C-Reactive Protein 3.0 mg/L (0.0-4.9) 01/19/25 01:38 NT-Pro-B Natriuret Pep 418 pg/mL (0-125) H 01/19/25 10:32 Vitals Last Vital Signs Temp 97.5 F L 01/20/25 08:00 Pulse 66 01/20/25 08:00 Resp 20 H 01/20/25 08:00 BP 134/74 01/20/25 08:00 Pulse Ox 98 01/20/25 08:00 O2 Del Method Room Air 01/20/25 08:00 Discharge Plan Discharge Patient Disposition: Home Condition: Stable Prescriptions: Continued aspirin [Lorin Low Dose Aspirin] 81 mg tablet,delayed release (DR/EC) 81 mg PO BEDTIME loratadine [Claritin] 10 mg tablet 10 mg PO QAM isosorbide mononitrate 60 mg tablet extended release 24 hr 60 mg PO DAILY Qty: 90 3RF clopidogrel 75 mg tablet 75 mg PO DAILY Qty: 90 3RF Repatha SureClick 140 mg/mL pen injector See Rx Instructions .ROUTE .COMPLEX Qty: 2 5RF Dose Instruction: inject 140mg SUBCUTANEOUSLY every TWO weeks Rx Instructions: inject 140mg SUBCUTANEOUSLY every TWO weeks ezetimibe [Zetia] 10 mg tablet 10 mg PO BEDTIME Qty: 90 3RF hydralazine 25 mg tablet 25 mg PO TID 90 Days Qty: 270 1RF liraglutide [Victoza 2-[place]] 0.6 mg/0.1 mL (18 mg/3 mL) pen injector See Rx Instructions .ROUTE .COMPLEX Qty: 9 5RF Dose Instruction: inject 1.8mg (0.3ml) SUBCUTANEOUSLY EVERY DAY Rx Instructions: inject 1.8mg (0.3ml) SUBCUTANEOUSLY EVERY DAY nifedipine 60 mg tablet extended release 24hr 60 mg PO DAILY 90 Days Qty: 90 3RF albuterol sulfate 90 mcg/actuation HFA aerosol inhaler 1 inh inhalation QID PRN (Reason: shortness of breath or wheezing) Qty: 8.5 0RF nitroglycerin 0.4 mg tablet, sublingual 0.4 mg sublingual Q5M PRN (Reason: chest pain) Qty: 30 2RF Rx Instructions: do not exceed 3 doses per episode levothyroxine 75 mcg tablet 75 mcg PO QAM Qty: 90 2RF cholecalciferol (vitamin D3) 1,250 mcg (50,000 unit) capsule 50,000 unit PO .weekly Qty: 30 1RF fluticasone furoate-vilanterol [Breo Ellipta] 100-25 mcg/dose blister with device 1 inh inhalation DAILY Qty: 60 3RF oxybutynin chloride 5 mg tablet extended release 24hr See Rx Instructions .ROUTE .COMPLEX Qty: 30 7RF Dose Instruction: Take 1 tablet by mouth once daily Rx Instructions: Take 1 tablet by mouth once daily acetaminophen 325 mg capsule 325 mg PO Q4H PRN (Reason: fever or postoperative pain) Qty: 60 0RF prednisolone acetate 1 % Drops,Suspension 1 drp ophthalmic (eye) Q2H Rx Instructions: RIGHT EYE Changed carvedilol 25 mg tablet 12.5 mg PO BID Qty: 180 3RF Rx Instructions: must administer with a meal/food Held furosemide 40 mg tablet 40 mg PO DAILY Qty: 90 2RF Hold Instructions: Resume on 01/26/25. Discontinued losartan 25 mg tablet 50 mg PO DAILY Discharge Orders: Discharge Order (Routine); Ordered 01/20/25 Ordered By: Sumanth Castillo Referrals: Evert Fitch DO [Physician] - 01/27/25 3:00 pm Cole Godinez MD [Primary Care Provider] - 02/19/25 9:30 am Discharge Diet: Cardiac Discharge Activity: Resume usual activity Patient Instructions: Chest Pain (GEN), Back Pain (GEN), Opioid Safety Activity Restrictions/Additional Instructions: - Please have Dr. Godinez recheck your kidney function in 1 week -If you develop flank pain, decreased urination please go to emergency room -Avoid all NSAIDs -For your back pain please follow-up Dr. Fitch's Discharge Attestations Time Spent in Discharge Care*: greater than 30 min Quality Metrics Clinical Quality Measures [ No reported AMI, CVA or VTE this stay] Coding Level of Care Code 96867 Total time (in minutes) for Discharge: 45 Diagnoses Anginal equivalent I20.89 Essential hypertension I10 Coronary artery disease involving [place] coronary artery of [place] heart without angina pectoris I25.10 Associated angina: without angina Coronary Disease-Associated Artery/Lesion type: [place] artery [place] vs. transplanted heart: [place] heart Statin intolerance Z78.9 H/O right coronary artery stent placement Z95.5 Heart failure with mildly reduced ejection fraction (HFmrEF) I50.22 Type 2 diabetes mellitus with diabetic nephropathy, without long-term current use of insulin E11.21 Diabetes mellitus fci insulin use: without fci use Stage 3a chronic kidney disease N18.30 CKD stage 4 due to type 2 diabetes mellitus E11.22; N18.4 Hyperkalemia E87.5 Overactive bladder N32.81 Sciatica, right side M54.31
[2025-01-20 11:20] LABS: Glucose Point of Care 199 mg/dL (70-110)
[2025-01-20] MEDS: insulin lispro 100 unit/1 mL SUBCUT (11:56)
== END 2025-01-20 13:50 | disposition home or self-care (01) ==
PROVIDERS: Admitting Provider Internal Medicine; PCP Family Medicine; Visit Provider Family Medicine
DX: I25.118 Atherosclerotic heart disease of native coronary artery with other forms of angina pectoris (principal); E78.5 Hyperlipidemia, unspecified; I45.10 Unspecified right bundle-branch block; I50.22 Chronic systolic (congestive) heart failure; I13.0 Hypertensive heart and chronic kidney disease with heart failure and stage 1 through stage 4 chronic kidney disease, or unspecified chronic kidney disease; I25.2 Old myocardial infarction; E03.9 Hypothyroidism, unspecified; E11.21 Type 2 diabetes mellitus with diabetic nephropathy; E87.5 Hyperkalemia; N32.81 Overactive bladder; M54.41 Lumbago with sciatica, right side; E11.22 Type 2 diabetes mellitus with diabetic chronic kidney disease; E87.20 Acidosis, unspecified; N18.4 Chronic kidney disease, stage 4 (severe); Z87.442 Personal history of urinary calculi; Z79.82 Long term (current) use of aspirin; Z79.899 Other long term (current) drug therapy; Z95.5 Presence of coronary angioplasty implant and graft; Z88.8 Allergy status to other drugs, medicaments and biological substances; Z79.890 Hormone replacement therapy; Z88.1 Allergy status to other antibiotic agents; N17.9 Acute kidney failure, unspecified
CPT/HCPCS: 36415; 36416; 71045; 72131; 76770; 78452; 80048; 82550; 82962; 83735; 83880; 84484; 85025; 86140; 93005; 93017; 93306; 96372; 96375; 97110; 97161; 97165; A9500; G0378; G0379; J1644; J1815; J2270; J2785; J7030

== ENCOUNTER → 2025-01-27 14:52 | Outpatient (BNVA) | payer MEDICARE, OTHER, SELFPAY | PROVIDERS: PCP Family Medicine; Visit Provider Orthopaedic Surgery | DX: M54.31 Sciatica, right side (principal); M54.50 Low back pain, unspecified | CPT/HCPCS: 72110; 99203 ==

== ENCOUNTER → 2025-02-19 10:14 | Outpatient (BNVA) | payer MEDICARE, OTHER, SELFPAY | PROVIDERS: Family Provider Family Medicine; PCP Family Medicine; Visit Provider Family Medicine | DX: E11.22 Type 2 diabetes mellitus with diabetic chronic kidney disease (principal); N18.4 Chronic kidney disease, stage 4 (severe) | CPT/HCPCS: 80048 ==

== ENCOUNTER → 2025-03-26 13:42 | Outpatient (BNVA) | payer MEDICARE, OTHER, SELFPAY | PROVIDERS: Family Provider Family Medicine; PCP Family Medicine; Visit Provider Internal Medicine Cardiovascular Disease | DX: Z01.818 Encounter for other preprocedural examination (principal); I13.0 Hypertensive heart and chronic kidney disease with heart failure and stage 1 through stage 4 chronic kidney disease, or unspecified chronic kidney disease; N18.9 Chronic kidney disease, unspecified; I50.9 Heart failure, unspecified; I25.10 Atherosclerotic heart disease of native coronary artery without angina pectoris; E78.5 Hyperlipidemia, unspecified; H44.009 Unspecified purulent endophthalmitis, unspecified eye; Z79.01 Long term (current) use of anticoagulants; Z79.82 Long term (current) use of aspirin; I25.2 Old myocardial infarction | CPT/HCPCS: 99214 ==

== ENCOUNTER → 2025-04-15 13:25 | Outpatient (BNVA) | payer MEDICARE, OTHER, SELFPAY | PROVIDERS: Family Provider Family Medicine; PCP Family Medicine; Visit Provider Family Medicine | DX: E03.9 Hypothyroidism, unspecified (principal); E78.00 Pure hypercholesterolemia, unspecified; E11.21 Type 2 diabetes mellitus with diabetic nephropathy; N18.30 Chronic kidney disease, stage 3 unspecified | CPT/HCPCS: 80053; 80061; 83036; 84439; 84443; 85025 ==

== ENCOUNTER 2025-07-28 10:48 | Outpatient (CLI) | payer MEDICARE, OTHER, SELFPAY ==
--- NOTE | 2025-07-28 10:53 | MM_ITS ---
WS: [id number] BILATERAL 3D TOMOSYNTHESIS DIGITAL SCREENING MAMMOGRAPHY WITH CAD CLINICAL INFORMATION: SCREENING HISTORY: Screening mammogram. No current complaints. COMPARISON: 2023 TECHNIQUE: Bilateral CC and MLO views. FINDINGS: Scattered fibroglandular densities bilaterally. No suspicious focal mass, asymmetry, calcifications, or architectural distortion. No evidence of malignancy. Incidental punctate calcifications. MM/MM [facility] tomosynthesis [id number] IMPRESSION: DENSITY: There are scattered areas of fibroglandular density. BI-RADS: 2 - Benign. FOLLOW UP: 1 Year Follow-up Recommend return to annual screening mammography.
== END 2025-07-28 10:49 | disposition home or self-care (01) ==
LOC: RAD 10:48
PROVIDERS: PCP Family Medicine; Visit Provider Family Medicine
DX: Z12.31 Encounter for screening mammogram for malignant neoplasm of breast (principal); R92.323 Mammographic fibroglandular density, bilateral breasts; R92.1 Mammographic calcification found on diagnostic imaging of breast
CPT/HCPCS: 77063; 77067

== ENCOUNTER → 2025-08-10 13:49 | Outpatient (BNVA) | payer MEDICARE, OTHER, SELFPAY | PROVIDERS: PCP Family Medicine; Visit Provider Nurse Practitioner Family | DX: L82.1 Other seborrheic keratosis (principal); L91.8 Other hypertrophic disorders of the skin; L57.8 Other skin changes due to chronic exposure to nonionizing radiation; D48.5 Neoplasm of uncertain behavior of skin; L57.0 Actinic keratosis | CPT/HCPCS: 11102; 17000; 99213 ==

== ENCOUNTER → 2025-09-24 14:11 | Outpatient (BNVA) | payer MEDICARE, OTHER, SELFPAY | PROVIDERS: PCP Family Medicine; Visit Provider Internal Medicine Cardiovascular Disease | DX: Z01.810 Encounter for preprocedural cardiovascular examination (principal); H44.009 Unspecified purulent endophthalmitis, unspecified eye; I13.0 Hypertensive heart and chronic kidney disease with heart failure and stage 1 through stage 4 chronic kidney disease, or unspecified chronic kidney disease; I50.23 Acute on chronic systolic (congestive) heart failure; N18.9 Chronic kidney disease, unspecified; I25.10 Atherosclerotic heart disease of native coronary artery without angina pectoris | CPT/HCPCS: 99214 ==